=== PATIENT | female | born 1945 | race Caucasian/White ===

== ENCOUNTER → 2019-05-27 16:26 | Outpatient (CLI) | payer MEDICARE, SELFPAY ==
--- NOTE | 2019-05-27 16:29 | MM_ITS ---
PROCEDURE: MM DIG SCREENING MAMM BI W/CAD Patient Age:74Y CLINICAL INDICATION: SCREENING. No hormones but no new complaints. Noncontributory family history COMPARISON: Prior Reports from 07/19/2008 Prior Reports from 09/01/2009 [facility] DIGITAL MAMM-SCREEN BILATERAL from 11/28/2010 [facility] DIGITAL MAMM-SCREEN BILATERAL from 02/05/2012 [facility] DIG MAMM-SCREEN OLIMPIA from 04/10/2013 [facility] DIG MAMM-SCREEN OLIMPIA from 07/07/2014 [facility] DIG MAMM-DX OLIMPIA W ADD VIEWS from 07/27/2014 [facility] DIG MAMM-SCREEN OLIMPIA from 12/08/2015 [facility] DIG MAMM-SCREEN OLIMPIA W/CAD from 04/02/2017 TECHNIQUE: Standard CC and MLO images were obtained. R2 CAD reviewed. Additional MLO nipple profile right and left breast MLO. FINDINGS: Right breast: No new areas of significant concern.. Three dense benign appearing calcifications. Follow up right mammogram 1 year Left breast: Approximate 8 mm focal density medial left breast appears more pronounced today. It has been seen on multiple prior studies but is more denser and slightly more pronounced today and denser than on studies from past 3 years. I favor this is merely reflection of summation shadow/followed by left breast ultrasound overlapping shadows but I would suggest the patient return for spot CC and MLO views along with a full 90 degree view left breast. IMPRESSION: Left breast: Focal density medial breast on CC view, is slightly more pronounced and denser than on recent comparison studies. I favor this most likely summation shadow, but would recommend additional views and ultrasound left breast to further evaluate Right breast but no new areas of concern follow-up right mammogram 1 year BI-RAD Category: 0 Need Additional Imaging Evaluation FOLLOW-UP: IMM Immediate Follow-up Recommended Spot views left breast along with left breast ultrasound (A letter has been sent to the patient regarding results of the study.) Dictated by: Romain Gomez MD 05/28/2019 10:51 Electronically signed by Romain Gomez MD in [place] 05/28/2019 10:51
== END ==
PROVIDERS: PCP Physician Assistant; Visit Provider Physician Assistant
DX: Z12.31 Encounter for screening mammogram for malignant neoplasm of breast (principal)
CPT/HCPCS: 77067

== ENCOUNTER → 2019-07-08 13:42 | Outpatient (CLI) | payer MEDICARE, SELFPAY ==
--- NOTE | 2019-07-08 13:44 | MM_ITS ---
PROCEDURE: MM DIG MAMM DX UNILAT LT CAD CLINICAL INDICATION: ABNORMAL MAMM COMPARISON: [facility] DIG MAMM-SCREEN OLIMPIA from 12/08/2015 [facility] DIG MAMM-SCREEN OLIMPIA W/CAD from 04/02/2017 MM DIG SCREENING MAMM BI W/CAD from 05/27/2019 TECHNIQUE: Standard CC and MLO images were obtained. R2 CAD reviewed. FINDINGS: The questionable asymmetric density described on the previous report appears to partially press out on the spot compression CC view. It is not definitely seen on the 90 degree lateral view. IMPRESSION: Essentially negative problem solving views and recommend the patient continue with yearly screening mammography BI-RAD Category: 1 Negative FOLLOW-UP: 1YR 1 Year Follow-up (A letter has been sent to the patient regarding results of the study.) Dictated by: Dr. Temo Macias MD 07/10/2019 10:[address] Temo Macias MD in [place] 07/10/2019 10:03
--- NOTE | 2019-07-08 13:44 | US_ITS ---
PROCEDURE: US BREAST LT COMPLETE CLINICAL INDICATION: ABNORMAL MAMM COMPARISON: No exams were available for comparison FINDINGS: There is a tiny hypoechoic and likely cystic lesion 1 o'clock position near the nipple measuring 0.3 by 0.5 x 0.2 cm. There is a similar hypoechoic cystic-appearing lesion at the 3 o'clock position mid breast measuring 0.5 by 0.4 x 0.2 cm. Otherwise the adjacent breast parenchyma shows normal appearing echogenicity. There is no suspicious cystic or solid mass and no findings to suggest architectural distortion. There are normal appearing nodes in the axilla. IMPRESSION: Tiny benign-appearing cystic lesions, no suspicious abnormality noted and recommended patient continue with yearly screening mammography Dictated by: Dr. Temo Macias MD 07/10/2019 10:[address] Temo Macias MD in [place] 07/10/2019 10:05
== END ==
PROVIDERS: PCP Physician Assistant; Visit Provider Physician Assistant
DX: R92.8 Other abnormal and inconclusive findings on diagnostic imaging of breast (principal)
CPT/HCPCS: 76641; 77065

== ENCOUNTER → 2020-07-14 12:53 | Outpatient (CLI) | payer MEDICARE, SELFPAY ==
--- NOTE | 2020-07-14 13:20 | MM_ITS ---
PROCEDURE: MM DIG SCREENING MAMM BI W/CAD Referring Doctor: Livier Azevedo Patient Age:75Y CLINICAL INDICATION: SCREENING seventy 75-year-old . No new complaints. Noncontributory family history. COMPARISON: MG [facility] DIGITAL MAMM-SCREEN BILATERAL from 02/05/2012 MG [facility] DIG MAMM-SCREEN OLIMPIA from 04/10/2013 MG [facility] DIG MAMM-SCREEN OLIMPIA from 07/07/2014 MG [facility] DIG MAMM-DX OLIMPIA W ADD VIEWS from 07/27/2014 MG [facility] DIG MAMM-SCREEN LOIMPIA from 12/08/2015 MG [facility] DIG MAMM-SCREEN OLIMPIA W/CAD from 04/02/2017 MG MM DIG SCREENING MAMM BI W/CAD from 05/27/2019 MG MM DIG MAMM DX UNILAT LT CAD from 07/08/2019 TECHNIQUE: Standard CC and MLO images were obtained. R2 CAD reviewed. Bilateral digital breast tomosynthesis included. FINDINGS: Mild/moderate residual fibroglandular elements. Stable mild areas of asymmetric fibroglandular tissue but no new dominant nor new suspicious mass but no suspicious calcifications but. Benign vascular calcifications bilateral. Right breast no new areas concern The dense tissue retroareolar region right is stable Left breast: No new areas of concern Stable areas of asymmetry of the lateral left breast IMPRESSION: Stable bilateral mammogram with no new areas of significant concern Bilateral follow-up 1 year BI-RAD Category: 2 Benign Finding(s) FOLLOW-UP: 1YR 1 Year Follow-up the (A letter has been sent to the patient regarding results of the study.) Dictated by: Romain Gomez MD 07/14/2020 18:15 Romain Gomez MD in [place] 07/14/2020 18:15
== END ==
PROVIDERS: PCP Physician Assistant; Visit Provider Physician Assistant
DX: Z12.31 Encounter for screening mammogram for malignant neoplasm of breast (principal)
CPT/HCPCS: 77063; 77067

== ENCOUNTER → 2021-07-18 15:44 | Outpatient (CLI) | payer MEDICARE, SELFPAY ==
--- NOTE | 2021-07-18 15:47 | MM_ITS ---
PROCEDURE INFORMATION: Exam: MG Bilateral Screening 3D Mammography Exam date and time: 07/18/2021 3:47 PM Age: 76 years old Clinical indication: Encounter for screening mammogram for malignant neoplasm of breast TECHNIQUE: Imaging protocol: Bilateral screening tomosynthesis and 2D mammography including computer-aided detection (CAD) when performed. COMPARISON: 1. MG MM DIG SCREENING MAMM BI W/CAD 07/14/2020 1:19 PM 2. MG MM DIG MAMM DX UNILAT LT CAD 07/08/2019 2:25 PM 3. MG MM DIG SCREENING MAMM BI W/CAD 05/27/2019 4:38 PM FINDINGS: MAMMOGRAPHY: Breast composition: There are scattered areas of fibroglandular density. Mass: No suspicious masses. Architectural distortion: No suspicious distortion. Calcifications: No suspicious calcifications. Asymmetric density: None. Skin thickening: None. Axillary adenopathy: None. IMPRESSION: No mammographic evidence of malignancy. Annual screening is recommended unless otherwise clinically indicated. ASSESSMENT: BI-RADS Category 1: Negative
== END ==
PROVIDERS: PCP Physician Assistant; Visit Provider Emergency Medicine
DX: Z12.31 Encounter for screening mammogram for malignant neoplasm of breast (principal)
CPT/HCPCS: 77063; 77067

== ENCOUNTER → 2022-08-21 15:25 | Outpatient (CLI) | payer MEDICARE, SELFPAY ==
--- NOTE | 2022-08-21 15:56 | MM_ITS ---
PROCEDURE INFORMATION: Exam: MG Bilateral Screening 3D Mammography Exam date and time: 08/21/2022 3:52 PM Age: 77 years old Clinical indication: Screening examination TECHNIQUE: Imaging protocol: Bilateral Screening tomosynthesis and 2D mammography including computer-aided detection (CAD) when performed. COMPARISON: 1. MG MM DIG SCREENING MAMM BI W/CAD 07/18/2021 3:50 PM 2. MG MM DIG SCREENING MAMM BI W/CAD 07/14/2020 1:19 PM FINDINGS: MAMMOGRAPHY: Breast composition: There are scattered areas of fibroglandular density. Mass: Questionable 1.0 cm mass in the anterior third of the left medial breast only well seen in the craniocaudal projection Architectural distortion: None. Calcifications: No suspicious calcifications. Asymmetric density: None. Skin thickening: None. Axillary adenopathy: None. IMPRESSION: Patient to be recalled for a spot compression view of the left breast in the craniocaudal projection, a full 90 degree lateral view of the left breast, and left breast ultrasound for further evaluation of a questionable left breast mass. ASSESSMENT: BI-RADS Category 0: Incomplete- Need Additional Imaging Evaluation and/or Prior Mammograms for Comparison
== END ==
PROVIDERS: PCP Physician Assistant; Visit Provider Emergency Medicine
DX: Z12.31 Encounter for screening mammogram for malignant neoplasm of breast (principal)
CPT/HCPCS: 77063; 77067

== ENCOUNTER → 2022-09-10 13:30 | Outpatient (CLI) | payer MEDICARE, SELFPAY ==
--- NOTE | 2022-09-10 13:33 | MM_ITS ---
PROCEDURE INFORMATION: Exam: US Left Breast, Complete MG Left Diagnostic Breast Tomosynthesis Exam date and time: 09/10/2022 1:32 PM Age: 77 years old Clinical indication: Patient recalled on the basis of a screening mammogram for further evaluation; Left breast; mass TECHNIQUE: Imaging protocol: Complete ultrasound of all four quadrants of the Left breast and the retroareolar regions, including ultrasound of the axilla when performed. Left Diagnostic tomosynthesis and 2D mammography including computer-aided detection (CAD) when performed. Unilateral or bilateral exam. COMPARISON: 1. MG MM DIG SCREENING MAMM BI W/CAD 08/21/2022 3:52 PM 2. MG MM DIG SCREENING MAMM BI W/CAD 07/18/2021 3:50 PM FINDINGS: MAMMOGRAPHY: Digital diagnostic spot compression views of the left breast and 90 degree lateral view of the left breast demonstrate normal overlapping fibroglandular structures without persistent mass or asymmetry identified. ULTRASOUND: Sonographic images of the left breast including the retroareolar region, all 4 quadrants and the axilla do not demonstrate any solid masses. Few subcentimeter cysts are scattered in the left breast. No architectural distortion or acoustical shadowing. No skin thickening or axillary adenopathy. IMPRESSION: No mammographic or sonographic evidence of malignancy. Annual bilateral mammographic screening is recommended unless otherwise clinically indicated. ASSESSMENT: BI-RADS Category 2: Benign
== END ==
PROVIDERS: PCP Emergency Medicine; Visit Provider Emergency Medicine
DX: R92.8 Other abnormal and inconclusive findings on diagnostic imaging of breast (principal)
CPT/HCPCS: 76641; 77061; 77065; G0279

== ENCOUNTER 2023-10-30 14:02 | Outpatient (CLI) | payer MEDICARE, SELFPAY ==
--- NOTE | 2023-10-30 14:09 | MM_ITS ---
PROCEDURE INFORMATION: Exam: MG Bilateral Screening 3D Mammography Exam date and time: 10/30/2023 2:10 PM Age: 78 years old Clinical indication: Screening mammogram TECHNIQUE: Imaging protocol: Bilateral Screening tomosynthesis and 2D mammography including computer-aided detection (CAD) when performed. COMPARISON: 1. MG MM DIG MAMM DX UNILAT LT CAD 09/10/2022 1:32 PM 2. MG MM DIG SCREENING MAMM BI W/CAD 08/21/2022 3:52 PM 3. MG MM DIG SCREENING MAMM BI W/CAD 07/18/2021 3:50 PM FINDINGS: MAMMOGRAPHY: Breast composition: There are scattered areas of fibroglandular density. Mass: None. Architectural distortion: No new or suspicious architectural distortion. Calcifications: No new or suspicious calcifications are present Asymmetric density: No new or suspicious asymmetric density is present Skin thickening: None. Axillary adenopathy: None. IMPRESSION: No mammographic evidence of malignancy. Recommend annual screening mammography unless otherwise clinically indicated. ASSESSMENT: BI-RADS category 1: Negative.
== END 2023-10-30 23:59 ==
LOC: RAD 14:04
PROVIDERS: PCP Emergency Medicine; Visit Provider Emergency Medicine
DX: Z12.31 Encounter for screening mammogram for malignant neoplasm of breast (principal)
CPT/HCPCS: 77063; 77067

== ENCOUNTER 2024-09-11 17:03 | Observation (INO) | payer MEDICARE, SELFPAY ==
[2024-09-11] VITALS (15 sets, daily range): BP systolic 133–181; BP diastolic 62–116; PULSE 79–89; RESP 14–21; TEMP 36.6–36.8; O2SAT 93–100; BMI 42.9; BMI 30.9
--- NOTE | 2024-09-11 17:11 | ECG_ITS ---
APPROVED REPORT Exam: Resting ECG HR:83 bpm ECG Measurements Heart Rate 83 AXES MI 193 P 85 QRSd 148 QRS -50 QT 380 T 5 QTc 420 Conclusion SINUS RHYTHM RIGHT BUNDLE BRANCH BLOCK [120+ ms QRS DURATION, UPRIGHT V1, 40+ ms S IN I/aVL/V4/V5/V6] LEFT ANTERIOR FASCICULAR BLOCK [QRS AXIS <= -45, QR IN I, RS IN II] Electronically signed by : ROSITA SHEA, 09/12/2024 00:17:27
--- NOTE | 2024-09-11 17:24 | CT_ITS ---
No free air PROCEDURE INFORMATION: Exam: CT Abdomen And Pelvis With Contrast Exam date and time: 09/11/2024 7:05 PM Age: 79 years old Clinical indication: Abdominal pain; Generalized; Additional info: Abd pain, recent uroscopy with instrumentation. TECHNIQUE: Imaging protocol: Computed tomography of the abdomen and pelvis with contrast. Radiation optimization: All CT scans at this facility use at least one of these dose optimization techniques: automated exposure control; mA and/or kV adjustment per patient size (includes targeted exams where dose is matched to clinical indication); or iterative reconstruction. Contrast material: ISOVUE; Contrast volume: 75 ml; Contrast route: IV; COMPARISON: CR XR CHEST PORTABLE 09/11/2024 5:34 PM FINDINGS: Lungs: There is minor subpleural atelectasis of the dependent portions of the lungs. Pleural spaces: Minor bilateral pleural effusions are present. Heart: There is no evidence of pericardial fluid collections. Diaphragm: A small hiatal hernia is present. There is mild elevation of the right hemidiaphragm. There is mild elevation of the right hemidiaphragm. Liver: There is minor intrahepatic central biliary ductal dilatation, likely on a post cholecystectomy basis. The liver is otherwise within range of normal. Gallbladder and biliary ducts: There has been a cholecystectomy. There is a mild, expected degree of common bile duct dilation. Pancreas: There is diffuse atrophy of the pancreatic parenchyma. Spleen: The spleen is normal. Adrenal glands: The adrenal glands are normal. Kidneys and ureters: There is a right ureterostomy stent in appropriate position. There is mild right hydronephrosis with abrupt transition from renal pelvis to proximal right ureter raising the question of UPJ obstruction. Similar but less prominent findings seen on the left. There are 2 right renal cysts. There are few additional small renal hypodensities which are too small to adequately characterize. Statistically, these are likely cysts. There are a few small nonobstructing right renal collecting system calcifications. There are few areas of renal cortical scarring bilaterally. Stomach and bowel: Aside from the hiatal hernia, the stomach is within range of normal. Lack of gastrointestinal contrast limits evaluation of bowel. Unopacified loops of small bowel within range of normal. There is mildly excessive fecal material within the colon. The colon is otherwise within range of normal. The duodenum appears normal. There are few colonic diverticula. No evidence of diverticulitis. Appendix: No evidence of appendicitis. Intraperitoneal space: There is no evidence of free intraperitoneal or pelvic fluid. No free air. Vasculature: The aorta and iliac arteries demonstrate mild atherosclerotic calcification. Lymph nodes: There are few small shotty periportal and peripancreatic lymph nodes. One of the periportal lymph node measures 10 mm in short axis. No enlarged lymph nodes. Urinary bladder: There is a small linear focus of increased density measuring 8.7 mm within the left inferior urinary bladder which may reflect small stone but cannot exclude small catheter remnant in the appropriate clinical setting. Correlate clinically. Reproductive: The uterus is either atrophic or absent. No adnexal masses. Bones/joints: There are mild degenerative changes of the symphyseal pubic joint. There are mild degenerative changes of the sacroiliac joints. The thoracolumbar spine demonstrates mild degenerative changes at multiple levels. Soft tissues: There is a small fat containing left inguinal hernia. Injection granulomas are present in the right gluteal soft tissues. IMPRESSION: 1. Right ureterostomy stent in appropriate positioning. 2. Right nephrolithiasis. 3. Bilateral [id number] proximal hydronephrosis/pelviectasis with abrupt transition at the UPJ raising the question of UPJ obstruction. 4. Small linear focus of increased density measuring 8.7 mm within the left inferior urinary bladder May reflect small stone but can not exclude small catheter remnant in the appropriate clinical setting. 5. Small hiatal hernia. 6. Mild constipation. COMMENTS: Consistent with the [employer]'s Incidental Findings Committee white paper (J Am Kristy Radiol 2018): Any incidental renal lesion less than 1 cm or classified as too small to characterize, or any incidental cystic renal lesion characterized as simple-appearing, is likely benign. No follow-up imaging is recommended for these lesions per consensus recommendations based on imaging criteria.
--- NOTE | 2024-09-11 17:25 | XR_ITS ---
PROCEDURE INFORMATION: Exam: XR Chest Exam date and time: 09/11/2024 5:34 PM Age: 79 years old Clinical indication: Shortness of breath; Additional info: Shortness of air TECHNIQUE: Imaging protocol: Radiologic exam of the chest. Views: 1 view. COMPARISON: No relevant prior studies available. FINDINGS: Lungs: There is mild elevation of the right hemidiaphragm.Lung volumes are mildly diminished. The lungs appear clear. No focal areas of consolidation. Pleural spaces: No pleural effusions. Negative for pneumothorax. Heart/Mediastinum: Cardiac silhouette and pulmonary vasculature are within range of normal. The descending thoracic aorta is mildly unfolded. Bones/joints: There is no evidence of acute fracture. IMPRESSION: Negative for an acute cardiopulmonary abnormality.
--- NOTE | 2024-09-11 17:28 | ED_ITS ---
<Statement entered by Johana Melgar DO - 09/11/24 23:27> I was consulted by the ANGELLA, and we discussed the complexity of the problems being addressed. I approved the treatment and management plan for this patient's care in the emergency department, thus performing a substantive portion of the medical decision making. I also assumed total care of the patient at 2100 at time of departure of previous physician. She has left leg pain and altered mental status, unclear why exactly she is altered at this time given that lab evaluation is not significantly remarkable. I performed bedside ultrasound of the left lower extremity and noted minor cobblestoning in the left lower extremity consistent with edema, but I do not note any blood clot. I also do not note any abscess or gas. X-rays of the left lower extremity do not demonstrate any acute bony abnormality. Records reviewed from recent admission and [facility], and I also called and had an indirect discussion with Dr. Chapman with urology at [facility] who reviewed the patient's records. 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 Given no significant EDDIE and urine that is clean, he does not feel this requires urgent urologic evaluation as her urologic condition is likely stable. CT head of course was obscured by the fact that she had had a CT of her belly with contrast prior to obtaining this, but no obvious large space-occupying lesion or large hemorrhage. On multiple subsequent reassessments, the patient continues to complain of leg pain and continues to have altered mental status. Her extremity is warm and well-perfused, does not have any redness, warmth, skin changes or other concerns that would preclude me to believe that she has an infection, and overall workup is very reassuring. It is unclear what is causing her pain or altered mental status at this time, so I feel she would benefit from admission for continued evaluation and management. I had an indirect discussion with the hospitalist who admitted the patient in stable condition. Johana Melgar DO Discharge Plan Disposition Chief Complaint: PAIN Prescriptions Prescriptions: No Action tizanidine 4 mg Tablet 4 mg PO HS methenamine hippurate 1 gram Tablet 1 g PO BID magnesium oxide 400 mg (241.3 mg magnesium) tablet 400 mg PO DAILY Patient Comments: TAKE 1 TABLET BY MOUTH DAILY amoxicillin-pot clavulanate 500-125 mg tablet 1 tab PO DAILY levocetirizine 5 mg Tablet 5 mg PO HS fesoterodine 8 mg tablet extended release 24 hr 8 mg PO DAILY Linzess 145 mcg Capsule 145 mcg PO DAILY Referrals Follow up/Referrals: George Garcia MD [Primary Care Provider] - See instructions Print Language Print Language: Romanian Discharge ED Provider: Johana Melgar General Adult HPI <INOCENCIO Damon - Last Filed: 09/11/24 21:03> General Chief complaint: PAIN Stated complaint: post sepsis Time Seen by Provider: 09/11/24 17:11 Mode of Arrival: EMS Limitations: No Limitations Description of Symptoms (Recalled from ER Triage Doc. by RN): Patient reports left leg pain. Rates it at a ten and was recently discharged from [place] related to sepsis. History of Present Illness HPI narrative: This is a 79-year-old female who presents to the emergency department via EMS for some left leg pain that started yesterday worse with ambulation no trauma per history, history is obtained from and son at the bedside, patient has data deficient history of what sounds like cystoscopic with ureteral stent and placed on the right however this is data deficient on 09/01/2024 by urology. Patient did well with the procedure, however on 09/03/2024 she was admitted to outside facility for sepsis , discharged home on 09/07/2024, did well and was seen by home health today worried about blood clot in the left leg . Thus presented to the emerged part for further evaluation. Patient denies any fever chills chest pain shortness of breath, GCS of 14 some confusion about date and time however this is somewhat normal for the patient according to patient's family at the bedside. However, her confusion/fatigue has somewhat increased throughout the day which is concerning for her. She denies abdominal pain nausea vomiting constipation diarrhea no hematuria melena hematochezia or hematemesis, denies urinary type symptomatology, patient is on Augmentin p.o. antibiotic for what sounds like UTI from outside facility, other past medical history consistent with/depression, OAB, hypertension, GERD, IBS, history of vitals grossly unremarkable, unknown history of substance use. Onset (ago): day(s) Related Data Home Medications ?Medication ?Instructions ?Recorded ?Confirmed amoxicillin 500 mg-potassium 1 tab PO DAILY 09/11/24 09/11/24 clavulanate 125 mg tablet fesoterodine 8 mg tablet,extended 8 mg PO DAILY 09/11/24 09/11/24 release 24 hr levocetirizine 5 mg tablet 5 mg PO HS 09/11/24 09/11/24 linaclotide 145 mcg capsule 145 mcg PO DAILY 09/11/24 09/11/24 (Linzess) magnesium oxide 400 mg (241.3 mg 400 mg PO DAILY 09/11/24 09/11/24 magnesium) tablet methenamine hippurate 1 gram tablet 1 g PO BID 09/11/24 09/11/24 tizanidine 4 mg tablet 4 mg PO HS 09/11/24 09/11/24 Allergies Allergy/AdvReac Type Severity Reaction Status Date / Time From FLOXIN Allergy Unknown I-HIVES Uncoded 07/30/17 14:40 From STADOL Allergy Unknown ITCHING Uncoded 07/30/17 14:40 PREDNISONE Allergy Unknown NA-NAUSEA Uncoded 07/30/17 14:40 SULFA (SULFONAMIDE) Allergy Unknown I-ITCHING Uncoded 07/30/17 14:40 PFSH <INOCENCIO Damon - Last Filed: 09/11/24 21:03> [facility] Disclaimer: The information contained in this section may have been updated after the patient was seen, as this information can be updated by other users. Social History Smoking Status: Never smoker alcohol intake: never current occupational status: other Travel in the last 8 weeks: None <INOCENCIO Damon - Last Filed: 09/11/24 21:03> ROS Obtained: Yes All systems reviewed & no additional complaints except as documented Physical Exam <INOCENCIO Damon - Last Filed: 09/11/24 21:03> General General appearance: alert and in no apparent distress Head Head exam: atraumatic and normocephalic Eye Eye exam: Present PERRL and EOMI ENT ENT exam: Present mucous membranes moist Neck Neck exam: Present normal inspection Chest Chest inspection: Present normal inspection and symmetric chest wall rise Respiratory Respiratory exam: Present normal lung sounds bilaterally; Absent respiratory distress Cardiovascular Cardiovascular exam: Present regular rate and normal rhythm Abdominal Exam Abdominal exam: Present soft; Absent tenderness, guarding, rebound or rigidity Extremities Exam Extremities exam: Present normal inspection, tenderness, calf tenderness and other (Positive Homans' sign on the left, no obvious erythema, no real hot to touch sensation, some minimal lower extremity swelling nonpitting) Neurological Exam Neurological exam: Present alert and other (GCS of 14 some confusion about date and time unsure of chronicity, moves extremities to command) Psychiatric Psychiatric exam: Present normal affect Skin Skin exam: Present warm and dry Medical Decision Making <INOCENCIO Damon - Last Filed: 09/11/24 21:03> Medical Records Medical records reviewed: Yes I reviewed the patient's medical records. Screening: Per USPSTF and CDC recommendations, given the prevalence of disease in our region, it is our hospital?s policy to screen for HIV and viral Hepatitis for all patients aged 18 and over and those with ongoing risk factors. Isaiah Inquiry Pt receiving controlled substance: No Isaiah was queried for this patient: No Vital Signs: 09/11/24 17:04 09/11/24 17:06 09/11/24 18:01 Temperature 97.9 F Temperature Source Oral Pulse Rate 86 83 Pulse Rate [Radial] 83 Respiratory Rate 16 19 Blood Pressure 133/64 149/89 H Blood Pressure [Right Arm] 133/64 Blood Pressure Mean Blood Pressure Mean [Right Arm] 87 Blood Pressure Source [Right Arm] Automatic Cuff Blood Pressure Position [Right Arm] Sitting 02 Sat by Pulse Oximetry 96 93 L 96 Oxygen Delivery Method Room Air Room Air Room Air 09/11/24 19:10 09/11/24 19:15 09/11/24 19:24 Temperature Temperature Source Pulse Rate 89 86 Pulse Rate [Radial] Respiratory Rate 17 21 17 Blood Pressure 167/73 H Blood Pressure [Right Arm] Blood Pressure Mean Blood Pressure Mean [Right Arm] Blood Pressure Source [Right Arm] Blood Pressure Position [Right Arm] 02 Sat by Pulse Oximetry 95 99 Oxygen Delivery Method 09/11/24 19:30 09/11/24 20:00 Temperature Temperature Source Pulse Rate 86 82 Pulse Rate [Radial] Respiratory Rate 14 20 Blood Pressure 175/90 H 176/116 H Blood Pressure [Right Arm] Blood Pressure Mean 118 126 Blood Pressure Mean [Right Arm] Blood Pressure Source [Right Arm] Blood Pressure Position [Right Arm] 02 Sat by Pulse Oximetry 99 99 Oxygen Delivery Method Lab Data Lab Results 09/11/24 17:22: WBC 10.3, RBC 4.30, Hgb 11.9 L, Hct 36.3 L, MCV 84.4, MCH 27.7, MCHC 32.8, RDW 15.0, Plt Count 213, MPV 10.1, Neut % (Auto) 73.6, Lymph % (Auto) 10.9, [place] % (Auto) 11.0 H, Eos % (Auto) 3.3, Baso % (Auto) 0.4, Neut # (Auto) 7.6, Lymph # (Auto) 1.1, [place] # (Auto) 1.1 H, Eos # (Auto) 0.3, Baso # (Auto) 0.0, Sodium 137, Potassium 4.0, Chloride 107, Carbon Dioxide 23, Anion Gap 11.0, BUN 19 H, Creatinine 1.00, Estimated Creat Clear 39, Estimated GFR 53 L, Est GFR ( Amer) 65, Glucose 184 H, Calcium 10.5 H, Magnesium 2.0, Total Bilirubin 0.4, AST 44 H, ALT 28, Alkaline Phosphatase 246 H, Troponin I < 0.01, NT-Pro-B Natriuret Pep 1760 H, Total Protein 6.6, Albumin 3.6, Globulin 3.0, Albumin/Globulin Ratio 1.2, Lipase 90, Procalcitonin 0.084, TSH 1.06, HCV Ab SABINO w/Rflx PCR Qn Negative, HIV Ag/Ab Combo Qual Negative 09/11/24 19:23: Lactate 1.5 09/11/24 20:28: Urine Color Yellow, Urine Appearance Clear, Urine pH 6.0, Ur Specific [place] 1.015, Urine Protein Negative, Urine Glucose (UA) Negative, Urine Ketones Negative, Urine Blood 1+ A, Urine Nitrate Negative, Urine Bilirubin Negative, Urine Urobilinogen 0.2, Ur Leukocyte Esterase 1+ A, Urine RBC 3-5, Urine WBC Occasional, Ur Squamous Epith Cells None, Urine Bacteria Trace 09/11/24 17:22 09/11/24 17:22 Orders (Tests/Meds): ED MEDICATIONS Discontinued Medications Generic Name Dose Route Start Last Admin Trade Name Freq PRN Reason Stop Dose Admin Iopamidol 75 ml 09/11/24 19:17 09/11/24 19:18 Iopamidol-370 (76%);100ml Bottle IV 09/11/24 19:18 75 ml ONCE ONE Administration Sodium Chloride 10 ml 09/11/24 19:17 09/11/24 19:18 Sodium Chloride 0.9% 10ml Syr (Rad Only) IV 09/11/24 19:18 10 ml ONCE ONE Administration ORDERS Category Date Time Status CT abdomen pelvis w con Stat Cat Scan 09/11/24 17:[address] head/brain wo con Stat Cat Scan 09/11/24 20:28 Taken Femur XR left 2 views [XR femur LT 2V] Stat Exams 09/11/24 20:52 Ordered Hip XR left minimum 2 views [XR hip LT 2-3V w/pelvis] Exams 09/11/24 20:52 Ordered Stat Knee XR left 3 views [XR knee LT 3V] Stat Exams 09/11/24 20:52 Ordered POCUS Point of Care (ER Only) Stat Exams 09/11/24 17:26 Completed Tibia/fibula XR left 2 views [XR tibia fibula LT 2V] Exams 09/11/24 20:52 Ordered Stat XR chest portable Stat Exams 09/11/24 17:25 Completed Complete Blood Count Auto Diff Stat Lab 09/11/24 17:22 Completed Comprehensive Metabolic Panel Stat Lab 09/11/24 17:22 Completed HIV Combo Stat Lab 09/11/24 17:22 Completed Hepatitis C Ab Qual. W/ RFX Stat Lab 09/11/24 17:22 Completed Lactic Acid Stat Lab 09/11/24 19:23 Completed Lipase Stat Lab 09/11/24 17:22 Completed MAG [Magnesium] Stat Lab 09/11/24 17:22 Completed NT Pro Brain Natriuretic Pep. Stat Lab 09/11/24 17:22 Completed Procalcitonin Stat Lab 09/11/24 17:22 Completed TSH [Thyroid Stimulating Hormone] Stat Lab 09/11/24 17:22 Completed Troponin I Q3H Lab 09/11/24 20:28 Received Troponin I Q3H Lab 09/11/24 23:30 Ordered Troponin I Stat Lab 09/11/24 17:22 Completed Urinalysis and Microscopic Stat Lab 09/11/24 20:28 Completed Urine Culture Stat Micro 09/11/24 20:28 Received Medical Decision Narrative: 79-year-old female presents to the emergency department via EMS for left leg pain, see HPI for other detail past medical history, differential diagnosis to include but not limited to DVT, cardiac arrhythmia, electrolyte disturbance, acute UTI, acute pyelonephritis, nephrolithiasis, ureterolithiasis, pneumonia. Will obtain basic laboratory studies lactate lipase, troponin, proBNP, Pro-Jhony, urinalysis, will obtain chest x-ray, [id number] ultrasound of the left lower extremity, CT abdomen pelvis with contrast, magnesium level, EKG. CBC unremarkable CMP is notable for BUN elevation at 19, hypercalcemia 10.5, AST has been low at 44, lipase within normal limits. proBNP is minimally elevated at 1760, troponin within normal limits procalcitonin within normal limits, lipase normalized. I reviewed the patient's chest x-ray along the corresponding radiologic report negative for any acute cardiopulmonary abnormality. Pro-Jhony is negative. I reviewed the patient's CT abdomen pelvis with contrast along the corresponding radiologic report right urostomy stent in appropriate positioning, right nephrolithiasis, bilateral mild to moderate proximal hydronephrosis/pelvic ectasia with abrupt transition at the UPJ raising the question of UPJ obstruction, small linear focus of increased density measuring 8.7 mm within the left, inferior urinary bladder, may reflect small stone but cannot exclude small catheter remnant in the appropriate clinical setting small hiatal hernia mild constipation. Will add on TSH, and CT head without contrast for further evaluation as characterization of the patient's waxing waning altered mental status. Bedside POCUS ultrasound performed by myself and the attending physician, shows technically negative for DVT in the left lower extremity. See ultrasound report/interpretation for full details. Will also reach out to [facility] due to findings on patient's CT abdomen pelvis with contrast, with recent instrumentation/procedure. I reviewed the patient's urinalysis, 1+ hematuria, negative nitrites, 1+ leukocyte esterase. TSH within normal limits. I discussed patient case with the impression she saw examined the patient as well, she will be assuming admitted to the patient's care/workup, disposition is pending consultation with urology head CT. <Johana Melgar, DO - Last Filed: 09/11/24 17:41> Vital Signs: 09/11/24 17:04 09/11/24 17:06 09/11/24 18:01 Temperature 97.9 F Temperature Source Oral Pulse Rate 86 83 Pulse Rate [Radial] 83 Respiratory Rate 16 19 Blood Pressure 133/64 149/89 H Blood Pressure [Right Arm] 133/64 Blood Pressure Mean Blood Pressure Mean [Right Arm] 87 Blood Pressure Source [Right Arm] Automatic Cuff Blood Pressure Position [Right Arm] Sitting 02 Sat by Pulse Oximetry 96 93 L 96 Oxygen Delivery Method Room Air Room Air Room Air 09/11/24 19:10 09/11/24 19:15 09/11/24 19:24 Temperature Temperature Source Pulse Rate 89 86 Pulse Rate [Radial] Respiratory Rate 17 21 17 Blood Pressure 167/73 H Blood Pressure [Right Arm] Blood Pressure Mean Blood Pressure Mean [Right Arm] Blood Pressure Source [Right Arm] Blood Pressure Position [Right Arm] 02 Sat by Pulse Oximetry 95 99 Oxygen Delivery Method 09/11/24 19:30 09/11/24 20:00 Temperature Temperature Source Pulse Rate 86 82 Pulse Rate [Radial] Respiratory Rate 14 20 Blood Pressure 175/90 H 176/116 H Blood Pressure [Right Arm] Blood Pressure Mean 118 126 Blood Pressure Mean [Right Arm] Blood Pressure Source [Right Arm] Blood Pressure Position [Right Arm] 02 Sat by Pulse Oximetry 99 99 Oxygen Delivery Method Lab Data Lab Results 09/11/24 17:22: WBC 10.3, RBC 4.30, Hgb 11.9 L, Hct 36.3 L, MCV 84.4, MCH 27.7, MCHC 32.8, RDW 15.0, Plt Count 213, MPV 10.1, Neut % (Auto) 73.6, Lymph % (Auto) 10.9, [place] % (Auto) 11.0 H, Eos % (Auto) 3.3, Baso % (Auto) 0.4, Neut # (Auto) 7.6, Lymph # (Auto) 1.1, [place] # (Auto) 1.1 H, Eos # (Auto) 0.3, Baso # (Auto) 0.0, Sodium 137, Potassium 4.0, Chloride 107, Carbon Dioxide 23, Anion Gap 11.0, BUN 19 H, Creatinine 1.00, Estimated Creat Clear 39, Estimated GFR 53 L, Est GFR ( Amer) 65, Glucose 184 H, Calcium 10.5 H, Magnesium 2.0, Total Bilirubin 0.4, AST 44 H, ALT 28, Alkaline Phosphatase 246 H, Troponin I < 0.01, NT-Pro-B Natriuret Pep 1760 H, Total Protein 6.6, Albumin 3.6, Globulin 3.0, Albumin/Globulin Ratio 1.2, Lipase 90, Procalcitonin 0.084, TSH 1.06, HCV Ab SABINO w/Rflx PCR Qn Negative, HIV Ag/Ab Combo Qual Negative 09/11/24 19:23: Lactate 1.5 09/11/24 20:28: Urine Color Yellow, Urine Appearance Clear, Urine pH 6.0, Ur Specific [place] 1.015, Urine Protein Negative, Urine Glucose (UA) Negative, Urine Ketones Negative, Urine Blood 1+ A, Urine Nitrate Negative, Urine Bilirubin Negative, Urine Urobilinogen 0.2, Ur Leukocyte Esterase 1+ A, Urine RBC 3-5, Urine WBC Occasional, Ur Squamous Epith Cells None, Urine Bacteria Trace Orders (Tests/Meds): ED MEDICATIONS Discontinued Medications Generic Name Dose Route Start Last Admin Trade Name Freq PRN Reason Stop Dose Admin Iopamidol 75 ml 09/11/24 19:17 09/11/24 19:18 Iopamidol-370 (76%);100ml Bottle IV 09/11/24 19:18 75 ml ONCE ONE Administration Sodium Chloride 10 ml 09/11/24 19:17 09/11/24 19:18 Sodium Chloride 0.9% 10ml Syr (Rad Only) IV 09/11/24 19:18 10 ml ONCE ONE Administration ORDERS Category Date Time Status CT abdomen pelvis w con Stat Cat Scan 09/11/24 17:[address] head/brain wo con Stat Cat Scan 09/11/24 20:28 Taken Femur XR left 2 views [XR femur LT 2V] Stat Exams 09/11/24 20:52 Ordered Hip XR left minimum 2 views [XR hip LT 2-3V w/pelvis] Exams 09/11/24 20:52 Ordered Stat Knee XR left 3 views [XR knee LT 3V] Stat Exams 09/11/24 20:52 Ordered POCUS Point of Care (ER Only) Stat Exams 09/11/24 17:26 Completed Tibia/fibula XR left 2 views [XR tibia fibula LT 2V] Exams 09/11/24 20:52 Ordered Stat XR chest portable Stat Exams 09/11/24 17:25 Completed Complete Blood Count Auto Diff Stat Lab 09/11/24 17:22 Completed Comprehensive Metabolic Panel Stat Lab 09/11/24 17:22 Completed HIV Combo Stat Lab 09/11/24 17:22 Completed Hepatitis C Ab Qual. W/ RFX Stat Lab 09/11/24 17:22 Completed Lactic Acid Stat Lab 09/11/24 19:23 Completed Lipase Stat Lab 09/11/24 17:22 Completed MAG [Magnesium] Stat Lab 09/11/24 17:22 Completed NT Pro Brain Natriuretic Pep. Stat Lab 09/11/24 17:22 Completed Procalcitonin Stat Lab 09/11/24 17:22 Completed TSH [Thyroid Stimulating Hormone] Stat Lab 09/11/24 17:22 Completed Troponin I Q3H Lab 09/11/24 20:28 Received Troponin I Q3H Lab 09/11/24 23:30 Ordered Troponin I Stat Lab 09/11/24 17:22 Completed Urinalysis and Microscopic Stat Lab 09/11/24 20:28 Completed Urine Culture Stat Micro 09/11/24 20:28 Received ECG Data Tracing #1: I reviewed this ECG and interpreted as documented below: Normal sinus rhythm. Right bundle branch block. Left anterior fascicular block. No acute STEMI. QTc 420 ms. ECG initial impression date: 09/11/24 ECG initial impression time: 17:26 Critical Care <INOCENCIO Damon - Last Filed: 09/11/24 21:03> Critical Care Time Critical Care Time: No
[2024-09-11 17:30] LABS: Basophils % 0.4 % (0.1-2.0); Eosinophils # 0.3 K/mm3 (0.0-0.4); Eosinophils % 3.3 % (0.1-12.0); Hematocrit 36.3 % (37.0-47.0); Hemoglobin 11.9 g/dL (12.2-16.2); Lymphocytes # 1.1 K/mm3 (0.7-4.5); Lymphocytes % 10.9 % (10-50); Mean Corpuscular HGB Conc 32.8 g/dL (31.8-35.4); Mean Corpuscular Hemoglobin 27.7 pg (27.0-31.2); Mean Corpuscular Volume 84.4 fl (81-99); Mean Platelet Volume 10.1 fl (7.4-10.4); Monocytes # 1.1 K/mm3 (0.1-1.0); Neutrophils # 7.6 K/mm3 (1.8-7.8); Neutrophils % 73.6 % (37.0-80.0); Platelet Count 213 K/mm3 (142-424); White Blood Count 10.3 K/mm3 (4.8-10.8)
--- NOTE | 2024-09-11 17:31 | PC.NURSE ---
CALLED [facility] SPOKE TO CYLINDER DYER ELICEO AND SHE STATES SHE WILL FAX ANY RECENT RECORDS THEY HAVE TO [phone]
--- NOTE | 2024-09-11 17:35 | PC.NURSE ---
XR AT BEDSIDE
[2024-09-11 17:52] LABS: Alanine Aminotransferase 28 U/L (12-78); Albumin Level 3.6 g/dl (3.5-5.0); Albumin/Globulin Ratio 1.2 (1.1-1.8); Alkaline Phosphatase 246 U/L (38-126); Aspartate Amino Transferase 44 U/L (14-36); Bilirubin,Total 0.4 mg/dl (0.2-1.3); Blood Urea Nitrogen 19 mg/dl (7-17); Calcium 10.5 mg/dl (8.4-10.2); Carbon Dioxide 23 mmol/L (22.0-30.0); Chloride 107 mmol/L (98-107); Creatinine Clearance Estimated 39 mL/min (50-200); Estimated Glomerular Filt Rate 53 ml/min (>60); GFR (African American) 65 ML/MIN (>60); Glucose 184 mg/dl (74-100); Lipase 90 U/L (23-300); Sodium 137 mmol/L (136-145); Total Protein,Serum 6.6 g/dl (6.3-8.2)
[2024-09-11 18:04] LABS: NT Pro Brain Natriuretic Pep. 1760 pg/mL (0-450)
[2024-09-11 18:09] LABS: Procalcitonin 0.084 ng/mL (0.0-2.0)
[2024-09-11 18:13] LABS: Troponin I < 0.01 ng/ml (0.00-0.034)
--- NOTE | 2024-09-11 18:16 | PC.NURSE ---
PT IS AT SCANS
[2024-09-11 18:33] LABS: HIV Combo NEGATIVE (Negative)
[2024-09-11 18:42] LABS: Hepatitis C Ab Qual. W/ RFX NEGATIVE (Negative)
[2024-09-11] MEDS: IOPAMIDOL-370 (76%);100ML BOTTLE 75 ML IV (19:18)
[2024-09-11] MEDS: SODIUM CHLORIDE 0.9% 10ML SYR (RAD ONLY) 10 ML IV (19:18)
[2024-09-11 19:39] LABS: Lactic Acid 1.5 mmol/L (0.7-2.1)
[2024-09-11 20:06] LABS: Microscopic, Urine URINE MICROSCOPIC (MICROSCOPIC)
--- NOTE | 2024-09-11 20:28 | CT_ITS ---
PROCEDURE INFORMATION: Exam: CT Head Without Contrast Exam date and time: 09/11/2024 8:39 PM Age: 79 years old Clinical indication: Altered mental status/memory loss; Additional info: Altered mental status/confusion TECHNIQUE: Imaging protocol: Computed tomography of the head without contrast. Total images: 538 Radiation optimization: All CT scans at this facility use at least one of these dose optimization techniques: automated exposure control; mA and/or kV adjustment per patient size (includes targeted exams where dose is matched to clinical indication); or iterative reconstruction. COMPARISON: No relevant prior studies available. FINDINGS: Brain: Evaluation is limited secondary to intravenous contrast enhancement which could obscure subarachnoid or subdural hemorrhages. No gross evidence for acute intracranial hemorrhage. Mild age-related cortical atrophy. Mild periventricular white matter hypodensity compatible with remote small vessel ischemic change. Remote lacunar infarct left basal ganglia. No territorial infarct. Basilar cisterns are preserved. Cerebral ventricles: No ventriculomegaly. Paranasal sinuses: Visualized sinuses are unremarkable. No fluid levels. Mastoid air cells: Small left mastoid effusion. Orbital cavities: Bilateral orbital lens replacement. Bones: Osteopenia. No skull fracture. Soft tissues: Unremarkable. Vasculature: Left vertebrobasilar dolichoectasia. Moderate calcifications bilateral intracranial internal carotid arteries. IMPRESSION: 1. Limited by postcontrast technique, which could potentially obscure trace subarachnoid or subdural hemorrhage. 2. No acute intracranial process. 3. Mild chronic findings. 4. Left mastoid effusion.
[2024-09-11 20:34] LABS: Appearance,Urine CLEAR (Clear); Bilirubin,Urine Negative (Negative); Blood, Urine 1+ (Negative); Color,Urine YELLOW (Yellow); Glucose,Urine (UA) Negative (Negative); Ketones,Urine Negative (Negative); Leukocyte Esterase,Urine 1+ (Negative); Nitrate,Urine Negative (Negative); Protein,Urine Negative (Negative); Specific Gravity, Urine 1.015 (1.005-1.030); Urobilinogen,Urine 0.2 EU/dl (0.2)
[2024-09-11 20:47] LABS: Bacteria,Urine Trace /lpf; WBC,Urine Occasional #/hpf (0-3)
[2024-09-11 20:51] LABS: Thyroid Stimulating Hormone 1.06 uIU/mL (0.465-4.68)
--- NOTE | 2024-09-11 20:52 | XR_ITS ---
PROCEDURE INFORMATION: Exam: XR Left Knee Exam date and time: 09/11/2024 9:04 PM Age: 79 years old Clinical indication: Pain; Knee; Left TECHNIQUE: Imaging protocol: Radiologic exam of the left knee. Views: 3 views. Total images: 3 COMPARISON: CR XR FEMUR LT 2V 09/11/2024 9:04 PM FINDINGS: Bones/joints: Osteopenia. No acute fracture or joint dislocation. Small joint effusion. Mild tricompartment degenerative arthritis including prominent chondrocalcinosis. Benign area of sclerosis in the proximal tibia. Soft tissues: Unremarkable soft tissues. IMPRESSION: 1. No acute osseous abnormality. 2. Small joint effusion 3. Mild tricompartment degenerative arthritis with prominent chondrocalcinosis.
--- NOTE | 2024-09-11 20:52 | XR_ITS ---
PROCEDURE INFORMATION: Exam: XR Left Femur Exam date and time: 09/11/2024 9:04 PM Age: 79 years old Clinical indication: Pain; Thigh; Left TECHNIQUE: Imaging protocol: Radiologic exam of the left femur. Views: 2 views. Total images: 4 COMPARISON: CR XR FEMUR LT 2V 09/11/2024 9:04 PM FINDINGS: Bones/joints: Osteopenia. Left knee findings described separately. No acute fracture or joint dislocation. No concerning bone lesions. Age-appropriate left hip. Enthesophytes greater trochanter. Small suprapatellar joint effusion. Soft tissues: Unremarkable soft tissues. IMPRESSION: Negative left femur.
--- NOTE | 2024-09-11 20:52 | XR_ITS ---
PROCEDURE INFORMATION: Exam: XR Left Tibia and Fibula Exam date and time: 09/11/2024 9:04 PM Age: 79 years old Clinical indication: Pain; Lower leg; Left TECHNIQUE: Imaging protocol: Radiologic exam of the left tibia and fibula. Views: 2 views. Total images: 2 COMPARISON: CR XR TIBIA FIBULA LT 2V 09/11/2024 9:04 PM FINDINGS: Bones/joints: Osteopenia. Left knee findings described separately. No acute fracture or joint dislocation. Ankle mortise is preserved. Benign area of sclerosis proximal tibia. Plantar calcaneal enthesophyte. Soft tissues: Unremarkable soft tissues. IMPRESSION: Negative left tibia and fibula.
--- NOTE | 2024-09-11 20:52 | XR_ITS ---
PROCEDURE INFORMATION: Exam: XR Left Hip Exam date and time: 09/11/2024 9:04 PM Age: 79 years old Clinical indication: Hip pain; Left hip TECHNIQUE: Imaging protocol: Radiologic exam of the left hip. Views: 2 or 3 views hip with pelvis when performed. Total images: 3 COMPARISON: CT ABDOMEN PELVIS W CON 09/11/2024 7:05 PM FINDINGS: Tubes, catheters and devices: Status post right ureteral stent. Bones/joints: Osteopenia. No acute fracture or joint dislocation. Symmetric mild age-related degenerative changes bilateral hips. Enthesophytes bilateral greater trochanters. No concerning bone lesions. Pelvic ring is maintained. No widening of the pubic symphysis. Moderate degenerative changes lower lumbar spine. Mild degenerative changes bilateral SI joints. Soft tissues: Unremarkable soft tissues. Organs: Excreted contrast in the bladder. IMPRESSION: Negative left hip and pelvis.
[2024-09-11 21:02] LABS: Troponin I < 0.01 ng/ml (0.00-0.034)
--- NOTE | 2024-09-11 21:03 | PC.NURSE ---
[facility]ed [facility], awaiting a call back at this time.
--- NOTE | 2024-09-11 22:01 | PC.NURSE ---
Waiting for bed assignment from housekeeping supervisor hotel
--- NOTE | 2024-09-11 22:36 | P.HP_ITS ---
<Statement entered by Dk Avila MD - 09/12/24 14:14> Personally interviewed, examined patient and agree with plan of care as outlined by the DRUG ROOM OPERATOR. History of Present Illness *Admission Date: 09/11/24 *Reason for visit:: Confusion *History of present illness: This is a 79-year-old female who has a past medical history significant for hypertension and hypothyroidism presents with a chief complaint of left leg pain, weakness, and confusion. Due to patient's symptoms, patient presented to the emergency room for evaluation. While in the emergency room, patient CT scan of the head was negative for any acute intracranial process. Patient's workup in the emergency room was pretty much benign. Due to persistent confusion and weakness, patient has been admitted for further management. During my evaluation of the patient, patient was alert and oriented x 3. Family member at the bedside states that patient recently underwent cystoscopy with stent placement. She was discharged home. Unfortunately, patient became ill and septic postoperatively. She was readmitted to an outside hospital. She had to be placed into the intensive care unit due to low blood pressure. Patient recovered and was discharged home. She did have some weakness while at the facility and work with physical therapy but improved. Unfortunately, family members report that patient had progressive weakness today and increased confusion. They state that she was asking for a that had sometime ago. They also mentioned that she did not share with them that she was undergoing cystoscopy she just informed them that she was having some test dr lewis. Patient is conversational and is able to tell me where she is, who the current president, her first and last name, and the year. She does voice having some pain behind her left knee. She is currently denying any chest pain, lightheadedness, dizziness, blurred vision, double vision, focal weakness in upper or lower extremity, lateral gaze deficit, nausea, vomiting, or diarrhea. Additional pertinent vitals obtained include a hemoglobin 9.9, hematocrit 36.3, BUN at 19, GFR 53, blood glucose 184, calcium 10.5, AST of 44, AST of 246, and BNP of 1760. [facility] Disclaimer: The information contained in this section may have been updated after the patient was seen, as this information can be updated by other users. Social History (Updated 09/11/24 @ 21:03 by INOCENCIO Damon) Smoking Status: Never smoker alcohol intake: never current occupational status: other Travel in the last 8 weeks: None Have you lived/traveled outside [place] in past 30 days?: No Contact w/someone who lives/traveled outside US past 30 days?: No Exposure to someone with infectious disease in past 14 days?: No Do you have a fever (greater than 100.4 F or 38 C)?: No Have you tested positive for COVID-19: No Exposed to someone with COVID-19 in past 14 days?: No Do you have a sore throat?: No Do you have a cough?: No Do you have any weakness?: No Do you have any diarrhea?: No Are you experiencing any unusual bleeding?: No Do you have any muscle aches/pain?: No Do you have any abdominal pain?: No Are you experiencing loss of taste or smell?: No Review of Systems Review of Systems Review of systems:: pertinent systems reviewed and negative unless documented below Constitutional Constitutional: Reports fatigue and Reports lethargy Eyes Eyes: Reports system reviewed and no additional complaints, except as documented ENT Ears, Nose, Mouth, and Throat: Reports system reviewed and no additional complaints, except as documented *Cardiovascular Cardiovascular: Reports system reviewed and no additional complaints, except as documented *Respiratory Respiratory: Reports system reviewed and no additional complaints, except as documented *Gastrointestinal Gastrointestinal: Reports system reviewed and no additional complaints, except as documented *Genitourinary Genitourinary: Reports system reviewed and no additional complaints, except as documented *Musculoskeletal Musculoskeletal: Reports limited range of motion and Reports muscle weakness Integumentary/Breasts Skin/Breast: Reports system reviewed and no additional complaints, except as documented *Neurologic Neurologic: Reports confusion Psychiatric Psychiatric: Reports system reviewed and no additional complaints, except as documented and Reports confusion Endocrine Endocrine: Reports system reviewed and no additional complaints, except as documented and Reports fatigue Hematologic/Lymphatic Hematologic/Lymphatic: Reports system reviewed and no additional complaints, except as documented Allergic/Immunologic Allergic/Immunologic: Reports system reviewed and no additional complaints, except as documented Meds Home Medications and Allergies Home Medications ?Medication ?Instructions ?Recorded ?Confirmed ?Type amoxicillin 500 mg-potassium 1 tab PO DAILY 09/11/24 09/11/24 History clavulanate 125 mg tablet fesoterodine 8 mg tablet,extended 8 mg PO DAILY 09/11/24 09/11/24 History release 24 hr levocetirizine 5 mg tablet 5 mg PO HS 09/11/24 09/11/24 History linaclotide 145 mcg capsule 145 mcg PO DAILY 09/11/24 09/11/24 History (Linzess) magnesium oxide 400 mg (241.3 mg 400 mg PO DAILY 09/11/24 09/11/24 History magnesium) tablet methenamine hippurate 1 gram tablet 1 g PO BID 09/11/24 09/11/24 History tizanidine 4 mg tablet 4 mg PO HS 09/11/24 09/11/24 History New Prescriptions to Start Prescriptions: Allergies Allergy/AdvReac Type Severity Reaction Status Date / Time From FLOXIN Allergy Unknown I-HIVES Uncoded 07/30/17 14:40 From STADOL Allergy Unknown ITCHING Uncoded 07/30/17 14:40 PREDNISONE Allergy Unknown NA-NAUSEA Uncoded 07/30/17 14:40 SULFA (SULFONAMIDE) Allergy Unknown I-ITCHING Uncoded 07/30/17 14:40 Exam Data for Last 24 hours Vital signs and Labs for Last 24 Hours: Temp Pulse Resp BP Pulse Ox O2 Del Method O2 Flow Rate 98.3 F 79 21 181/84 H 99 Room Air, Nasal Cannula 2 09/11/24 22:26 09/11/24 22:26 09/11/24 22:26 09/11/24 22:26 09/11/24 20:00 09/11/24 22:26 09/11/24 22:26 Laboratory Results - last 24 hr 09/11/24 17:22: WBC 10.3, RBC 4.30, Hgb 11.9 L, Hct 36.3 L, MCV 84.4, MCH 27.7, MCHC 32.8, RDW 15.0, Plt Count 213, MPV 10.1, Neut % (Auto) 73.6, Lymph % (Auto) 10.9, [place] % (Auto) 11.0 H, Eos % (Auto) 3.3, Baso % (Auto) 0.4, Neut # (Auto) 7.6, Lymph # (Auto) 1.1, [place] # (Auto) 1.1 H, Eos # (Auto) 0.3, Baso # (Auto) 0.0, Sodium 137, Potassium 4.0, Chloride 107, Carbon Dioxide 23, Anion Gap 11.0, BUN 19 H, Creatinine 1.00, Estimated Creat Clear 39, Estimated GFR 53 L, Est GFR ( Amer) 65, Glucose 184 H, Calcium 10.5 H, Magnesium 2.0, Total Bilirubin 0.4, AST 44 H, ALT 28, Alkaline Phosphatase 246 H, Troponin I < 0.01, NT-Pro-B Natriuret Pep 1760 H, Total Protein 6.6, Albumin 3.6, Globulin 3.0, Albumin/Globulin Ratio 1.2, Lipase 90, Procalcitonin 0.084, TSH 1.06, HCV Ab SABINO w/Rflx PCR Qn Negative, HIV Ag/Ab Combo Qual Negative 09/11/24 19:23: Lactate 1.5 09/11/24 20:28: Troponin I < 0.01, Urine Color Yellow, Urine Appearance Clear, Urine pH 6.0, Ur Specific [place] 1.015, Urine Protein Negative, Urine Glucose (UA) Negative, Urine Ketones Negative, Urine Blood 1+ A, Urine Nitrate Negative, Urine Bilirubin Negative, Urine Urobilinogen 0.2, Ur Leukocyte Esterase 1+ A, Urine RBC 3-5, Urine WBC Occasional, Ur Squamous Epith Cells None, Urine Bacteria Trace I & O for Last 24 hours: Intake & Output 09/08/24 09/09/24 09/10/24 09/11/24 23:59 23:59 23:59 23:59 Weight 113.398 kg Constitutional Constitutional: no acute distress, obese and cooperative *Routine HEENT Exam Head: Present normocephalic Eye: Present EOMI ENT: Present mucous membranes moist *Routine Neck Exam Neck: Present supple and full ROM *Routine Respiratory Exam Respiratory: Present normal respiratory effort, able to speak in complete sentences and symmetric chest movement *Routine Cardiovascular Exam Cardiovascular: Present RRR, Normal S1 and Normal S2 *Routine Abdominal Exam Abdominal: Present soft and normoactive bowel sounds *Routine Rectal Exam Rectal:: deferred *Routine Genitalia Exam Genitalia:: deferred *Routine Extremities Exam Extremities: Present normal capillary refill Comments: Patient was able to lift right lower extremity off the bed Patient was able to also lift left lower extremity off the bed but with pain Routine Back/Spine/Pelvis Exam Back/Spine: Present full ROM *Routine Skin Exam Skin: Present intact and normal turgor *Routine Neurological Exam Neurological: Present alert, CN II-XII intact and altered mental status Routine Psychiatric Exam Psychiatric: Present normal affect, normal thought process and cooperative H&P: Result Impressions This is a 79-year-old female who presents with an acute onset of weakness, leg pain, and confusion without any known etiology. Patient had extensive workup in the emergency room that was not fruitful. She is recently status post cystoscopy and spent some time in the ICU. Assessment and Plan *Assessment and plan (1) Altered mental status: Status: Acute Qualifiers: Altered mental status type: disorientation Qualified Code(s): R41.0 - Disorientation, unspecified Category: Medical Code(s): R41.82 - Altered mental status, unspecified (2) Left leg pain: Status: Acute Category: Medical Code(s): M79.605 - Pain in left leg (3) Elevated liver enzymes: Status: Acute Category: Medical Code(s): R74.8 - Abnormal levels of other serum enzymes (4) Hypertensive urgency: Status: Acute Category: Medical Code(s): I16.0 - Hypertensive urgency (5) Weakness: Status: Acute Category: Medical Code(s): R53.1 - Weakness Plan Assessment: Altered mental status: No clear etiology -Symptoms may be due to to ICU psychosis-if this is the case this may take patient 6 months to a year to recover from (this is a diagnosis of exclusion) -Will consider MRI of the brain with and without contrast -Will rule out any ongoing infection -Will consider LP -Family did mention that patient is getting forgetful and may have Alzheimer's/dementia-May be due to worsening dementia -But as previously mentioned would like to rule out any infection or other cause Elevated liver enzymes -Will monitor for now -Will obtain ammonia level -Hypertensive urgency: Patient's systolic blood pressure was greater than 180 while in the emergency room -25 mg of hydralazine p.o. every 8 hours as needed systolic blood pressure greater than 180 or diastolic blood pressure greater than 110 -Will restart patient's antihypertensive medications Weakness -Physical therapy -Occupational Therapy -Will consider rehab placement Plan: Admit patient to the Medr unit Will obtain MRI of the brain with and without contrast once available Will obtain left lower extremity Doppler due to leg pain Neurochecks every shift SCDs to bilateral lower extreme Occupational Therapy Physical therapy Vital signs every shift Cardiac diet Obtain vitamin B1 Obtain TSH CBC/BMP daily 4 mg Zofran IV push to 8 hours. Nausea from Blood cultures x 2 Full code I will discuss this case with attending physician Dr. Avila and I look forward to more input
--- NOTE | 2024-09-11 22:40 | PC.NURSE ---
Report called to Timmy
--- NOTE | 2024-09-11 22:55 | PC.NURSE ---
Pt arrived to floor via stretcher @22:54
[2024-09-11 23:51] LABS: Troponin I < 0.01 ng/ml (0.00-0.034)
[2024-09-12] MEDS: 0.9 % SODIUM CHLORIDE 1000ML 1,000 ML 75 ML IV (00:09)
[2024-09-12] MEDS: ACETAMINOPHEN 325MG TAB 650 MG PO ×2 (00:17→14:46)
--- NOTE | 2024-09-12 02:03 | PC.NURSE ---
Since ariving to the floor pt A&Ox4. She answered all questions correctly. Olegario also verified orientation to get DNR signed.
[2024-09-12 03:07] LABS: Basophils % 0.3 % (0.1-2.0); Eosinophils # 0.3 K/mm3 (0.0-0.4); Eosinophils % 2.9 % (0.1-12.0); Hematocrit 32.8 % (37.0-47.0); Hemoglobin 10.9 g/dL (12.2-16.2); Lymphocytes # 1.9 K/mm3 (0.7-4.5); Lymphocytes % 18.3 % (10-50); Mean Corpuscular HGB Conc 33.2 g/dL (31.8-35.4); Mean Corpuscular Hemoglobin 27.7 pg (27.0-31.2); Mean Corpuscular Volume 83.2 fl (81-99); Mean Platelet Volume 9.8 fl (7.4-10.4); Monocytes # 1.6 K/mm3 (0.1-1.0); Monocytes % 16.2 % (1.7-9.3); Neutrophils # 6.2 K/mm3 (1.8-7.8); Neutrophils % 61.7 % (37.0-80.0); Platelet Count 199 K/mm3 (142-424); Red Blood Count 3.94 M/mm3 (4.20-5.40); Red Cell Distribution Width 14.6 % (11.5-17.5); White Blood Count 10.1 K/mm3 (4.8-10.8)
[2024-09-12 03:21] LABS: Anion Gap 9.4 mEq/L (5-15); Blood Urea Nitrogen 16 mg/dl (7-17); Calcium 9.9 mg/dl (8.4-10.2); Carbon Dioxide 21 mmol/L (22.0-30.0); Chloride 109 mmol/L (98-107); Creatinine Clearance Estimated 59 mL/min (50-200); Estimated Glomerular Filt Rate 69 ml/min (>60); GFR (African American) 84 ML/MIN (>60); Glucose 171 mg/dl (74-100); Potassium 3.4 mmoL/L (3.5-5.1); Sodium 136 mmol/L (136-145)
[2024-09-12 03:52] LABS: Thyroid Stimulating Hormone 0.71 uIU/mL (0.465-4.68)
[2024-09-12 04:00] VITALS: BP 115/51; PULSE 70; RESP 16; TEMP 36.8; O2SAT 95; BMI 30.9
--- NOTE | 2024-09-12 04:40 | PC.NURSE ---
Pt has remained A&OX4 and has tolerated room air. Lung sounds clear and bowel sounds active. Pt has been fatigued and has slept most of shift since arriving to the floor. Purewick has remained in place draining well. She did complain of pain in the left leg and was medicated per MAR. No complaints at this time, call light within reach.
[2024-09-12 07:49] LABS: Ammonia < 9 umol/L (9-30)
[2024-09-12 07:53] VITALS: BP 134/76; PULSE 65; RESP 20; TEMP 36.9; O2SAT 95
[2024-09-12 08:57] LABS: Iron 39 ug/dL (37-170)
[2024-09-12] MEDS: ASPIRIN 81MG CHEWABLE TABLET 81 MG PO (09:30)
[2024-09-12] MEDS: CEFTRIAXONE 1 GM 1 GM in 0.9 % SODIUM CHLORIDE 50 ML IV (09:30)
[2024-09-12 09:34] LABS: Ferritin 49.2 ng/ml (11.1-264)
--- NOTE | 2024-09-12 09:36 | PC.NURSE ---
called rosi with pt, spoke with him about consult.
[2024-09-12 09:47] LABS: Vitamin B12 678 pg/mL (239-931)
--- NOTE | 2024-09-12 09:53 | HMH.PHAINT1 ---
Pharmacy Intervention Comments: MEDICATION RECONCILIATION COMPLETE USING EXTERNAL PHARMACY FILL HISTORY.
[2024-09-12 10:16] LABS: Hemoglobin A1C 6.9 % (4.0-6.0)
[2024-09-12 10:17] LABS: Adenovirus,PCR Not Detected (NotDetected); Bordetella Pertussis Not Detected (NotDetected); Chlamydophila Pneumoniae, PCR Not Detected (NotDetected); Coronavirus 19, PCR Not Detected (NotDetected); Coronavirus 229E Not Detected (NotDetected); Coronavirus NL63 Not Detected (NotDetected); Coronavirus OC43 Not Detected (NotDetected); Coronovirus HKU1,PCR Not Detected (NotDetected); Human Metapneumovirus Not Detected (NotDetected); Influenza A, PCR Not Detected (NotDetected); Influenza AH1, 2009 Not Detected (NotDetected); Influenza AH1, PCR Not Detected (NotDetected); Influenza AH3,PCR Not Detected (NotDetected); Influenza B, PCR Not Detected (NotDetected); Mycoplasma Pneumoniae, PCR Not Detected (NotDetected); Parainfluenza 1, PCR Not Detected (NotDetected); Parainfluenza 2, PCR Not Detected (NotDetected); Parainfluenza 3, PCR Not Detected (NotDetected); Parainfluenza 4, PCR Not Detected (NotDetected); Respiratory Syncytial Virus Not Detected (NotDetected); Rhinovirus/Enterovirus Not Detected (NotDetected)
[2024-09-12 10:52] LABS: Total Iron Binding Capacity 248 ug/dL (265-497)
[2024-09-12 11:34] LABS: Folate 7.46 ng/mL
[2024-09-12 12:05] VITALS: BP 139/70; PULSE 71; RESP 17; TEMP 36.6; O2SAT 98
--- NOTE | 2024-09-12 12:27 | HMH.PTEV ---
Physical Therapy Evaluation Rehab PT IP Evaluation Start: 09/11/24 22:36 Freq: ONCE Status: Active Protocol: Document 09/12/24 12:13 DANISH (Rec: 09/12/24 12:26 ETHELYENNY [id number]) Subjective/History History History Per H&P, This is a 79-year- old female who has a past medical history significant for hypertension and hypothyroidism presents with a chief complaint of left leg pain, weakness, and confusion. Due to patient's symptoms, patient presented to the emergency room for evaluation. While in the emergency room, patient CT scan of the head was negative for any acute intracranial process. Patient's workup in the emergency room was pretty much benign. Due to persistent confusion and weakness, patient has been admitted for further management. During my evaluation of the patient, patient was alert and oriented x 3. Family member at the bedside states that patient recently underwent cystoscopy with stent placement. She was discharged home. Unfortunately, patient became ill and septic postoperatively. She was readmitted to an outside hospital. She had to be placed into the intensive care unit due to low blood pressure. Patient recovered and was discharged home. She did have some weakness while at the facility and work with physical therapy but improved. Unfortunately, family members report that patient had progressive weakness today and increased confusion. They state that she was asking for a that had sometime ago. They also mentioned that she did not share with them that she was undergoing cystoscopy she just informed them that she was having some test drawn. Patient is conversational and is able to tell me where she is, who the current president, her first and last name, and the year. She does voice having some pain behind her left knee. She is currently denying any chest pain, lightheadedness, dizziness, blurred vision, double vision, focal weakness in upper or lower extremity, lateral gaze deficit, nausea, vomiting, or diarrhea. Additional pertinent vitals obtained include a hemoglobin 9.9, hematocrit 36.3, BUN at 19, GFR 53, blood glucose 184, calcium 10.5, AST of 44, AST of 246, and BNP of 1760. Subjective Subjective Pt is oriented x3. She reports that she lives at home with her . Reports that she began feeling confused before she came to the hospital, but she was not having any issues with her balance or walking prior to admission. She reports that she was fully independent with ambulation, did not utilize an AD and was fully independent with all ADLs. She reports that since she has been in the hospital, she has had significant pain in her left leg, which has made bed mobility and walking significantly. New diagnosis of cancer in past 12 No months? Rehab PT IP Eval Objective Appearance Patient Behavior Appropriate,Patient Baseline Patient Orientation Person,Place,Time,Birthday Difficulty following instructions none Speech Pattern Clear,Patient Baseline Ambulation Patient Able to Ambulate Yes Ambulation Observation IP General Gait Pattern Observation Shuffling Step Ambulation Distance (feet) 5 Ambulation Assistive Device None Ambulation Ability Moderate x 1 (50% assist) Balance Ability to Arise Able, uses arms to help Sitting Balance Steady, safe Standing Balance Steady, wide stance Dynamic Sitting Balance Ability Fair Dynamic Standing Balance Ability Poor Transfers Bed Transfer Ability Minimal x 1 (25% assist) Chair Transfer Ability Minimal x 1 (25% assist) Sit to Stand Bed Transfer Ability Minimal x 1 (25% assist) Sit to Stand Chair Transfer Ability Minimal x 1 (25% assist) Rehab PT IP prob,goals,plan Problems Date of Evaluation: 09/12/24 PT IP Problems Bed Mobility,Transfers,Gait, Balance,Safety Rehab Potential Rehab Potential Fair Equipment Needs Assistive Devices Rolling / Wheeled Walker Plan PT Intervention Plan Bed Mobility,Transfers,Gait, Balance,Self care,Therapeutic Exercise PT Plan Frequency BID Duration LOS Discharge Goals Bed Transfer Ability Supervision/Stand by Sit to Stand Chair Transfer Ability Supervision/Stand by Ambulation Assistive Device Rolling Walker Ambulation Distance (feet) 50 Discharge Plan PT Discharge Plan PT is recommending placement for further therapy upon discharge. The pt is unfit for discharge to home at this time, due to requiring assist with all transfers, difficulty with ambulation and requiring assist. The pt is a high fall risk at this time. The pt would benefit from skilled PT while in the hospital to address the above impairments and to prevent further injury. Eval Complexity Eval Charge Codes 00776 - Moderate Complexity PHYSICIAN CERTIFICATION: I certify the specified therapy services for Dian Gamboa are required, authorized, and reviewed every 30 days.
--- NOTE | 2024-09-12 17:16 | EXP.PN ---
Subjective *Date: 09/18/24 *Time: 18:22 Interval history: Patient feeling much better today, encephalopathy likely from polypharmacy including tizanidine, tramadol. PT/OT evaluating patient. Likely will need placement. Exam Data for Last 24 hours Vital signs and Labs for Last 24 Hours: Temp Pulse Resp BP Pulse Ox O2 Del Method O2 Flow Rate 97.9 F 71 17 139/70 98 Room Air 2 09/12/24 12:09/12/24 12:09/12/24 12:09/12/24 12:09/12/24 12:09/12/24 15:00 09/11/24 22:26 Laboratory Results - last 24 hr 09/11/24 17:22: WBC 10.3, RBC 4.30, Hgb 11.9 L, Hct 36.3 L, MCV 84.4, MCH 27.7, MCHC 32.8, RDW 15.0, Plt Count 213, MPV 10.1, Neut % (Auto) 73.6, Lymph % (Auto) 10.9, [place] % (Auto) 11.0 H, Eos % (Auto) 3.3, Baso % (Auto) 0.4, Neut # (Auto) 7.6, Lymph # (Auto) 1.1, [place] # (Auto) 1.1 H, Eos # (Auto) 0.3, Baso # (Auto) 0.0, Sodium 137, Potassium 4.0, Chloride 107, Carbon Dioxide 23, Anion Gap 11.0, BUN 19 H, Creatinine 1.00, Estimated Creat Clear 39, Estimated GFR 53 L, Est GFR ( Amer) 65, Glucose 184 H, Calcium 10.5 H, Magnesium 2.0, Total Bilirubin 0.4, AST 44 H, ALT 28, Alkaline Phosphatase 246 H, Troponin I < 0.01, NT-Pro-B Natriuret Pep 1760 H, Total Protein 6.6, Albumin 3.6, Globulin 3.0, Albumin/Globulin Ratio 1.2, Lipase 90, Procalcitonin 0.084, TSH 1.06, HCV Ab SABINO w/Rflx PCR Qn Negative, HIV Ag/Ab Combo Qual Negative 09/11/24 19:23: Lactate 1.5 09/11/24 20:28: Troponin I < 0.01, Urine Color Yellow, Urine Appearance Clear, Urine pH 6.0, Ur Specific [place] 1.015, Urine Protein Negative, Urine Glucose (UA) Negative, Urine Ketones Negative, Urine Blood 1+ A, Urine Nitrate Negative, Urine Bilirubin Negative, Urine Urobilinogen 0.2, Ur Leukocyte Esterase 1+ A, Urine RBC 3-5, Urine WBC Occasional, Ur Squamous Epith Cells None, Urine Bacteria Trace 09/11/24 23:20: Troponin I < 0.01 09/12/24 02:53: WBC 10.1, RBC 3.94 L, Hgb 10.9 L, Hct 32.8 L, MCV 83.2, MCH 27.7, MCHC 33.2, RDW 14.6, Plt Count 199, MPV 9.8, Neut % (Auto) 61.7, Lymph % (Auto) 18.3, [place] % (Auto) 16.2 H, Eos % (Auto) 2.9, Baso % (Auto) 0.3, Neut # (Auto) 6.2, Lymph # (Auto) 1.9, [place] # (Auto) 1.6 H, Eos # (Auto) 0.3, Baso # (Auto) 0.0, Sodium 136, Potassium 3.4 L, Chloride 109 H, Carbon Dioxide 21 L, Anion Gap 9.4, BUN 16, Creatinine 0.80, Estimated Creat Clear 59, Estimated GFR 69, Est GFR ( Amer) 84 D, Glucose 171 H, Calcium 9.9, TSH 0.71 D 09/12/24 06:58: Iron 39, TIBC 248 L, Iron Saturation 15.42827, Ferritin 49.2, Ammonia < 9 L, Vitamin B12 678 09/12/24 09:10: Hemoglobin A1c 6.9 H, Folate 7.46 09/12/24 10:08: Chlamy pneumoniae PCR Not detected, Adenovirus (PCR) Not detected, B. pertussis DNA (PCR) Not detected, Coronavirus OC43 (PCR) Not detected, Coronavirus HKU1 (PCR) Not detected, Coronavirus 229E (PCR) Not detected, SARS-CoV-2 (PCR) Not detected, Coronavirus NL63 (PCR) Not detected, Human Metapneumovir PCR Not detected, Influenza A (H1) PCR Not detected, Influ A (H1N1/09) PCR Not detected, Influenza A (H3) PCR Not detected, Influenza Type A (PCR) Not detected, Influenza Type B (PCR) Not detected, M. pneumoniae (PCR) Not detected, Parainfluenza 1 (PCR) Not detected, Parainfluenza 2 (PCR) Not detected, Parainfluenza 3 (PCR) Not detected, Parainfluenza 4 (PCR) Not detected, RSV (PCR) Not detected, Entero/Rhino (PCR) Not detected I & O for Last 24 hours: Intake & Output 09/09/24 09/10/24 09/11/24 09/12/24 23:59 23:59 23:59 23:59 Intake Total 1070 / 1070 Output Total 1350 / 1350 Balance -280 / -280 Weight 82.327 kg 82.327 kg Constitutional Constitutional: no acute distress, average body habitus, chronically ill appearing and cooperative *Routine HEENT Exam Head: Present normocephalic Eye: Present EOMI and PERRL ENT: Present mucous membranes moist *Routine Neck Exam Neck: Present supple; Absent lymphadenopathy *Routine Respiratory Exam Respiratory: Present CTA bilaterally; Absent respiratory distress, rhonchi, stridor, wheezes or crackles *Routine Cardiovascular Exam Cardiovascular: Present RRR *Routine Abdominal Exam Abdominal: Present soft and normoactive bowel sounds; Absent tenderness *Routine Rectal Exam Patient deferred: visual exam *Routine Exam Patient deferred: external exam *Routine Extremities Exam Extremities: Absent cyanosis, clubbing or edema Comments: Tenderness to palpation in the left popliteal fossa without overlying erythema, swelling. *Routine Skin Exam Skin: Present intact and warm; Absent rash *Routine Neurological Exam Neurological: Present alert, oriented X3 and moving all extremities; Absent altered mental status Assessment and Plan *Assessment and plan (1) Acute metabolic encephalopathy: Status: Acute Category: Medical Code(s): G93.41 - Metabolic encephalopathy Plan Dian Gamboa is a 79-year-old female who was admitted for acute metabolic encephalopathy. #Acute metabolic encephalopathy, resolved #UTI #Chronic right hydronephrosis, nephrolithiasis with UPJ obstruction. ? Reportedly had a stent placed within the last [address] abdomen/pelvis continues to show obstruction. Performed at [facility], however unable to obtain records as clinic is closed today. ? Acute metabolic encephalopathy resolved today. At this time, unclear of the etiology. Pending cultures. CT head unremarkable for acute findings. ? UA mildly suggestive of UTI, pending urine cultures. ? IV ceftriaxone day 08/16. ? Follow-up urine cultures. Anticipate discharge thereafter with close follow-up with urology. ? Currently making urine without signs of sepsis. #Physical deconditioning ? PT/OT consulted, recommended SNF. Case management assisting with placement. #Left knee pain ? Patient reports pain in the left popliteal fossa, no evidence of erythema, swelling but does have some tenderness to palpation in the fossa and left calf. ? Bedside ultrasound in the ED did not show evidence of DVT. Pending venous Doppler at this time. ? Therapeutic Lovenox until venous Doppler results. Highly suspicious for DVT at this time. DNR/DNI Therapeutic Lovenox as above
--- NOTE | 2024-09-12 17:47 | PC.NURSE ---
Pt alert and oriented x4. Pt c/o leg pain and was medicated per Marisabel, aware. Pt ambulates with assist x1 and walker. Pt woked with PT/OT today. Pt has had no complaints, will continue to monitor.
[2024-09-12 19:35] VITALS: BP 132/59; PULSE 70; RESP 17; TEMP 36.9; O2SAT 98
[2024-09-12 19:50] VITALS: BP 132/59; PULSE 70; RESP 17; TEMP 36.9; O2SAT 98
[2024-09-13] MEDS: ENOXAPARIN 80MG/0.8ML SYRINGE 80 MG SUBCUT ×3 (00:11→23:30)
[2024-09-13 04:00] VITALS: BP 130/60; PULSE 78; RESP 18; TEMP 37.1; O2SAT 93; BMI 30.7
--- NOTE | 2024-09-13 05:41 | PC.NURSE ---
Pt A&OX4 and has tolerated room air. Lung sounds clear and bowel sounds active. She has remained fatigued this shift. Purewick has remained in place and is drained well. She has not had any complaints, call light within reach.
[2024-09-13 08:00] VITALS: BP 125/54; PULSE 79; RESP 18; TEMP 36.6; O2SAT 97
[2024-09-13] MEDS: CEFTRIAXONE 1 GM 1 GM in 0.9 % SODIUM CHLORIDE 50 ML IV (08:19)
[2024-09-13] MEDS: ASPIRIN 81MG CHEWABLE TABLET 81 MG PO (08:19)
[2024-09-13] MEDS: ACETAMINOPHEN 325MG TAB 650 MG PO (08:20)
[2024-09-13 08:51] LABS: Basophils % 0.5 % (0.1-2.0); Eosinophils # 0.4 K/mm3 (0.0-0.4); Eosinophils % 4.8 % (0.1-12.0); Hematocrit 30.7 % (37.0-47.0); Hemoglobin 10.1 g/dL (12.2-16.2); Lymphocytes # 1.5 K/mm3 (0.7-4.5); Lymphocytes % 18.9 % (10-50); Mean Corpuscular HGB Conc 32.9 g/dL (31.8-35.4); Mean Corpuscular Hemoglobin 27.7 pg (27.0-31.2); Mean Corpuscular Volume 84.3 fl (81-99); Mean Platelet Volume 9.7 fl (7.4-10.4); Monocytes # 1.2 K/mm3 (0.1-1.0); Monocytes % 14.4 % (1.7-9.3); Neutrophils # 4.9 K/mm3 (1.8-7.8); Neutrophils % 60.8 % (37.0-80.0); Platelet Count 186 K/mm3 (142-424); Red Blood Count 3.64 M/mm3 (4.20-5.40); Red Cell Distribution Width 14.6 % (11.5-17.5); White Blood Count 8.1 K/mm3 (4.8-10.8)
[2024-09-13 09:01] LABS: Alanine Aminotransferase 26 U/L (12-78); Albumin Level 2.9 g/dl (3.5-5.0); Alkaline Phosphatase 196 U/L (38-126); Anion Gap 9.8 mEq/L (5-15); Aspartate Amino Transferase 42 U/L (14-36); Bilirubin,Total 0.3 mg/dl (0.2-1.3); Blood Urea Nitrogen 15 mg/dl (7-17); Calcium 9.6 mg/dl (8.4-10.2); Carbon Dioxide 21 mmol/L (22.0-30.0); Chloride 110 mmol/L (98-107); Creatinine Clearance Estimated 59 mL/min (50-200); Estimated Glomerular Filt Rate 69 ml/min (>60); GFR (African American) 84 ML/MIN (>60); Globulin 2.8 g/dL (1.3-3.2); Glucose 169 mg/dl (74-100); Magnesium 1.9 mg/dl (1.6-2.3); Potassium 3.8 mmoL/L (3.5-5.1); Sodium 137 mmol/L (136-145); Total Protein,Serum 5.7 g/dl (6.3-8.2)
[2024-09-13 09:06] LABS: D-Dimer 0.84 ug/mL (0.0-0.5)
[2024-09-13 16:00] VITALS: BP 132/63; PULSE 70; RESP 16; TEMP 36.5; O2SAT 96
--- NOTE | 2024-09-13 18:11 | PC.NURSE ---
Pt resting in bed most of day. she c/o left leg pain once today and was medicated with tylenol. Pt stated that this was effective. She has been turned and repositioned q2 hours. Family assists her with meals and has been at bedside most of shift. Md consulted case management for placement for pts weakness. She has no complaints at this time, call light in reach. Bed alarm on.
[2024-09-13 20:00] VITALS: BP 143/64; PULSE 71; RESP 18; TEMP 36.4; O2SAT 95
--- NOTE | 2024-09-13 20:41 | EXP.PN ---
Subjective *Date: 09/13/24 *Time: 20:41 Interval history: Patient continues to feel well today, alert and oriented. Open to rehab placement. Will continue to hold home tramadol, tizanidine. Exam Data for Last 24 hours Vital signs and Labs for Last 24 Hours: Temp Pulse Resp BP Pulse Ox O2 Del Method O2 Flow Rate 97.5 F L 71 18 143/64 H 95 Room Air 2 09/13/24 20:00 09/13/24 20:00 09/13/24 20:09/13/24 20:09/13/24 20:09/13/24 20:00 09/11/24 22:26 Laboratory Results - last 24 hr 09/13/24 08:40: WBC 8.1, RBC 3.64 L, Hgb 10.1 L, Hct 30.7 L, MCV 84.3, MCH 27.7, MCHC 32.9, RDW 14.6, Plt Count 186, MPV 9.7, Neut % (Auto) 60.8, Lymph % (Auto) 18.9, [place] % (Auto) 14.4 H, Eos % (Auto) 4.8, Baso % (Auto) 0.5, Neut # (Auto) 4.9, Lymph # (Auto) 1.5, [place] # (Auto) 1.2 H, Eos # (Auto) 0.4, Baso # (Auto) 0.0, D-Dimer 0.84 H, Sodium 137, Potassium 3.8, Chloride 110 H, Carbon Dioxide 21 L, Anion Gap 9.8, BUN 15, Creatinine 0.80, Estimated Creat Clear 59, Estimated GFR 69, Est GFR ( Amer) 84, Glucose 169 H, Calcium 9.6, Magnesium 1.9, Total Bilirubin 0.3, AST 42 H, ALT 26, Alkaline Phosphatase 196 H, Total Protein 5.7 L, Albumin 2.9 L, Globulin 2.8, Albumin/Globulin Ratio 1.0 L I & O for Last 24 hours: Intake & Output 09/10/24 09/11/24 09/12/24 09/13/24 23:59 23:59 23:59 23:59 Intake Total 1340 / 1540 920 / 920 Output Total 1850 / 1850 1150 / 1150 Balance -510 / -310 -230 / -230 Weight 82.327 kg 82.327 kg 81.783 kg Microbiology Reports for the Last 24 Hours: Microbiology 09/11/24 20:28 Urine,Clean Catch Urine Culture - Final 09/12/24 02:53 Blood Blood Culture - Preliminary NO GROWTH AFTER 24 HOURS 09/12/24 02:53 Blood Blood Culture - Preliminary NO GROWTH AFTER 24 HOURS Constitutional Constitutional: no acute distress *Routine HEENT Exam Head: Present normocephalic Eye: Present EOMI and PERRL ENT: Present mucous membranes moist *Routine Neck Exam Neck: Present supple; Absent lymphadenopathy *Routine Respiratory Exam Respiratory: Present CTA bilaterally *Routine Cardiovascular Exam Cardiovascular: Present RRR *Routine Abdominal Exam Abdominal: Present soft and normoactive bowel sounds; Absent tenderness *Routine Extremities Exam Extremities: Absent cyanosis, clubbing or edema Comments: Tenderness to palpation in the left popliteal fossa without overlying erythema, swelling. *Routine Skin Exam Skin: Present warm; Absent rash *Routine Neurological Exam Neurological: Present alert and oriented X3 Assessment and Plan *Assessment and plan (1) Weakness: Status: Acute Category: Medical Code(s): R53.1 - Weakness (2) Acute metabolic encephalopathy: Status: Acute Category: Medical Code(s): G93.41 - Metabolic encephalopathy (3) Physical deconditioning: Status: Acute Category: Medical Code(s): R53.81 - Other malaise Plan Dian Gamboa is a 79-year-old female who was admitted for acute metabolic encephalopathy. #Acute metabolic encephalopathy, resolved #Chronic right hydronephrosis, nephrolithiasis with UPJ obstruction. ? Reportedly had a stent placed within the last [address] weeks, [address] abdomen/pelvis continues to show obstruction. Performed at [facility], however unable to obtain records as clinic closed over the weekend. ? ED provider did reach out to [place] urologist advised hydronephrosis, nephrolithiasis, UPJ obstruction are all chronic and stable at this time. ? Acute metabolic encephalopathy resolved today. At this time, unclear of the etiology. CT head unremarkable for acute findings. Urine and blood culture negative. ? Polypharmacy might of contributed to encephalopathy, as patient was recently started on tramadol and tizanidine. Both held and patient feeling much better. ? Currently making urine without signs of sepsis. ? Will need outpatient follow-up with urology. #Physical deconditioning ? PT/OT consulted, recommended SNF. Case management assisting with placement. #Left knee pain #Suspected DVT ? Patient reports pain in the left popliteal fossa, no evidence of erythema, swelling but does have some tenderness to palpation in the fossa and left calf. ? Bedside ultrasound in the ED did not show evidence of DVT. Pending venous Doppler at this time. ? Therapeutic Lovenox until venous Doppler results. Highly suspicious for DVT at this time. ? Will consider CT of the knee if Doppler negative for DVT. DNR/DNI Therapeutic Lovenox as above
[2024-09-14 04:00] VITALS: BMI 31.8
--- NOTE | 2024-09-14 04:55 | PC.NURSE ---
Pt A&OX4 and has tolerated room air. Lung sounds clear and bowel sounds active. Purewick has remained in place and is draining well. She has been assisted in repositioning q2 hr. Family has remained at bedside throughout the night. No complaints at this time, call light within reach.
[2024-09-14 08:00] VITALS: BP 124/56; PULSE 65; RESP 16; TEMP 37; O2SAT 95
[2024-09-14 08:37] LABS: Basophils # 0.1 K/mm3 (0-0.2); Basophils % 0.7 % (0.1-2.0); Eosinophils # 0.4 K/mm3 (0.0-0.4); Hematocrit 32.6 % (37.0-47.0); Hemoglobin 10.7 g/dL (12.2-16.2); Lymphocytes # 1.4 K/mm3 (0.7-4.5); Lymphocytes % 15.6 % (10-50); Mean Corpuscular HGB Conc 32.8 g/dL (31.8-35.4); Mean Corpuscular Hemoglobin 27.7 pg (27.0-31.2); Mean Corpuscular Volume 84.5 fl (81-99); Mean Platelet Volume 9.8 fl (7.4-10.4); Monocytes # 1.2 K/mm3 (0.1-1.0); Neutrophils % 66.3 % (37.0-80.0); Platelet Count 192 K/mm3 (142-424); Red Blood Count 3.86 M/mm3 (4.20-5.40); Red Cell Distribution Width 14.6 % (11.5-17.5); White Blood Count 9.1 K/mm3 (4.8-10.8)
--- NOTE | 2024-09-14 08:41 | SW/DCPLANNER ---
Addendum entered by Maria Esther Bird 09/14/24 10:29: Laly w/ [facility] stated that she will start precert today. Addendum entered by Maria Esther Bird 09/14/24 09:36: [facility] is not currently in network w/ patient's insurance. I did update patient/family that [facility] and [facility] are in network w/ patient's insurance. Patient is agreeable to [facility] at this time. Patient information will be faxed this AM. Original Note: I spoke w/ this patient and her regarding plans once medically stable for discharge. PT/OT evaluated patient and recommended SNF level of care. Patient is agreeable to placement and prefers [facility]. I will follow up w/ Soo at [facility] regarding insurance/bed availability. I will continue to follow up w/ this patient and her family. Discharge date is unknown at this time.
[2024-09-14 08:50] LABS: Alanine Aminotransferase 29 U/L (12-78); Albumin Level 3.2 g/dl (3.5-5.0); Albumin/Globulin Ratio 1.1 (1.1-1.8); Alkaline Phosphatase 266 U/L (38-126); Aspartate Amino Transferase 51 U/L (14-36); Bilirubin,Total 0.5 mg/dl (0.2-1.3); Blood Urea Nitrogen 13 mg/dl (7-17); Carbon Dioxide 19 mmol/L (22.0-30.0); Chloride 111 mmol/L (98-107); Creatinine Clearance Estimated 61 mL/min (50-200); Estimated Glomerular Filt Rate 69 ml/min (>60); GFR (African American) 84 ML/MIN (>60); Globulin 2.8 g/dL (1.3-3.2); Glucose 144 mg/dl (74-100); Sodium 136 mmol/L (136-145)
[2024-09-14] MEDS: ASPIRIN 81MG CHEWABLE TABLET 81 MG PO (09:02)
[2024-09-14] MEDS: ENOXAPARIN 80MG/0.8ML SYRINGE 80 MG SUBCUT (09:46)
--- NOTE | 2024-09-14 10:36 | HMH.OTEV ---
OT Inpatient Evaluation Rehab OT IP Evaluation Start: 09/11/24 22:36 Freq: ONCE Status: Active Protocol: Document 09/14/24 10:31 RMARSHALL (Rec: 09/14/24 10:36 [facility] [id number]) Rehab OT IP Assessment Subjective History Per H&P, This is a 79-year- old female who has a past medical history significant for hypertension and hypothyroidism presents with a chief complaint of left leg pain, weakness, and confusion. Due to patient's symptoms, patient presented to the emergency room for evaluation. While in the emergency room, patient CT scan of the head was negative for any acute intracranial process. Patient's workup in the emergency room was pretty much benign. Due to persistent confusion and weakness, patient has been admitted for further management. History and physical: During my evaluation of the patient, patient was alert and oriented x 3. Family member at the bedside states that patient recently underwent cystoscopy with stent placement. She was discharged home. Unfortunately, patient became ill and septic postoperatively. She was readmitted to an outside hospital. She had to be placed into the intensive care unit due to low blood pressure. Patient recovered and was discharged home. She did have some weakness while at the facility and work with physical therapy but improved. Unfortunately, family members report that patient had progressive weakness today and increased confusion. They state that she was asking for a that had sometime ago. They also mentioned that she did not share with them that she was undergoing cystoscopy she just informed them that she was having some test drawn. Patient is conversational and is able to tell me where she is, who the current president, her first and last name, and the year. She does voice having some pain behind her left knee. She is currently denying any chest pain, lightheadedness, dizziness, blurred vision, double vision, focal weakness in upper or lower extremity, lateral gaze deficit, nausea, vomiting, or diarrhea. Additional pertinent vitals obtained include a hemoglobin 9.9, hematocrit 36.3, BUN at 19, GFR 53, blood glucose 184, calcium 10.5, AST of 44, AST of 246, and BNP of 1760. Subjective My ankle is hurting so bad. Pt is oriented x3. She reports that she lives at home with her . Reports that she began feeling confused before she came to the hospital, but she was not having any issues with her balance or walking prior to admission. She reports that she was fully independent with ambulation, did not utilize an AD and was fully independent with all ADLs. She reports that since she has been in the hospital, she has had significant pain in her left leg, which has made bed mobility and walking significantly. Objective Patient Orientation Person,Place,Birthday Right Upper Extremity Gross ROM WFL Left Upper Extremity Gross ROM WFL Bed Mobility bed mobility-scooting,bed mobility - supine/sit Assist Level Maximum x 2 (75% assist) Transfer Training Sit/Stand Transfer Assist Level Moderate x 2 (50% assist) Rehab OT IP prob,goals,plan Problems Date of Evaluation: 09/14/24 OT IP Problems Bed Mobility,Transfers,Balance ,Self care,Safety Rehab Potential Rehab Potential Good Equipment Needs Assistive Devices Rolling / Wheeled Walker Plan OT intervention Plan Bed Mobility,Transfers,Balance ,Self care,Safety,Therapeutic Exercise OT Plan Frequency Daily Duration LOS Discharge Goals Bed Mobility Ability Assistance x1 Sit to Stand Chair Transfer Ability Moderate x 1 (50% assist) Chair Transfer Ability Moderate x 1 (50% assist) Chair Transfer Technique Stand Step Pivot Chair Transfer Assistive Devices Rolling Walker Lower Body Dressing Ability Moderate Assistance Upper Body Dressing Ability Minimal Assistance Bathing Ability Moderate Assistance Performing Toilet Hygiene Ability Moderate Assistance Overall Commode/Toilet Transfer Ability Moderate Assistance Commode/Toilet Transfer Technique Sit to/from Ambulatory Discharge Plan OT Discharge Plan Pt will continue to be seen for OT services while at [facility]. Pt would benefit most from short term rehab at SNF following hospital stay. Pt presents below baseline with functional transfers and ADL independence. Continued skilled therapy is important in order for patient to improve strength, safety, endurance, ADL independence, and functional transfers to reach OF. Eval Complexity Eval Charge Codes 27078 - Moderate Complexity PHYSICIAN CERTIFICATION: I certify the specified therapy services for Dian Gamboa are required, authorized, and reviewed every 30 days.
[2024-09-14 11:21] VITALS: BMI 31.8
--- NOTE | 2024-09-14 11:32 | EXP.DC.SUM ---
General Admission date:: 09/11/24 HPI HPI HPI: This is a 79-year-old female who has a past medical history significant for hypertension and hypothyroidism presents with a chief complaint of left leg pain, weakness, and confusion. Due to patient's symptoms, patient presented to the emergency room for evaluation. While in the emergency room, patient CT scan of the head was negative for any acute intracranial process. Patient's workup in the emergency room was pretty much benign. Due to persistent confusion and weakness, patient has been admitted for further management. During my evaluation of the patient, patient was alert and oriented x 3. Family member at the bedside states that patient recently underwent cystoscopy with stent placement. She was discharged home. Unfortunately, patient became ill and septic postoperatively. She was readmitted to an outside hospital. She had to be placed into the intensive care unit due to low blood pressure. Patient recovered and was discharged home. She did have some weakness while at the facility and work with physical therapy but improved. Unfortunately, family members report that patient had progressive weakness today and increased confusion. They state that she was asking for a that had sometime ago. They also mentioned that she did not share with them that she was undergoing cystoscopy she just informed them that she was having some test drawn. Patient is conversational and is able to tell me where she is, who the current president, her first and last name, and the year. She does voice having some pain behind her left knee. She is currently denying any chest pain, lightheadedness, dizziness, blurred vision, double vision, focal weakness in upper or lower extremity, lateral gaze deficit, nausea, vomiting, or diarrhea. Additional pertinent vitals obtained include a hemoglobin 9.9, hematocrit 36.3, BUN at 19, GFR 53, blood glucose 184, calcium 10.5, AST of 44, AST of 246, and BNP of 1760. Hospital Course Hospital Course Hospital Course: Total time spent on discharge: 32 minutes on chart review, counseling, documentation, and direct care with patient. Exam Data for Last 24 hours Vital signs and Labs for Last 24 Hours: Temp Pulse Resp BP Pulse Ox O2 Del Method O2 Flow Rate 98.6 F 65 16 124/56 L 95 Room Air 2 09/14/24 08:00 09/14/24 08:00 09/14/24 08:00 09/14/24 08:00 09/14/24 08:00 09/14/24 09:00 09/11/24 22:26 Laboratory Results - last 24 hr 09/14/24 08:30: WBC 9.1, RBC 3.86 L, Hgb 10.7 L, Hct 32.6 L, MCV 84.5, MCH 27.7, MCHC 32.8, RDW 14.6, Plt Count 192, MPV 9.8, Neut % (Auto) 66.3, Lymph % (Auto) 15.6, [place] % (Auto) 13.0 H, Eos % (Auto) 4.0, Baso % (Auto) 0.7, Neut # (Auto) 6.0, Lymph # (Auto) 1.4, [place] # (Auto) 1.2 H, Eos # (Auto) 0.4, Baso # (Auto) 0.1, Sodium 136, Potassium 4.0, Chloride 111 H, Carbon Dioxide 19 L, Anion Gap 10.0, BUN 13, Creatinine 0.80, Estimated Creat Clear 61, Estimated GFR 69, Est GFR ( Amer) 84, Glucose 144 H, Calcium 10.0, Magnesium 2.0, Total Bilirubin 0.5, AST 51 H, ALT 29, Alkaline Phosphatase 266 H, Total Protein 6.0 L, Albumin 3.2 L D, Globulin 2.8, Albumin/Globulin Ratio 1.1 I & O for Last 24 hours: Intake & Output 09/11/24 09/12/24 09/13/24 09/14/24 23:59 23:59 23:59 23:59 Intake Total 1340 / 1540 920 / 1120 200 / 200 Output Total 1850 / 1850 1150 / 1150 Balance -510 / -310 -230 / -30 200 / 200 Weight 82.327 kg 82.327 kg 81.783 kg 84.5 kg Microbiology Reports for the Last 24 Hours: Microbiology 09/12/24 02:53 Blood Blood Culture - Preliminary NO GROWTH AFTER 48 HOURS 09/12/24 02:53 Blood Blood Culture - Preliminary NO GROWTH AFTER 48 HOURS 09/11/24 20:28 Urine,Clean Catch Urine Culture - Final Results Data Completed and Pending Labs on day of discharge: Labs from last 24 hours 09/14/24 08:30 WBC 9.1 RBC 3.86 L Hgb 10.7 L Hct 32.6 L MCV 84.5 MCH 27.7 MCHC 32.8 RDW 14.6 Plt Count 192 MPV 9.8 Neut % (Auto) 66.3 Lymph % (Auto) 15.6 [place] % (Auto) 13.0 H Eos % (Auto) 4.0 Baso % (Auto) 0.7 Neut # (Auto) 6.0 Lymph # (Auto) 1.4 [place] # (Auto) 1.2 H Eos # (Auto) 0.4 Baso # (Auto) 0.1 Sodium 136 Potassium 4.0 Chloride 111 H Carbon Dioxide 19 L Anion Gap 10.0 BUN 13 Creatinine 0.80 Estimated Creat Clear 61 Estimated GFR 69 Est GFR ( Amer) 84 Glucose 144 H Calcium 10.0 Magnesium 2.0 Total Bilirubin 0.5 AST 51 H ALT 29 Alkaline Phosphatase 266 H Total Protein 6.0 L Albumin 3.2 L D Globulin 2.8 Albumin/Globulin Ratio 1.1 Preliminary micro results at discharge 09/12/24 02:53 Blood Culture - Preliminary Blood NO GROWTH AFTER 48 HOURS 09/12/24 02:53 Blood Culture - Preliminary Blood NO GROWTH AFTER 48 HOURS DS: Diagnosis Discharge Diagnosis (1) Weakness: Status: Acute Code(s): R53.1 - Weakness (2) Acute metabolic encephalopathy: Status: Acute Code(s): G93.41 - Metabolic encephalopathy (3) Physical deconditioning: Status: Acute Code(s): R53.81 - Other malaise Meds Home Medications and Allergies Home Medications ?Medication ?Instructions ?Recorded ?Confirmed ?Type fesoterodine 8 mg tablet,extended 8 mg PO DAILY 09/11/24 09/11/24 History release 24 hr levocetirizine 5 mg tablet 5 mg PO HS 09/11/24 09/11/24 History magnesium oxide 400 mg (241.3 mg 400 mg PO DAILY 09/11/24 09/11/24 History magnesium) tablet methenamine hippurate 1 gram tablet 1 g PO BID 09/11/24 09/11/24 History famotidine 20 mg tablet 20 mg PO BID 09/12/24 09/12/24 History aspirin 81 mg chewable tablet 81 mg PO DAILY 30 days #30 tabs 09/14/24 Rx New Prescriptions to Start Prescriptions: Dk Paredes Allergies Allergy/AdvReac Type Severity Reaction Status Date / Time From FLOXIN Allergy Unknown I-HIVES Uncoded 07/30/17 14:40 From STADOL Allergy Unknown ITCHING Uncoded 07/30/17 14:40 PREDNISONE Allergy Unknown NA-NAUSEA Uncoded 07/30/17 14:40 SULFA (SULFONAMIDE) Allergy Unknown I-ITCHING Uncoded 07/30/17 14:40 Discharge Plan Disposition Patient Disposition: Hospice - Home Condition: Fair Discharge Order Discharge Orders: Discharge Order (Routine); Ordered 09/14/24 Ordered By: Dk Avila Follow up Plan Prescriptions/Medication Reconciliation: New aspirin 81 mg Tablet,Chewable 81 mg PO DAILY 30 Days Qty: 30 0RF Continued methenamine hippurate 1 gram Tablet 1 g PO BID magnesium oxide 400 mg (241.3 mg magnesium) tablet 400 mg PO DAILY levocetirizine 5 mg Tablet 5 mg PO HS fesoterodine 8 mg tablet extended release 24 hr 8 mg PO DAILY famotidine 20 mg tablet 20 mg PO BID Discontinued tizanidine 4 mg Tablet 4 mg PO HS amoxicillin-pot clavulanate 500-125 mg tablet 1 tab PO DAILY Rx Instructions: FILLED 09/08/24, FOR 5 DAYS. amlodipine-valsartan 5-160 mg tablet 1 tab PO DAILY Problem Reconciliation Problems Reviewed?: Yes Patient Discharge Instructions Patient Instructions: Delirium, DI for Encephalopathy Print Language: Togolese Providers Primary Care Provider: Goerge Garcia Admit Provider: Dk Avila Attending Provider: Dk Avila
[2024-09-14 12:51] VITALS: PULSE 92
[2024-09-14] MEDS: IPRATROPIUM/ALBUTEROL 3 ML NEB IH ×3 (12:51→23:45)
--- NOTE | 2024-09-14 15:37 | EXP.PN ---
Subjective *Date: 09/14/24 *Time: 15:37 Interval history: Patient is feeling well, continues to be somewhat weak. Working with physical therapy. Accepted to [facility], pending prior authorization from insurance. Exam Data for Last 24 hours Vital signs and Labs for Last 24 Hours: Temp Pulse Resp BP Pulse Ox O2 Del Method O2 Flow Rate 98.6 F 92 H 16 124/56 L 95 Room Air 2 09/14/24 08:00 09/14/24 12:51 09/14/24 08:00 09/14/24 08:00 09/14/24 08:00 09/14/24 12:34 09/11/24 22:26 Laboratory Results - last 24 hr 09/14/24 08:30: WBC 9.1, RBC 3.86 L, Hgb 10.7 L, Hct 32.6 L, MCV 84.5, MCH 27.7, MCHC 32.8, RDW 14.6, Plt Count 192, MPV 9.8, Neut % (Auto) 66.3, Lymph % (Auto) 15.6, [place] % (Auto) 13.0 H, Eos % (Auto) 4.0, Baso % (Auto) 0.7, Neut # (Auto) 6.0, Lymph # (Auto) 1.4, [place] # (Auto) 1.2 H, Eos # (Auto) 0.4, Baso # (Auto) 0.1, Sodium 136, Potassium 4.0, Chloride 111 H, Carbon Dioxide 19 L, Anion Gap 10.0, BUN 13, Creatinine 0.80, Estimated Creat Clear 61, Estimated GFR 69, Est GFR ( Amer) 84, Glucose 144 H, Calcium 10.0, Magnesium 2.0, Total Bilirubin 0.5, AST 51 H, ALT 29, Alkaline Phosphatase 266 H, Total Protein 6.0 L, Albumin 3.2 L D, Globulin 2.8, Albumin/Globulin Ratio 1.1 I & O for Last 24 hours: Intake & Output 09/11/24 09/12/24 09/13/24 09/14/24 23:59 23:59 23:59 23:59 Intake Total 1340 / 1540 920 / 1120 920 / 920 Output Total 1850 / 1850 1150 / 1150 Balance -510 / -310 -230 / -30 920 / 920 Weight 82.327 kg 82.327 kg 81.783 kg 84.5 kg Microbiology Reports for the Last 24 Hours: Microbiology 09/12/24 02:53 Blood Blood Culture - Preliminary NO GROWTH AFTER 48 HOURS 09/12/24 02:53 Blood Blood Culture - Preliminary NO GROWTH AFTER 48 HOURS Constitutional Constitutional: no acute distress *Routine HEENT Exam Head: Present normocephalic Eye: Present EOMI and PERRL ENT: Present mucous membranes moist *Routine Neck Exam Neck: Present supple; Absent lymphadenopathy *Routine Respiratory Exam Respiratory: Present CTA bilaterally *Routine Cardiovascular Exam Cardiovascular: Present RRR *Routine Abdominal Exam Abdominal: Present soft and normoactive bowel sounds; Absent tenderness *Routine Extremities Exam Extremities: Absent cyanosis, clubbing or edema Comments: Tenderness to palpation in the left popliteal fossa without overlying erythema, swelling. *Routine Skin Exam Skin: Present warm; Absent rash *Routine Neurological Exam Neurological: Present alert and oriented X3 Assessment and Plan *Assessment and plan (1) Weakness: Status: Acute Category: Medical Code(s): R53.1 - Weakness (2) Acute metabolic encephalopathy: Status: Acute Category: Medical Code(s): G93.41 - Metabolic encephalopathy (3) Physical deconditioning: Status: Acute Category: Medical Code(s): R53.81 - Other malaise Plan Dian Gamboa is a 79-year-old female who was admitted for acute metabolic encephalopathy. #Acute metabolic encephalopathy, resolved #Chronic right hydronephrosis, nephrolithiasis with UPJ obstruction. ? Reportedly had a stent placed within the last [address] abdomen/pelvis continues to show obstruction. Performed at [facility], however unable to obtain records as clinic closed over the weekend. Requested them on Saturday. ? ED provider did reach out to [place] urologist advised hydronephrosis, nephrolithiasis, UPJ obstruction are all chronic and stable at this time. ? Acute metabolic encephalopathy resolved. CT head unremarkable for acute findings. Urine and blood culture negative. ? Polypharmacy likely contributed to encephalopathy, as patient was recently started on tramadol and tizanidine. Both held and patient feeling much better. ? Currently making urine without signs of sepsis. ? Will need outpatient follow-up with urology. #Physical deconditioning ? PT/OT consulted, recommended SNF. Case management assisting with placement. Has been accepted to [facility], pending prior authorization from insurance. #Left knee pain #Popliteal cyst, arthritis ? Patient reports pain in the left popliteal fossa, no evidence of erythema, swelling but does have some tenderness to palpation in the fossa and left calf. ? Venous Doppler negative for DVT, but did show popliteal cyst. 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 ? Continue Tylenol as needed. DNR/DNI Lovenox 40 mg
[2024-09-14 18:16] VITALS: PULSE 83; PULSE 84
[2024-09-14 20:00] VITALS: BP 148/96; PULSE 101; RESP 16; TEMP 38.1; O2SAT 95
[2024-09-14] MEDS: ACETAMINOPHEN 325MG TAB 650 MG PO (21:01)
--- NOTE | 2024-09-14 22:38 | CA_ITS ---
FINAL REPORT TECHNIQUE: Ultrasound images of the deep venous system were obtained from the left groin to the calf veins. CLINICAL HISTORY: LLE pain. Pop fossa pain COMPARISON: None FINDINGS: The deep venous system of the left lower extremity is normally compressible. Normal flow is identified. There is a hypoechoic focus in the popliteal fossa measuring at least 7 cm in the craniocaudal dimension, most likely a popliteal cyst. IMPRESSION: No evidence of left lower extremity DVT A popliteal cyst is present in the popliteal fossa. Reviewed, Interpreted and Dictated by Ochoa Rdz MD Transcribed by Ramona Tolliver Authenticated and . [facility]
[2024-09-14 23:45] VITALS: PULSE 72; PULSE 74
[2024-09-15 04:00] VITALS: BP 155/78; PULSE 75; RESP 16; TEMP 36.7; O2SAT 98; BMI 29.9
--- NOTE | 2024-09-15 05:11 | PC.NURSE ---
Pt. is alert and orientated x 4. Pt. on room air and tolerating well. c/o left leg discomfort. Pt. had fever overnight. Medicated with Tylenol for fever. Fever came down. Pt. able to assist with rolling and repositioning. Pt. voiding per purewick, draining well. Pt. slept well overnight. Pt. waiting on arrangements for her to go to [facility]. VSS. Pt. personal items and call frias in reach.
[2024-09-15 05:52] VITALS: PULSE 71; PULSE 73
[2024-09-15] MEDS: IPRATROPIUM/ALBUTEROL 3 ML NEB IH (05:52)
[2024-09-15 06:46] LABS: Basophils % 0.6 % (0.1-2.0); Eosinophils # 0.2 K/mm3 (0.0-0.4); Eosinophils % 3.3 % (0.1-12.0); Hemoglobin 11.2 g/dL (12.2-16.2); Lymphocytes # 1.5 K/mm3 (0.7-4.5); Lymphocytes % 20.2 % (10-50); Mean Corpuscular Hemoglobin 27.6 pg (27.0-31.2); Mean Corpuscular Volume 86.2 fl (81-99); Mean Platelet Volume 10.2 fl (7.4-10.4); Monocytes # 1.1 K/mm3 (0.1-1.0); Monocytes % 15.1 % (1.7-9.3); Neutrophils # 4.4 K/mm3 (1.8-7.8); Neutrophils % 60.4 % (37.0-80.0); Platelet Count 219 K/mm3 (142-424); Red Blood Count 4.06 M/mm3 (4.20-5.40); Red Cell Distribution Width 14.5 % (11.5-17.5); White Blood Count 7.2 K/mm3 (4.8-10.8)
[2024-09-15 07:25] LABS: Albumin Level 3.3 g/dl (3.5-5.0); Chloride 108 mmol/L (98-107); Potassium 3.7 mmoL/L (3.5-5.1); Sodium 139 mmol/L (136-145)
[2024-09-15 07:27] LABS: Blood Urea Nitrogen 14 mg/dl (7-17); Creatinine Clearance Estimated 57 mL/min (50-200); Estimated Glomerular Filt Rate 69 ml/min (>60); GFR (African American) 84 ML/MIN (>60)
[2024-09-15 07:28] LABS: Alanine Aminotransferase 30 U/L (12-78); Alkaline Phosphatase 268 U/L (38-126); Anion Gap 12.7 mEq/L (5-15); Aspartate Amino Transferase 48 U/L (14-36); Bilirubin,Total 0.6 mg/dl (0.2-1.3); Calcium 10.3 mg/dl (8.4-10.2); Carbon Dioxide 22 mmol/L (22.0-30.0); Globulin 3.2 g/dL (1.3-3.2); Glucose 133 mg/dl (74-100); Magnesium 2.1 mg/dl (1.6-2.3); Total Protein,Serum 6.5 g/dl (6.3-8.2)
[2024-09-15 08:00] VITALS: BP 128/77; PULSE 90; RESP 16; TEMP 36.7; O2SAT 100
[2024-09-15 08:26] LABS: Basophils # 0.1 K/mm3 (0-0.2); Basophils % 0.6 % (0.1-2.0); Eosinophils # 0.2 K/mm3 (0.0-0.4); Eosinophils % 2.1 % (0.1-12.0); Hematocrit 33.4 % (37.0-47.0); Hemoglobin 11.1 g/dL (12.2-16.2); Lymphocytes % 11.5 % (10-50); Mean Corpuscular HGB Conc 33.2 g/dL (31.8-35.4); Mean Corpuscular Volume 84.1 fl (81-99); Mean Platelet Volume 9.6 fl (7.4-10.4); Monocytes % 11.5 % (1.7-9.3); Neutrophils # 6.4 K/mm3 (1.8-7.8); Platelet Count 205 K/mm3 (142-424); Red Blood Count 3.97 M/mm3 (4.20-5.40); Red Cell Distribution Width 14.5 % (11.5-17.5); White Blood Count 8.6 K/mm3 (4.8-10.8)
--- NOTE | 2024-09-15 08:28 | EXP.DC.SUM ---
General Admission date:: 09/11/24 Discharge date: 09/15/24 HPI HPI HPI: This is a 79-year-old female who has a past medical history significant for hypertension and hypothyroidism presents with a chief complaint of left leg pain, weakness, and confusion. Due to patient's symptoms, patient presented to the emergency room for evaluation. While in the emergency room, patient CT scan of the head was negative for any acute intracranial process. Patient's workup in the emergency room was pretty much benign. Due to persistent confusion and weakness, patient has been admitted for further management. During my evaluation of the patient, patient was alert and oriented x 3. Family member at the bedside states that patient recently underwent cystoscopy with stent placement. She was discharged home. Unfortunately, patient became ill and septic postoperatively. She was readmitted to an outside hospital. She had to be placed into the intensive care unit due to low blood pressure. Patient recovered and was discharged home. She did have some weakness while at the facility and work with physical therapy but improved. Unfortunately, family members report that patient had progressive weakness today and increased confusion. They state that she was asking for a that had sometime ago. They also mentioned that she did not share with them that she was undergoing cystoscopy she just informed them that she was having some test drawn. Patient is conversational and is able to tell me where she is, who the current president, her first and last name, and the year. She does voice having some pain behind her left knee. She is currently denying any chest pain, lightheadedness, dizziness, blurred vision, double vision, focal weakness in upper or lower extremity, lateral gaze deficit, nausea, vomiting, or diarrhea. Additional pertinent vitals obtained include a hemoglobin 9.9, hematocrit 36.3, BUN at 19, GFR 53, blood glucose 184, calcium 10.5, AST of 44, AST of 246, and BNP of 1760. Hospital Course Hospital Course Hospital Course: Dian Gamboa is a 79-year-old female who was admitted for acute metabolic encephalopathy. Mentation is returned to baseline. Patient found to be weak necessitating placement for rehab. Overall doing well. Stable to discharge to [facility] for further management. Problems addressed as follows: #Acute metabolic encephalopathy, resolved #Chronic right hydronephrosis, nephrolithiasis with UPJ obstruction. #Physical deconditioning ? Reportedly had a stent placed within the last 2 weeks, however CT abdomen/pelvis continues to show hydronephrosis. Making good urine and has normal kidney function however. Procedure performed at [facility]. Case discussed with urologist, advised hydronephrosis and nephrolithiasis with UPJ obstruction are chronic and stable. CT head was unremarkable with no acute findings. Urine and blood cultures negative. Polypharmacy concerning for contribution to her encephalopathy as she was recently started on tramadol and tizanidine. These medications have been discontinued. Labs on day of discharge showed normal white count at 8.6. Kidney function normal with BUN 14, creatinine 0.8. Blood pressure better controlled. Stable on room air. Will discharge to rehab. -Needs follow-up with urology at [facility] in the next 2 to 3 weeks. -Continuing methenamine hippurate twice daily for UTI prophylaxis #Left knee pain #Popliteal cyst, arthritis ? Patient reports pain in the left popliteal fossa, no evidence of erythema, swelling but does have some tenderness to palpation in the fossa and left calf. Venous Doppler negative for DVT, but did show popliteal cyst. 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 Recommend continuing Tylenol as needed for pain control. Patient was DNR/DNI during her admission at the hospital. Encourage goals of care discussion with patient/surrogate at nursing facility Total time spent on discharge 32 minutes in counseling, documentation, chart review, and direct care with patient. Exam Data for Last 24 hours Vital signs and Labs for Last 24 Hours: Temp Pulse Resp BP Pulse Ox O2 Del Method O2 Flow Rate 98.0 F 71 16 155/78 H 98 Room Air 2 09/15/24 04:00 09/15/24 05:52 09/15/24 04:00 09/15/24 04:00 09/15/24 04:00 09/15/24 07:00 09/11/24 22:26 Laboratory Results - last 24 hr 09/14/24 08:30: WBC 9.1, RBC 3.86 L, Hgb 10.7 L, Hct 32.6 L, MCV 84.5, MCH 27.7, MCHC 32.8, RDW 14.6, Plt Count 192, MPV 9.8, Neut % (Auto) 66.3, Lymph % (Auto) 15.6, [place] % (Auto) 13.0 H, Eos % (Auto) 4.0, Baso % (Auto) 0.7, Neut # (Auto) 6.0, Lymph # (Auto) 1.4, [place] # (Auto) 1.2 H, Eos # (Auto) 0.4, Baso # (Auto) 0.1, Sodium 136, Potassium 4.0, Chloride 111 H, Carbon Dioxide 19 L, Anion Gap 10.0, BUN 13, Creatinine 0.80, Estimated Creat Clear 61, Estimated GFR 69, Est GFR ( Amer) 84, Glucose 144 H, Calcium 10.0, Magnesium 2.0, Total Bilirubin 0.5, AST 51 H, ALT 29, Alkaline Phosphatase 266 H, Total Protein 6.0 L, Albumin 3.2 L D, Globulin 2.8, Albumin/Globulin Ratio 1.1 09/15/24 05:48: WBC 7.2, RBC 4.06 L, Hgb 11.2 L, Hct 35.0 L, MCV 86.2, MCH 27.6, MCHC 32.0, RDW 14.5, Plt Count 219, MPV 10.2, Neut % (Auto) 60.4, Lymph % (Auto) 20.2, [place] % (Auto) 15.1 H, Eos % (Auto) 3.3, Baso % (Auto) 0.6, Neut # (Auto) 4.4, Lymph # (Auto) 1.5, [place] # (Auto) 1.1 H, Eos # (Auto) 0.2, Baso # (Auto) 0.0, Sodium 139, Potassium 3.7, Chloride 108 H, Carbon Dioxide 22, Anion Gap 12.7, BUN 14, Creatinine 0.80, Estimated Creat Clear 57, Estimated GFR 69, Est GFR ( Amer) 84, Glucose 133 H, Calcium 10.3 H, Magnesium 2.1, Total Bilirubin 0.6, AST 48 H, ALT 30, Alkaline Phosphatase 268 H, Total Protein 6.5, Albumin 3.3 L, Globulin 3.2, Albumin/Globulin Ratio 1.0 L 09/15/24 08:19: WBC 8.6, RBC 3.97 L, Hgb 11.1 L, Hct 33.4 L, MCV 84.1, MCH 28.0, MCHC 33.2, RDW 14.5, Plt Count 205, MPV 9.6, Neut % (Auto) 74.0, Lymph % (Auto) 11.5, [place] % (Auto) 11.5 H, Eos % (Auto) 2.1, Baso % (Auto) 0.6, Neut # (Auto) 6.4, Lymph # (Auto) 1.0, [place] # (Auto) 1.0, Eos # (Auto) 0.2, Baso # (Auto) 0.1 I & O for Last 24 hours: Intake & Output 09/12/24 09/13/24 09/14/24 09/15/24 23:59 23:59 23:59 23:59 Intake Total 1340 / 1540 920 / 1120 1280 / 1680 400 / 400 Output Total 1850 / 1850 1150 / 1150 750 / 750 700 / 700 Balance -510 / -310 -230 / -30 530 / 930 -300 / -300 Weight 82.327 kg 81.783 kg 84.5 kg 79.424 kg Constitutional Constitutional: no acute distress, average body habitus, chronically ill appearing and cooperative *Routine HEENT Exam Head: Present normocephalic Eye: Present EOMI and PERRL ENT: Present mucous membranes moist *Routine Neck Exam Neck: Present supple; Absent lymphadenopathy *Routine Respiratory Exam Respiratory: Present CTA bilaterally; Absent respiratory distress, rhonchi, stridor, wheezes or crackles *Routine Cardiovascular Exam Cardiovascular: Present RRR *Routine Abdominal Exam Abdominal: Present soft and normoactive bowel sounds; Absent tenderness *Routine Rectal Exam Patient deferred: visual exam *Routine Exam Patient deferred: external exam *Routine Extremities Exam Extremities: Absent cyanosis, clubbing or edema Comments: Tenderness to palpation in the left popliteal fossa without overlying erythema, swelling. *Routine Skin Exam Skin: Present intact and warm; Absent rash *Routine Neurological Exam Neurological: Present alert, oriented X3 and moving all extremities; Absent altered mental status Results Data Completed and Pending Labs on day of discharge: Labs from last 24 hours 09/15/24 09/15/24 09/14/24 08:19 05:48 08:30 WBC 8.6 7.2 9.1 RBC 3.97 L 4.06 L 3.86 L Hgb 11.1 L 11.2 L 10.7 L Hct 33.4 L 35.0 L 32.6 L MCV 84.1 86.2 84.5 MCH 28.0 27.6 27.7 MCHC 33.2 32.0 32.8 RDW 14.5 14.5 14.6 Plt Count 205 219 192 MPV 9.6 10.2 9.8 Neut % (Auto) 74.0 60.4 66.3 Lymph % (Auto) 11.5 20.2 15.6 [place] % (Auto) 11.5 H 15.1 H 13.0 H Eos % (Auto) 2.1 3.3 4.0 Baso % (Auto) 0.6 0.6 0.7 Neut # (Auto) 6.4 4.4 6.0 Lymph # (Auto) 1.0 1.5 1.4 [place] # (Auto) 1.0 1.1 H 1.2 H Eos # (Auto) 0.2 0.2 0.4 Baso # (Auto) 0.1 0.0 0.1 Sodium 139 136 Potassium 3.7 4.0 Chloride 108 H 111 H Carbon Dioxide 22 19 L Anion Gap 12.7 10.0 BUN 14 13 Creatinine 0.80 0.80 Estimated Creat Clear 57 61 Estimated GFR 69 69 Est GFR ( Amer) 84 84 Glucose 133 H 144 H Calcium 10.3 H 10.0 Magnesium 2.1 2.0 Total Bilirubin 0.6 0.5 AST 48 H 51 H ALT 30 29 Alkaline Phosphatase 268 H 266 H Total Protein 6.5 6.0 L Albumin 3.3 L 3.2 L D Globulin 3.2 2.8 Albumin/Globulin Ratio 1.0 L 1.1 Preliminary micro results at discharge 09/12/24 02:53 Blood Culture - Preliminary Blood NO GROWTH AFTER 48 HOURS 09/12/24 02:53 Blood Culture - Preliminary Blood NO GROWTH AFTER 48 HOURS DS: Diagnosis Discharge Diagnosis (1) Weakness: Status: Acute Code(s): R53.1 - Weakness (2) Acute metabolic encephalopathy: Status: Acute Code(s): G93.41 - Metabolic encephalopathy (3) Physical deconditioning: Status: Acute Code(s): R53.81 - Other malaise Meds Home Medications and Allergies Home Medications ?Medication ?Instructions ?Recorded ?Confirmed ?Type aspirin 81 mg chewable tablet 81 mg PO DAILY 30 days #30 tabs 02/03/25 Rx amlodipine 5 mg tablet 5 mg PO DAILY #30 tabs 09/15/24 Rx famotidine 20 mg tablet 20 mg PO BID 30 days #60 tabs 09/15/24 Rx fesoterodine 8 mg tablet,extended 8 mg PO DAILY 30 days #30 tabs 09/15/24 Rx release 24 hr levocetirizine 5 mg tablet 5 mg PO HS 30 days #30 tabs 09/15/24 Rx magnesium oxide 400 mg (241.3 mg 400 mg PO DAILY 30 days #30 tabs 09/15/24 Rx magnesium) tablet methenamine hippurate 1 gram tablet 1 g PO BID 30 days #60 tabs 09/15/24 Rx New Prescriptions to Start Prescriptions: amlodipine Gilda,Saud aspirin [place],Dk famotidine Gilda,Saud fesoterodine Gilda,Saud levocetirizine Gilda,Saud magnesium oxide Gilda,Saud methenamine hippurate Gilda,Saud Allergies Allergy/AdvReac Type Severity Reaction Status Date / Time From FLOXIN Allergy Unknown I-HIVES Uncoded 07/30/17 14:40 From STADOL Allergy Unknown ITCHING Uncoded 07/30/17 14:40 PREDNISONE Allergy Unknown NA-NAUSEA Uncoded 07/30/17 14:40 SULFA (SULFONAMIDE) Allergy Unknown I-ITCHING Uncoded 07/30/17 14:40 Discharge Plan Disposition Patient Disposition: Xfer SNF Condition: Fair Discharge Order Discharge Orders: Discharge Order (Routine); Ordered 09/15/24 Ordered By: Saud Vo Follow up Plan Follow up with: David Chapman [Referring] - 10/08/24 1:30 pm Prescriptions/Medication Reconciliation: New aspirin 81 mg Tablet,Chewable 81 mg PO DAILY 30 Days Qty: 30 0RF amlodipine 5 mg tablet 5 mg PO DAILY Qty: 30 0RF Continued methenamine hippurate 1 gram Tablet 1 g PO BID 30 Days Qty: 60 0RF famotidine 20 mg tablet 20 mg PO BID 30 Days Qty: 60 0RF magnesium oxide 400 mg (241.3 mg magnesium) tablet 400 mg PO DAILY 30 Days Qty: 30 0RF levocetirizine 5 mg Tablet 5 mg PO HS 30 Days Qty: 30 0RF fesoterodine 8 mg tablet extended release 24 hr 8 mg PO DAILY 30 Days Qty: 30 0RF Discontinued tizanidine 4 mg Tablet 4 mg PO HS amoxicillin-pot clavulanate 500-125 mg tablet 1 tab PO DAILY Rx Instructions: FILLED 09/08/24, FOR 5 DAYS. amlodipine-valsartan 5-160 mg tablet 1 tab PO DAILY Problem Reconciliation Problems Reviewed?: Yes Patient Discharge Instructions ACTIVITY: Continue current activity DIET: continue same diet Patient Instructions: Delirium, DI for Encephalopathy Print Language: Amharic Providers Primary Care Provider: George Garcia Admit Provider: Dk Avila Attending Provider: Dk Avila
[2024-09-15] MEDS: ENOXAPARIN 40MG/0.4ML SYRINGE 40 MG SUBCUT (09:01)
[2024-09-15] MEDS: ASPIRIN 81MG CHEWABLE TABLET 81 MG PO (09:01)
[2024-09-15 09:18] LABS: Chloride 110 mmol/L (98-107)
[2024-09-15 09:19] LABS: Potassium 3.9 mmoL/L (3.5-5.1); Sodium 138 mmol/L (136-145)
[2024-09-15 09:21] LABS: Alanine Aminotransferase 27 U/L (12-78); Albumin/Globulin Ratio 1.1 (1.1-1.8); Anion Gap 13.9 mEq/L (5-15); Aspartate Amino Transferase 42 U/L (14-36); Blood Urea Nitrogen 14 mg/dl (7-17); Carbon Dioxide 18 mmol/L (22.0-30.0); Creatinine Clearance Estimated 57 mL/min (50-200); Estimated Glomerular Filt Rate 81 ml/min (>60); GFR (African American) 98 ML/MIN (>60); Globulin 2.8 g/dL (1.3-3.2); Total Protein,Serum 5.8 g/dl (6.3-8.2)
[2024-09-15 09:22] LABS: Alkaline Phosphatase 294 U/L (38-126); Bilirubin,Total 0.6 mg/dl (0.2-1.3); Calcium 10.3 mg/dl (8.4-10.2); Glucose 168 mg/dl (74-100)
--- NOTE | 2024-09-15 10:26 | PC.NURSE ---
[facility] called and they stated they would call us back when they know who is getting the patient.
--- NOTE | 2024-09-15 10:35 | PC.NURSE ---
Report given to nurse at [facility].
[2024-09-16 03:39] LABS: Vitamin B1 106.1 nmol/L (66.5-200.0)
== END 2024-09-15 11:35 ==
LOC: ER 21:43 → 2ND 09-12 00:33
PROVIDERS: Nurse Practitioner Family; Physician Assistant; Admitting Provider Student in an Organized Health Care Education/Training Program; Emergency Provider Emergency Medicine; PCP Family Medicine; Visit Provider Student in an Organized Health Care Education/Training Program
DX: G93.41 Metabolic encephalopathy (principal); I16.0 Hypertensive urgency; M71.22 Synovial cyst of popliteal space [Baker], left knee; E03.9 Hypothyroidism, unspecified; E66.9 Obesity, unspecified; F32.A Depression, unspecified; K58.9 Irritable bowel syndrome, unspecified; K21.9 Gastro-esophageal reflux disease without esophagitis; M11.262 Other chondrocalcinosis, left knee; K44.9 Diaphragmatic hernia without obstruction or gangrene; N39.0 Urinary tract infection, site not specified; N13.0 Hydronephrosis with ureteropelvic junction obstruction; N13.2 Hydronephrosis with renal and ureteral calculous obstruction; M17.12 Unilateral primary osteoarthritis, left knee; I45.2 Bifascicular block; R53.81 Other malaise; R74.01 Elevation of levels of liver transaminase levels; Z68.29 Body mass index [BMI] 29.0-29.9, adult; Z79.899 Other long term (current) drug therapy; Z98.890 Other specified postprocedural states; Z88.2 Allergy status to sulfonamides; Z88.1 Allergy status to other antibiotic agents; Z88.5 Allergy status to narcotic agent; Z90.49 Acquired absence of other specified parts of digestive tract; Z88.8 Allergy status to other drugs, medicaments and biological substances; Z66 Do not resuscitate; Z96.0 Presence of urogenital implants
CPT/HCPCS: 36415; 70450; 71045; 73502; 73552; 73562; 73590; 74177; 80048; 80053; 81001; 82140; 82607; 82728; 82746; 83036; 83540; 83550; 83605; 83690; 83735; 83880; 84145; 84425; 84443; 84484; 85025; 85378; 86803; 87040; 87086; 87389; 87633; 93005; 93971; 94640; 97110; 97162; 97166; 99285; G0378; J0696; J1650; J7030; J7620; Q9967

== ENCOUNTER 2024-10-08 04:44 | Observation (INO) | payer MEDICARE, SELFPAY ==
[2024-10-08] VITALS (17 sets, daily range): BP systolic 113–161; BP diastolic 59–98; PULSE 67–102; RESP 16–22; TEMP 36.5–36.8; O2SAT 92–99; BMI 29.8; BMI 29.6
--- NOTE | 2024-10-08 05:02 | ECG_ITS ---
APPROVED REPORT Exam: Resting ECG HR:98 bpm ECG Measurements Heart Rate 98 AXES UT 209 P 40 QRSd 153 QRS -52 QT 374 T 8 QTc 429 Conclusion SINUS RHYTHM WITH SINUS ARRHYTHMIA RIGHT BUNDLE BRANCH BLOCK [120+ ms QRS DURATION, UPRIGHT V1, 40+ ms S IN I/aVL/V4/V5/V6] LEFT ANTERIOR FASCICULAR BLOCK [QRS AXIS <= -45, QR IN I, RS IN II] LATERAL MYOCARDIAL INFARCTION , OF INDETERMINATE AGE [40+ ms Q WAVE AND/OR ST/T ABNORMALITY IN I/aVL/V5/V6] No STEMI Electronically signed by : SANTIAGO JONES, 10/09/2024 07:03:19
--- NOTE | 2024-10-08 05:03 | CT_ITS ---
PROCEDURE INFORMATION: Exam: CT Abdomen And Pelvis With Contrast Exam date and time: 10/08/2024 6:17 AM Age: 79 years old Clinical indication: Nausea and vomiting; Additional info: N/v, recent urosepsis TECHNIQUE: Imaging protocol: Computed tomography of the abdomen and pelvis with contrast. Radiation optimization: All CT scans at this facility use at least one of these dose optimization techniques: automated exposure control; mA and/or kV adjustment per patient size (includes targeted exams where dose is matched to clinical indication); or iterative reconstruction. Contrast material: ISOVUE; Contrast volume: 75 ml; Contrast route: IV; COMPARISON: CT ABDOMEN PELVIS W CON 09/11/2024 7:05 PM FINDINGS: Lungs: Imaging through the lower thorax demonstrates minimal bibasilar atelectasis. The heart is enlarged and demonstrates coronary artery calcification. The thorax is incompletely imaged. Diaphragm: Qrjnf-bh-wacijsij hiatal hernia. Liver: Diffuse fatty infiltration of the liver. Gallbladder and biliary ducts: Cholecystectomy clips noted. There is interval increased dilatation of the common bile duct. Increased oykv-lp-uygdsuem intrahepatic biliary dilatation. Pancreas: Normal. No ductal dilation. Spleen: Normal. No splenomegaly. Adrenal glands: Normal. No mass. Kidneys and ureters: There is unchanged moderate dilatation of the right renal pelvis. There is a right ureterostomy stent in satisfactory position there is there is interval shift of the nonobstructive 5 mm calculus in the right renal pelvis. There is unchanged jkog-kw-ncvlxacy dilatation of the left renal pelvis with abrupt transition to a normal left ureter suggestive for left UPJ obstruction. Unchanged 2.3 cm simple exophytic cyst along the lateral aspect of the right kidney. Additional smaller bilateral renal cysts are too small to characterize. Stomach and bowel: No evidence of small bowel obstruction. There is inflammatory change of the distal left colon and proximal sigmoid colon region demonstrating diverticula consistent with acute diverticulitis. There is a small amount of adjacent fluid stranding. No evidence of abscess or free air. There is additional wall thickening of the proximal to mid sigmoid colon which may represent a continuation of the inflammatory process or a separate component of colitis. Increased stool content within the rectal segment. Appendix: Nonvisualized. Intraperitoneal space: See Stomach and bowel finding. Vasculature: The abdominal aorta is normal in caliber and demonstrates atherosclerotic calcification. Lymph nodes: Interval increased enlargement of the 1.4 x 0.9 cm anterior pericardiac lymph node. Interval increased size of a 1.7 x 0.9 cm gastrohepatic ligament lymph node. There is an unchanged 1.3 x 1.1 cm enlarged lymph node situated near the inferior vena cava and portal vein. Additional smaller enlarged lymph nodes are present in this region. Urinary bladder: Subtle thickening of the superior wall of the urinary bladder likely related to secondary inflammatory change from the diverticulitis. Reproductive: Hysterectomy change. Bones/joints: Degenerative change and mild levocurvature of the lumbar spine. Soft tissues: Unremarkable. IMPRESSION: 1. CT findings consistent with acute diverticulitis of the distal left colon and proximal sigmoid colon segments. No evidence of free air or abscess. Follow-up colonoscopy recommended to exclude lesion. There is additional wall thickening of the proximal to mid sigmoid colon which may represent a continuation of the inflammatory process or a separate component of colitis. 2. Interval increased dilatation of the common bile duct as well as increased avav-vx-cvkvlbfa intrahepatic biliary dilatation. Cholecystectomy change noted. MRCP imaging may be helpful for further evaluation. 3. Unchanged dilatation of the renal pelvises, qboeb-ikgahhp-lzlw-left which could be related to UPJ obstruction. A right ureterostomy stent is satisfactory in position. Interval shift of a 5 mm nonobstructive calculus into the dependent aspect of the right renal pelvis. There is a persistent thin linear hyperdensity within the urinary bladder which may represent a small catheter remnant. 4. Interval increased upper abdominal lymph node enlargement. Interval increased enlargement of the pericardiac lymph node. 5. Diffuse fatty infiltration of the liver. 6. Small to moderate hiatal hernia. COMMENTS: Consistent with the [employer]'s Incidental Findings Committee white paper (J Am Kristy Radiol 2018): Any incidental renal lesion less than 1 cm or classified as too small to characterize, or any incidental cystic renal lesion characterized as simple-appearing, is likely benign. No follow-up imaging is recommended for these lesions per consensus recommendations based on imaging criteria.
--- NOTE | 2024-10-08 05:03 | XR_ITS ---
PROCEDURE INFORMATION: Exam: XR Chest Exam date and time: 10/08/2024 5:58 AM Age: 79 years old Clinical indication: Other: Weakness, recent sepsis; Additional info: General weakness recent sepsis TECHNIQUE: Imaging protocol: Radiologic exam of the chest. Views: 2 views. COMPARISON: CR XR CHEST PORTABLE 09/11/2024 5:34 PM FINDINGS: Lungs: No consolidation. Pleural spaces: No pleural effusion. No pneumothorax. Heart/Mediastinum: No cardiomegaly. Mild unfolding of the descending thoracic aorta. Bones/joints: Degenerative change of the thoracic spine. Intraperitoneal space: Right upper quadrant surgical clips, likely cholecystectomy clips. Partially visualized right ureteral stent. IMPRESSION: No radiographic evidence of an acute thoracic abnormality.
[2024-10-08 05:17] LABS: Basophils # 0.1 K/mm3 (0-0.2); Basophils % 0.4 % (0.1-2.0); Eosinophils % 0.3 % (0.1-12.0); Hematocrit 43.7 % (37.0-47.0); Hemoglobin 14.1 g/dL (12.2-16.2); Lymphocytes # 1.2 K/mm3 (0.7-4.5); Lymphocytes % 9.9 % (10-50); Mean Corpuscular HGB Conc 32.3 g/dL (31.8-35.4); Mean Corpuscular Hemoglobin 27.6 pg (27.0-31.2); Mean Corpuscular Volume 85.7 fl (81-99); Mean Platelet Volume 10.4 fl (7.4-10.4); Monocytes # 0.6 K/mm3 (0.1-1.0); Neutrophils # 10.1 K/mm3 (1.8-7.8); Platelet Count 202 K/mm3 (142-424); Red Cell Distribution Width 15.2 % (11.5-17.5); White Blood Count 12.1 K/mm3 (4.8-10.8)
[2024-10-08 05:23] LABS: Lipase 58 U/L (23-300)
[2024-10-08 05:24] LABS: INR 0.91 (0.9-1.1); Prothrombin Time 10.3 seconds (10.1-12.5)
[2024-10-08 05:33] LABS: Lactic Acid 2.1 mmol/L (0.7-2.1)
[2024-10-08 05:41] LABS: Alanine Aminotransferase 64 U/L (12-78); Albumin Level 4.2 g/dl (3.5-5.0); Albumin/Globulin Ratio 1.3 (1.1-1.8); Alkaline Phosphatase 1071 U/L (38-126); Anion Gap 11.7 mEq/L (5-15); Aspartate Amino Transferase 88 U/L (14-36); Bilirubin,Total 1.2 mg/dl (0.2-1.3); Blood Urea Nitrogen 26 mg/dl (7-17); Calcium 10.5 mg/dl (8.4-10.2); Carbon Dioxide 24 mmol/L (22.0-30.0); Chloride 104 mmol/L (98-107); Creatinine Clearance Estimated 57 mL/min (50-200); Estimated Glomerular Filt Rate 69 ml/min (>60); GFR (African American) 84 ML/MIN (>60); Globulin 3.3 g/dL (1.3-3.2); Glucose 221 mg/dl (74-100); Potassium 4.7 mmoL/L (3.5-5.1); Sodium 135 mmol/L (136-145); Total Protein,Serum 7.5 g/dl (6.3-8.2)
[2024-10-08 05:49] LABS: Troponin I < 0.01 ng/ml (0.00-0.034)
[2024-10-08 05:55] LABS: Thyroid Stimulating Hormone 1.41 uIU/mL (0.465-4.68)
[2024-10-08 05:58] LABS: Free T4 (Free Thyroxine) 1.24 ng/dl (0.78-2.19)
[2024-10-08 06:02] LABS: Adenovirus,PCR Not Detected (NotDetected); Coronavirus 229E Not Detected (NotDetected); Coronavirus NL63 Not Detected (NotDetected); Coronavirus OC43 Not Detected (NotDetected); Coronovirus HKU1,PCR Not Detected (NotDetected); Human Metapneumovirus Not Detected (NotDetected); Influenza A, PCR Not Detected (NotDetected); Influenza AH1, 2009 Not Detected (NotDetected); Influenza AH1, PCR Not Detected (NotDetected); Influenza AH3,PCR Not Detected (NotDetected); Influenza B, PCR Not Detected (NotDetected); Parainfluenza 1, PCR Not Detected (NotDetected); Parainfluenza 2, PCR Not Detected (NotDetected); Parainfluenza 3, PCR Not Detected (NotDetected); Parainfluenza 4, PCR Not Detected (NotDetected); Respiratory Syncytial Virus Not Detected (NotDetected); Rhinovirus/Enterovirus Not Detected (NotDetected)
[2024-10-08 06:03] LABS: Bordetella Pertussis Not Detected (NotDetected); Chlamydophila Pneumoniae, PCR Not Detected (NotDetected); Coronavirus 19, PCR Not Detected (NotDetected); Mycoplasma Pneumoniae, PCR Not Detected (NotDetected)
[2024-10-08] MEDS: IOPAMIDOL-370 (76%);100ML BOTTLE 75 ML IV (06:25)
[2024-10-08] MEDS: SODIUM CHLORIDE 0.9% 10ML SYR (RAD ONLY) 10 ML IV (06:25)
--- NOTE | 2024-10-08 06:30 | [facility].EDGENADL ---
Discharge Plan Disposition Patient Disposition: Admitted Clinical Impressions Clinical Impression: Generalized weakness, Hydronephrosis, Nausea, vomiting, and diarrhea, Alkaline phosphatase elevation, Diverticulitis, Dilated bile duct Discharge ED Provider: Johana Melgar General Adult HPI <Bren Oliveira MD - Last Filed: 10/08/24 06:46> General Chief complaint: Weakness Stated complaint: vomiting, diarrhea, not eating, weakness Time Seen by Provider: 10/08/24 05:02 Mode of Arrival: Wheelchair Source of Information: Patient Limitations: No Limitations Description of Symptoms (Recalled from ER Triage Doc. by RN): Pt states she has only been discharged for a few days after being hospitalized for urosepsis. Pt states she has been vomiting and weak History of Present Illness HPI narrative: 79-year-old female presents to the ER with vomiting, diarrhea, mid abdominal pain, generalized weakness. Patient and family at bedside provide history. Reportedly at the end of August patient had urosepsis and a stent placed. She ended up being discharged from [place] and came to [place] where she was again admitted, review of records demonstrates she had a diagnosis of metabolic encephalopathy while inpatient. They knew at that time that she had persistent hydronephrosis despite having stents in the right kidney/ureter. Hospitalist was concerned for polypharmacy contributing to encephalopathy. They continued methenamine hippurate for UTI prophylaxis. Family reports after discharge patient had been doing well, especially for the last week but in the last 2 days she started getting sick again. They are concerned that she has UTI and they had taken her to her primary care doctor a few days ago where she reportedly tested positive for UTI but they were unable to do a culture. They placed her on nitrofurantoin. Family is not sure that this medication is working well for her. Patient reports multiple episodes of emesis in the last 24 hours that has been nonbloody, nonbilious. She has a history of cholecystectomy and appendectomy. She also reports multiple episodes of diarrhea, states this happened in the last 4 to 5 hours, nonbloody, nonmelanotic. She is not having dysuria or hematuria, no fevers, chills, chest pain, difficulty breathing. Related Data Home Medications ?Medication ?Instructions ?Recorded ?Confirmed acetaminophen 500 mg tablet 1,000 mg PO BID 10/08/24 10/08/24 nitrofurantoin 100 mg PO BID 10/08/24 10/08/24 monohydrate/macrocrystals 100 mg capsule oxybutynin chloride 10 mg 10 mg PO DAILY 10/08/24 10/08/24 tablet,extended release 24 hr Previous Rx's ?Medication ?Instructions ?Recorded aspirin 81 mg chewable tablet 81 mg PO DAILY 30 days #30 tabs 09/14/24 amlodipine 5 mg tablet 5 mg PO DAILY #30 tabs 09/15/24 famotidine 20 mg tablet 20 mg PO BID 30 days #60 tabs 09/15/24 fesoterodine 8 mg tablet,extended 8 mg PO DAILY 30 days #30 tabs 09/15/24 release 24 hr levocetirizine 5 mg tablet 5 mg PO HS 30 days #30 tabs 09/15/24 magnesium oxide 400 mg (241.3 mg 400 mg PO DAILY 30 days #30 tabs 09/15/24 magnesium) tablet methenamine hippurate 1 gram tablet 1 g PO BID 30 days #60 tabs 09/15/24 Allergies Allergy/AdvReac Type Severity Reaction Status Date / Time butorphanol (From Stadol) Allergy Unknown Verified 10/08/24 14:42 allergy reaction ofloxacin (From Floxin) Allergy Hives Verified 10/08/24 14:42 prednisone Allergy Nausea Verified 10/08/24 14:42 Sulfa (Sulfonamide Allergy Unknown Verified 10/08/24 14:42 Antibiotics) allergy reaction PFSH <Bren Oliveira MD - Last Filed: 10/08/24 06:46> [facility] Disclaimer: The information contained in this section may have been updated after the patient was seen, as this information can be updated by other users. Medical History (Updated 10/08/24 @ 15:47 by Vu Bhatt II, MD) Alkaline phosphatase elevation Hypothyroidism HTN (hypertension) Surgical History Previous back surgery Social History (Updated 10/08/24 @ 14:48 by Yolis Glass RN) Smoking Status: Never smoker alcohol intake: never current occupational status: other Travel in the last 8 weeks: None Have you lived/traveled outside [place] in past 30 days?: No Contact w/someone who lives/traveled outside US past 30 days?: No Exposure to someone with infectious disease in past 14 days?: No Do you have a fever (greater than 100.4 F or 38 C)?: No Have you tested positive for COVID-19: No Exposed to someone with COVID-19 in past 14 days?: No Do you have a sore throat?: No Do you have a cough?: No Do you have any weakness?: Yes Are you experiencing any nausea/vomitting?: No Do you have any diarrhea?: Yes Are you experiencing any unusual bleeding?: No Do you have any muscle aches/pain?: No Do you have any abdominal pain?: No Are you experiencing loss of taste or smell?: No Other Medical History Have you received the Flu Vaccine for this season: No Have you received the Pneumonia Vaccine: No <Bren Oliveira MD - Last Filed: 10/08/24 06:46> ROS Obtained: Yes Systems reviewed as appropriate & no additional complaints except as documented Per HPI Physical Exam <Bren Oliveira MD - Last Filed: 10/08/24 06:46> General General appearance: alert and in no apparent distress Comment: Ill-appearing but not in extremis, nontoxic Head Head exam: atraumatic and normocephalic Eye Eye exam: Present PERRL and EOMI ENT ENT exam: Present mucous membranes moist Neck Neck exam: Present normal inspection and full ROM Chest Chest inspection: Present symmetric chest wall rise Respiratory Respiratory exam: Present normal lung sounds bilaterally; Absent respiratory distress, wheezes or stridor Cardiovascular Cardiovascular exam: Present regular rate and normal rhythm Abdominal Exam Abdominal exam: Present soft, tenderness (Mid abdomen) and guarding (Voluntary); Absent distention or rebound Extremities Exam Extremities exam: Present full ROM; Absent edema or joint swelling Neurological Exam Neurological exam: Present alert and oriented X3; Absent motor sensory deficit Psychiatric Psychiatric exam: Present normal affect and normal mood Skin Skin exam: Present warm and dry Medical Decision Making <Bren Oliveira MD - Last Filed: 10/08/24 06:46> Medical Records Medical records reviewed: Yes I reviewed the patient's medical records. Screening: Per USPSTF and CDC recommendations, given the prevalence of disease in our region, it is our hospital?s policy to screen for HIV and viral Hepatitis for all patients aged 18 and over and those with ongoing risk factors. MR Comment: See HPI. Isaiah Inquiry Pt receiving controlled substance: No Vital Signs: 10/08/24 04:52 10/08/24 05:03 10/08/24 05:15 Temperature 97.9 F Temperature Source Oral Pulse Rate 90 95 H Pulse Rate [Right Brachial] 95 H Respiratory Rate 20 17 Blood Pressure 161/96 H Blood Pressure [Right Arm] 151/95 H Blood Pressure Mean Blood Pressure Mean [Right Arm] 113 Blood Pressure Source [Right Arm] Automatic Cuff Blood Pressure Position [Right Arm] Sitting 02 Sat by Pulse Oximetry 97 92 L 93 L Oxygen Delivery Method Room Air Room Air 10/08/24 05:37 10/08/24 05:45 10/08/24 06:00 Temperature Temperature Source Pulse Rate 95 H Pulse Rate [Right Brachial] Respiratory Rate 22 21 22 Blood Pressure 138/86 Blood Pressure [Right Arm] Blood Pressure Mean Blood Pressure Mean [Right Arm] Blood Pressure Source [Right Arm] Blood Pressure Position [Right Arm] 02 Sat by Pulse Oximetry 92 L Oxygen Delivery Method 10/08/24 06:46 10/08/24 07:00 10/08/24 07:30 Temperature Temperature Source Pulse Rate 95 H 99 H 102 H Pulse Rate [Right Brachial] Respiratory Rate 21 18 19 Blood Pressure 149/98 H 144/93 H 142/87 H Blood Pressure [Right Arm] Blood Pressure Mean Blood Pressure Mean [Right Arm] Blood Pressure Source [Right Arm] Blood Pressure Position [Right Arm] 02 Sat by Pulse Oximetry 93 L 94 L 94 L Oxygen Delivery Method 10/08/24 08:00 10/08/24 08:30 10/08/24 09:00 Temperature Temperature Source Pulse Rate 96 H 95 H 87 Pulse Rate [Right Brachial] Respiratory Rate 17 16 16 Blood Pressure 136/87 131/89 142/86 H Blood Pressure [Right Arm] Blood Pressure Mean Blood Pressure Mean [Right Arm] Blood Pressure Source [Right Arm] Blood Pressure Position [Right Arm] 02 Sat by Pulse Oximetry 95 97 93 L Oxygen Delivery Method 10/08/24 09:30 10/08/24 10:00 10/08/24 10:00 Temperature 98 F Temperature Source Oral Pulse Rate Pulse Rate [Right Brachial] 67 Respiratory Rate 16 Blood Pressure 151/92 H Blood Pressure [Right Arm] 147/86 H Blood Pressure Mean 100 Blood Pressure Mean [Right Arm] 106 Blood Pressure Source [Right Arm] Automatic Cuff Blood Pressure Position [Right Arm] Supine 02 Sat by Pulse Oximetry 98 Oxygen Delivery Method Room Air Room Air 10/08/24 10:05 Temperature 98.2 F Temperature Source Pulse Rate 95 H Pulse Rate [Right Brachial] Respiratory Rate 20 Blood Pressure 146/85 H Blood Pressure [Right Arm] Blood Pressure Mean Blood Pressure Mean [Right Arm] Blood Pressure Source [Right Arm] Blood Pressure Position [Right Arm] 02 Sat by Pulse Oximetry Oxygen Delivery Method Room Air Lab Data Lab Results 10/08/24 05:04: WBC 12.1 H, RBC 5.10, Hgb 14.1, Hct 43.7, MCV 85.7, MCH 27.6, MCHC 32.3, RDW 15.2, Plt Count 202, MPV 10.4, Neut % (Auto) 84.0 H, Lymph % (Auto) 9.9 L, [place] % (Auto) 5.0, Eos % (Auto) 0.3, Baso % (Auto) 0.4, Neut # (Auto) 10.1 H, Lymph # (Auto) 1.2, [place] # (Auto) 0.6, Eos # (Auto) 0.0, Baso # (Auto) 0.1, PT 10.3, INR 0.91, Sodium 135 L, Potassium 4.7, Chloride 104, Carbon Dioxide 24, Anion Gap 11.7, BUN 26 H, Creatinine 0.80, Estimated Creat Clear 57, Estimated GFR 69, Est GFR ( Amer) 84, Glucose 221 H, Lactate 2.1, Calcium 10.5 H, Total Bilirubin 1.2, AST 88 H, ALT 64, Alkaline Phosphatase 1071 H, Total Creatine Kinase 30, Troponin I < 0.01, Total Protein 7.5 D, Albumin 4.2, Globulin 3.3 H, Albumin/Globulin Ratio 1.3, Lipase 58, TSH 1.41, Free T4 1.24 10/08/24 05:43: Chlamy pneumoniae PCR Not detected, Adenovirus (PCR) Not detected, B. pertussis DNA (PCR) Not detected, Coronavirus OC43 (PCR) Not detected, Coronavirus HKU1 (PCR) Not detected, Coronavirus 229E (PCR) Not detected, SARS-CoV-2 (PCR) Not detected, Coronavirus NL63 (PCR) Not detected, Human Metapneumovir PCR Not detected, Influenza A (H1) PCR Not detected, Influ A (H1N1/09) PCR Not detected, Influenza A (H3) PCR Not detected, Influenza Type A (PCR) Not detected, Influenza Type B (PCR) Not detected, M. pneumoniae (PCR) Not detected, Parainfluenza 1 (PCR) Not detected, Parainfluenza 2 (PCR) Not detected, Parainfluenza 3 (PCR) Not detected, Parainfluenza 4 (PCR) Not detected, RSV (PCR) Not detected, Entero/Rhino (PCR) Not detected 10/08/24 07:45: Urine Color Yellow, Urine Appearance Cloudy, Urine pH 6.0, Ur Specific [place] 1.025, Urine Protein 1+ A, Urine Glucose (UA) Trace, Urine Ketones Negative, Urine Blood 3+ A, Urine Nitrate Positive A, Urine Bilirubin Negative, Urine Urobilinogen 0.2, Ur Leukocyte Esterase 2+ A, Urine WBC Tntc, Urine Bacteria Trace 10/08/24 08:15: Troponin I < 0.01 10/08/24 05:04 10/08/24 05:04 Orders (Tests/Meds): ED MEDICATIONS Generic Name Dose Route Start Last Admin Trade Name Freq PRN Reason Stop Dose Admin Ursodiol 600 mg 10/08/24 21:00 Ursodiol 300 Mg Capsule PO 11/07/24 20:59 BID CHANELLE Discontinued Medications Generic Name Dose Route Start Last Admin Trade Name Freq PRN Reason Stop Dose Admin Lactated Ringer's 1,000 mls @ 999 mls/hr 10/08/24 06:25 10/08/24 06:43 Lactated Ringer's 1000 Ml Bag IV 10/08/24 07:25 999 mls/hr .Q1H1M ONE Administration Piperacillin Sod/Tazobactam 50 mls @ 100 mls/hr 10/08/24 08:28 10/08/24 08:44 Sod 3.375 gm/ Sodium Chloride IV 10/08/24 08:57 100 mls/hr ONCE ONE Administration Iopamidol 75 ml 10/08/24 06:24 10/08/24 06:25 Iopamidol-370 (76%);100ml Bottle IV 10/08/24 06:25 75 ml ONCE ONE Administration Sodium Chloride 10 ml 10/08/24 06:24 10/08/24 06:25 Sodium Chloride 0.9% 10ml Syr (Rad Only) IV 11/07/24 06:23 10 ml NEEDED PRN Administration Maintain IV Site ORDERS Category Date Time Status CT abdomen pelvis w con Stat Cat Scan 10/08/24 05:03 Completed Gastroenterology Consult [Consult to Gastroenterology] Cons 10/08/24 09:27 Active [CONS] Routine CXR 2 view (NOT portable) [XR chest 2V] Stat Exams 10/08/24 05:03 Completed CK [Creatine Kinase] Stat Lab 10/08/24 05:04 Completed Complete Blood Count Auto Diff Stat Lab 10/08/24 05:04 Completed Comprehensive Metabolic Panel Stat Lab 10/08/24 05:04 Completed Diarrhea 6-11 Panel, Cdiff PCR Stat Lab 10/08/24 05:32 Ordered Free T4 (Free Thyroxine) Stat Lab 10/08/24 05:04 Completed Full Resp Panel w/COVID ([facility]) Routine Lab 10/08/24 05:43 Completed Hepatitis Panel Routine Lab 10/08/24 05:04 Received Lactic Acid Follow Up (RFLX 1) Stat Lab 10/08/24 12:58 Completed Lactic Acid Stat Lab 10/08/24 05:04 Completed Lipase Stat Lab 10/08/24 05:04 Completed Prothrombin Time INR Stat Lab 10/08/24 05:04 Completed TSH [Thyroid Stimulating Hormone] Stat Lab 10/08/24 05:04 Completed Troponin I Q3H Lab 10/08/24 08:15 Completed Troponin I Q3H Lab 10/08/24 12:58 Completed Troponin I Stat Lab 10/08/24 05:04 Completed Urinalysis and Microscopic Stat Lab 10/08/24 07:45 Completed Blood Culture Stat Micro 10/08/24 05:43 Received Urine Culture Stat Micro 10/08/24 07:45 Received Medical Decision Narrative: In summary, this 79-year-old female with comorbidities described in the HPI medical therapy presents to the emergency department today with generalized weakness. On initial evaluation patient is hemodynamically stable, afebrile, lungs clear bilaterally, patient has mid abdominal tenderness with voluntary guarding but no rebound, no peripheral edema, no significant clinical findings of dehydration. Differential diagnosis includes but is not limited to ACS, pneumonia, viral syndrome, electrolyte abnormality, dehydration, I considered infectious diarrhea since patient has had hospitalization and antibiotics in the last month increasing concern for possible C. difficile, also considered UTI, pyelonephritis, stent migration the patient does not have CVA tenderness. Based on these concerns, I ordered serum labs, viral swab, CT imaging, cardiac workup, and with recent urosepsis I also ordered blood cultures to rule out bacteremia. ECG personally interpreted demonstrates sinus rhythm, rate 98, left axis deviation, normal [place] and QTc, patient has lateral ST changes which appear old, stable from prior based on my review of previous ECGs, no STEMI. Patient received IV fluids for treatment. Labs personally reviewed demonstrate leukocytosis with WBC 12.1, no anemia, normal platelets, PT/INR normal, CMP notable for prerenal azotemia, patient also has elevation in AST and alkaline phosphatase above what they have been previously which increases my concern for possible pancreatitis, choledocholithiasis though patient has had previous cholecystectomy, initial troponin undetectably low less than 0.01 reassuring against cardiac pathology, patient has a history of thyroid problems but TSH and T4 are normal. UA and diarrhea panel pending. Chest x-ray personally interpreted does not demonstrate lobar infiltrate or pneumothorax, see radiology read for final interpretation. CT abdomen pelvis personally interpreted demonstrates significant right hydronephrosis with right ureteral stent appearing to be outside the kidney but in similar position to previous studies. Radiology read pending. Patient handed off to Dr. Melgar at physician shift [facility] for further management and disposition pending urine studies, diarrhea panel, viral swab, radiology reads. <Johana Melgar, DO - Last Filed: 10/08/24 15:49> Vital Signs: 10/08/24 04:52 10/08/24 05:03 10/08/24 05:15 Temperature 97.9 F Temperature Source Oral Pulse Rate 90 95 H Pulse Rate [Right Brachial] 95 H Respiratory Rate 20 17 Blood Pressure 161/96 H Blood Pressure [Right Arm] 151/95 H Blood Pressure Mean Blood Pressure Mean [Right Arm] 113 Blood Pressure Source [Right Arm] Automatic Cuff Blood Pressure Position [Right Arm] Sitting 02 Sat by Pulse Oximetry 97 92 L 93 L Oxygen Delivery Method Room Air Room Air 10/08/24 05:37 10/08/24 05:45 10/08/24 06:00 Temperature Temperature Source Pulse Rate 95 H Pulse Rate [Right Brachial] Respiratory Rate 22 21 22 Blood Pressure 138/86 Blood Pressure [Right Arm] Blood Pressure Mean Blood Pressure Mean [Right Arm] Blood Pressure Source [Right Arm] Blood Pressure Position [Right Arm] 02 Sat by Pulse Oximetry 92 L Oxygen Delivery Method 10/08/24 06:46 10/08/24 07:00 10/08/24 07:30 Temperature Temperature Source Pulse Rate 95 H 99 H 102 H Pulse Rate [Right Brachial] Respiratory Rate 21 18 19 Blood Pressure 149/98 H 144/93 H 142/87 H Blood Pressure [Right Arm] Blood Pressure Mean Blood Pressure Mean [Right Arm] Blood Pressure Source [Right Arm] Blood Pressure Position [Right Arm] 02 Sat by Pulse Oximetry 93 L 94 L 94 L Oxygen Delivery Method 10/08/24 08:00 10/08/24 08:30 10/08/24 09:00 Temperature Temperature Source Pulse Rate 96 H 95 H 87 Pulse Rate [Right Brachial] Respiratory Rate 17 16 16 Blood Pressure 136/87 131/89 142/86 H Blood Pressure [Right Arm] Blood Pressure Mean Blood Pressure Mean [Right Arm] Blood Pressure Source [Right Arm] Blood Pressure Position [Right Arm] 02 Sat by Pulse Oximetry 95 97 93 L Oxygen Delivery Method 10/08/24 09:30 10/08/24 10:00 10/08/24 10:00 Temperature 98 F Temperature Source Oral Pulse Rate Pulse Rate [Right Brachial] 67 Respiratory Rate 16 Blood Pressure 151/92 H Blood Pressure [Right Arm] 147/86 H Blood Pressure Mean 100 Blood Pressure Mean [Right Arm] 106 Blood Pressure Source [Right Arm] Automatic Cuff Blood Pressure Position [Right Arm] Supine 02 Sat by Pulse Oximetry 98 Oxygen Delivery Method Room Air Room Air 10/08/24 10:05 Temperature 98.2 F Temperature Source Pulse Rate 95 H Pulse Rate [Right Brachial] Respiratory Rate 20 Blood Pressure 146/85 H Blood Pressure [Right Arm] Blood Pressure Mean Blood Pressure Mean [Right Arm] Blood Pressure Source [Right Arm] Blood Pressure Position [Right Arm] 02 Sat by Pulse Oximetry Oxygen Delivery Method Room Air Lab Data Lab Results 10/08/24 05:04: WBC 12.1 H, RBC 5.10, Hgb 14.1, Hct 43.7, MCV 85.7, MCH 27.6, MCHC 32.3, RDW 15.2, Plt Count 202, MPV 10.4, Neut % (Auto) 84.0 H, Lymph % (Auto) 9.9 L, [place] % (Auto) 5.0, Eos % (Auto) 0.3, Baso % (Auto) 0.4, Neut # (Auto) 10.1 H, Lymph # (Auto) 1.2, [place] # (Auto) 0.6, Eos # (Auto) 0.0, Baso # (Auto) 0.1, PT 10.3, INR 0.91, Sodium 135 L, Potassium 4.7, Chloride 104, Carbon Dioxide 24, Anion Gap 11.7, BUN 26 H, Creatinine 0.80, Estimated Creat Clear 57, Estimated GFR 69, Est GFR ( Amer) 84, Glucose 221 H, Lactate 2.1, Calcium 10.5 H, Total Bilirubin 1.2, AST 88 H, ALT 64, Alkaline Phosphatase 1071 H, Total Creatine Kinase 30, Troponin I < 0.01, Total Protein 7.5 D, Albumin 4.2, Globulin 3.3 H, Albumin/Globulin Ratio 1.3, Lipase 58, TSH 1.41, Free T4 1.24 10/08/24 05:43: Chlamy pneumoniae PCR Not detected, Adenovirus (PCR) Not detected, B. pertussis DNA (PCR) Not detected, Coronavirus OC43 (PCR) Not detected, Coronavirus HKU1 (PCR) Not detected, Coronavirus 229E (PCR) Not detected, SARS-CoV-2 (PCR) Not detected, Coronavirus NL63 (PCR) Not detected, Human Metapneumovir PCR Not detected, Influenza A (H1) PCR Not detected, Influ A (H1N1/09) PCR Not detected, Influenza A (H3) PCR Not detected, Influenza Type A (PCR) Not detected, Influenza Type B (PCR) Not detected, M. pneumoniae (PCR) Not detected, Parainfluenza 1 (PCR) Not detected, Parainfluenza 2 (PCR) Not detected, Parainfluenza 3 (PCR) Not detected, Parainfluenza 4 (PCR) Not detected, RSV (PCR) Not detected, Entero/Rhino (PCR) Not detected 10/08/24 07:45: Urine Color Yellow, Urine Appearance Cloudy, Urine pH 6.0, Ur Specific [place] 1.025, Urine Protein 1+ A, Urine Glucose (UA) Trace, Urine Ketones Negative, Urine Blood 3+ A, Urine Nitrate Positive A, Urine Bilirubin Negative, Urine Urobilinogen 0.2, Ur Leukocyte Esterase 2+ A, Urine WBC Tntc, Urine Bacteria Trace 10/08/24 08:15: Troponin I < 0.01 Orders (Tests/Meds): ED MEDICATIONS Generic Name Dose Route Start Last Admin Trade Name Freq PRN Reason Stop Dose Admin Ursodiol 600 mg 10/08/24 21:00 Ursodiol 300 Mg Capsule PO 11/07/24 20:59 BID CHANELLE Discontinued Medications Generic Name Dose Route Start Last Admin Trade Name Freq PRN Reason Stop Dose Admin Lactated Ringer's 1,000 mls @ 999 mls/hr 10/08/24 06:25 10/08/24 06:43 Lactated Ringer's 1000 Ml Bag IV 10/08/24 07:25 999 mls/hr .Q1H1M ONE Administration Piperacillin Sod/Tazobactam 50 mls @ 100 mls/hr 10/08/24 08:28 10/08/24 08:44 Sod 3.375 gm/ Sodium Chloride IV 10/08/24 08:57 100 mls/hr ONCE ONE Administration Iopamidol 75 ml 10/08/24 06:24 10/08/24 06:25 Iopamidol-370 (76%);100ml Bottle IV 10/08/24 06:25 75 ml ONCE ONE Administration Sodium Chloride 10 ml 10/08/24 06:24 10/08/24 06:25 Sodium Chloride 0.9% 10ml Syr (Rad Only) IV 11/07/24 06:23 10 ml NEEDED PRN Administration Maintain IV Site ORDERS Category Date Time Status CT abdomen pelvis w con Stat Cat Scan 10/08/24 05:03 Completed Gastroenterology Consult [Consult to Gastroenterology] Cons 10/08/24 09:27 Active [CONS] Routine CXR 2 view (NOT portable) [XR chest 2V] Stat Exams 10/08/24 05:03 Completed CK [Creatine Kinase] Stat Lab 10/08/24 05:04 Completed Complete Blood Count Auto Diff Stat Lab 10/08/24 05:04 Completed Comprehensive Metabolic Panel Stat Lab 10/08/24 05:04 Completed Diarrhea 6-11 Panel, Cdiff PCR Stat Lab 10/08/24 05:32 Ordered Free T4 (Free Thyroxine) Stat Lab 10/08/24 05:04 Completed Full Resp Panel w/COVID ([facility]) Routine Lab 10/08/24 05:43 Completed Hepatitis Panel Routine Lab 10/08/24 05:04 Received Lactic Acid Follow Up (RFLX 1) Stat Lab 10/08/24 12:58 Completed Lactic Acid Stat Lab 10/08/24 05:04 Completed Lipase Stat Lab 10/08/24 05:04 Completed Prothrombin Time INR Stat Lab 10/08/24 05:04 Completed TSH [Thyroid Stimulating Hormone] Stat Lab 10/08/24 05:04 Completed Troponin I Q3H Lab 10/08/24 08:15 Completed Troponin I Q3H Lab 10/08/24 12:58 Completed Troponin I Stat Lab 10/08/24 05:04 Completed Urinalysis and Microscopic Stat Lab 10/08/24 07:45 Completed Blood Culture Stat Micro 10/08/24 05:43 Received Urine Culture Stat Micro 10/08/24 07:45 Received Medical Decision Narrative: In summary, this 79-year-old female with comorbidities described in the HPI medical therapy presents to the emergency department today with generalized weakness. On initial evaluation patient is hemodynamically stable, afebrile, lungs clear bilaterally, patient has mid abdominal tenderness with voluntary guarding but no rebound, no peripheral edema, no significant clinical findings of dehydration. Differential diagnosis includes but is not limited to ACS, pneumonia, viral syndrome, electrolyte abnormality, dehydration, I considered infectious diarrhea since patient has had hospitalization and antibiotics in the last month increasing concern for possible C. difficile, also considered UTI, pyelonephritis, stent migration the patient does not have CVA tenderness. Based on these concerns, I ordered serum labs, viral swab, CT imaging, cardiac workup, and with recent urosepsis I also ordered blood cultures to rule out bacteremia. ECG personally interpreted demonstrates sinus rhythm, rate 98, left axis deviation, normal [place] and QTc, patient has lateral ST changes which appear old, stable from prior based on my review of previous ECGs, no STEMI. Patient received IV fluids for treatment. Labs personally reviewed demonstrate leukocytosis with WBC 12.1, no anemia, normal platelets, PT/INR normal, CMP notable for prerenal azotemia, patient also has elevation in AST and alkaline phosphatase above what they have been previously which increases my concern for possible pancreatitis, choledocholithiasis though patient has had previous cholecystectomy, initial troponin undetectably low less than 0.01 reassuring against cardiac pathology, patient has a history of thyroid problems but TSH and T4 are normal. UA and diarrhea panel pending. Chest x-ray personally interpreted does not demonstrate lobar infiltrate or pneumothorax, see radiology read for final interpretation. CT abdomen pelvis personally interpreted demonstrates significant right hydronephrosis with right ureteral stent appearing to be outside the kidney but in similar position to previous studies. Radiology read pending. Patient handed off to Dr. Melgar at physician shift change for further management and disposition pending urine studies, diarrhea panel, viral swab, radiology reads. Ramón, DO: I assumed care of the patient at [address] imaging concerning on my depend interpretation for diverticulitis and stable ureteral stent. Please to radiology read for final interpretation. They also note biliary dilatation. Labs demonstrate leukocytosis, significantly elevated alkaline phosphatase, urinary tract infection. Given diverticulitis and UTI, I ordered IV Zosyn. Ultimately given her multiple comorbidities and multiple things going on, I feel that she would benefit from admission for further evaluation and management. I had an interactive discussion with the hospitalist who admitted the patient in stable condition. Critical Care <Bren Oliveira MD - Last Filed: 10/08/24 06:46> Critical Care Time Critical Care Time: No
--- NOTE | 2024-10-08 06:40 | PC.NURSE ---
Patient was assisted to the restroom. Her brief was also changed and she was provided a bedside commode to collect a stool sample.
[2024-10-08] MEDS: LACTATED RINGERS 1000ML 1,000 ML 999 ML IV (06:43)
--- NOTE | 2024-10-08 07:00 | PC.NURSE ---
Patient contaminated urine sample x2; has fluids going now to hopefully fill bladder back up
--- NOTE | 2024-10-08 07:17 | PC.NURSE ---
ROUNDED ON THE PT. THE PT VOICES THAT SHE DOES NOT NEED ANYTHING AT THIS TIME. CALL LIGHT IS WITHIN REACH OF THE PT.
[2024-10-08 07:51] LABS: Microscopic, Urine URINE MICROSCOPIC (MICROSCOPIC)
--- NOTE | 2024-10-08 07:53 | PC.NURSE ---
cath UA sent. Pt tolerated procedure well. Given another warm blanket for comfort
[2024-10-08 08:19] LABS: Appearance,Urine CLOUDY (Clear); Bilirubin,Urine Negative (Negative); Blood, Urine 3+ (Negative); Color,Urine YELLOW (Yellow); Glucose,Urine (UA) TRACE (Negative); Ketones,Urine Negative (Negative); Leukocyte Esterase,Urine 2+ (Negative); Nitrate,Urine POSITIVE (Negative); Protein,Urine 1+ (Negative); Specific Gravity, Urine 1.025 (1.005-1.030); Urobilinogen,Urine 0.2 EU/dl (0.2)
--- NOTE | 2024-10-08 08:35 | PC.NURSE ---
ROUNDED ON THE PT. THE PT VOICES THAT SHE DOES NOT NEED ANYTHING AT THIS TIME. CALL LIGHT IS WITHIN REACH OF THE PT. FAMILY MEMBERS ARE PRESENT AT THE BEDSIDE.
[2024-10-08 08:43] LABS: Troponin I < 0.01 ng/ml (0.00-0.034)
[2024-10-08] MEDS: PIPERACILLIN/TAZO 3.375 GM in 0.9 % SODIUM CHLORIDE 50 ML IV (08:44)
[2024-10-08 08:52] LABS: Bacteria,Urine Trace /lpf; WBC,Urine TNTC #/hpf (0-3)
[2024-10-08 09:11] LABS: Reflex Lactic Add Lactic Reflex
--- NOTE | 2024-10-08 09:27 | MR_ITS ---
FINAL REPORT CLINICAL HISTORY: dilated CBD, elevated ALP COMPARISON: 10/08/2024 FINDINGS: Multiplanar MR imaging of the abdomen was obtained without contrast. There is mild intrahepatic biliary ductal dilatation. There is advanced extrahepatic biliary ductal dilatation measuring up to 14 mm extending to the ampulla. No mass or stone disease is identified. 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 No pancreatic ductal dilatation is identified. There is moderate to severe right hydronephrosis with moderate left hydronephrosis. Pattern is suggestive of bilateral UPJ obstructions. Right internal ureteral stent is identified. There is some decreased signal in the right renal pelvis which could represent hemorrhage or stone disease. There are bilateral renal cysts. The remaining solid organs are unremarkable. There is mild adenopathy of the celiac axis, largest node along the left celiac artery measures 20 x 8 mm. 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 Upper urinary tract obstruction. Pattern suggestive of UPJ stenosis, greater on the right. Mild nonspecific upper abdominal adenopathy. Reviewed, Interpreted and Dictated by Kane Samuel MD Transcribed by Constance Wagner Authenticated and [facility]
--- NOTE | 2024-10-08 09:37 | PC.NURSE ---
DAY HABILITATION SUPERVISOR NOTIFIED OF ADMISSION
--- NOTE | 2024-10-08 09:38 | PC.NURSE ---
FAMILY UPDATED AT THIS TIME
[2024-10-08 09:45] LABS: Creatine Kinase 30 U/L (30-135)
--- NOTE | 2024-10-08 10:05 | PC.NURSE ---
called report to rene ashley on 2nd floor rn
--- NOTE | 2024-10-08 10:19 | HMH.PHAINT1 ---
Pharmacy Intervention Comments: MEDICATION RECONCILIATION COMPLETED ON PATIENT USING EXTERNAL FILL HISTORY FROM PHARMACY AND DISCHARGE SUMMARY FROM PREVIOUS ADMISSION. -NITIN SOLIMAN, ALEXD
--- NOTE | 2024-10-08 11:30 | PC.NURSE ---
Pt left floor via wheelchair for MRCP
--- NOTE | 2024-10-08 12:21 | PC.NURSE ---
Pt back from [facility].
[2024-10-08 13:29] LABS: Troponin I < 0.01 ng/ml (0.00-0.034)
--- NOTE | 2024-10-08 15:37 | EXP.GE.CONS ---
History of Present Illness *Admission Date: 10/08/24 *Reason for visit:: Abnormal MRCP *History of present illness: Mrs. Gamboa is a 79-year-old female who is admitted with vomiting, diarrhea and mid abdominal pain with generalized weakness. At the end of August she had urosepsis. This reportedly happened after her ureteral stent was placed in [place] at [facility]. She does not know urologist name. At that time she had persistent hydronephrosis despite having stents placed. She has had some encephalopathy which was felt to be metabolic. The patient also reports to a history of PBC (primary biliary cholangitis) and had been on ursodiol by the GI provider in [facility]. The patient does see the GI nurse practitioner there. The ursodiol was not sent to the pharmacy and she has been out of this for more than a month. She does state that her alkaline phosphatase runs in the 200s but at time of hospital admission labs today showed alkaline phosphatase 1071. The remainder of her lab work showed total bilirubin 1.2, ALT 64 and AST 88. 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 There is biliary ductal dilation measuring up to 14 mm extending to the ampulla with no stones or mass. 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 There was no pancreatic ductal dilation or masses. The patient's prior CAT scan today showed diffuse fatty infiltration of the liver with evidence of prior cholecystectomy and some increased common bile duct dilation mild to moderate without stones. The pancreas was normal in appearance. [facility] Disclaimer: The information contained in this section may have been updated after the patient was seen, as this information can be updated by other users. Medical History (Updated 10/08/24 @ 15:47 by Vu Bhatt II, MD) Alkaline phosphatase elevation Hypothyroidism HTN (hypertension) Surgical History Previous back surgery Social History (Updated 10/08/24 @ 14:48 by Yolis Glass RN) Smoking Status: Never smoker alcohol intake: never current occupational status: other Travel in the last 8 weeks: None Have you lived/traveled outside US in past 30 days?: No Contact w/someone who lives/traveled outside US past 30 days?: No Exposure to someone with infectious disease in past 14 days?: No Do you have a fever (greater than 100.4 F or 38 C)?: No Have you tested positive for COVID-19: No Exposed to someone with COVID-19 in past 14 days?: No Do you have a sore throat?: No Do you have a cough?: No Do you have any weakness?: Yes Are you experiencing any nausea/vomitting?: No Do you have any diarrhea?: Yes Are you experiencing any unusual bleeding?: No Do you have any muscle aches/pain?: No Do you have any abdominal pain?: No Are you experiencing loss of taste or smell?: No Meds Home Medications and Allergies Home Medications ?Medication ?Instructions ?Recorded ?Confirmed ?Type aspirin 81 mg chewable tablet 81 mg PO DAILY 30 days #30 tabs 09/14/24 10/08/24 Rx amlodipine 5 mg tablet 5 mg PO DAILY #30 tabs 09/15/24 10/08/24 Rx famotidine 20 mg tablet 20 mg PO BID 30 days #60 tabs 09/15/24 10/08/24 Rx fesoterodine 8 mg tablet,extended 8 mg PO DAILY 30 days #30 tabs 09/15/24 10/08/24 Rx release 24 hr levocetirizine 5 mg tablet 5 mg PO HS 30 days #30 tabs 09/15/24 10/08/24 Rx magnesium oxide 400 mg (241.3 mg 400 mg PO DAILY 30 days #30 tabs 09/15/24 10/08/24 Rx magnesium) tablet methenamine hippurate 1 gram tablet 1 g PO BID 30 days #60 tabs 09/15/24 10/08/24 Rx acetaminophen 500 mg tablet 1,000 mg PO BID 10/08/24 10/08/24 History nitrofurantoin 100 mg PO BID 10/08/24 10/08/24 History monohydrate/macrocrystals 100 mg capsule oxybutynin chloride 10 mg 10 mg PO DAILY 10/08/24 10/08/24 History tablet,extended release 24 hr New Prescriptions to Start Prescriptions: Allergies Allergy/AdvReac Type Severity Reaction Status Date / Time butorphanol (From Stadol) Allergy Unknown Verified 10/08/24 14:42 allergy reaction ofloxacin (From Floxin) Allergy Hives Verified 10/08/24 14:42 prednisone Allergy Nausea Verified 10/08/24 14:42 Sulfa (Sulfonamide Allergy Unknown Verified 10/08/24 14:42 Antibiotics) allergy reaction Exam (Inpt) Vital signs and Labs for Last 24 Hours: Temp Pulse Resp BP Pulse Ox O2 Del Method 98.2 F 95 H 20 146/85 H 98 Room Air 10/08/24 10:05 10/08/24 10:05 10/08/24 10:05 10/08/24 10:05 10/08/24 10:00 10/08/24 15:00 Laboratory Results - last 24 hr 10/08/24 05:04: WBC 12.1 H, RBC 5.10, Hgb 14.1, Hct 43.7, MCV 85.7, MCH 27.6, MCHC 32.3, RDW 15.2, Plt Count 202, MPV 10.4, Neut % (Auto) 84.0 H, Lymph % (Auto) 9.9 L, Morrill % (Auto) 5.0, Eos % (Auto) 0.3, Baso % (Auto) 0.4, Neut # (Auto) 10.1 H, Lymph # (Auto) 1.2, Morrill # (Auto) 0.6, Eos # (Auto) 0.0, Baso # (Auto) 0.1, PT 10.3, INR 0.91, Sodium 135 L, Potassium 4.7, Chloride 104, Carbon Dioxide 24, Anion Gap 11.7, BUN 26 H, Creatinine 0.80, Estimated Creat Clear 57, Estimated GFR 69, Est GFR ( Amer) 84, Glucose 221 H, Lactate 2.1, Calcium 10.5 H, Total Bilirubin 1.2, AST 88 H, ALT 64, Alkaline Phosphatase 1071 H, Total Creatine Kinase 30, Troponin I < 0.01, Total Protein 7.5 D, Albumin 4.2, Globulin 3.3 H, Albumin/Globulin Ratio 1.3, Lipase 58, TSH 1.41, Free T4 1.24 10/08/24 05:43: Chlamy pneumoniae PCR Not detected, Adenovirus (PCR) Not detected, B. pertussis DNA (PCR) Not detected, Coronavirus OC43 (PCR) Not detected, Coronavirus HKU1 (PCR) Not detected, Coronavirus 229E (PCR) Not detected, SARS-CoV-2 (PCR) Not detected, Coronavirus NL63 (PCR) Not detected, Human Metapneumovir PCR Not detected, Influenza A (H1) PCR Not detected, Influ A (H1N1/09) PCR Not detected, Influenza A (H3) PCR Not detected, Influenza Type A (PCR) Not detected, Influenza Type B (PCR) Not detected, M. pneumoniae (PCR) Not detected, Parainfluenza 1 (PCR) Not detected, Parainfluenza 2 (PCR) Not detected, Parainfluenza 3 (PCR) Not detected, Parainfluenza 4 (PCR) Not detected, RSV (PCR) Not detected, Entero/Rhino (PCR) Not detected 10/08/24 07:45: Urine Color Yellow, Urine Appearance Cloudy, Urine pH 6.0, Ur Specific [place] 1.025, Urine Protein 1+ A, Urine Glucose (UA) Trace, Urine Ketones Negative, Urine Blood 3+ A, Urine Nitrate Positive A, Urine Bilirubin Negative, Urine Urobilinogen 0.2, Ur Leukocyte Esterase 2+ A, Urine WBC Tntc, Urine Bacteria Trace 10/08/24 08:15: Troponin I < 0.01 10/08/24 12:58: Lactate 1.0, Troponin I < 0.01 I & O for Labs for Last 24 Hours: Intake & Output 10/05/24 10/06/24 10/07/24 10/08/24 23:59 23:59 23:59 23:59 Intake Total 240 / 240 Balance 240 / 240 Weight 173 lb 8 oz GI: Present soft Comments:: Normoactive bowel sounds, soft, mild tenderness in the right side but benign, no rebound or guarding, no masses, no hepatomegaly Results Labs 10/08/24 05:04 10/08/24 05:04 Labs: Laboratory Results - last 24 hr 10/08/24 05:04: WBC 12.1 H, RBC 5.10, Hgb 14.1, Hct 43.7, MCV 85.7, MCH 27.6, MCHC 32.3, RDW 15.2, Plt Count 202, MPV 10.4, Neut % (Auto) 84.0 H, Lymph % (Auto) 9.9 L, Morrill % (Auto) 5.0, Eos % (Auto) 0.3, Baso % (Auto) 0.4, Neut # (Auto) 10.1 H, Lymph # (Auto) 1.2, Morrill # (Auto) 0.6, Eos # (Auto) 0.0, Baso # (Auto) 0.1, PT 10.3, INR 0.91, Sodium 135 L, Potassium 4.7, Chloride 104, Carbon Dioxide 24, Anion Gap 11.7, BUN 26 H, Creatinine 0.80, Estimated Creat Clear 57, Estimated GFR 69, Est GFR ( Amer) 84, Glucose 221 H, Lactate 2.1, Calcium 10.5 H, Total Bilirubin 1.2, AST 88 H, ALT 64, Alkaline Phosphatase 1071 H, Total Creatine Kinase 30, Troponin I < 0.01, Total Protein 7.5 D, Albumin 4.2, Globulin 3.3 H, Albumin/Globulin Ratio 1.3, Lipase 58, TSH 1.41, Free T4 1.24 10/08/24 05:43: Chlamy pneumoniae PCR Not detected, Adenovirus (PCR) Not detected, B. pertussis DNA (PCR) Not detected, Coronavirus OC43 (PCR) Not detected, Coronavirus HKU1 (PCR) Not detected, Coronavirus 229E (PCR) Not detected, SARS-CoV-2 (PCR) Not detected, Coronavirus NL63 (PCR) Not detected, Human Metapneumovir PCR Not detected, Influenza A (H1) PCR Not detected, Influ A (H1N1/09) PCR Not detected, Influenza A (H3) PCR Not detected, Influenza Type A (PCR) Not detected, Influenza Type B (PCR) Not detected, M. pneumoniae (PCR) Not detected, Parainfluenza 1 (PCR) Not detected, Parainfluenza 2 (PCR) Not detected, Parainfluenza 3 (PCR) Not detected, Parainfluenza 4 (PCR) Not detected, RSV (PCR) Not detected, Entero/Rhino (PCR) Not detected 10/08/24 07:45: Urine Color Yellow, Urine Appearance Cloudy, Urine pH 6.0, Ur Specific [place] 1.025, Urine Protein 1+ A, Urine Glucose (UA) Trace, Urine Ketones Negative, Urine Blood 3+ A, Urine Nitrate Positive A, Urine Bilirubin Negative, Urine Urobilinogen 0.2, Ur Leukocyte Esterase 2+ A, Urine WBC Tntc, Urine Bacteria Trace 10/08/24 08:15: Troponin I < 0.01 10/08/24 12:58: Lactate 1.0, Troponin I < 0.01 Assessment and Plan *Assessment and plan (1) Common bile duct dilation: Status: Acute Category: Medical Code(s): K83.8 - Other specified diseases of biliary tract (2) Primary biliary cholangitis: Status: Acute Category: Medical Code(s): K74.3 - Primary biliary cirrhosis (3) Elevated alkaline phosphatase level: Status: Acute Category: Medical Code(s): R74.8 - Abnormal levels of other serum enzymes (4) Ampullary stenosis: Status: Acute Category: Medical Code(s): K83.1 - Obstruction of bile duct Plan 1. Elevated alkaline phosphatase. This did change from her baseline levels of alkaline phosphatase in the 200s to more than the thousand. Her MRCP did show CBD dilation to 14 mm. This can be secondary to postcholecystectomy and there is no ampullary mass but quite possibly she could have some ampullary stenosis. I would consider outpatient ERCP after she has addressed urologic issues with her hydronephrosis and recurrent urosepsis. She will need to see urology. I do feel that this alkaline phosphatase may be primarily from her primary biliary cholangitis and she did stop ursodiol more than a month ago. Primary biliary cholangitis (PBC) is characterized by an ongoing autoimmune reaction in the body which manifests as an immunologic attack on the tiniest bile ducts present within the liver that can eventually lead to cirrhosis or even liver failure. The natural history of PBC has improved greatly during the past two decades because of its diagnosis at earlier stages and the widespread use of ursodiol (ursodeoxycholic acid) as treatment. As a result, far fewer patients require liver transplantation, and patients with early stage (stages F1 and F2) PBC appear to have a normal life expectancy. There are a number of potential complications that occur in PBC that require therapy. These include metabolic bone disease, itching, increased cholesterol, hypothyroidism, anemia and sometimes vitamin deficiencies. Ursodiol (ursodeoxycholic acid) (dosing of 13 to 15 mg/kg per day) delays the progression to end-stage liver disease, enhances survival, and is generally very well-tolerated. OCALIVA is now indicated for the treatment of primary biliary cholangitis (PBC) in combination with ursodeoxycholic acid (UDCA) in adults with an incomplete or inadequate response to ursodiol, or as monotherapy in adults unable to tolerate ursodiol. This indication is approved under accelerated approval based on a reduction in alkaline phosphatase (ALP). I would certainly consider Ocaliva as an outpatient to help manage this and get her alkaline phosphatase closer to the normal range. I am going to obtain hepatic fibrotic markers and at this point we will repeat mitochondrial antibody but also check IgG 4 subclasses (to rule out autoimmune cholangitis). Because of the stenosis, I will obtain CEA and CA 19-9 level as well. I certainly feel that she should follow-up with her primary GI MEDICAL SERVICES MANAGER for further management. If she does decide she would prefer to have care at [facility], we will be happy to see her as well. ERCP can be arranged through my office in next 2 to 3 weeks and my office will arrange with her.
[2024-10-08 17:27] LABS: POC Glucose,Bedside 147 (70-110)
--- NOTE | 2024-10-08 18:55 | EXP.HP ---
History of Present Illness *Admission Date: 10/08/24 *History of present illness: Mrs. Gamboa is a 79-year-old female who is admitted with vomiting, diarrhea and mid abdominal pain with generalized weakness. At the end of August she had urosepsis at OSH. This reportedly happened after her ureteral stent was placed in [place] at [facility]. She does not know urologist name. At that time she had persistent hydronephrosis despite having stents placed. She has had some encephalopathy which was felt to be metabolic. The patient also reports to a history of PBC (primary biliary cholangitis) and had been on ursodiol by the GI provider in [facility]. The patient does see the GI nurse practitioner there. The ursodiol was not sent to the pharmacy and she has been out of this for more than a month. She does state that her alkaline phosphatase runs in the 200s but at time of hospital admission labs today showed alkaline phosphatase 1071. The remainder of her lab work showed total bilirubin 1.2, ALT 64 and AST 88. 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 There is biliary ductal dilation measuring up to 14 mm extending to the ampulla with no stones or mass. 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 There was no pancreatic ductal dilation or masses. The patient's prior CAT scan today showed diffuse fatty infiltration of the liver with evidence of prior cholecystectomy and some increased common bile duct dilation mild to moderate without stones. The pancreas was normal in appearance. [facility] Disclaimer: The information contained in this section may have been updated after the patient was seen, as this information can be updated by other users. Medical History (Updated 10/08/24 @ 15:47 by Vu Bhatt II, MD) Alkaline phosphatase elevation Hypothyroidism HTN (hypertension) Surgical History Previous back surgery Social History (Updated 10/08/24 @ 14:48 by Yolis Glass RN) Smoking Status: Never smoker alcohol intake: never current occupational status: other Travel in the last 8 weeks: None Have you lived/traveled outside [place] in past 30 days?: No Contact w/someone who lives/traveled outside US past 30 days?: No Exposure to someone with infectious disease in past 14 days?: No Do you have a fever (greater than 100.4 F or 38 C)?: No Have you tested positive for COVID-19: No Exposed to someone with COVID-19 in past 14 days?: No Do you have a sore throat?: No Do you have a cough?: No Do you have any weakness?: Yes Are you experiencing any nausea/vomitting?: No Do you have any diarrhea?: Yes Are you experiencing any unusual bleeding?: No Do you have any muscle aches/pain?: No Do you have any abdominal pain?: No Are you experiencing loss of taste or smell?: No Other Medical History Have you received the Flu Vaccine for this season: No Have you received the Pneumonia Vaccine: No Meds Home Medications and Allergies Home Medications ?Medication ?Instructions ?Recorded ?Confirmed ?Type aspirin 81 mg chewable tablet 81 mg PO DAILY 30 days #30 tabs 09/14/24 10/08/24 Rx amlodipine 5 mg tablet 5 mg PO DAILY #30 tabs 09/15/24 10/08/24 Rx famotidine 20 mg tablet 20 mg PO BID 30 days #60 tabs 09/15/24 10/08/24 Rx fesoterodine 8 mg tablet,extended 8 mg PO DAILY 30 days #30 tabs 09/15/24 10/08/24 Rx release 24 hr levocetirizine 5 mg tablet 5 mg PO HS 30 days #30 tabs 09/15/24 10/08/24 Rx magnesium oxide 400 mg (241.3 mg 400 mg PO DAILY 30 days #30 tabs 09/15/24 10/08/24 Rx magnesium) tablet methenamine hippurate 1 gram tablet 1 g PO BID 30 days #60 tabs 09/15/24 10/08/24 Rx acetaminophen 500 mg tablet 1,000 mg PO BID 10/08/24 10/08/24 History nitrofurantoin 100 mg PO BID 10/08/24 10/08/24 History monohydrate/macrocrystals 100 mg capsule oxybutynin chloride 10 mg 10 mg PO DAILY 10/08/24 10/08/24 History tablet,extended release 24 hr New Prescriptions to Start Prescriptions: Allergies Allergy/AdvReac Type Severity Reaction Status Date / Time butorphanol (From Stadol) Allergy Unknown Verified 10/08/24 14:42 allergy reaction ofloxacin (From Floxin) Allergy Hives Verified 10/08/24 14:42 prednisone Allergy Nausea Verified 10/08/24 14:42 Sulfa (Sulfonamide Allergy Unknown Verified 10/08/24 14:42 Antibiotics) allergy reaction Exam Data for Last 24 hours Vital signs and Labs for Last 24 Hours: Temp Pulse Resp BP Pulse Ox O2 Del Method 97.9 F 85 16 125/70 95 Room Air 10/08/24 16:00 10/08/24 16:00 10/08/24 16:00 10/08/24 16:00 10/08/24 16:00 10/08/24 18:45 Laboratory Results - last 24 hr 10/08/24 05:04: WBC 12.1 H, RBC 5.10, Hgb 14.1, Hct 43.7, MCV 85.7, MCH 27.6, MCHC 32.3, RDW 15.2, Plt Count 202, MPV 10.4, Neut % (Auto) 84.0 H, Lymph % (Auto) 9.9 L, [place] % (Auto) 5.0, Eos % (Auto) 0.3, Baso % (Auto) 0.4, Neut # (Auto) 10.1 H, Lymph # (Auto) 1.2, [place] # (Auto) 0.6, Eos # (Auto) 0.0, Baso # (Auto) 0.1, PT 10.3, INR 0.91, Sodium 135 L, Potassium 4.7, Chloride 104, Carbon Dioxide 24, Anion Gap 11.7, BUN 26 H, Creatinine 0.80, Estimated Creat Clear 57, Estimated GFR 69, Est GFR ( Amer) 84, Glucose 221 H, Lactate 2.1, Calcium 10.5 H, Total Bilirubin 1.2, AST 88 H, ALT 64, Alkaline Phosphatase 1071 H, Total Creatine Kinase 30, Troponin I < 0.01, Total Protein 7.5 D, Albumin 4.2, Globulin 3.3 H, Albumin/Globulin Ratio 1.3, Lipase 58, TSH 1.41, Free T4 1.24 10/08/24 05:43: Chlamy pneumoniae PCR Not detected, Adenovirus (PCR) Not detected, B. pertussis DNA (PCR) Not detected, Coronavirus OC43 (PCR) Not detected, Coronavirus HKU1 (PCR) Not detected, Coronavirus 229E (PCR) Not detected, SARS-CoV-2 (PCR) Not detected, Coronavirus NL63 (PCR) Not detected, Human Metapneumovir PCR Not detected, Influenza A (H1) PCR Not detected, Influ A (H1N1/09) PCR Not detected, Influenza A (H3) PCR Not detected, Influenza Type A (PCR) Not detected, Influenza Type B (PCR) Not detected, M. pneumoniae (PCR) Not detected, Parainfluenza 1 (PCR) Not detected, Parainfluenza 2 (PCR) Not detected, Parainfluenza 3 (PCR) Not detected, Parainfluenza 4 (PCR) Not detected, RSV (PCR) Not detected, Entero/Rhino (PCR) Not detected 10/08/24 07:45: Urine Color Yellow, Urine Appearance Cloudy, Urine pH 6.0, Ur Specific [place] 1.025, Urine Protein 1+ A, Urine Glucose (UA) Trace, Urine Ketones Negative, Urine Blood 3+ A, Urine Nitrate Positive A, Urine Bilirubin Negative, Urine Urobilinogen 0.2, Ur Leukocyte Esterase 2+ A, Urine WBC Tntc, Urine Bacteria Trace 10/08/24 08:15: Troponin I < 0.01 10/08/24 12:58: Lactate 1.0, Troponin I < 0.01 10/08/24 17:19: POC Glucose 147 H I & O for Last 24 hours: Intake & Output 10/05/24 10/06/24 10/07/24 10/08/24 23:59 23:59 23:59 23:59 Intake Total 240 / 240 Balance 240 / 240 Weight 78.698 kg Constitutional Constitutional: no acute distress *Routine HEENT Exam Head: Present normocephalic Eye: Present EOMI and PERRL ENT: Present mucous membranes moist *Routine Neck Exam Neck: Present supple; Absent lymphadenopathy *Routine Respiratory Exam Respiratory: Present CTA bilaterally *Routine Cardiovascular Exam Cardiovascular: Present RRR *Routine Abdominal Exam Abdominal: Present soft and normoactive bowel sounds; Absent tenderness *Routine Rectal Exam Rectal:: deferred *Routine Genitalia Exam Genitalia:: deferred *Routine Extremities Exam Extremities: Absent cyanosis, clubbing or edema *Routine Skin Exam Skin: Present warm; Absent rash *Routine Neurological Exam Neurological: Present alert and oriented X3 Assessment and Plan *Assessment and plan (1) Elevated alkaline phosphatase level: Status: Acute Category: Medical Code(s): R74.8 - Abnormal levels of other serum enzymes (2) Primary biliary cholangitis: Status: Acute Category: Medical Code(s): K74.3 - Primary biliary cirrhosis Plan Dian Gamboa is a 79-year-old female who was admitted for acute metabolic encephalopathy. #UTI #Generalized weakness ? UA grossly abnormal, urine culture pending. ? Ceftriaxone day 08/16. ? Patient did have a similar presentation about a month ago with normal urine ana rosa. ? Discharged from [facility] about a week ago. Has been living with her at home and mostly independent. #Primary biliary cholangitis #Elevated ALP ? Initial ALP 1071. 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 ? GI consulted, do believe findings are related to primary biliary cholangitis. Patient has reportedly been not taking her ursodiol for about a month. ? Restarted ursodiol 600 mg twice daily per GI recommendations. ? GI planning for outpatient ERCP unless patient wants to follow-up with her own GI specialist for PBC. #Chronic right hydronephrosis, nephrolithiasis with UPJ obstruction. ? Reportedly had a stent placed in August, however CT abdomen/pelvis continues to show obstruction. Performed at [facility], will follow-up on records tomorrow. ? CT shows stable hydronephrosis, nephrolithiasis. ? Patient was supposed to follow-up with urologist today, but unfortunately was hospitalized. ? Currently making urine without signs of sepsis. ? Will need outpatient follow-up with urology. #Left knee pain #Popliteal cyst, arthritis ? Patient reports pain in the left popliteal fossa, no evidence of erythema, swelling but does have some tenderness to palpation in the fossa and left calf. ? Venous Doppler negative for DVT, but did show popliteal cyst on last admission. 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 ? Continue Tylenol as needed. DNI Lovenox 40 mg
[2024-10-08] MEDS: OXYBUTYNIN 5MG TAB 5 MG PO (21:23)
[2024-10-08] MEDS: humaLOG 100 UNITS/ML 10ML VIAL (SSI) SUBCUT (21:23)
[2024-10-08] MEDS: ursodioL 300 MG CAPSULE 600 MG PO (21:23)
[2024-10-08 21:50] LABS: POC Glucose,Bedside 171 (70-110)
[2024-10-09 04:00] VITALS: BP 143/63; PULSE 85; RESP 14; TEMP 36.4; O2SAT 94; BMI 29.2
--- NOTE | 2024-10-09 04:14 | PC.NURSE ---
Pt has rested well this shift. Pt denies pain but admits to feeling rough, and week . Pt glucose level was 171 at HS and got 2 units of insulin. Pt has had no acute changes to note this shift. Call light is within reach.
[2024-10-09 05:29] LABS: POC Glucose,Bedside 129 (70-110)
[2024-10-09 07:02] LABS: Basophils # 0.1 K/mm3 (0-0.2); Basophils % 0.9 % (0.1-2.0); Eosinophils # 0.5 K/mm3 (0.0-0.4); Eosinophils % 6.8 % (0.1-12.0); Hematocrit 33.7 % (37.0-47.0); Hemoglobin 10.8 g/dL (12.2-16.2); Lymphocytes # 2.1 K/mm3 (0.7-4.5); Mean Corpuscular Hemoglobin 27.6 pg (27.0-31.2); Mean Platelet Volume 10.5 fl (7.4-10.4); Monocytes # 0.9 K/mm3 (0.1-1.0); Monocytes % 13.5 % (1.7-9.3); Neutrophils # 3.3 K/mm3 (1.8-7.8); Neutrophils % 47.7 % (37.0-80.0); Platelet Count 181 K/mm3 (142-424); Red Blood Count 3.92 M/mm3 (4.20-5.40); Red Cell Distribution Width 15.6 % (11.5-17.5); White Blood Count 6.9 K/mm3 (4.8-10.8)
[2024-10-09 07:15] LABS: Alanine Aminotransferase 38 U/L (12-78); Albumin Level 3.1 g/dl (3.5-5.0); Albumin/Globulin Ratio 1.1 (1.1-1.8); Alkaline Phosphatase 623 U/L (38-126); Anion Gap 4.7 mEq/L (5-15); Aspartate Amino Transferase 49 U/L (14-36); Bilirubin,Total 0.7 mg/dl (0.2-1.3); Blood Urea Nitrogen 21 mg/dl (7-17); Calcium 9.7 mg/dl (8.4-10.2); Carbon Dioxide 25 mmol/L (22.0-30.0); Chloride 108 mmol/L (98-107); Creatinine Clearance Estimated 56 mL/min (50-200); Estimated Glomerular Filt Rate 69 ml/min (>60); GFR (African American) 84 ML/MIN (>60); Globulin 2.9 g/dL (1.3-3.2); Glucose 127 mg/dl (74-100); Magnesium 2.1 mg/dl (1.6-2.3); Potassium 3.7 mmoL/L (3.5-5.1); Sodium 134 mmol/L (136-145)
[2024-10-09 08:00] VITALS: BP 91/62; PULSE 72; RESP 18; TEMP 36.4; O2SAT 95
[2024-10-09 08:18] LABS: HBsAg Screen Negative (Negative); HCV Ab Non Reactive (Non Reactive); Hep A Ab, IGM Negative (Negative); Hep B Core Ab, IgM Negative (Negative)
[2024-10-09] MEDS: ENOXAPARIN 40MG/0.4ML SYRINGE 40 MG SUBCUT (10:02)
[2024-10-09] MEDS: FESOTERODINE 8 MG 8 EACH PO (10:02)
[2024-10-09] MEDS: ursodioL 300 MG CAPSULE 600 MG PO (10:02)
[2024-10-09] MEDS: OXYBUTYNIN 5MG TAB 5 MG PO (10:03)
[2024-10-09] MEDS: ASPIRIN 81MG CHEWABLE TABLET 81 MG PO (10:03)
[2024-10-09] MEDS: CEFTRIAXONE 1 GM 1 GM in 0.9 % SODIUM CHLORIDE 50 ML IV (10:03)
[2024-10-09 12:18] LABS: POC Glucose,Bedside 145 (70-110)
--- NOTE | 2024-10-09 12:41 | P.DS_ITS ---
General Admission date:: 10/08/24 HPI HPI HPI: Mrs. Gamboa is a 79-year-old female who is admitted with vomiting, diarrhea and mid abdominal pain with generalized weakness. At the end of August she had urosepsis at OSH. This reportedly happened after her ureteral stent was placed in [place] at [facility]. She does not know urologist name. At that time she had persistent hydronephrosis despite having stents placed. She has had some encephalopathy which was felt to be metabolic. The patient also reports to a history of PBC (primary biliary cholangitis) and had been on ursodiol by the GI provider in [facility]. The patient does see the GI nurse practitioner there. The ursodiol was not sent to the pharmacy and she has been out of this for more than a month. She does state that her alkaline phosphatase runs in the 200s but at time of hospital admission labs today showed alkaline phosphatase 1071. The remainder of her lab work showed total bilirubin 1.2, ALT 64 and AST 88. 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 There is biliary ductal dilation measuring up to 14 mm extending to the ampulla with no stones or mass. 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 There was no pancreatic ductal dilation or masses. The patient's prior CAT scan today showed diffuse fatty infiltration of the liver with evidence of prior cholecystectomy and some increased common bile duct dilation mild to moderate without stones. The pancreas was normal in appearance. Hospital Course Hospital Course Hospital Course: Dian Gamboa is a 79-year-old female who was admitted for symptomatic UTI and elevated ALP. #UTI #Generalized weakness ? UA grossly abnormal, urine culture pending. ? Discharged with cefdinir for 13 more days given chronic hydronephrosis, UPJ obstruction as below. ? Discharged from [facility] about a week ago. Has been living with h er at home and mostly independent. #Primary biliary cholangitis #Elevated ALP ? Initial ALP 1071, improved to 623 after starting treatment below. 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 ? GI consulted, do believe findings are related to primary biliary cholangitis. Patient has reportedly been not taking her ursodiol for about a month. ? Restarted ursodiol 600 mg twice daily per GI recommendations. ? GI planning for outpatient ERCP unless patient wants to follow-up with her own GI specialist for PBC. #Chronic right hydronephrosis, nephrolithiasis with UPJ obstruction. ? Reportedly had a stent placed in August, however CT abdomen/pelvis continues to show obstruction. Performed at [facility], will follow-up on records tomorrow. ? CT shows stable hydronephrosis, nephrolithiasis. ? Patient was supposed to follow-up with urologist today, but unfortunately was hospitalized. ? Currently making urine without signs of sepsis. ? Will need outpatient follow-up with urology as soon as possible. #Left knee pain #Popliteal cyst, arthritis ? Patient reports pain in the left popliteal fossa, no evidence of erythema, swelling but does have some tenderness to palpation in the fossa and left calf. ? Venous Doppler negative for DVT, but did show popliteal cyst on last admission. 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 ? Continue Tylenol as needed. Exam Data for Last 24 hours Vital signs and Labs for Last 24 Hours: Temp Pulse Resp BP Pulse Ox O2 Del Method 97.5 F L 72 18 91/62 L 95 Room Air 10/09/24 08:00 10/09/24 08:00 10/09/24 08:00 10/09/24 08:00 10/09/24 08:00 10/09/24 08:00 Laboratory Results - last 24 hr 10/08/24 05:04: Hepatitis A IgM Ab Negative, Hep Bs Antigen Negative, Hep B Core IgM Ab Negative, Hepatitis C Antibody Non reactive, HCV RNA PCR Test Info Comment 10/08/24 12:58: Lactate 1.0, Troponin I < 0.01 10/08/24 17:19: POC Glucose 147 H 10/08/24 21:21: POC Glucose 171 H 10/09/24 05:16: POC Glucose 129 H 10/09/24 06:02: WBC 6.9 D, RBC 3.92 L, Hgb 10.8 L, Hct 33.7 L, MCV 86.0, MCH 27.6, MCHC 32.0, RDW 15.6, Plt Count 181, MPV 10.5 H, Neut % (Auto) 47.7, Lymph % (Auto) 31.0, [place] % (Auto) 13.5 H, Eos % (Auto) 6.8, Baso % (Auto) 0.9, Neut # (Auto) 3.3, Lymph # (Auto) 2.1, [place] # (Auto) 0.9, Eos # (Auto) 0.5 H, Baso # (Auto) 0.1, Sodium 134 L, Potassium 3.7 D, Chloride 108 H, Carbon Dioxide 25, Anion Gap 4.7 L, BUN 21 H, Creatinine 0.80, Estimated Creat Clear 56, Estimated GFR 69, Est GFR ( Amer) 84, Glucose 127 H, Calcium 9.7, Magnesium 2.1, Total Bilirubin 0.7, AST 49 H D, ALT 38 D, Alkaline Phosphatase 623 H, Total Protein 6.0 L, Albumin 3.1 L D, Globulin 2.9, Albumin/Globulin Ratio 1.1 10/09/24 12:10: POC Glucose 145 H I & O for Last 24 hours: Intake & Output 10/06/24 10/07/24 10/08/24 10/09/24 23:59 23:59 23:59 23:59 Intake Total 600 / 960 820 / 820 Output Total 0 / 0 0 / 0 Balance 600 / 960 820 / 820 Weight 78.698 kg 77.526 kg Microbiology Reports for the Last 24 Hours: Microbiology 10/08/24 05:43 Blood Blood Culture - Preliminary NO GROWTH AFTER 24 HOURS 10/08/24 05:04 Blood Blood Culture - Preliminary NO GROWTH AFTER 24 HOURS Constitutional Constitutional: no acute distress *Routine HEENT Exam Head: Present normocephalic Eye: Present EOMI and PERRL ENT: Present mucous membranes moist *Routine Neck Exam Neck: Present supple; Absent lymphadenopathy *Routine Respiratory Exam Respiratory: Present CTA bilaterally *Routine Cardiovascular Exam Cardiovascular: Present RRR *Routine Abdominal Exam Abdominal: Present soft and normoactive bowel sounds; Absent tenderness *Routine Extremities Exam Extremities: Absent cyanosis, clubbing or edema *Routine Skin Exam Skin: Present warm; Absent rash *Routine Neurological Exam Neurological: Present alert and oriented X3 Results Data Completed and Pending Labs on day of discharge: Labs from last 24 hours 10/09/24 10/09/24 10/09/24 12:10 06:02 05:16 WBC 6.9 D RBC 3.92 L Hgb 10.8 L Hct 33.7 L MCV 86.0 MCH 27.6 MCHC 32.0 RDW 15.6 Plt Count 181 MPV 10.5 H Neut % (Auto) 47.7 Lymph % (Auto) 31.0 [place] % (Auto) 13.5 H Eos % (Auto) 6.8 Baso % (Auto) 0.9 Neut # (Auto) 3.3 Lymph # (Auto) 2.1 [place] # (Auto) 0.9 Eos # (Auto) 0.5 H Baso # (Auto) 0.1 Sodium 134 L Potassium 3.7 D Chloride 108 H Carbon Dioxide 25 Anion Gap 4.7 L BUN 21 H Creatinine 0.80 Estimated Creat Clear 56 Estimated GFR 69 Est GFR ( Amer) 84 Glucose 127 H POC Glucose 145 H 129 H Lactate Calcium 9.7 Magnesium 2.1 Total Bilirubin 0.7 AST 49 H D ALT 38 D Alkaline Phosphatase 623 H Troponin I Total Protein 6.0 L Albumin 3.1 L D Globulin 2.9 Albumin/Globulin Ratio 1.1 Hepatitis A IgM Ab Hep Bs Antigen Hep B Core IgM Ab Hepatitis C Antibody HCV RNA PCR Test Info 10/08/24 10/08/24 10/08/24 21:21 17:19 12:58 WBC RBC Hgb Hct MCV MCH MCHC RDW Plt Count MPV Neut % (Auto) Lymph % (Auto) [place] % (Auto) Eos % (Auto) Baso % (Auto) Neut # (Auto) Lymph # (Auto) [place] # (Auto) Eos # (Auto) Baso # (Auto) Sodium Potassium Chloride Carbon Dioxide Anion Gap BUN Creatinine Estimated Creat Clear Estimated GFR Est GFR ( Amer) Glucose POC Glucose 171 H 147 H Lactate 1.0 Calcium Magnesium Total Bilirubin AST ALT Alkaline Phosphatase Troponin I < 0.01 Total Protein Albumin Globulin Albumin/Globulin Ratio Hepatitis A IgM Ab Hep Bs Antigen Hep B Core IgM Ab Hepatitis C Antibody HCV RNA PCR Test Info 10/08/24 05:04 WBC RBC Hgb Hct MCV MCH MCHC RDW Plt Count MPV Neut % (Auto) Lymph % (Auto) [place] % (Auto) Eos % (Auto) Baso % (Auto) Neut # (Auto) Lymph # (Auto) [place] # (Auto) Eos # (Auto) Baso # (Auto) Sodium Potassium Chloride Carbon Dioxide Anion Gap BUN Creatinine Estimated Creat Clear Estimated GFR Est GFR ( Amer) Glucose POC Glucose Lactate Calcium Magnesium Total Bilirubin AST ALT Alkaline Phosphatase Troponin I Total Protein Albumin Globulin Albumin/Globulin Ratio Hepatitis A IgM Ab Negative Hep Bs Antigen Negative Hep B Core IgM Ab Negative Hepatitis C Antibody Non reactive HCV RNA PCR Test Info Comment Preliminary micro results at discharge 10/08/24 05:43 Blood Culture - Preliminary Blood NO GROWTH AFTER 24 HOURS 10/08/24 05:04 Blood Culture - Preliminary Blood NO GROWTH AFTER 24 HOURS DS: Diagnosis Discharge Diagnosis (1) Elevated alkaline phosphatase level: Status: Acute Code(s): R74.8 - Abnormal levels of other serum enzymes (2) Primary biliary cholangitis: Status: Acute Code(s): K74.3 - Primary biliary cirrhosis Meds Home Medications and Allergies Home Medications ?Medication ?Instructions ?Recorded ?Confirmed ?Type aspirin 81 mg chewable tablet 81 mg PO DAILY 30 days #30 tabs 09/14/24 10/08/24 Rx amlodipine 5 mg tablet 5 mg PO DAILY #30 tabs 09/15/24 10/08/24 Rx famotidine 20 mg tablet 20 mg PO BID 30 days #60 tabs 09/15/24 10/08/24 Rx fesoterodine 8 mg tablet,extended 8 mg PO DAILY 30 days #30 tabs 09/15/24 10/08/24 Rx release 24 hr levocetirizine 5 mg tablet 5 mg PO HS 30 days #30 tabs 09/15/24 10/08/24 Rx magnesium oxide 400 mg (241.3 mg 400 mg PO DAILY 30 days #30 tabs 09/15/24 10/08/24 Rx magnesium) tablet methenamine hippurate 1 gram tablet 1 g PO BID 30 days #60 tabs 09/15/24 10/08/24 Rx acetaminophen 500 mg tablet 1,000 mg PO BID 10/08/24 10/08/24 History oxybutynin chloride 10 mg 10 mg PO DAILY 10/08/24 10/08/24 History tablet,extended release 24 hr cefdinir 300 mg capsule 300 mg PO BID 13 days #26 caps 10/09/24 Rx levofloxacin 750 mg tablet 750 mg PO DAILY #10 tabs 10/09/24 Rx ursodiol 300 mg capsule 600 mg (2 x 300 mg) PO BID 30 days 10/09/24 Rx #120 caps New Prescriptions to Start Prescriptions: cefdinir Dk Avila levofloxacin Dk Avila ursodiol Dk Avila Allergies Allergy/AdvReac Type Severity Reaction Status Date / Time butorphanol (From Stadol) Allergy Unknown Verified 10/08/24 14:42 allergy reaction ofloxacin (From Floxin) Allergy Hives Verified 10/08/24 14:42 prednisone Allergy Nausea Verified 10/08/24 14:42 Sulfa (Sulfonamide Allergy Unknown Verified 10/08/24 14:42 Antibiotics) allergy reaction Discharge Plan Disposition Patient Disposition: Home, Self-Care Condition: Fair Follow up Plan Follow up with: David Chapman [Referring] - 10/14/24 9:15 am (appointment is at [facility] ) George Garcia MD [Primary Care Provider] - 10/16/24 9:30 am Prescriptions/Medication Reconciliation: New ursodiol 300 mg Capsule 600 mg PO BID 30 Days Qty: 120 0RF levofloxacin 750 mg tablet 750 mg PO DAILY Qty: 10 0RF cefdinir 300 mg capsule 300 mg PO BID 13 Days Qty: 26 0RF Continued aspirin 81 mg Tablet,Chewable 81 mg PO DAILY 30 Days Qty: 30 0RF amlodipine 5 mg tablet 5 mg PO DAILY Qty: 30 0RF methenamine hippurate 1 gram Tablet 1 g PO BID 30 Days Qty: 60 0RF famotidine 20 mg tablet 20 mg PO BID 30 Days Qty: 60 0RF magnesium oxide 400 mg (241.3 mg magnesium) tablet 400 mg PO DAILY 30 Days Qty: 30 0RF levocetirizine 5 mg Tablet 5 mg PO HS 30 Days Qty: 30 0RF fesoterodine 8 mg tablet extended release 24 hr 8 mg PO DAILY 30 Days Qty: 30 0RF oxybutynin chloride 10 mg tablet extended release 24hr 10 mg PO DAILY Patient Comments: TAKE 1 TABLET BY MOUTH EVERY DAY acetaminophen 500 mg tablet 1,000 mg PO BID Patient Comments: TAKE 2 TABLETS BY MOUTH TWICE DAILY SCHEDULED. MAY TAKE AN ADDITIONAL 2 TABLETS NEEDED. DOSES MUST BE SPACED 4 HOURS APART Discontinued nitrofurantoin monohyd/m-cryst 100 mg capsule 100 mg PO BID Patient Comments: TAKE 1 CAPSULE BY MOUTH EVERY 12 HOURS FOR 7 DAYS DIRECTED FOR UTI Problem Reconciliation Problems Reviewed?: Yes Patient Discharge Instructions Print Language: Swiss Providers Primary Care Provider: George Garcia Admit Provider: Dk Avila Attending Provider: Dk Avila
[2024-10-10 10:11] LABS: CA 19-9 28 U/mL (0-35); CEA 4.1 ng/mL (0.0-4.7)
[2024-10-10 13:26] LABS: Mitochondrial (M2) Antibody 199.8 Units (0.0-20.0)
--- NOTE | 2024-10-12 12:28 | SW/DCPLANNER ---
Spoke with patient on the phone. Patient stated that she is very weak. Patient stated that she is aware of her upcoming appointments. Patient stated that she did get her medicine picked up from clinic pharmacy. Patient stated that she has no concerns or questions at this time. Maximo Andino
[2024-10-12 16:11] LABS: IgG, Subclass 4 76 mg/dL (2-96)
[2024-10-13 07:12] LABS: ALT (SGPT) P5P 31 IU/L (0-40); AST (SGOT) P5P 45 IU/L (0-40); Alpha 2-Macroglobulins, Qn 220 mg/dL (110-276); Apolipoprotein A-1 140 mg/dL (116-209); Bilirubin, Total 0.2 mg/dL (0.0-1.2); Cholesterol, Total 165 mg/dL (100-199); Fibrosis Score 0.41 (0.00-0.21); Fibrosis Stage F1-F2 (.); GGT 496 IU/L (0-60); Glucose 170 mg/dL (70-99); Haptoglobin 268 mg/dL (42-346); NASH Score 0.81 (0.00-0.25); Steatosis Score 0.95 (0.00-0.40); Triglycerides 169 mg/dL (0-149)
== END 2024-10-09 13:48 | disposition home or self-care (01) ==
LOC: ER 09:30 → 2ND 09:55
PROVIDERS: Emergency Medicine; Internal Medicine Gastroenterology; Admitting Provider Student in an Organized Health Care Education/Training Program; Emergency Provider Emergency Medicine; PCP Family Medicine; Visit Provider Student in an Organized Health Care Education/Training Program
DX: K74.3 Primary biliary cirrhosis (principal); R74.8 Abnormal levels of other serum enzymes; G93.41 Metabolic encephalopathy; K83.1 Obstruction of bile duct; I10 Essential (primary) hypertension; E03.9 Hypothyroidism, unspecified; N39.0 Urinary tract infection, site not specified; Z79.899 Other long term (current) drug therapy; N13.30 Unspecified hydronephrosis; R10.84 Generalized abdominal pain; R79.89 Other specified abnormal findings of blood chemistry
CPT/HCPCS: 36415; 71046; 74177; 74181; 76376; 80053; 80074; 81001; 82378; 82550; 82787; 82962; 83605; 83690; 83735; 84439; 84443; 84484; 85025; 85610; 86256; 86301; 86803; 87040; 87086; 87633; 93005; 99285; G0378; J0696; J1650; J2543; J7120; Q9967

== ENCOUNTER 2024-11-04 12:52 | Day surgery (SDC) | payer MEDICARE, SELFPAY ==
[2024-11-02 15:18] VITALS: BMI 29.8
[2024-11-04] VITALS (7 sets, daily range): BP systolic 112–127; BP diastolic 65–75; PULSE 68–77; RESP 14–17; TEMP 36.3–36.4; O2SAT 94–99
[2024-11-04] MEDS: LACTATED RINGERS 1000ML 1,000 ML 50 ML IV (13:52)
--- NOTE | 2024-11-04 14:11 | EXP.HP ---
History of Present Illness *Admission Date: 11/04/24 *Reason for visit:: Bile duct dilation *History of present illness: Mrs. Gamboa is a 79-year-old female who is here for diagnostic ERCP. She was recently admitted with vomiting, diarrhea and mid abdominal pain with generalized weakness. At the end of August she had urosepsis. This reportedly happened after her ureteral stent was placed in [place] at [facility]. She does not know urologist name. At that time she had persistent hydronephrosis despite having stents placed. She has had some encephalopathy which was felt to be metabolic. The patient also reports to a history of PBC (primary biliary cholangitis) and had been on ursodiol by the GI provider in [facility]. The patient does see the GI nurse practitioner there. The ursodiol was not sent to the pharmacy and she has been out of this for more than a month. She does state that her alkaline phosphatase runs in the 200s but at time of hospital admission labs today showed alkaline phosphatase 1071. The remainder of her lab work showed total bilirubin 1.2, ALT 64 and AST 88. 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 There is biliary ductal dilation measuring up to 14 mm extending to the ampulla with no stones or mass. 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 There was no pancreatic ductal dilation or masses. The patient's prior CAT scan today showed diffuse fatty infiltration of the liver with evidence of prior cholecystectomy and some increased common bile duct dilation mild to moderate without stones. The pancreas was normal in appearance. [facility] Disclaimer: The information contained in this section may have been updated after the patient was seen, as this information can be updated by other users. Medical History Cholecystectomy planned Dilated bile duct Diverticulitis Nausea, vomiting, and diarrhea Generalized weakness Physical deconditioning Weakness Hypertensive urgency Elevated liver enzymes Left leg pain Alkaline phosphatase elevation Hypothyroidism HTN (hypertension) Surgical History History of arthroplasty of right shoulder Previous back surgery Family History (Updated 11/02/24 @ 15:14 by Shirley Yousif RN) Other No significant family history Social History (Updated 11/04/24 @ 13:46 by Macey Live RN) Smoking Status: Never smoker alcohol intake: never current occupational status: retired and other Travel in the last 8 weeks: None Have you lived/traveled outside US in past 30 days?: No Contact w/someone who lives/traveled outside US past 30 days?: No Exposure to someone with infectious disease in past 14 days?: No Do you have a fever (greater than 100.4 F or 38 C)?: No Have you tested positive for COVID-19: No Exposed to someone with COVID-19 in past 14 days?: No Do you have a sore throat?: No Do you have a cough?: No Do you have any weakness?: No Are you experiencing any nausea/vomitting?: No Do you have any diarrhea?: No Are you experiencing any unusual bleeding?: No Do you have any muscle aches/pain?: No Do you have any abdominal pain?: No Are you experiencing loss of taste or smell?: No Other Medical History Have you received the Flu Vaccine for this season: No Have you received the Pneumonia Vaccine: No Meds Home Medications and Allergies Home Medications ?Medication ?Instructions ?Recorded ?Confirmed ?Type aspirin 81 mg chewable tablet 81 mg PO DAILY 30 days #30 tabs 09/14/24 11/04/24 Rx amlodipine 5 mg tablet 5 mg PO DAILY #30 tabs 09/15/24 11/04/24 Rx famotidine 20 mg tablet 20 mg PO BID 30 days #60 tabs 09/15/24 11/04/24 Rx fesoterodine 8 mg tablet,extended 8 mg PO DAILY 30 days #30 tabs 09/15/24 11/04/24 Rx release 24 hr magnesium oxide 400 mg (241.3 mg 400 mg PO DAILY 30 days #30 tabs 09/15/24 11/04/24 Rx magnesium) tablet methenamine hippurate 1 gram tablet 1 g PO BID 30 days #60 tabs 09/15/24 11/04/24 Rx acetaminophen 500 mg tablet 1,000 mg PO BID 10/08/24 11/04/24 History oxybutynin chloride 10 mg 10 mg PO DAILY 10/08/24 11/04/24 History tablet,extended release 24 hr ursodiol 300 mg capsule 600 mg (2 x 300 mg) PO BID 30 days 10/09/24 11/04/24 Rx #120 caps New Prescriptions to Start Prescriptions: Allergies Allergy/AdvReac Type Severity Reaction Status Date / Time butorphanol (From Stadol) Allergy Unknown Verified 11/04/24 13:31 allergy reaction ofloxacin (From Floxin) Allergy Hives Verified 11/04/24 13:31 prednisone Allergy Nausea Verified 11/04/24 13:31 Sulfa (Sulfonamide Allergy Unknown Verified 11/04/24 13:31 Antibiotics) allergy reaction Exam Data for Last 24 hours Vital signs and Labs for Last 24 Hours: Temp Pulse Resp BP Pulse Ox O2 Del Method 97.4 F L 77 16 127/75 96 Room Air 11/04/24 13:36 11/04/24 13:36 11/04/24 13:36 11/04/24 13:36 11/04/24 13:36 11/04/24 13:36 I & O for Last 24 hours: Intake & Output 11/01/24 11/02/24 11/03/24 11/04/24 23:59 23:59 23:59 23:59 Weight 174 lb *Routine HEENT Exam Head: Present normocephalic Eye: Present EOMI and PERRL ENT: Present mucous membranes moist *Routine Neck Exam Neck: Present supple *Routine Respiratory Exam Respiratory: Present CTA bilaterally *Routine Cardiovascular Exam Cardiovascular: Present RRR *Routine Abdominal Exam Abdominal: Present soft and normoactive bowel sounds; Absent tenderness *Routine Rectal Exam Rectal:: deferred *Routine Genitalia Exam Genitalia:: deferred *Routine Extremities Exam Extremities: Absent cyanosis, clubbing or edema *Routine Skin Exam Skin: Present warm; Absent rash *Routine Neurological Exam Neurological: Present alert and oriented X3 Assessment and Plan *Assessment and plan (1) Common bile duct dilation: Status: Acute Category: Medical Code(s): K83.8 - Other specified diseases of biliary tract (2) Elevated alkaline phosphatase level: Status: Acute Category: Medical Code(s): R74.8 - Abnormal levels of other serum enzymes (3) Ampullary stenosis: Status: Acute Category: Medical Code(s): K83.1 - Obstruction of bile duct (4) Primary biliary cholangitis: Status: Acute Category: Medical Code(s): K74.3 - Primary biliary cirrhosis Plan A/P: 1. Bile duct dilation with elevated alkaline phosphatase and history of underlying PBC is the preprocedural diagnosis. The CAT scan could not rule out ampullary stenosis. The patient will be anesthetized/sedated using MAC sedation. The patient has been seen and examined. Cardiac and lung assessment prior to the examination is stable. Proceed with planned ERCP
--- NOTE | 2024-11-04 14:14 | P.PCN_ITS ---
[facility] Procedure Note Date: 11/04/24 Time: 14:50 Procedure Note:: ERCP procedure Report: Endoscopic retrograde cholangiopancreatography with biliary sphincterotomy Endoscopist: Vu Bhatt II, MD Referring Physician: George Garcia MD, [address] [place] [address] [address] [place] [address] Date of Procedure: November 04, 2024 Equipment: Olympus 180 side viewing endoscope duodenoscope Sedation: MAC sedation Indication: Mrs. Gamboa is a 79-year-old female who is here for diagnostic ERCP. She was recently admitted last month with vomiting, diarrhea and mid abdominal pain with generalized weakness. At the end of August she had urosepsis. This reportedly happened after her ureteral stent was placed in [place] at [facility]. She does not know urologist name. At that time she had persistent hydronephrosis despite having stents placed. She has had some encephalopathy which was felt to be metabolic. The patient also reports to a history of PBC (primary biliary cholangitis) and had been on ursodiol by the GI provider in [facility]. The patient does see the GI nurse practitioner there. The ursodiol was not sent to the pharmacy and she has been out of this for more than a month. She does state that her alkaline phosphatase runs in the 200s but at time of hospital admission labs today showed alkaline phosphatase 1071. The remainder of her lab work showed total bilirubin 1.2, ALT 64 and AST 88. 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 There is biliary ductal dilation measuring up to 14 mm extending to the ampulla with no stones or mass. 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 There was no pancreatic ductal dilation or masses. The patient's prior CAT scan today showed diffuse fatty infiltration of the liver with evidence of prior cholecystectomy and some increased common bile duct dilation mild to moderate without stones. The pancreas was normal in appearance. The patient's last alkaline phosphatase prior to discharge was 623. 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 Her antimitochondrial M2 antibody was 199.8 consistent with primary biliary cholangitis. Procedure: Prior to the procedure, a history and physical exam was performed, and patient's medications and allergies were reviewed. The risks (including pancreatitis), benefits and alternatives of the sedation and procedure were discussed with the patient. All questions were answered and informed consent was obtained. The patient was brought to the fluoroscopic radiology room. Patient identification and proposed procedure were verified by the physician and the nurse. The patient was placed in a swimmer's position between left lateral decubitus and prone position and the scope was passed under direct vision. Throughout the procedure, the patient's blood pressure, pulse, and oxygen saturations were monitored continuously. The ERCP was accomplished without difficulty. The patient tolerated the procedure well. Findings: The duodenoscope was passed directly into the upper esophagus and advanced to the second portion of the duodenum. There was no evidence of gastric or esophageal varices and no portal gastropathy. The fluoroscopic C arm was then placed into position prior to cannulation with the duodenoscope was centered in a L-shaped position fluoroscopically in the second portion of duodenum. The entire endoscopic exam was done in conjunction with fluoroscopy. The cannula was then inserted through the duodenoscope channel and preloaded with low osmolar contrast. The ampulla was normal in appearance. There was some minor bile extravasation. The common bile duct was selectively cannulated with the guidewire. Next, the cannula was placed into the common bile duct and contrast was injected. The common bile duct was dilated at 15 to 16 mm with mostly CBD dilation but some mild intrahepatic biliary ductal dilation. There were no strictures or filling defects noted throughout the CBD or intrahepatic biliary system. There was smooth tapering of the CBD down to the ampulla. The findings would be consistent with some sphincter of Oddi tightness/spasm with upstream biliary ductal dilation. Because of the patient's initial pain and spike in liver chemistries and alkaline phosphatase, a generous biliary sphincterotomy was performed. Subsequently, there was excellent extravasation of bile and contrast with excellent biliary flow and decompression of the biliary system. The pancreatic duct was not cannulated intentionally. Impression: 1. 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 I would like for her to follow-up to discuss treatment options for her PBC especially if her alkaline phosphatase does not normalize. In March 2024, the [place] FDA accelerated approval for Livdelzi (seladelpar) for the treatment of primary biliary cholangitis (PBC) in combination with ursodiol and patient's who had an inadequate response to ursodiol as a monotherapy. This approval is based on a reduction in alkaline phosphatase. Livdelzi is a first and only PBC treatment that achieved significant reductions in both keep biomarkers and 62% achieved a biochemical response at 12 months and 25% achieved alkaline phosphatase normalization at 12 months. Livdelzi works by blocking the formation of bile and preventing the backup of bile which can lead to liver damage which is the basis of hepatic injury with primary biliary cholangitis.
--- NOTE | 2024-11-04 15:03 | EXP.ANES.CKL ---
[facility] Disclaimer: The information contained in this section may have been updated after the patient was seen, as this information can be updated by other users. Medical History Cholecystectomy planned Dilated bile duct Diverticulitis Nausea, vomiting, and diarrhea Generalized weakness Physical deconditioning Weakness Hypertensive urgency Elevated liver enzymes Left leg pain Alkaline phosphatase elevation Hypothyroidism HTN (hypertension) Surgical History History of arthroplasty of right shoulder Previous back surgery Family History (Updated 11/02/24 @ 15:14 by Shirley Yousif RN) Other No significant family history Social History (Updated 11/04/24 @ 13:46 by Macey Live RN) Smoking Status: Never smoker alcohol intake: never substance use type: denies use current occupational status: retired and other Travel in the last 8 weeks: None [facility] Anesthesia Checklist Patient Identification Patient Identification: Verbal (Name & ) Structural Data Admitted From: Home Planned Operative Procedure/s: ercp Consent for Planned Operative Procedure(s) Verified: Yes Additional verifications Anesthesia Reactions: No Hx Blood Transfusions: No Blood Transfusion Reaction: No Airway Assessment Mallampati Score:: Class II C-Spine Mobility Assessed: Yes TMJ Mobility Assessed: Yes Dentition: Dentures-good fit Neurological Assessment Level of Consciousness: Awake, Alert and Appropriate Anesthesia Plan Anesthesia Risk discussed: Yes Anesthesia Plan: Verified ASA Class: III Anesthesia Type: General
--- NOTE | 2024-11-04 15:05 | P.PNANES_ITS ---
[facility] Anesthesia Record Part I Anesthesia Record I Intake, IV Amount: 500 Hydration: Adequate Estimated blood loss (mL): 0 Urine output (mL): 0 Blood Pressure: 117/71 SaO2: 96 Pulse Rate: 75 Airway Patency: Patent Respiratory Rate: 14 Temperature: 97.5 F Patient is:: Awake and Stable Stable to PACU at:: 15:00
--- NOTE | 2024-11-04 15:10 | FL_ITS ---
FINAL REPORT CLINICAL HISTORY: ERCP in OR 43.5 sec 16.19 mGy FINDINGS: FLUOROSCOPY LESS THAN 1 HOUR HISTORY: Fluoroscopy guidance. Fluoroscopic guidance was provided for ERCP in the OR. 2 spot films were obtained. A total of 43.5 seconds of fluoroscopy time were used. Total DAP: 16.19 mGy IMPRESSION: As above. Reviewed, Interpreted and Dictated by Sushila Rudd MD Transcribed by Dari Garcia Authenticated and [facility]
[2024-11-04] MEDS: INDOMETHACIN 50MG SUPPOSITORY 50 MG RC (15:16)
[2024-11-04 16:18] LABS: Chloride 109 mmol/L (98-107); Potassium 4.3 mmoL/L (3.5-5.1); Sodium 142 mmol/L (136-145)
[2024-11-04 16:21] LABS: Alanine Aminotransferase 16 U/L (12-78); Albumin/Globulin Ratio 1.2 (1.1-1.8); Alkaline Phosphatase 280 U/L (38-126); Anion Gap 10.3 mEq/L (5-15); Aspartate Amino Transferase 40 U/L (14-36); Bilirubin,Total 0.8 mg/dl (0.2-1.3); Blood Urea Nitrogen 21 mg/dl (7-17); Calcium 10.1 mg/dl (8.4-10.2); Carbon Dioxide 27 mmol/L (22.0-30.0); Creatinine Clearance Estimated 57 mL/min (50-200); Estimated Glomerular Filt Rate 53 ml/min (>60); GFR (African American) 65 ML/MIN (>60); Globulin 3.3 g/dL (1.3-3.2); Glucose 125 mg/dl (74-100); Total Protein,Serum 7.3 g/dl (6.3-8.2)
--- NOTE | 2024-11-05 15:38 | EXP.ANES.II ---
[facility] Anesthesia Record Part II Anesthesia Record Part II Discharge Time: 15:30 Destination: Surgical Day Care (OP Surgery) PACU nurse assessment reviewed?: Yes Patient Condition:: Good Anesthesia Complications:: None Swallowing reflex intact?: Yes Airway Patency: Patent Cyanosis?: No Blood Pressure: 115/72 SaO2: 94 Respiratory Rate: 17 Pulse Rate: 68 Temperature: 97.6 F Mental Status: Alert & Oriented Pain level:: 0 Nausea and/or vomitting:: None Intake, IV Amount: 0 Hydration: Adequate
[2024-11-05 15:39] VITALS: BP 115/72; PULSE 68; RESP 17; TEMP 36.4; O2SAT 94
== END 2024-11-04 16:00 | disposition home or self-care (01) ==
PROVIDERS: PCP Family Medicine; Visit Provider Internal Medicine Gastroenterology
PROC: (CPT 43260; principal; 2024-11-04 14:30)
DX: Q44.5 Other congenital malformations of bile ducts (principal); K83.1 Obstruction of bile duct; K83.8 Other specified diseases of biliary tract; R74.8 Abnormal levels of other serum enzymes; K74.3 Primary biliary cirrhosis
CPT/HCPCS: 43262; 43273; 74330; 80053; J3490; C1769; J1100; J1596; J2250; J2405; J2710; J3010; J7120

== ENCOUNTER 2025-02-13 14:17 | Emergency (ER) | payer MEDICARE, SELFPAY ==
[2025-02-13] VITALS (9 sets, daily range): BP systolic 117–143; BP diastolic 68–83; PULSE 67–94; RESP 16–18; TEMP 36.6–36.9; O2SAT 88–99; BMI 27.4
--- OUTSIDE RECORDS SUMMARY | 2025-02-13 14:26 | XMS_ITS | Clinical Summary ---
Author Organization [facility] Address [address] [place] [address] Phone Care Team Providers Care Medical Advisor Name Role Phone Dk Wilde MD [ ] Conditions or Problems Problem Name Problem Code Onset Date Status Entry Date Provider Comment Standard Description Annotate Other obesity due to excess calories 949686879 (SNOMED CT) 09/16 Active 09/16 Alejandra Ybarra Simple obesity Seizures with provoking factor [id number] 00 (SNOMED CT) 09/05 Active 09/05 Dk Wilde MD Acute repetitive seizure Heart murmur, systolic 66967517 (SNOMED CT) 09/05 Active 09/05 Dk Wilde MD Systolic murmur Thrush, oral 04581760 (SNOMED CT) 09/05 Active 09/05 Dk Wilde MD Candidiasis of mouth Primary biliary cirrhosis 88945049 (SNOMED CT) 09/05 Active 09/05 Dk Wilde MD Primary biliary cholangitis Benign Essential Hypertension 41226373 (SNOMED CT) 09/03 Active 09/03 Ayana Romulo Benign hypertension Urinary tract infection (UTI) 21420271 (SNOMED CT) 09/03 Active 09/03 Ayana Romulo Urinary tract infectious disease Pseudomonas infection 05622863 (SNOMED CT) 09/03 Active 09/03 Ayana Romulo Bacterial infection caused by Pseudomonas Medications Medication Instructions Start Date Stop Date Generic Name NDC Provider METHENAMINE HIPPURATE 1 GM TABS Take 1 tablet by mouth once a day methenamine hippurate 82374614562 Dk Wilde MD DIFLUCAN 200 MG TABS Take 1 tablet by mouth once a day fluconazole 88590650842 Dk Wilde MD SOLIFENACIN SUCCINATE 10 MG TABS by mouth once daily solifenacin 62100817049 Sharmaine Chatman DIFLUCAN 200 MG TABS Take 1 tablet by mouth once a day fluconazole 78621787468 Dk Wilde MD MEROPENEM 1 GM SOLR Merrem 2gm IV Q24hrs INPAT meropenem 71387441895 Sarah Josefa METHENAMINE HIPPURATE 1 GM TABS 1 tab po bid methenamine hippurate 44551491557 Alejandra Ybarra MEROPENEM 1 GM SOLR Merrem 2gm IV Q24hrs INPAT meropenem 35047013129 Sarahcrow LimJosefa MEROPENEM 1 GM SOLR Merrem 2gm IV Q24hrs meropenem 69302079006 Sarah Rivero NYSTATIN [id number] UNIT/GM CREA nystatin 69649075025 Dk Wilde MD NYSTATIN 552013 UNIT/ML SUSP Take 5 ml to inside of mouth (buccal) four times a day swish and swallow until oral thrush is gone nystatin 79197776685 Dk Wilde MD NYSTATIN 649051 UNIT/GM CREA nystatin 17577974423 Sarah Hooper TOPIRAMATE 200 MG TABS topiramate 89249599403 Hope Minor URSODIOL 500 MG TABS ursodiol 64112135763 Hope Minor PANTOPRAZOLE SODIUM 40 MG TBEC pantoprazole 50430528534 Hope Minor CITALOPRAM HYDROBROMIDE 40 MG TABS citalopram 11940136596 Hope Minor ESTRADIOL 0.1 MG/GM CREA estradiol 04579141263 Hope Minor METHENAMINE HIPPURATE 1 GM TABS methenamine hippurate 03467295029 Hope Minor TOPIRAMATE 200 MG TABS topiramate 68806906325 Hope Minor ASPIRIN EC 81 MG TBEC 1 tab po daily aspirin 55908433362 Hope alfaro CITALOPRAM HYDROBROMIDE 40 MG TABS 1 tab po daily citalopram 93338367097 Hope alfaro ESTRADIOL 0.1 MG/GM CREA Apply a fingertip amount to urethral meatus every other night estradiol 95385551924 Hope Minor METHENAMINE HIPPURATE 1 GM TABS 1 tab po bid methenamine hippurate 69070756819 Hope Minor PANTOPRAZOLE SODIUM 40 MG TBEC 1 tab po daily pantoprazole 30798681602 Hope michel URSODIOL 500 MG TABS 1 tab po daily ursodiol 21840795342 Hope alfaro TURMERIC 500 MG CAPS turmeric-turmeri c root extract 47079603954 Hope Minor VITAMIN D (ERGOCALCIFEROL ) 1.25 MG (09545 UT) CAPS ergocalciferol (vitamin d2) 44853412369 Hope Minor VITAMIN C 100 MG TABS ascorbic acid (vitamin c) 52911329762 Hope Minor zinc acetate unspecified unspecified zinc acetate Hope Minor Medications Administered No information available. Allergies, Adverse Reactions, Alerts Allergy Name Reaction Description Start Date Severity Status Provider SULFAMETHOXAZOLE-TR IMETHOPRIM Itching Mild Active Dk Wilde MD STADOL Puritis, itching Mild Active Scarlet Wilde MD PREDNISONE Nausea Mild Active Dk connors MD FLOXINS Hives Moderate Active Dk vallecillo MD TETRACYCLINE HCL Mild Active Missael Minor SULFUR Mild Active Hope alfaro SULFAMETHOXAZOLE-TR IMETHOPRIM Mild No Longer Active Hope Minor STADOL puritis Mild No Longer Active Hope Minor SAVELLA Mild Active Hope Aleksandar alfaro QUINOLONES Mild Active Hope Felix ng PROCARDIA XL Mild Active Hope Minor PREDNISONE Mild No Longer Active Hope Minor METHOTREXATE Mild Active Hope Minor LEXAPRO Mild Active Hope alfaro HYDROCODONE BITARTRATE ER Mild Active Hope Minor FLUOXETINE HCL (PMDD) Mild Active Hope Minor FLOXIN Mild No Longer Active Hope Minor CELLCEPT Mild Active Hope alfaro Results Date Name Value Unit Range Flag Description Lab Report: URINALYSIS, MICR OSCOPIC ONLY HYAL CAST UR 0-6 /[LPF] 0-6 Hyaline casts [#/area] in Urine sediment by Microscopy low power field Lab Report: URINALYSIS WITHO UT MICROSCOPIC (NO CULTURE) UROBILINOGEN 0.2 E.U./dL 0.2 - 1.0 Ur obilinogen [Presence] in Urine by Test strip NITRITE URN Negative Negative Nitrite [Presence] in Urine by Test strip WBC DIPSTK U Moderate (2+) Negative A Leukocyte estera se [Presence] in Urine by Test strip PROTEIN, URN Negative Negative protei n, urine, semiquantitative (dipstick) BILIRUBIN UR Negative Negative Biliru bin.total [Presence] in Urine by Test strip KETONES URN Negative Negative Ketones [Mass/volume] in Urine by Test strip GLUCOSE, URN Negative Negative Glucos e [Mass/volume] in Urine by Test strip SPEC GR URIN 1.017 1.001-1.03 Speci fic gravity of Urine by Test strip PH URINE 5.5 5.0-8.0 pH of Urine by Test strip APPEARANCE U Cloudy Clear A Appearan ce of Urine UA COLOR Yellow Yellow, St Color of Urine Lab Report: CBC WITH AUTO DI FFERENTIAL [id number]-GE-[id number] 0.0 /100 WBC 0.0-0.2 GE use only - for [employer] import when terms are not otherwise specified IMMATUREGRAN 0.01 10*3/MM3 0.00-0.05 Immature granulocytes [#/volume] in Blood BASO# 0.07 10*3/mm3 0.00-0.20 Basophils [#/volume] in Blood EOS ABSLT 0.20 10*3/uL 0.00-0.40 Eosinophi ls [#/volume] in Blood MONOSCT AUTO 0.80 10*3/uL 0.10-0.90 Monocy hope [#/volume] in Blood by Automated count LYMPHCT AUTO 1.74 10*3/mm3 0.70-3.10 Lymph ocytes [#/volume] in Blood by Automated count ABS NEUTROPH 3.41 10*3/uL 1.70-7.00 Neutro phils [#/volume] in Blood IMM GRANU % 0.2 % 0.0-0.5 Immature granulocytes/100 leukocytes in Blood % EOS AUTO 3.2 % 0.3-6.2 Eosinophil s/100 leukocytes in Blood by Automated count MONOCYTE % 12.8 % 5.0-12.0 H Monocytes /100 leukocytes in Blood by Automated count LYMPHOCY BF 27.9 % 19.6-45.3 lymphoc ytes as percent of body fluid leukocytes NEUTROP BF 54.8 % 42.7-76.0 Neutroph ils/100 leukocytes in Body fluid PLATELETS 155 10*3/mm3 140-450 Platelets [#/volume] in Blood by Automated count RDW_ 13.6 12.3-15.4 RDW, no uni ts MCHC 31.2 G/DL 31.5-35.7 L MCHC [Mass/ volume] by Automated count MCH 29.5 pg 26.6-33.0 MCH [Entiti c mass] by Automated count MCV 94.4 fL 79.0-97.0 MCV [Entiti c volume] by Automated count HCT 40.7 % 34.0-46.6 Hematocrit [Volume Fraction] of Blood by Automated count HGB 12.7 g/dL 12.0-15.9 Hemoglobin [Mass/volume] in Blood RBC 4.31 10*6/mm3 3.77-5.28 Erythrocyt es [#/volume] in Blood by Automated count WBC 6.23 10*3/mm3 3.40-10.80 Leukocyte s [#/volume] in Blood by Automated count Lab Report: SEDIMENTATION RA TE ESR 32 mm/h 0-30 H Erythrocyte sedimentation rate by Westergren method Lab Report: C-REACTIVE PROTE IN CRP <0.30 mg/dL 0.00-0.50 C reactive protein [Mass/volume] in Serum or Plasma Lab Report: COMPREHENSIVE ME TABOLIC PANEL ANIONGAP 6.0 mmol/L 5.0-15.0 anion gap, serum BUN/CREAT 23.6 7.0-25.0 Urea nitrogen/Creatinine [Mass Ratio] in Serum or Plasma BILI TOTAL 0.2 mg/dL 0.0-1.2 Bilirubin. total [Mass/volume] in Serum or Plasma ALK PHOS 192 U/L 39-117 H Alkaline phosphatase [Enzymatic activity/volume] in Blood SGOT (AST) 18 U/L 1-32 Aspartate aminotransferase [Enzymatic activity/volume] in Serum or Plasma SGPT (ALT) 12 U/L 1-33 Alanine aminotransferase [Enzymatic activity/volume] in Serum or Plasma ALBUMIN 3.70 g/dL 3.50-5.20 Albumin [Mass/volume] in Serum or Plasma PROTEIN, TOT 7.0 g/dL 6.0-8.5 Protein [Mass/volume] in Serum or Plasma CALCIUM 10.2 mg/dL 8.6-10.5 Calcium [Moles/volume] in Serum or Plasma CO2 27.0 mmol/L 22.0-29.0 Carbon diox carri, total [Moles/volume] in Venous blood CHLORIDE 111 mmol/L 98-107 H Chloride [Moles/volume] in Serum or Plasma POTASSIUM 4.3 mmol/L 3.5-5.2 Potassium [Moles/volume] in Serum or Plasma SODIUM 144 mmol/L 136-145 Sodium [Moles/volume] in Serum or Plasma CREATININE 0.72 mg/dL 0.57-1.00 Creatini ne [Mass/volume] in Serum or Plasma BUN 17 mg/dL 8-23 Urea nitrogen [Mass/volume] in Serum or Plasma GLUCOSE SER 81 mg/dL 65-99 Glucose [Mass/volume] in Serum or Plasma Lab Report: CBC With Differe ntial/Platelet, Comp. Metabolic Panel (14), ... A/G RATIO 1.1 g/dL Albumin/Henna bulin [Mass Ratio] in Serum or Plasma GLOBULIN 3.3 Globulin [Mass/volume] in Serum BASOPHIL % 1.1 % 0.0-1.5 Basophils/ 100 leukocytes in Blood by Manual count LYMPHS % 27.9 % 19.6-45.3 Lymphocyte s/100 leukocytes in Blood by Automated count PMN % 54.8 % 42.7-76.0 Neutrophils /100 leukocytes in Blood by Automated count RDW 13.6 % 12.3-15.4 Erythrocyte distribution width [Ratio] by Automated count Office Visit: rm 4 ORALTOBACUSE Never Tobacco smoking status SMOK STATUS Former smoker Tobacco smoking status MEDS REVIEW Done Documenta tion of current medications (procedure) Plan of Care Type Date Detail Pending order New Oral Antibio tic Pending order Discontinue IV a ntibiotics Pending order PICC Removal Pending order Continue IV anti biotics Pending order Weekly PICC Line Care Pending order Weekly Labs (Con tinue) Pending order New IV antibioti c Pending order STAT Labs Pending order PICC Line Insert ion Pending order Weekly Labs (Con tinue) Pending order Weekly PICC Line Care Pending order New IV antibioti c Pending order Continue oral an tibiotics Pending order Urinalysis with microscopic exam Pending order Urine Culture & Sensitivity Procedures Code Procedure Name Date Entry Date CPT-emily New Oral Antibiotic CPT-DC Discontinue IV antibiotics 2 CPT-PICREM PICC Removal CPT-ca Continue IV antibiotics 2021 CPT-wpc Weekly PICC Line Care 09/18 CPT-cwl Weekly Labs (Continue) 07/18 CPT-porsha New IV antibiotic CPT-sl STAT Labs CPT-26632 PICC Line Insertion CPT-cwl Weekly Labs (Continue) 07/09 CPT-wpc Weekly PICC Line Care 09/08 CPT-porsha New IV antibiotic CPT-Cooral Continue oral antibiotics 03/07/25 CPT-00996 Urinalysis with microscopic exam CPT-25384 Urine Culture & Sensitivity Vital Signs Date Name Value Unit Description BMI (Body Mass Index) 30.63 kg/m2 Bod y Mass Index (Ratio) Body Temperature 97.3 [degF] temperat ure E&M BP Diastolic 80 mm[Hg] blood pressu re, diastolic BP Systolic 130 mm[Hg] blood pressur e, systolic Heart Rate 68 /min pulse rate Height 62 [in_us] height E&M Respiratory Rate 16 /min respirat ory rate E&M Weight Measured 167.5 [lb_av] weight E& M Weight Measured 167.5 [lb_av] weight E& M Immunizations No information available. 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
--- OUTSIDE RECORDS SUMMARY | 2025-02-13 14:27 | XMS_ITS | Continuity of Care Document ---
Author Organization Formerly [facility] [place] Address [address] [facility] [address] [place] [address] Care Team Providers Care [employer] Science Tutor Name Role Phone GEORGE GARCIA Primary Care Provider Assessment No assessment recorded. Plan of Treatment Reminders Order Date Submit Date Provider Last Modified By Organization Details Last Modified Time Details Appointments None recorded. Lab urinalysis , dipstick 2024 025 [email or web address] [facility], [address], [place], [address], 07:25:28 Referral None recorded. Procedures None recorded. Surgeries None recorded. Imaging None recorded. Medication Orders Macrobid 100 mg capsule 2024 025 [id number], [address] [place], [place], [id number], 5 07:25:41 Patient TargetsNo targets recorded. Patient InstructionsNo instructions recorded. Reason for Referral None Reported. Results Created Date Observation Date Name Description Value Unit Range Abnormal Flag Note LastModifiedBy Organization Detail LastModifiedTime 12/30/1912/29/2024 urina lysis , dipst ick Leukocytes (reference range) large Not Available [facility] [address], [place], [address], 12/29/2024 15:00:07 12/30/19 25 12/29/2024 urina lysis , dipst ick Nitrite (reference range:) negati ve Not Available [facility] - [address] [facility] [address], [place], [address], 12/29/2024 15:00:07 12/30/19 25 12/29/2024 urina lysis , dipst ick Urobilinogen (reference range) 0.2 Not Available [facility] - [address] [facility] [address], [place], [address], 12/29/2024 15:00:07 12/30/19 25 12/29/2024 urina lysis , dipst ick Protein (reference range) trace Not Available [facility] - [address] [facility] [address], [place], [address], 12/29/2024 15:00:07 12/30/19 25 12/29/2024 urina lysis , dipst ick pH (reference range 5-8.5) 6.0 Not Available [facility] [address] [facility] [address], [place], [address], 12/29/2024 15:00:07 12/30/19 25 12/29/2024 urina lysis , dipst ick Blood (reference range:) hemoly zed: Trace Not Available [facility] [address] [facility] [address], [place], [address], 12/29/2024 15:00:07 12/30/19 25 12/29/2024 urina lysis , dipst ick Specific [place] (reference range) 1.025 Not Available [facility] [address] [facility] [address], [place], [address], 12/29/2024 15:00:07 12/30/19 25 12/29/2024 urina lysis , dipst ick Ketone (reference range) negati ve Not Available [facility] [address], [place], [address], 12/29/2024 15:00:07 12/30/19 25 12/29/2024 urina lysis , dipst ick Bilirubin (reference range) negati ve Not Available [facility] [address] [facility] [address], [place], [address], 12/29/2024 15:00:07 12/30/19 25 12/29/2024 urina lysis , dipst ick Glucose (reference range) negati ve Not Available [facility] [address] [facility] [address], [place], [address], 12/29/2024 15:00:07 12/30/19 25 12/29/2024 urina lysis , dipst ick Color (reference range: yellow-brown ) Dark Yellow Not Available [facility] [address] [facility] [address], [place], [address], 12/29/2024 15:00:07 Result Notes None recorded. Problems Name Problem SNOMED Code Status Onset Date Resolution Date Notes Provider Name and Address Organization Details Recorded Time Essential hypertension 62771403 Active 2021 Samantha Vladislavdini null, [place] - [facility] - [place] & [place] 2 10:26:33 Biliary cirrhosis 8398134 Active 2021 Samantha Pardini null[place] [facility] [place] 2 10:26:27 Peptic ulcer 32205459 Active 2021 Samantha Pardini null, [place] - [facility] & [place] 2 10:26:38 Syncope 395030459 Active 2021 Samantha Pardini null, [place] - [facility] - [place] & [place] 2 10:26:41 Epilepsy 13390068 Active 2021 Samantha lockett, [place] - [facility] - [place] & [place] 2 10:26:36 Chronic idiopathic constipation 13679792 Active 2022 Andreina Tariq NP [address], [address], [place], [address] , [place] - [facility] - [place] & [place] 3 11:14:51 Mixed anxiety and depressive disorder 914011907 Active 2022 Abdelrahman Gomez MD [address], [place], [address] , [place] - [facility] [place] & [place] 3 11:01:19 Irritable bowel syndrome characterized by constipation 403185487 Active 2023 Andreina Tariq NP [address], [address], [place], [address] , [place] [facility] & [place] 4 10:12:15 Problem Notes None recorded. Procedures Surgical History Date Name Laterality Status Provider Name and Address Organization Details Recorded Time 025 Cerumen Removal completed George Garcia MD [address] [facility], [place], [address], [place] [facility] [place] & [place] 12/10/2024 07:08:22 024 Most Recent Mammogram completed Mery Kebede [place] - [facility] & [place] 04/01/2024 19:24:42 024 Medicare Annual Wellness Visit Health Risk Assessment completed Samantha Godinez [place] [facility] [place] & [place] 10/04/2023 11:53:06 023 completed Colette Orlando [place] - [facility] & [place] 02/19/2023 11:06:53 018 excision of skin carcinoma completed Mery [place]ebede [place] [facility] [place] [facility] & [place] 09/10/2024 10:02:31 015 electroencephalogram completed Mitra Real [place] [facility] [place] [facility] & [place] 05/14/2022 09:14:28 013 Date of Last Colonoscopy completed Mery [place]amer [place] [facility] [place] & [place] 09/18/2024 16:49:06 013 Colonoscopy completed Mery Henriqueamer [place] [facility] [place] & [place] 09/10/2024 10:05:01 010 repair of musculotendinous cuff of shoulder completed Mery [place]amer [place] [facility] [place] & [place] 09/10/2024 10:01:58 986 Appendectomy completed Samantha Murillowestley SARAI - [facility] - [place] & [place] 05/22/2022 10:23:20 Tubal Ligation completed Mitra Addie [place] - [facility] - [place] & [place] 05/14/2022 09:10:52 Appendectomy completed Mitra Addie MOON - [facility] - [place] & [place] 05/14/2022 09:11:01 Dilation and curettage completed Luís MOON - [facility] - [place] & [place] 05/14/2022 09:11:08 hysterectomy completed Mitra Addie MOON - [facility] - [place] & [place] 05/14/2022 09:11:16 Cholecystectomy completed Mitra MOON - [facility] - [place] & [place] 05/14/2022 09:11:37 Back Surgery completed Mitra Addie MOON - [facility] - [place] & [place] 05/14/2022 09:11:49 removal of ovarian cyst completed Mitra MOON - [facility] - [place] & [place] 05/14/2022 09:12:25 repair of urinary bladder completed Mitra MOON - [facility] - [place] & [place] 05/14/2022 09:12:50 extraction of cataract completed Luís MOON - [facility] - [place] & [place] 05/14/2022 09:14:10 Imaging Results None recorded. Procedure Notes None recorded. Medical Equipment None Reported. Allergies Allergen ID Allergen Name Allergen Category Reaction Reaction Severity Criticality Documentation Date Start Date Code Code System Note Provider Name and Address Organization Details Recorded Time 848768 tetracycl ine medicatio n itching Not available low 04/01/2024 15849 RxNorm Mery Rothamer null, SARAI - [facility] & [place] 4 19:34:10 575546 prednison e medicatio n nausea Not available low 04/01/2024 8640 RxNorm Mery Rothamer null, SARAI - [facility] & [place] 4 19:34:56 143024 nifedipin e medicatio n Not available Not available low 04/01/2024 7417 RxNorm Proca rdia Mery Duenasamer null, [place] [facility] & [place] 4 19:37:41 160748 methotrex ate medicatio n rash Not available low 04/01/2024 6851 RxNorm Mery [place] [facility] & [place] 4 19:35:51 709489 floxacill in Not available itching Not available low 04/01/2024 4448 RxNorm Mery [place] [facility] & [place] 4 19:36:33 512358 sulfur dioxide medicatio n other Not available low 04/01/2024 40832 79 RxNorm Urina ry Reten tion Mery Rothamer null, [place] [facility] & [place] 4 19:37:02 99671 fluoxetin e medicatio n hives Not available low 05/14/2022 4493 RxNorm Mery Rothamer null, SARAI - [facility] & [place] 4 19:27:55 10683 Substance with sulfonami de structure and antibacte rial mechanism of action (substanc e) medicatio n hives Not available Not available 05/14/2022 18180 8003 SNOMED Mitra Real null, [place] [facility] & [place] 2 09:04:27 61892 levofloxa cm medicatio n rash Not available low 05/14/2022 41812 RxNorm Adria lones Mery [place] null, [place] [facility] & [place] 4 19:34:35 43765 ciproflox acin medicatio n Not available Not available Not available 05/14/2022 2551 RxNorm Mitra lockett, SARAI - [facility] & [place] 2 09:04:50 27955 hydrocodo ne Not available dyspnea Not available high 05/14/2022 5489 RxNorm Mery Kebede null, SARAI - [facility] & [place] 4 19:27:58 01005 Savella medicatio n headache Not available low 05/14/2022 85290 6 RxNorm Milna cipra n Mery Kebede null, SARAI - [facility] & [place] 4 19:35:32 39608 Stadol medicatio n itching Not available Not available 05/14/2022 56255 RxNorm Mitra lockett, SARAI - [facility] & [place] 2 09:05:40 Medications Name Sig Start Date Stop Date Status Note LastModified by Organization Details LastModified Time losartan 50 mg tablet TAKE 1 TABLET ONE TIME DAILY 10/05 completed Not Available Not Available Not Available nystatin 100,000 unit/mL oral suspension SWISH 5 MILLILITE RS INSIDE OF MOUTH 4 TIMES A DAY THEN SWALLOW UNTIL ORAL THRUSH IS GONE 07/23 completed Not Available Not Available Not Available doxycycline hyclate 100 mg capsule 05/22 completed Not Available Not Available Not Available citalopram 40 mg tablet 07/16 completed Not Available Not Available Not Available oxybutynin chloride ER 10 mg tablet,exte nded release 24 hr TAKE 1 TABLET BY MOUTH EVERY DAY active Not Available Not Available No t Available tramadol 37.5 mg-acetamin ophen 325 mg tablet 04/01 completed Not Available Not Available Not Available tizanidine 4 mg tablet TAKE 1 TABLET BY MOUTH EVERY DAY AT BEDTIME FOR NECK PAIN 10/05 completed Not Available Not Available Not Available fluconazole 150 mg tablet TAKE 1 TABLET BY MOUTH EVERY OTHER DAY active Not Available Not Available No t Available fluconazole 200 mg tablet TAKE 1 TABLET BY MOUTH EVERY 2 DAYS FOR 4 DAYS active Not Available Not Available No t Available meloxicam 15 mg tablet TAKE 1 TABLET BY MOUTH DAILY 10/05 completed Not Available Not Available Not Available phenazopyri dine 200 mg tablet TAKE 1 TABLET BY MOUTH THREE TIMES DAILY AFTER MEALS FOR 2 DAYS 05/22 completed Not Available Not Available Not Available prednisone 20 mg tablet TAKE 2 TABLETS BY MOUTH EVERY DAY FOR 3 DAYS 07/03 completed Not Available Not Available Not Available promethazin e 6.25 mg-codeine 10 mg/5 mL syrup 05/22 completed Not Available Not Available Not Available amlodipine 5 mg tablet TAKE 1 TABLET BY MOUTH EVERY DAY 2024 active Not Available Not Available Not Avai lable sulfamethox azole 800 mg-trimetho prim 160 mg tablet 05/22 completed Not Available Not Available Not Available aspirin 81 mg tablet,bertin yed release TAKE 1 TABLET BY MOUTH EVERY DAY 10/05 completed Not Available Not Available Not Available tramadol 50 mg tablet TAKE 1 TABLET BY MOUTH EVERY 6 HOURS NEEDED active Not Available Not Available No t Available acetaminoph en 500 mg tablet TAKE 2 TABLETS BY MOUTH TWICE DAILY SCHEDULED . MAY TAKE AN ADDITIONA L 2 TABLETS NEEDED. DOSES MUST BE SPACED 4 HOURS APART active Not Available Not Available No t Available Kenalog 40 mg/mL suspension for injection Take 40 mg by injection route. 05/28 completed Not Available Not Available Not Available Macrobid 100 mg capsule Take 1 capsule twice daily for 10 days then take 1 capsule daily thereafte r 2024 active Not Available Not Available Not Avai lable meloxicam 7.5 mg tablet TAKE 1 TABLET BY MOUTH EVERY DAY 02/22 completed Not Available Not Available Not Available ceftriaxone 1 gram solution for injection Take 1 g by injection route. 07/03 completed Not Available Not Available Not Available methenamine hippurate 1 gram tablet TAKE 1 TABLET BY MOUTH TWICE DAILY active Not Available Not Available No t Available famotidine 20 mg tablet TAKE 1 TABLET BY MOUTH TWICE DAILY DIRECTED FOR HEARTBURN 10/05 completed Not Available Not Available Not Available magnesium oxide 400 mg (241.3 mg magnesium) tablet TAKE 1 TABLET BY MOUTH DAILY 12/29 completed Not Available Not Available Not Available methocarbam ol 750 mg tablet 07/20 completed Not Available Not Available Not Available phenazopyri dine 100 mg tablet TAKE 1 TABLET BY MOUTH THREE TIMES DAILY FOR 3 DAYS 12/29 completed Not Available Not Available Not Available cephalexin 500 mg capsule 07/03 completed Not Available Not Available Not Available pantoprazol e 40 mg tablet,bertin yed release TAKE 1 TABLET EVERY DAY active Not Available Not Available No t Available erythromyci n 5 mg/gram (0.5 %) eye ointment APPLY 1/4 INCH BOTH EYES AT BEDTIME 03/16 completed Not Available Not Available Not Available oseltamivir 75 mg capsule TAKE 1 CAPSULE BY MOUTH TWICE DAILY FOR 5 DAYS 05/22 completed Not Available Not Available Not Available nitrofurant oin macrocrysta l 100 mg capsule Take 1 capsule twice a day by oral route for 7 days. 12/29 completed Not Available Not Available Not Available ursodiol 300 mg capsule TAKE 2 CAPSULES BY MOUTH TWICE DAILY active Not Available Not Available No t Available hydrocortis one 2.5 % topical cream APPLY TOPICALLY TO THE AFFECTED AREA TWICE DAILY FOR 1 WEEK. MIX WITH NYSTATIN 06/13 completed Not Available Not Available Not Available topiramate 200 mg tablet 06/30 completed Not Available Not Available Not Available dexamethaso ne sodium phosphate 4 mg/mL injection solution Inject 1 mL twice a day by intramusc ular route. 05/28 completed Not Available Not Available Not Available cefuroxime axetil 500 mg tablet TAKE 1 TABLET BY MOUTH EVERY 12 HOURS FOR 10 DAYS 02/14 completed Not Available Not Available Not Available levofloxaci n 500 mg tablet TAKE 1 TABLET BY MOUTH EVERY 24 HOURS FOR 10 DAYS 08/14 completed Not Available Not Available Not Available estradiol 0.01% (0.1 mg/gram) vaginal cream APPLY A FINGERTIP AMOUNT TO URETHRAL MEATUS EVERY NIGHT active Not Available Not Available No t Available levofloxaci n 750 mg tablet TAKE ONE TABLET BY MOUTH ONCE DAILY FOR 10 DAYS -- FINISH ALL MEDICINE -- 12/29 completed Not Available Not Available Not Available methylpredn isolone 4 mg tablets in a dose pack FOLLOW PACKAGE DIRECTION S 10/04 completed Not Available Not Available Not Available albuterol sulfate HFA 90 mcg/actuati on aerosol inhaler INHALE 2 PUFFS BY MOUTH EVERY 4 HOURS 06/30 completed Not Available Not Available Not Available cefdinir 300 mg capsule TAKE ONE CAPSULE BY MOUTH TWICE DAILY FOR 13 DAYS -- FINISH ALL MEDICINE -- 12/29 completed Not Available Not Available Not Available fluticasone propionate 50 mcg/actuati on nasal spray,suspe nsion SHAKE LIQUID AND USE 1 SPRAY IN EACH NOSTRIL TWICE DAILY active Not Available Not Available No t Available amoxicillin 875 mg-potassiu m clavulanate 125 mg tablet TAKE 1 TABLET BY MOUTH TWICE DAILY 07/03 completed Not Available Not Available Not Available amoxicillin 500 mg-potassiu m clavulanate 125 mg tablet 12/29 completed Not Available Not Available Not Available tobramycin 0.3 %-dexametha sone 0.1 % eye drops,suspe nsion INSTILL 1 DROP IN LEFT EYE THREE TIMES DAILY active Not Available Not Available No t Available ORTHOVISC 30 mg/2 mL intra-artic ular syringe 09/09 completed Not Available Not Available Not Available ursodiol 500 mg tablet 12/29 completed Not Available Not Available Not Available lactulose 10 gram/15 mL oral solution TAKE 15 ML BY MOUTH EVERY DAY 05/22 completed Not Available Not Available Not Available solifenacin 10 mg tablet TAKE 1 TABLET BY MOUTH EVERY DAY 08/13 completed Not Available Not Available Not Available lubiproston e 24 mcg capsule Take by oral route for 30 days. 02/22 completed Not Available Not Available Not Available amlodipine 5 mg-valsarta n 160 mg tablet TAKE 1 TABLET BY MOUTH EVERY DAY DIRECTED FOR BLOOD PRESSURE 10/05 completed Not Available Not Available Not Available levocetiriz ine 5 mg tablet TAKE 1 TABLET BY MOUTH EVERY NIGHT AT BEDTIME FOR NASAL DRAINAGE CAUSING COUGH active Not Available Not Available No t Available guaifenesin ER 1,200 mg tablet, extended release 12 hr TAKE 1 TABLET BY MOUTH TWICE DAILY DIRECTED FOR CONGESTIO N 10/05 completed Not Available Not Available Not Available fesoterodin e ER 8 mg tablet,exte nded release 24 hr TAKE 1 TABLET BY MOUTH EVERY DAY active Not Available Not Available No t Available Solu-Medrol (PF) 125 mg/2 mL solution for injection Take 125 mg by injection route. 07/03 completed Not Available Not Available Not Available lactulose 10 gram/15 mL (15 mL) oral solution 09/09 completed Not Available Not Available Not Available Linzess 145 mcg capsule TAKE 1 CAPSULE EVERY DAY active Not Available Not Available No t Available Linzess 290 mcg capsule Take 1 capsule every day by oral route for 90 days. 07/16 completed Not Available Not Available Not Available Coricidin HBP Cold-Multi Symptom 6.25 mg-15 mg-325 mg/15 mL oral liqd Take 20 mL every 8 hours by oral route as needed for 5 days. 07/03 completed Not Available Not Available Not Available Vraylar 1.5 mg capsule Take 1 capsule every day by oral route. 10/04 completed Not Available Not Available Not Available AZO Complete Feminine Balance 10/01 completed Not Available Not Available Not Available Eye Allergy Itch-Rednes s Relief 0.1 % drops INSTILL 1 DROP INTO AFFECTED EYE(S) BY OPHTHALMI C ROUTE 2 TIMES PER DAY AT AN INTERVAL OF 6 TO 8 HOURS 10/05 completed Not Available Not Available Not Available aspirin 81 mg capsule active Not Available Not Available N ot Available Vitals Date Recorded Body height Body mass index (BMI) Body weight Body temperature Oxygen saturation Oxygen saturation in Arterial blood by Pulse oximetry Heart rate Systolic And Diastolic Provider Name and Address Organization Details Last Updated DateTime 5 162.56 cm 29.5 kg/m2 72335.5 7 g 97.6 [degF] 92 % 92 % 80 /min 118/78 mm[Hg] Carmen CRAWLEY [facility] & [place] 5 14:57:49 Social History Question Answer Notes LastModified by Organizat ion Details LastModified Time Tobacco Smoking Status Never Smoker SARAI Mehta [facility] & [place] 06/14/2022 10:58:52 Do You Have An Advance Directive? Yes Information not available 05/22/2022 Do You Wear A Helmet When Biking? No Information not available 10/04/2023 Are You Blind Or Do You Have Difficulty Seeing? No Information not available 05/22/2022 What Is Your Level Of Caffeine Consumption? Occasional Information not available 09/25/2023 In The 14 Days Before Symptom Onset, Have You Had Close Contact With A Laboratory-confir med COVID-19 While That Case Was Ill? No Information not available 10/04/2023 In The 14 Days Before Symptom Onset, Have You Had Close Contact With A Person Who Is Under Investigation For COVID-19 While That Person Was Ill? No Information not available 10/04/2023 Have You Been To An Area Known To Be High Risk For COVID-19? No Information not available 10/04/2023 Are You Deaf Or Do You Have Serious Difficulty Hearing? No Information not available 10/04/2023 What Type Of Diet Are You Following? REGULAR Information not available 10/04/2023 Have You Processed Blood Or Body Fluids From An Ebola Virus Disease Patient Without Appropriate PPE? No Information not available 10/04/2023 Do You Reside In Or Have You Traveled To An Area Where Ebola Virus Transmission Is Active? No Information not available 10/04/2023 Have There Been Any Changes To Your Family Or Social Situation? No Information no t available 10/04/2023 What Is The Fluoride Status Of Your Home? Unknown Information not available 10/04/2023 When Did You Quit Smoking? 16+yearssincel astcigarette [email or web address] Information not available 09/25/2023 Are There Any Guns Present In Your Home? No Information not available 10/04/2023 Have You Recently Or Are You Planning To Travel To An Area With Zika Virus? No Information not available 10/04/2023 Do You Use Insect Repellent Routinely? No Information not available 10/04/2023 What Was The Date Of Your Most Recent Tobacco Screening? 03/17/2024 [email or web address] Information not available 04/01/2024 Do You Have Any Pets? Yes Information not available 10/04/2023 What Is Your Relationship Status? Information not available 10/04/2023 Do You Use Your Seat Belt Or Car Seat Routinely? Yes Information not available 10/04/2023 Are You Sexually Active? No Information not available 10/04/2023 Do You Have Smoke And Carbon Monoxide Detectors In Your Home? Yes Information not available 10/04/2023 Are You Passively Exposed To Smoke? No Information no t available 05/22/2022 How Much Tobacco Do You Smoke? No Information not available 06/14/2022 Do You Use Sunscreen Routinely? No Information not available 10/04/2023 How Many Years Have You Smoked Tobacco? 0 Information not available 06/14/2022 Do You Have Difficulty Walking Or Climbing Stairs? No Information not available 10/04/2023 Are You Currently In School? No Information not available 10/04/2023 Sex: Female Functional Status Question Answer Note LastModified by Organizat ion Details LastModified Time Do you use any illicit or recreational drugs? No Information not available 05/22/2022 Do you or have you ever used any other forms of tobacco or nicotine? No [email or web address] Information not available 09/25/2023 What is your level of alcohol consumption? None Information not available 05/22/2022 Do you or have you ever used smokeless tobacco? Never used smokeless tobacco Information not available 05/22/2022 Are you currently employed? No Information not available 10/04/2023 Do you have transportation difficulties? No Information not available 10/04/2023 Are you able to walk? YESWOREST Information not available 10/04/2023 Do you have difficulty doing errands alone? No Information not available 10/04/2023 Are you able to care for yourself? Yes Information n ot available 10/04/2023 Do you have difficulty dressing or bathing? No Information not available 10/04/2023 What is your exercise level? Occasional [email or web address] Information not available 09/25/2023 Mental Status Question Answer Note LastModified by Organizat ion Details LastModified Time Do you feel stressed (tense, restless, nervous, or anxious, or unable to sleep at night)? [id number] [email or web address] Information not available 04/02/2023 Do you have difficulty concentrating, remembering or making decisions? No Information no t available 10/04/2023 Family History Relationship Description Onset Age of this Age Resolved Age Notes LastModified by Organization Details LastModified Time Mother Essential hypertension [email or web address] Not available 14:14:04 Mother Coronary arterioscler osis deceas ed [email or web address] Not available 12/29/2024 14:14:04 Mother Autoimmune disease pt. added direct ly (06/12) [email or web address] Not available 06/12/2022 23:11:47 Mother Bilateral cataracts [email or web address] Not available 12/29 14:14:04 Mother Blood coagulation disorder [email or web address] Not available 2023 19:29:41 Mother Heart failure [email or web address] Not available 12/29 14:14:04 Mother Hypertensive disorder [email or web address] Not available 2023 19:30:02 Mother Family member [email or web address] Not available 12/29 14:14:04 Father Essential hypertension [email or web address] Not available 14:14:04 Father Autoimmune disease pt. added direct ly (06/12) API-13 Not available 06/12/2022 23:11:47 Father Harmful pattern of use of alcohol [email or web address] Not available 12/29 14:14:04 Father Disease of liver [email or web address] Not available 2023 19:29:11 Father Malignant neoplasm of lung [email or web address] Not available 12/29 14:14:04 Father Family member cancer [email or web address] Not available 12/29 14:14:04 Sister Biliary cirrhosis [email or web address] Not available 12/29 14:14:04 Sister Autoimmune disease pt. added direct ly (06/12) API-13 Not available 06/12/2022 23:11:47 Sister Disease of liver pt. added direct ly (06/12) API-13 Not available 06/12/2022 23:12:21 Sister Headache pt. added direct ly (06/12) API-13 Not available 06/12/2022 23:12:34 Sister Kidney disease pt. added direct ly (06/12) API-13 Not available 06/12/2022 23:12:57 Sister Heart disease pt. added direct ly (06/12) API-13 Not available 06/12/2022 23:13:09 Sister Cerebrovascu lar accident pt. added direct ly (06/12) API-13 Not available 06/12/2022 23:13:29 Medical History Condition Response Anxiety Disorder Y Autoimmune disease Y Vision or Eye Problems Y Arthritis Y Seizures/Epilepsy Y Ear or Hearing Problems Y Cancer Y Back Problems Y Diverticulitis Y Kidney or Bladder Problems Y GI Problems Y Depression Y Constipation Y Reflux/GERD Y High Cholesterol Y Cirrhosis Y Liver Disease Y Hypertension Y Gynecological History Statement/Question Response Abnormal Pap N Date of Last Colonoscopy 05/25/2013 09/10/2022 Sexually Active? Y Menses Monthly N Most Recent Mammogram 10/12/2023 Obstetrics History GPAL:G 0 P 0 0 0 0 Immunizations Vaccine Type Date Status Note Provider Nam e and Address Organization Details Recorded Time Pneumococcal conjugate PCV 13 5 completed Samantha Pardini null, [place] - [facility] - [place] & [place] 11/05/2022 12:51:49 pneumococcal polysaccharide PPV23 4 completed Samantha Pardini null, [place] - [facility] [place] & [place] 11/05/2022 12:51:49 COVID-19, mRNA, LNP-S, PF, 30 mcg/0.3 mL dose, sandee-sucrose 2 completed Saamntha Pardini null, [place] - [facility] & [place] 05/28/2022 12:32:44 Influenza, adjuvanted, quadrivalent, PF 0 completed Samantha Pardini null, [place] - [facility] [place] & [place] 05/28/2022 12:32:44 COVID-19, mRNA, LNP-S, PF, 30 mcg/0.3 mL dose 1 completed Samantha Pard[place] null, [place] - [facility] [place] & [place] 05/28/2022 12:32:44 COVID-19, mRNA, LNP-S, PF, 30 mcg/0.3 mL dose 1 completed Samantha Pardini null, [place] - [facility] [place] & [place] 05/28/2022 12:32:44 Influenza, high-dose, trivalent, PF 1 completed Samantha Loomisdini null, [place] - [facility] & [place] 05/28/2022 12:32:44 COVID-19, mRNA, LNP-S, PF, 30 mcg/0.3 mL dose 1 completed Samantha Vladislavdini null, [place] - [facility] & [place] 05/28/2022 12:32:44 Influenza, adjuvanted, quadrivalent, PF 2 completed Samantha [place]ard[place] null, [place] [facility] & [place] 11/05/2022 12:51:49 COVID-19, mRNA, LNP-S, bivalent, PF, 30 mcg/0.3 mL dose 2 completed Samantha Vladislavdini null, [place] - [facility] & [place] 11/05/2022 12:51:49 Influenza, high-dose, quadrivalent, PF 3 completed Abdelrahman Gomez MD [address] [place] [address], [id number] - [facility] & [place] 05/23/2023 14:46:17 RSV, recombinant, protein subunit RSVpreF, adjuvant reconstituted, 0.5 mL, PF 3 completed Ansley Dimas null, [place] - [facility] & [place] 12/17/2023 14:24:03 COVID-19, mRNA, LNP-S, PF, 50 mcg/0.5 mL 3 completed Ansley Diams null[place] - [facility] & [place] 12/17/2023 14:24:03 Influenza, high-dose, trivalent, PF 4 completed Ansley Dimas null[place] - [facility] & [place] 06/15/2024 09:56:29 COVID-19, mRNA, LNP-S, PF, sandee-sucrose, 30 mcg/0.3 mL 4 completed Aurea Martinez null, [place] - [facility] & [place] 06/16/2024 15:55:44 Past Encounters Encounter ID Performer Location Encounter Start Date Encounter Closed Date Diagnosis/Indication Diagnosis SNOMED-CT Code Diagnosis ICD10 Code Diagnosis Note [id number] George Garcia MD [facility] [address] [facility] SARAI MYERS [id number] 12/09/2024 13:44:29 12/09/2024 14:32:53 Dysfunction of right eustachian tube 8392949248 832712 H69.91 Will try combinatio n of flonase and xyzal Impacted c erumen in right ear 8069168382 197929 H61.21 lavage today with good results [id number] George Garcia MD [facility] [address] [facility] [place] [id number] 12/29/2024 14:12:19 12/29/2024 15:28:29 Urinary tract infectious disease [id number] N39.0 Urinalysis was positive for nitrites, leukocytes and blood. She had a recent UTI but I am unable to find any culture from that. We will go ahead and retreat with Macrobid 100 b.i.d. for 10 full days and then have her take 1 pill daily after that for prophylaxi s until she is seen by urologist next month. Health Concerns Section Related Observation LastModified by Organization Detai ls LastModified Time None Recorded Concern Status LastModified by Organization Details LastModified Time None Recorded Payers Encounter Date Sequence Insurance Name Policy Number Policy Webster Covered Member ID Webster Member ID Guarantor Name 12/29/2024 1 [employer] (MEDICARE REPLACEMENT/ ADVANTAGE - HMO) Dian Gamboa [id number] Dian Gamboa Notes Date Note Type Note Provider Name and Address Organization Details Recorded Time 12/29/2024 text/html Pt presents with urinary burning, stinging and frequency. George Garcia MD [address], [place], [address], [facility] - [place] & [place] 12/30/2024 07:28:13 OBGyn Episode No OBEpisode recorded.
--- OUTSIDE RECORDS SUMMARY | 2025-02-13 14:27 | XMS_ITS | Clinical Summary ---
Author Organization Healthcare Address [address] [place] [address] Care Team Providers Care Compress Trucker Name Role Phone Livier Azevedo Primary Care Provider [phone] Family History Medical History Relation Name Comments Alcohol abuse Father Conversions - Other Father Hepatic Disorder Lung cancer Father Cataracts Mother Clotting disorder Mother Heart failure Mother Hypertension Mother Depression Other 1 Diabetes Other 2 Conversions - Other Sister Primary Biliary Cirrhosis Relation Name Status Comments Father Mother Other 1 Other 2 Sister Social History Tobacco Use Types Packs/Day Years Used Date Smoking Tobacco: Former Alcohol Use Standard Drinks/Week Comments No 0 (1 standard drink = 0.6 oz pure alcohol) Alcoholic Drinks/day: Never Drank Alcohol Comments Unknown Sex and Gender Information Value Date Recorded Sex Assigned at Not on file Legal Sex Female 8:54 PM EDT Gender Identity Not on file Sexual Orientation Not on file Last Filed Vital Signs Vital Sign Reading Time Taken Comments Blood Pressure 128/84 06/18/2019 1:44 PM EST Pulse - - Temperature - - Respiratory Rate - - Oxygen Saturation - - Inhaled Oxygen Concentration - - Weight 81.7 kg (180 lb 1.9 oz) 06/18/2019 1:44 P M EST Height 162.6 cm (5' 4 ) 06/18/2019 1:44 PM EST Body Mass Index 30.92 06/18/2019 1:44 PM EST Plan of Treatment Health Maintenance Due Date Last Done Comments [facility]-Bone Density Scan 1945 [facility]-Depression Screening 1945 [facility]-Hepatitis C Screening 1945 [facility]-Medicare Annual Wellness (AWV) 1945 [facility]-/Child/Adol SDOH Screenings 1945 [facility]- SDOH Screenings 1963 [facility]-Adult SDOH Screenings 1963 [facility]-DTaP,Tdap,and Td Vaccines (1 - Tdap) 1964 [facility]-Pneumococcal Vaccine: 50+ Years (1 of 1 - PCV) 1995 [facility]-Zoster Vaccines (1 of 2) 1995 [facility]-RSV Vaccine: 60+ Years or (1 - 1-dose 75+ series) 2020 [id number] Vaccine (4 - season) 2024 04/06/2021, 10/14/2020, 09/20/2020 [facility]-Influenza Vaccine (#1) 04/12/202505/24, 05/12/2017 HPV Vaccines Aged Out No longer eligi ble based on patient's age to complete this topic [facility]-HIB Vaccines Aged Out No longer e ligible based on patient's age to complete this topic [facility]-Hepatitis A Vaccines Aged Out No longer eligible based on patient's age to complete this topic [facility]-IPV Vaccines Aged Out No longer e ligible based on patient's age to complete this topic [facility]-Rotavirus Vaccines Aged Out No lo nger eligible based on patient's age to complete this topic Insurance [employer] Care Teams Compress Trucker Relationship Specialty Start Date End Date Livier Azevedo PA [address] [place] [address] PCP - General 12/23/20
--- OUTSIDE RECORDS SUMMARY | 2025-02-13 14:27 | XMS_ITS | Data Portability ---
Author Organization [facility] & MISBAH Duong ADMIN Address [address] [place] [address] Care Team Providers Care Learning And Development Assistant Name Role Phone GEORGE GARCIA Primary Care Provider Assessment No assessment recorded. Plan of Treatment Reminders Order Date Submit Date Provider Last Modified By Organization Details Last Modified Time Details Appointments None recorded. Lab urinalysis, dipstick 2024 025 [email or web address] [facility], [address], [place], [address], 5 07:25:28 Referral None recorded. Procedures None recorded. Surgeries None recorded. Imaging None recorded. Medication Orders Macrobid 100 mg capsule 2024 025 [id number], [address] [place], [place], [id number], 5 07:25:41 Flonase Allergy Relief 50 mcg/actuati on nasal spray,suspe nsion 2024 025 [facility]887, [address] [place], [place], [id number], 5 14:28:32 nitrofurant oin monohydrate /macrocryst als 100 mg capsule 2024 025 [facility] #54865, [address] [place], [place], [id number], 5 15:00:15 levocetiriz ine 5 mg tablet 2024 025 [facility]76031, [address] [place] [place], [id number], 5 16:26:41 famotidine 20 mg tablet 2024 025 [facility] #90832, [address] [place] [place], [id number], 5 13:22:51 guaifenesin ER 1,200 mg tablet, extended release 12 hr 2023 025 [facility] #72538, [address] [place], [id number], 5 13:23:07 tizanidine 4 mg tablet [email or web address] [facility]41170, [address] [place] [place], [id number], 5 13:24:23 amlodipine 5 mg-valsarta n 160 mg tablet [email or web address] [facility]36717, [address] [place], [place], [id number], 5 13:19:00 Patient TargetsNo targets recorded. Patient InstructionsNo instructions recorded. Reason for Referral None Reported. Results Created Date Observation Date Name Description Value Unit Range Abnormal Flag Note LastModifiedBy Organization Detail LastModifiedTime 12/30/1901/01/2025 URINE CULTU RETORO urine culture, routine Final report abnormal Not Available [facility] ([facility]) [address] [facility], [place], [address], 01/01/2025 03:36:22 12/30/19 25 01/01/2025 URINE CULTU RETORO NE result 1 Entero coccus faecal is abnormal Enter ococc i susce ptibl e to penic illin are predi ctabl y susce ptibl e to ampic illin , amoxi cilli n, ampic illin -sulb actam , amoxi cilli n-cla vulan ate, and piper acill in-ta zobac arriola for non-b eta-l actam ase produ cing enter ococc i. (CLSI 2018) For Enter ococc us speci es, amino glyco sides (exce pt for high- level resis tance scredeborah gabrielg) , cepha lospo rins, clind amyci n, and trime thopr im-stallings lfame thoxa zole are not effec tive clini madi . (CLSI , M100- S26, 2016) 25,00 0-50, 000 colon y formi ng units per mL Note: this isola te is vanco mycin -susc eptib le. This infor matio n is provi ded for epide miolo gic purpo ses only: vanco mycin is not among the antib iotic s recom howie d for thera py of urina ry tract infec tions cause d by Enter ococc us. Not Available [facility] ([facility]) [address] [facility], [place], [address], 01/01/2025 03:36:22 12/30/1901/01/2025 URINE CULTU RE, ROUTI NE antimicrobia l susceptibili ty Commen t S = Susce ptibl e; I = Inter media te; R = Resis tant P = Posit katharine; N = Negat katharine MICS are expre ssed in micro grams per mL Antib iotic RSLT# 1 RSLT# 2 RSLT# 3 RSLT# 4 Cipro floxa cm S Levof loxac in S Nitro furan toin S Penic illin S Tetra cycli ne S Vanco mycin S Not Available [facility] ([facility]) [address] [facility], [place], [address], 01/01/2025 03:36:22 12/30/19 25 12/29/2024 urina lysis , dipst ick Leukocytes (reference range) large Not Available [facility] [place] [address], [place], [address], 12/29/2024 15:00:07 12/30/19 25 12/29/2024 urina lysis , dipst ick Nitrite (reference range:) negati ve Not Available [facility] [address] [facility] [address], [place], [address], 12/29/2024 15:00:07 12/30/19 25 12/29/2024 urina lysis , dipst ick Urobilinogen (reference range) 0.2 Not Available [facility] [place] [address] [facility] [address], [place], [address], 12/29/2024 15:00:07 12/30/19 25 12/29/2024 urina lysis , dipst ick Protein (reference range) trace Not Available [facility] [place] [address] [facility] [address], [place], [address], 12/29/2024 15:00:07 12/30/19 25 12/29/2024 urina lysis , dipst ick pH (reference range 5-8.5) 6.0 Not Available [facility] [place] [address] [facility] [address], [place], [address], 12/29/2024 15:00:07 12/30/19 25 12/29/2024 urina lysis , dipst ick Blood (reference range:) hemoly zed: Trace Not Available [facility] [address] [facility] [address], [place], [address], 12/29/2024 15:00:07 12/30/19 25 12/29/2024 urina lysis , dipst ick Specific Alpine (reference range) 1.025 Not Available [facility] [place] [address], [place], [address], 12/29/2024 15:00:07 12/30/19 25 12/29/2024 urina lysis , dipst ick Ketone (reference range) negati ve Not Available [facility] [address] [facility] [address], [place], [address], 12/29/2024 15:00:07 12/30/19 25 12/29/2024 urina lysis , dipst ick Bilirubin (reference range) negati ve Not Available [facility] [address] [facility] [address], [place], [address], 12/29/2024 15:00:07 12/30/19 25 12/29/2024 urina lysis , dipst ick Glucose (reference range) negati ve Not Available [facility] [address] [facility] [address], [place], [address], 12/29/2024 15:00:07 12/30/19 25 12/29/2024 urina lysis , dipst ick Color (reference range: yellow-brown ) Dark Yellow Not Available [facility] [address] [facility] [address], [place], [address], 12/29/2024 15:00:07 08/10/20 24 US, bladd er No observ ation record ed. [email or web address] Not Available 2024 22:09:20 09/11/19 25 09/11/2024 XR, chest No observ ation record ed. [email or web address] [facility] [address], [place], [address], 09/16/2024 10:16:26 09/11/19 25 09/11/2024 CT, abdom en + pelvi s, w/ contr ast No observ ation record ed. [address], [place], [place], [address], 09/16/2024 10:17:27 09/11/19 25 09/11/2024 CT, head + brain , w/ contr ast No observ ation record ed. [address], [place], [place], [address], 09/16/2024 10:19:50 09/11/19 25 09/11/2024 XR, knee No observ ation record ed. [address], [place], [place], [address], 09/16/2024 10:20:08 09/11/19 25 09/11/2024 XR, tibia + fibul a No observ ation record ed. [place] [address], [place], [place], [address], 09/16/2024 10:20:30 09/11/19 25 09/11/2024 XR, femur No observ ation record ed. [address], [place], [place], [address], 09/16/2024 10:20:42 09/11/19 25 09/11/2024 XR, hip + pelvi s, unila teral No observ ation record ed. [address], [place], [place], [address], 09/16/2024 10:21:16 09/12/19 25 09/11/2024 elect francoar diogr am No observ ation record ed. [place] [address], [place], [place], [address], 09/16/2024 10:23:02 09/14/19 25 09/14/2024 US, doppl er, venou s No observ ation record ed. [address], [place], [address], 11/20/2024 15:11:23 10/08/19 25 10/08/2024 CT, abdom en + pelvi s, w/ contr ast No observ ation record ed. [address], [place], [address], 11/26/2024 09:42:56 10/08/19 25 10/08/2024 XR, chest , 2 view No observ ation record ed. [address], [place], [address], 11/26/2024 09:42:46 10/08/19 25 10/08/2024 MRI, abdom en, w/o contr ast No observ ation record ed. [address], [place], [address], 11/26/2024 09:42:39 10/09/19 25 10/08/2024 elect nikole sher am No observ ation record ed. [address], [place], [address], 11/26/2024 09:41:29 11/06/19 25 11/04/2024 fluor oscop y (PROC ) No observ ation record ed. [address], [place], [address], 11/26/2024 09:40:50 Result Notes None recorded. Problems Name Problem SNOMED Code Status Onset Date Resolution Date Notes Provider Name and Address Organization Details Recorded Time Essential hypertension 25106857 Active 2021 [place] Junior - [facility] - [place] & [place] 10:26:33 Biliary cirrhosis 0900076 Active 2021 Samantha Pardini null, [place] - [facility] [place] & [place] 2 10:26:27 Peptic ulcer 75476836 Active 2021 Samantha Murilloi null, [place] - [facility] [place] & [place] 2 10:26:38 Syncope 131620002 Active 2021 Samantha Vladislavdini null, [place] - [facility] [place] & [place] 2 10:26:41 Epilepsy 54762041 Active 2021 Samantha Murilloi null, [place] [facility] [place] & [place] 2 10:26:36 Chronic idiopathic constipation 19063756 Active 2022 Andreina Tariq NP [address] [facility], [address], [place], [address] , [place] - [facility] [place] & [place] 3 11:14:51 Mixed anxiety and depressive disorder 373427554 Active 2022 Abdelrahman Gomez MD [address] [place], [address] , [place] [facility] [place] & [place] 3 11:01:19 Irritable bowel syndrome characterized by constipation 088794933 Active 2023 Andreina Tariq NP [address] [facility], [address], [place], [address] , [place] - [facility] [place] & [place] 4 10:12:15 Problem Notes None recorded. Procedures Surgical History Date Name Laterality Status Provider Name and Address Organization Details Recorded Time 025 Cerumen Removal completed George Garcia MD [address] [facility], [place], [address], [place] - [facility] [place] & [place] 12/10/2024 07:08:22 024 Most Recent Mammogram completed Mery Kebede [place] - [facility] [place] & [place] 04/01/2024 19:24:42 024 Medicare Annual Wellness Visit Health Risk Assessment completed Samantha Godinez [place] [facility] [place] 10/04/2023 11:53:06 023 completed Colette Darion [place] - [facility] [place] 02/19/2023 11:06:53 018 excision of skin carcinoma completed Mery [place]ebede [place] [facility] [place] 09/10/2024 10:02:31 015 electroencephalogram completed Mitra Real [place] - [facility] [place] & [place] 05/14/2022 09:14:28 013 Date of Last Colonoscopy completed Mery [place]ebede [place] [facility] [place] 09/18/2024 16:49:06 013 Colonoscopy completed Mery [place]ebede [place] [facility] [place] 09/10/2024 10:05:01 010 repair of musculotendinous cuff of shoulder completed Mery [place]ebede [place] [facility] [place] 09/10/2024 10:01:58 986 Appendectomy completed Samantha MOON - [facility] - [place] & [place] 05/22/2022 10:23:20 Tubal Ligation completed Mitra MOON - [facility] - [place] & [place] 05/14/2022 09:10:52 Appendectomy completed Mitra MOON - [facility] - [place] & [place] 05/14/2022 09:11:01 Dilation and curettage completed Luís MOON - [facility] - [place] & [place] 05/14/2022 09:11:08 hysterectomy completed Mitra MOON - [facility] - [place] & [place] 05/14/2022 09:11:16 Cholecystectomy completed Mitra MOON - [facility] - [place] & [place] 05/14/2022 09:11:37 Back Surgery completed Mitra MOON - [facility] - [place] & [place] 05/14/2022 09:11:49 removal of ovarian cyst completed Mitra MOON - [facility] - [place] & [place] 05/14/2022 09:12:25 repair of urinary bladder completed Mitra MOON - [facility] - [place] & [place] 05/14/2022 09:12:50 extraction of cataract completed Luís Real [place] - [facility] & [place] 05/14/2022 09:14:10 Imaging Results None recorded. Procedure Notes None recorded. Medical Equipment None Reported. Allergies Allergen ID Allergen Name Allergen Category Reaction Reaction Severity Criticality Documentation Date Start Date Code Code System Note Provider Name and Address Organization Details Recorded Time 142931 tetracycl ine medicatio n itching Not available low 04/01/2024 59662 RxNorm Mery Rothamer null, [place] - [facility] & [place] 4 19:34:10 538968 prednison e medicatio n nausea Not available low 04/01/2024 8640 RxNorm Mery Roth[place] null, [place] - [facility] & [place] 4 19:34:56 430554 nifedipin e medicatio n Not available Not available low 04/01/2024 7417 RxNorm Proca rdia Mery Rothamer null, [place] - [facility] & [place] 4 19:37:41 591020 methotrex ate medicatio n rash Not available low 04/01/2024 6851 RxNorm Mery [place] null, [place] - [facility] & [place] 4 19:35:51 713397 floxacill in Not available itching Not available low 04/01/2024 4448 RxNorm Mery [place] null[place] - [facility] & [place] 4 19:36:33 609507 sulfur dioxide medicatio n other Not available low 04/01/2024 92797 79 RxNorm Urina ry Reten tion Mery Rothamer null, [place] - [facility] & [place] 4 19:37:02 44840 fluoxetin e medicatio n hives Not available low 05/14/2022 4493 RxNorm Mery [place] null, [place] - [facility] & [place] 4 19:27:55 52676 Substance with sulfonami de structure and antibacte rial mechanism of action (substanc e) medicatio n hives Not available Not available 05/14/2022 79724 8003 SNOMED Mitra Real null, [place] - [facility] & [place] 2 09:04:27 14140 levofloxa cm medicatio n rash Not available low 05/14/2022 38523 RxNorm Adria lones Mery Duenasamer null, [place] - [facility] & [place] 4 19:34:35 17243 ciproflox acin medicatio n Not available Not available Not available 05/14/2022 2551 RxNorm Mitra Real null, [place] - [facility] & [place] 2 09:04:50 42459 hydrocodo ne Not available dyspnea Not available high 05/14/2022 5489 RxNorm Mery Kebede null, [place] - [facility] & [place] 4 19:27:58 85572 Savella medicatio n headache Not available low 05/14/2022 86237 6 RxNorm Milna cipra n Mery Duenasamer null, [place] - [facility] & [place] 4 19:35:32 92457 Stadol medicatio n itching Not available Not available 05/14/2022 21212 RxNorm Mitra Real null, [place] - [facility] & [place] 2 09:05:40 Medications Name Sig Start Date [...] Details Last Updated DateTime 5 162.56 cm 30.5 kg/m2 88039 g 97.3 [degF] 95 % 95 % 55 /min 130/92 mm[Hg] Liv MOON [facility] & [place] 5 16:05:10 Date Recorded Body weight Body temperature Oxygen saturation Oxygen saturation in Arterial blood by Pulse oximetry Heart rate Systolic And Diastolic Provider Name and Address Organization Details Last Updated DateTime 5 11397.8 7 g 98.2 [degF] 90 % 90 % 42 /min 128/78 mm[Hg] Carmen CRAWLEY [facility] & [place] 5 13:18:14 Date Recorded Body height Body mass index (BMI) Body weight Body temperature Heart rate Systolic And Diastolic Provider Name and Address Organization Details Last Updated DateTime 5 162.56 cm 29.5 kg/m2 40436.2 3 g 97.4 [degF] 62 /min 118/84 mm[Hg] Carmen Tello [facility] & [place] 5 14:01:33 Date Recorded Body height Body mass index (BMI) Body weight Body temperature Oxygen saturation Oxygen saturation in Arterial blood by Pulse oximetry Heart rate Systolic And Diastolic Provider Name and Address Organization Details Last Updated DateTime 5 162.56 cm 29.5 kg/m2 45472.5 7 g 97.6 [degF] 92 % 92 % 80 /min 118/78 mm[Hg] Carmen Tello LU[facility] & [place] 5 14:57:49 Date Recorded Body height Body mass index (BMI) Body weight Body temperature Heart rate Systolic And Diastolic Provider Name and Address Organization Details Last Updated DateTime 4 162.56 cm 30.6 kg/m2 58907.4 4 g 97.8 [degF] 86 /min 136/67 mm[Hg] Hermelinda Cruz [place] [facility] & [place] 4 13:52:23 Social History Question Answer Notes LastModified by Organizat ion Details LastModified Time Tobacco Smoking Status Never Smoker Mitra lockett [place] [facility] & [place] 06/14/2022 10:58:52 Do You Have An Advance Directive? Yes Information not available 05/22/2022 Do You Wear A Helmet When Biking? No Information not available 10/04/2023 Are You Blind Or Do You Have Difficulty Seeing? No Information not available 05/22/2022 What Is Your Level Of Caffeine Consumption? Occasional [email or web address] Information not available 09/25/2023 In The 14 [...] When Did You Quit Smoking? 16+yearssincel astcigarette [email or web address] Information not available 09/25/2023 Are There Any [...] other forms of tobacco or nicotine? No [email or web address] Information not available 09/25/2023 What is your [...] 10/04/2023 What is your exercise level? Occasional [email or web address] Information not available 09/25/2023 Mental Status Question Answer Note LastModified by Organizat ion Details LastModified Time Do you feel stressed (tense, restless, nervous, or anxious, or unable to sleep at night)? [id number] Information not available 04/02/2023 Do you have [...] completed Samantha Pardini null, [place] - [facility] & [place] 11/05/2022 12:51:49 pneumococcal polysaccharide PPV23 4 completed Samantha Pardini [place] [facility] [place] & [place] 11/05/2022 12:51:49 COVID-19, mRNA, LNP-S, PF, 30 mcg/0.3 mL dose, sandee-sucrose 2 completed Samantha Pard[place] [facility] & [place] 05/28/2022 12:32:44 Influenza, adjuvanted, quadrivalent, PF 0 completed Samantha Pard[place] [facility] [place] 05/28/2022 12:32:44 COVID-19, mRNA, LNP-S, PF, 30 mcg/0.3 mL dose 1 completed Samantha [place]ard[place] [facility] [place] 05/28/2022 12:32:44 COVID-19, mRNA, LNP-S, PF, 30 mcg/0.3 mL dose 1 completed Samantha [place]ard[place] [facility] [place] 05/28/2022 12:32:44 Influenza, high-dose, trivalent, PF 1 completed Samantha [place]ard[place] [facility] [place] 05/28/2022 12:32:44 COVID-19, mRNA, LNP-S, PF, 30 mcg/0.3 mL dose 1 completed Samantha Pard[place] [facility] [place] 05/28/2022 12:32:44 Influenza, adjuvanted, quadrivalent, PF 2 completed Samantha [place]ard[place] [facility] [place] 11/05/2022 12:51:49 COVID-19, mRNA, LNP-S, bivalent, PF, 30 mcg/0.3 mL dose 2 completed Samantha Pard[place] [facility] [place] 11/05/2022 12:51:49 Influenza, high-dose, quadrivalent, PF 3 completed Abdelrahman Gomez MD [address] [place] [address], [address] [place] [facility] - [place] & [place] 05/23/2023 14:46:17 RSV, recombinant, protein subunit RSVpreF, adjuvant reconstituted, 0.5 mL, PF 3 completed Ansley Dimas null, [place] - [facility] & [place] 12/17/2023 14:24:03 COVID-19, mRNA, LNP-S, PF, 50 mcg/0.5 mL 3 completed Ansley Dim[place] [facility] [place] 12/17/2023 14:24:03 Influenza, high-dose, trivalent, PF 4 completed Ansley [place] [facility] [place] 06/15/2024 09:56:29 COVID-19, mRNA, LNP-S, PF, sandee-sucrose, 30 mcg/0.3 mL 4 completed Aurea Martinez null[place] [facility] [place] 06/16/2024 15:55:44 Past Encounters Encounter ID Performer Location Encounter Start Date Encounter Closed Date Diagnosis/Indication Diagnosis SNOMED-CT Code Diagnosis ICD10 Code Diagnosis Note [id number] Vikkimeena Jeffery APRN [place] [address] 1 05/14/2022 15:22:08 05/14/2022 16:02:31 Influenza A virus present 7259464996 08 J09.X2 take tylenol PRNincreas e water intakemoni tor for worsening symptomsta miflu prescribed , educated may or may not help symptoms [id number] MD [place] [address] 05/22/2022 10:10:03 05/22/2022 11:05:46 Fatigue 30154024 R53.83 fatigue secondary to influenza infection. Will give patient a course of steroids as well as a shot of Decadron [id number] Abdelrahman Gomez MD [place] [address] 1 05/28/2022 12:23:14 05/28/2022 14:23:43 Influenza caused by Influenza A virus 400947507 J09.X2 patient continues to suffer from fatigue and symptoms significan t for influenza. Her cough is not productive of greenish sputum. Will send patient to the emergency department for further evaluation and management . I have called Reports to the nurse on duty. [id number] NATHAN ALVAREZ NP [place] [address] 1 06/14/2022 10:45:56 06/14/2022 11:21:13 Candidiasis of mouth 80585375 B37.0 change toothbrush stop flonase steriod medication Hyperglycemia 16797125 R 73.9 lab work obtained by Larry CARCAMO 11:07lab work for other possible causes [id number] Abdelrahman Gomez MD [place] [id number] 07/23/2022 08:43:57 07/23/2022 09:17:44 Epilepsy 29924650 G40.909 stable Essential hypertension 05245538 I10 patient requesting a referral to Dr. Rob Peptic ulcer 26864823 K2 7.9 Stable Acute urin bennie tract infection 157496565 N39.0 patient is currently being managed by infectious disease specialist in [place]. We will obtain records. Patient has been instructed to follow-up with us in a month. [id number] Andreina Tariq NP [facility] [address] [place] [id number] 09/05/2022 09:49:58 09/05/2022 11:23:27 Biliary cirrhosis 6324280 K74.5 No signs of decompensa tion. Liver ultrasound completed 03/16/2022 noted underlying mild parenchyma l liver disease. She continues Ursodiol for treatment. Plan for labs to formulate male. Recommend liver ultrasound as well as AFP to screen for HCC, continue every 6 months. Chronic id iopathic constipation 33945075 K59.04 [facility] ed at this time. Reports passing small hard stool every few days. Failed treatment with MiraLax, fiber, and lactulose. Samples of Linzess 72 mcg as well as 145 mcg 12 days each provided to patient clinic today. Will send prescripti on based on response to simple medication . [id number] Abdelrahman Gomez MD [facility] [address] [id number] 11/05/2022 11:57:14 11/05/2022 12:49:55 Syncope 182690609 R55 due to the acuteness of patient's symptoms we are sending her to see Cardiology . She has an appointmen t this afternoon. Will order lab work Chronic constipation 236 355077 K59.09 WILL TREAT PATIENT WITH LINZESS. WILL ALSO OBTAIN LAB WORK. [id number] Abdelrahman Gomez MD [facility] [address] [place] [id number] 02/14/2023 14:17:27 02/14/2023 15:25:09 Fatigue 36843059 R53.83 Patient complains of persistent tiredness and sleepiness . She is sleeping over 14 hours a day. Will order sleep medicine referral and obtain lab work. Essential hypertension 63534579 I10 Controlled . Patient saw Cardiology and had cardiac pathology ruled out. [id number] Abdelrahman Gomez MD [facility] [address] [place] [id number] 02/22/2023 10:50:00 02/22/2023 11:52:03 Essential hypertension 60023197 I10 Patient's blood pressure is elevated today. Patient states that she is not allowed to take blood pressure medicine because she has had history of hypotensio n and syncope. We have discussed the risks patient will continue to monitor blood pressure at home and will go to the emergency department if it remains elevated. Chronic constipation 236 294191 K59.09 we will refill her linzess Mixed anxi ety and depressive disorder 509218069 F41.8 Patient to continue with Vraylar she has been given samples to last her until her next visit in 3 weeks. [id number] Abdelrahman Gomez MD [address] [place] [id number] 03/15/2023 10:41:25 03/15/2023 10:58:38 Essential hypertension 79812727 I10 Patient to continue with her losartan 50 mg a day. Mixed anxi ety and depressive disorder 148841227 F41.8 patient reports good response. Will send in a prescripti on for her Vraylar to [facility] pharmacy. [id number] Abdelrahman Gomez MD [address] [place] [id number] 02/28/2023 09:21:02 02/28/2023 09:49:58 Essential hypertension 71886324 I10 will start patient on losartan. [id number] Andreina Tariq NP [facility] [address] [place] [address] [place] [id number] 03/06/2023 08:57:51 03/06/2023 12:24:01 Biliary cirrhosis 6006886 K74.5 No signs of decompensa tion. Continues Ursodiol for treatment. Plan for labs today to formulate MELD. Due for repeat liver US and AFP to screen for HCC, continue every 6 months. Chronic id iopathic constipation [id number] K59.04 Prescribed Linzess 145 mcg with continued constipati on however patient has not been taking this daily for treatment. I have recommende d daily use for treatment. Previously failed treatment with MiraLax, fiber, and lactulose. [id number] Abdelrahman Gomez MD [address] [place] [address] 04/09/2023 11:12:42 04/09/2023 12:18:23 Acute pharyngitis [id number] J02.9 gargle with salt water, change toothbrush , take Tylenol daily for pain. If worsening return to the clinic [id number] NATHAN ALVAREZ, JAYME [address] [place] [address] 04/05/2023 15:04:37 04/05/2023 15:42:21 Cough 10756418 R05.1 Influenza B virus present [id number] J10.1 Pt advised to rest, drink clear fluids, use a humidifier , gargle with warm salt water, use Acetominop hen for fever prophylaxi s. Pt will notify provider: if temp >101 or persists for >3weeks, if there is blood in the stool or vomit, if there are any signs of dehydratio n, or any problems breathing. Acute pharyngitis 264341 003 J02.9 warm salt water garglescha nge toothbrush hydrations ymptomatic management f/u if symptoms persist or worsen [id number] Abdelrahman Gomez MD [address] [place] [address] 05/23/2023 14:31:46 05/23/2023 14:41:01 Administration of influenza vaccine [id number] Z23 [id number] Abdelrahman Gomez MD [address] [place] [address] 07/03/2023 14:50:35 07/03/2023 15:14:51 Essential hypertension 84658906 I10 Blood pressure controlled with current regimen. Mixed anxi ety and depressive disorder 724878761 F41.8 we have given patient a sample of Vraylar to last 2 weeks. I will recall in a prescripti on.. [id number] Abdelrahman Gomez MD [address] [place] [address] 08/14/2023 10:42:58 08/14/2023 12:38:54 Achilles tendinitis 14894870 M76.61 will put patient on steroids and referred to physical therapy. [id number] Andreina Tariq NP [facility] [address] [facility] [address] [place] [address] 09/11/2023 08:54:57 09/11/2023 09:36:17 Biliary cirrhosis 3790255 K74.5 Underlying cirrhosis noted on ultrasound 03/2023. No signs of decompensa tion. Continues Ursodiol for treatment. Plan for labs to formulate MELD. Recommend liver US and AFP to screen for HCC, continue every 6 months. Chronic id iopathic constipation 43840451 K59.04 Continues Linzess 145 mcg daily with bowel movements every 2-3 days. Recommend trial of Linzess 290 mcg, samples 12 days provided to patient in clinic today. Will send Rx based on response to sample medication . Previously failed treatment with MiraLax, fiber, and lactulose. [id number] Abdelrahman Gomez MD [facility] [address] [place] [address] 10/04/2023 11:12:16 10/04/2023 12:18:43 Screening for osteoporosis 731286271 Z13.820 Essential hypertension 86789540 I10 Blood pressure controlled with current regimen. Adult [facility] th examination 921465483 Z00.00 will call patient with results of lab work. Gastroesop hageal reflux disease 361712532 K21.9 Stable Hyperlipid emia screening 098073097 Z13.220 will obtain lab work Diabetes m ellitus screening 142173968 Z13.1 will obtain A1c today Screening for malignant neoplasm of breast 162085043 Z12.39 [id number] George Garcia MD [facility] [address] [facility] [address] [place] [address] 10/16/2023 16:03:14 10/17/2023 12:04:00 Recurrent urinary tract infection 072651437 N39.0 Try macrobid BID. Send off urine for culture [id number] George Garcia MD [facility] [place] [address] 12/17/2023 14:12:56 12/17/2023 14:53:44 Fatigue 57079730 R53.83 Check labs. She scored 11 on the [place] sleep scale so I will plan to refer her for sleep study if labs are unremarkab le [id number] Erich Queen MD [facility] [address] [facility] [place] [address] 01/02/2024 14:40:14 01/02/2024 15:07:28 Hypersomnia 91249828 G47.10 [id number] George Garcia MD [address] [place] [address] 01/09/2024 11:02:29 01/09/2024 12:04:50 Fatigue 24965124 R53.83 though recent labs (10/04/23) indicates she has crossed over to diabetes, her sugar is not so high as to cause the kind of fatigue and somnolence she is having. I will check additional labs today to make sure she does not have some sort of chronic mono infection. We need to get her sleep study done before we can move on to further evaluation with either referral or some sort of stimulant medication Type 2 denice betes mellitus 24329582 E11.9 needs repeat A1c at next visit Essential hypertension 56494344 I10 on losartan 50. BP was slightly less than ideal today at 150/88. May need to adjust med at next visit [id number] Andreina Tariq NP [facility] [address] [place] [address] 03/04/2024 09:47:55 03/04/2024 15:33:51 Biliary cirrhosis 4164762 K74.5 continues ursodiol for treatment. No signs of decompensa tion. Liver ultrasound completed 09/2023 with normal appearance of liver. Plan for labs to formulate MELD. Recommend liver US and AFP to screen for HCC, continue every 6 months. Irritable bowel syndrome characterized by constipation 506191842 K58.1 Not currently on medication for treatment. Previously improved with use of Linzess. Recommend Linzess 290 mcg po daily. Will send Rx today. Previously failed treatment with MiraLax, fiber, and lactulose. [id number] George Garcia MD [facility] [address] [facility] [place] [address] 03/19/2024 15:40:41 03/19/2024 16:39:19 Fatigue 32967520 R53.83 currently awaiting results from cortisol test done body endocrinol ogy at [facility]. Patient does have follow-up there in April. Review of her meds indicates she is topiramate which she says she was placed on by a neurologis t after she fainted several months ago. She denies any seizure activity and is not quite sure why she was placed on this but apparently the neurologis t wanted to continue it. Both she and her feel that she can come off of the safely. I agree and so I have recommende d she taper off the topiramate over the course of the next 10 days and follow up with me in 1 month. Hopefully that time we will have the results of her cortisol level as well and we will see if she has had any improvemen t. [id number] George Garcia MD [address] [facility] [place] [address] 04/17/2024 09:42:17 04/17/2024 11:42:48 Fatigue 99572304 R53.83 currently awaiting results from cortisol test done body endocrinol ogy at [facility]. Patient does have follow-up there later this month. For now she is to remain off the Topamax and follow up here after her meeting with endocrinmaddi butterfield. We can consider trying her on something like modafinil or an amphetamin e stimulant such as Ritalin. Essential hypertension 78330345 I10 blood pressure is improved at 122/61. We will continue losartan 50 mg daily [id number] George Garcia MD [facility] [address] [place] [address] 06/15/2024 09:49:36 06/15/2024 10:42:11 Essential hypertension 29383867 I10 BP is elevated 150/65. We will continue losartan 50 mg daily . She has obtain a cuff from 1 of her children and start checking her blood pressure at different points throughout the day and bring a log with her in the next 3 weeks [id number] George Garcia MD [facility] [address] [facility] [place] [address] 06/18/2024 16:32:50 06/18/2024 17:15:16 Essential hypertension 38132556 I10 initial blood pressure in office today was 192/98. Repeat by me was 160/100 using her home cuff. obviously he is numbers are elevated following above what she normally is. Currently she is only on losartan 50 mg daily. We will increase that to 100 mg daily using her medicine at home which she will double up on and then return next week for re-evaluat ion. During this timeframe she is to check her blood pressure at home at least 2 or 3 times a day and specifical ly any time she is feeling weak or off . [id number] George Garcia MD [facility] [address] [facility] [place] [address] 06/25/2024 15:54:25 06/25/2024 17:06:49 Essential hypertension 97337532 I10 given the blood pressure is still not controlled we will go ahead and make a switch on her medication . Discontinu e losartan and starting combinatio n amlodipine valsartan 5-160. Review of her chart indicates she had some sort of low critical allergy to Procardia/ nifedipine but patient does not recall anything in particular so feel comfortabl e starting the amlodipine . We will see back in a few weeks and see how she does Allergic conjunctivitis 994195548 H10.13 apparently the med her eye doctor had her on was tobramycin /dexametha marvel. Going to place her on an ocular antihistam ine and see how she does. Try Pataday [id number] George Garcia MD [facility] [address] [facility] [place] [address] 07/16/2024 13:44:18 07/16/2024 14:31:56 Neck pain 88803045 M54.2 Try tizanidine 4 mg at bedtime. Nasal congestion 0423665 0 R09.81 Try guaifenesi n extended release 1200 mg b.i.d. Essential hypertension 05368481 I10 given the BP is 136/67 patient feels fine today we will go ahead and continue current dose and plan to follow up in a few months if no further hypotensiv e episodes at home [id number] George Garcia MD [address] [place] [address] 08/20/2024 15:54:18 08/20/2024 16:36:01 Gastroesophageal reflux disease without esophagitis 680023974 K21.9 Add famotidine 20 mg b.i.d. to her regimen of pantoprazo le 40 daily and see if she responds to this Cough 95675194 R05.9 Likely related to PND. Try Xyzal Essential hypertension 57221482 I10 continue to monitor on amlodipine -valsartan 5-345 [id number] George Garcia MD [facility] [address] [place] [address] 10/05/2024 12:51:03 10/05/2024 14:24:27 Acute urinary tract infection 667618741 N39.0 U/A showing large blood and large leukocytes . Not enough to culture. Treat with Macrobid and F/U with urology as scheduled Weakness present 0954548 07 M62.81 not sure how much of this has to do with recent sickness in hospitaliz ations and stamina versus a systemic issue. Certainly she needs to get in with physical therapy and if they are only coming to the house once a week I would question if she might not do better actually going to an actual P.T./OT facility once or twice a week. Medication monitoring 39 6311180 Z51.81 I went through all of her medication s with both her and her family today including the ones that the hospital recently discontinu ed so that we are all on the same page as to what she should be taking. The main question regarding her medication s at the moment surrounds her ursodiol which is prescribed by her GI provider for her history of idiopathic biliary cirrhosis. Apparently that medication is not with her and she has not quite sure where it is. She reportedly has follow up with GI in a month or so. If that medication is at home and they do discover it she is advised to restart it. [id number] George Garcia MD [facility] [address] [facility] [place] [address] 12/09/2024 13:44:29 12/09/2024 14:32:53 Dysfunction of right eustachian tube 3182600386 216143 H69.91 Will try combinatio n of flonase and xyzal Impacted c erumen in right ear 4402936122 630396 H61.21 lavage today with good results [id number] George Garcia MD [facility] [address] [place] [address] 12/29/2024 14:12:19 12/29/2024 15:28:29 Urinary tract infectious disease 82221720 N39.0 Urinalysis was positive for nitrites, leukocytes [...] by Organization Details LastModified Time None Recorded Advance Directives Directive Y: Payers Insurance Date Sequence Insurance Name Policy Number Policy Webster Covered Member ID Webster Member ID Guarantor Name 09/01/2024 1 [place] Dian Gamboa [id number] Dian Gamboa 09/01/2024 1 [employer] (MEDICARE REPLACEMENT/AD VANTAGE - PPO) Dian Gamboa [id number] Dian Gamboa 06/19/2024 1 [employer] (MEDICARE REPLACEMENT/AD VANTAGE - PPO) Dian Gamboa [id number] Dian Gamboa 08/20/2024 2 [employer] (MEDICARE REPLACEMENT/AD VANTAGE - PPO) Dian Gamboa [id number] Dian Gamboa 12/29/2024 1 [employer] (MEDICARE REPLACEMENT/AD VANTAGE - HMO) Dian Gamboa [id number] Dian Gamboa 06/19/2024 1 [place]MED[place]ACEMENT HMO[place] [id number] Dian Gamboa [id number] Dian Gamboa 09/10/2022 1 [employer] (PPO) Dian Gamboa [id number] Dian Gamboa 09/10/2022 [employer] (MEDICARE REPLACEMENT/AD VANTAGE - PPO) Dian Gamboa [id number] Dian Gamboa Notes Date Note Type Note Provider Name and Address Organization Details Recorded Time 07/16/2024 text/html Pt presents for F/U. Had low BP on 90/67? Other BP readings have all been elevated except today in office where reading is 136/67. Is currently on the amlodipine-valsart an and feeling OK today.Has been going to PT for neck which is helping some but still painful to turn head.Also has a lot of congestion, more so at night. George Garcia MD [address], [place], [address], [facility] & [place] 07/16/2024 22:16:30 08/20/2024 text/html Pt presents with cough x 3 days with prior h/o throat clearing. Is also c/o chest pain like heartburn. no other symptoms. No fever George Garcia MD [address], [place], [address], [facility] & [place] 08/22/2024 17:07:35 10/05/2024 text/html Pt presents for F/U after being hospitalized x 2, once at [facility] with UTI/Sepsis x 1 week, then, after short stay at home, back in hospital at [facility] with weakness and suspected DVT. No DVT found but had recurrent UTI. Subsequently she was sent to [facility] where she stayed for 2 + weeks. Has since come home where HH is suppose to be coming by but no PT yet. Today she he is accompanied by her and [id number]. Patient complains of weakness and frequent urgency but no burning. She apparently has follow up with urologist, Dr. Chapman, later this week. George Garcia MD [address], [place], [address], [facility] & [place] 10/06/2024 08:08:44 12/09/2024 text/html Patient presents with trouble hearing mostly out of right side. George Garcia MD [address], [place], [address], [facility] & [place] 12/10/2024 07:10:53 12/29/2024 text/html Pt presents with urinary burning, stinging and frequency. George Garcia MD [address], [place], [address], [facility] & [place] 12/30/2024 07:28:13 OBGyn Episode No OBEpisode recorded.
--- OUTSIDE RECORDS SUMMARY | 2025-02-13 14:27 | XMS_ITS | Continuity of Care Document ---
Author Organization [facility] Dariusz peck [facility] Address [address] [place] [address] Care Team Providers Care Journeyman Welder Name Role Phone ALYSSARHIANNON Infectious Disease DARCIE NORIEGA Primary Care Provider Assessment Encounter Date Assessment Date Assessment LastModified by Organization Details LastModified Time 12/17/2024 12/17/2024 - 79-year-old female with a history of recurrent UTIs and hydronephrosis presenting with concern of UTIs and stable hydronephrosis. - Mild right hydronephrosis stable, normal creatinine. - Absence of bacterial growth; possible non-bacterial etiology. - Persistent dysuria and fatigue noted. [email or web address] Not available 12/17/2024 16:24:06 Plan of Treatment Reminders Order Date Submit Date Provider Last Modified By Organization Details Last Modified Time Details Appointments RECHECK 2024 03:30P M UMM FORBES PA-C Not available Not available Not available Lab urinalysi s panel, auto 2024 025 [email or web address] 4 [facility] [place] Extended Services With [facility], [address] [place] [address] Dr Bellamy, [place], [address], 12/17/2024 16:23:39 culture, urine 2024 025 [email or web address] 4 [facility], [address] [place] [address], [address], 12/22/2024 19:18:11 Referral None recorded. Procedures None recorded. Surgeries None recorded. Imaging None recorded. Medication Orders None recorded. Patient TargetsNo targets recorded. Patient Instructions Encounter Date Encounter Id Patient Instructions Last Modified By Organization Details Last Modified Time 12/17/2024 [id number] - Follow up with urine culture to check for any infection. - Track your urinary symptoms, noting any changes in frequency or severity. - Continue to monitor your condition and seek care if new symptoms develop. - Stay aware of any increased pain or difficulty when urinating, and report these promptly. - Keep hydrated and maintain good urinary hygiene practices. [email or web address] Not available 12/17/2024 16:24:07 Reason for Referral None Reported. Results Created Date Observation Date Name Description Value Unit Range Abnormal Flag Note LastModifiedBy Organization Detail LastModifiedTime 12/18/1912/17/2024 urina lysis panel , auto Unknown Analyte Clean Catch Not Available [facility] Extended Services With [address]amy, [place], [address], 12/17/2024 16:21:54 12/18/19 25 12/17/2024 urina lysis panel , auto Unknown Analyte Yellow Not Available [facility] Extended Services With [address] [place], [address], 12/17/2024 16:21:54 12/18/19 25 12/17/2024 urina lysis panel , auto Unknown Analyte Clear Not Available [facility] Extended Services With [address] [place], [address], 12/17/2024 16:21:54 12/18/19 25 12/17/2024 urina lysis panel , auto Unknown Analyte 1.015 Not Available [facility] Extended Services With [address] [place], [address], 12/17/2024 16:21:54 12/18/19 25 12/17/2024 urina lysis panel , auto Unknown Analyte 1.003 - 1.030 Not Available [facility] Extended Services With [address] [place], [address], 12/17/2024 16:21:54 12/18/19 25 12/17/2024 urina lysis panel , auto Unknown Analyte 6.0 Not Available [facility] Extended Services With [address] [place], [place], [address], 12/17/2024 16:21:54 12/18/19 25 12/17/2024 urina lysis panel , auto Unknown Analyte 5.0 - 8.0 Not Available [facility] Extended Services With [address] [place], [address], 12/17/2024 16:21:54 12/18/19 25 12/17/2024 urina lysis panel , auto Unknown Analyte 500 Augusto/uL Not Available [facility] Extended Services With [address] [place], [address], 12/17/2024 16:21:54 12/18/19 25 12/17/2024 urina lysis panel , auto Unknown Analyte Negati ve Not Available [facility] Extended Services With [address] [place], [address], 12/17/2024 16:21:54 12/18/19 25 12/17/2024 urina lysis panel , auto Unknown Analyte Negati ve Not Available [facility] Extended Services With [address] [place], [address], 12/17/2024 16:21:54 12/18/19 25 12/17/2024 urina lysis panel , auto Unknown Analyte Negati ve Not Available [facility] Extended Services With [address] [place], [address], 12/17/2024 16:21:54 12/18/19 25 12/17/2024 urina lysis panel , auto Unknown Analyte Negati ve Not Available [facility] Extended Services With [address] [place], [address], 12/17/2024 16:21:54 12/18/19 25 12/17/2024 urina lysis panel , auto Unknown Analyte Negati ve Not Available [facility] Extended Services With [address] [place], [address], 12/17/2024 16:21:54 12/18/19 25 12/17/2024 urina lysis panel , auto Unknown Analyte Normal Not Available [facility] Extended Services With [address] [place], [address], 12/17/2024 16:21:54 12/18/19 25 12/17/2024 urina lysis panel , auto Unknown Analyte Normal Not Available [facility] Extended Services With [address] [place], [address], 12/17/2024 16:21:54 12/18/19 25 12/17/2024 urina lysis panel , auto Unknown Analyte Negati ve Not Available [facility] Extended Services With [address] [place], [address], 12/17/2024 16:21:54 12/18/19 25 12/17/2024 urina lysis panel , auto Unknown Analyte Negati ve Not Available [facility] Extended Services With [address] [place], [address], 12/17/2024 16:21:54 12/18/19 25 12/17/2024 urina lysis panel , auto Unknown Analyte Normal Not Available [facility] Extended Services With [address] [place], [address], 12/17/2024 16:21:54 12/18/19 25 12/17/2024 urina lysis panel , auto Unknown Analyte Normal Not Available [facility] Extended Services With [address]amy, [place], [address], 12/17/2024 16:21:54 12/18/19 25 12/17/2024 urina lysis panel , auto Unknown Analyte Negati ve Not Available [facility] Extended Services With [address] Bellamy, [place], [address], 12/17/2024 16:21:54 12/18/19 25 12/17/2024 urina lysis panel , auto Unknown Analyte Negati ve Not Available [facility] Extended Services With [address] Bellamy, [place], [address], 12/17/2024 16:21:54 12/18/19 25 12/17/2024 urina lysis panel , auto Unknown Analyte Negati ve Not Available [facility] Extended Services With [address] Bellamy, [place], [address], 12/17/2024 16:21:54 12/18/19 25 12/17/2024 urina lysis panel , auto Unknown Analyte Negati ve Not Available [facility] Extended Services With [address] Bellamy, [place], [address], 12/17/2024 16:21:54 12/01/19 25 11/30/2024 NM, kidne y scan [address] [id number] Patien t Name: VINH Angie Jeni CHRIS Patien t : [birth year] Patien t 2 Orderi ng Provid er: UMM Combs EXAM DATE: 2024 EXAM: NM RENAL SCAN WITH MAG3 HISTOR Y: 79-yea r-old female with histor y of UTIs. COMPAR CARTER: None. TECHNI QUE: Nuclea r medici ne renogr am was perfor med using Techne tium 99m MAG-3 ([facility] 0019-[id number] 096-B0 ) 3.3 mCi. FINDIN GS: There is normal perfus ion and concen tratio n in both kidney s. The time to peak activi ty is 22.4 minute s on the left and 29.4 minute s on the right. The one half excret ion time is now increa sed in either kidney . Differ ential activi ty is 54% on the left and 46% on the right at 2-3 minute s. IMPRES KURT: 1. There is prolon ged concen tratio n and essent ially no excret ion in either kidney which may repres ent obstru ctions . Interp reted By: Unruly little MD Electr onical ly Signed By: Unruly little MD on 025 3:30 PM [email or web address] [facility] Radiology Nuclear Medicine [address] [place] [address], [address], 12/04/2024 13:05:47 12/16/19 25 12/15/2024 US, retro perit oneum , compl ete No observ ation record ed. [address] Centralized Scheduling [address] [place], [address], 12/17/2024 16:33:40 12/16/19 25 12/15/2024 US, retro perit oneum , compl ete No observ ation record ed. [address] Centralized Scheduling [address] [place], [address], 12/17/2024 16:33:50 Result Notes None recorded. Problems Name Problem SNOMED Code Status Onset Date Resolution Date Notes Provider Name and Address Organization Details Recorded Time Syncope and collapse 027979711 Active 2016 RHIANNON VALLEJO MD [address] [place] [address], [address], [place] [address] 7 09:48:21 EKG: right bundle branch block 572358114 Active 2018 RHIANNON VALLEJO MD [address] [place], [address], [facility] 9 10:33:14 Recurrent infective cystitis 083264128 Active 2024 UMM FORBES PA-C [address] [place], [address], [facility] 5 10:25:04 Urge incontinence of urine 19867325 Active 2024 UMM FORBES PA-C [address] [place], [address], [facility] 5 10:25:06 Problem Notes None recorded. Procedures Surgical History Date Name Laterality Status Provider Name and Address Organization Details Recorded Time 11/18/19 25 Post Void Residual; Ultrasound completed Emily Aguilar [facility] 11/17/2024 11:56:14 07/31/20 21 EKG completed BENITA LONG APRN [address] [place], [address], [facility] 07/31/2021 10:45:45 02/09/20 10 Other completed [facility] 11/19/2016 11:17:45 Appendectomy completed [facility] 11/19/2016 11:16:17 Other completed [facility] 11/19/2016 11:17:31 Back Surgery completed [facility] 11/19/2016 11:17:12 Cholecystectomy completed [facility] 11/02/2016 11:27:41 Total Hysterectomy completed [facility] 11/19/2016 11:16:28 Colonoscopy completed [facility] 11/02/2016 11:28:26 Imaging Results None recorded. Procedure Notes None recorded. Medical Equipment None Reported. Allergies Allergen ID Allergen Name Allergen Category Reaction Reaction Severity Criticality Documentation Date Start Date Code Code System Note Provider Name and Address Organization Details Recorded Time 689854 prednison e medicatio n Not available Not available Not available 07/05/20162012 8640 RxNorm Comme nt: Creat ed By: Curtis glover; Creat ed Date: 013 2:58: 09 PM; Not Available [facility] 6 11:15:58 844854 Floxin medicatio n Not available Not available Not available 07/05/20162012 91007 8 RxNorm Comme nt: Creat ed By: Curtis glover; Creat ed Date: 2:52: 50 PM; Not Available [facility] 6 12:57:16 514101 Cellcept medicatio n Not available Not available Not available 07/05/20162012 87470 3 RxNorm Comme nt: Creat ed By: Curtis glover; Creat ed Date: 013 2:58: 36 PM; Not Available [facility] 6 12:57:16 314706 sulfur medicatio n Not available Not available Not available 07/06/20162012 21376 RxNorm Comme nt: Creat ed By: Curtis glover; Creat ed Date: 2:52: 34 PM; Not Available [facility] 6 05:16:56 516343 Stadol medicatio n Not available Not available Not available 07/06/20162013 17861 RxNorm Comme nt: Purit is;Cr eated By: Kat gaonaCre ated Date: 2013 11:24 :47 AM; Not Available [facility] 6 05:16:56 316510 Medicinal product containin g quinolone and acting as antibacte rial agent (product) medicatio n rash Not available Not available 11/19/2016 19765 008 SNOMED Bettylashanda Patel [facility] 7 11:19:03 484405 methotrex ate medicatio n rash Not available Not available 11/19/2016 6851 RxNorm Betty Jorge [facility] 7 11:19:43 177837 hydrocodo ne Not available Not available Not available Not available 11/19/2016 5489 RxNorm Betty Patel [facility] 7 11:19:57 746182 Procardia medicatio n Not available Not available Not available 11/19/2016 89078 3 RxNorm Betty Patel [facility] 7 11:20:07 730632 tetracycl ine medicatio n Not available Not available Not available 11/19/2016 77919 RxNorm Betty Patel [facility] 7 11:20:26 633276 Savella medicatio n Not available Not available Not available 11/19/2016 55340 6 RxNorm Betty Patel [facility] 7 11:20:38 813760 Lexapro medicatio n Not available Not available Not available 11/19/2016 29124 1 RxNorm Betty Patel [facility] 7 11:20:50 777531 fluoxetin e medicatio n Not available Not available Not available 11/19/2016 4493 RxNorm Betty Patel [facility] 7 11:21:21 383339 sulfameth oxazole medicatio n Not available Not available Not available 11/19/2016 51017 RxNorm Betty Patel [facility] 7 11:21:50 026368 levofloxa cm medicatio n Not available Not available Not available 07/26/2023 62680 RxNorm Murelene Eamon [facility] 3 17:01:30 345128 ciproflox acin medicatio n Not available Not available Not available 01/28/2024 2551 RxNorm Marge Gautam [facility] 4 11:49:03 Medications Name Sig Start Date Stop Date Status Note LastModified by Organization Details LastModified Time losartan 50 mg tablet Take 1 tablet every day by oral route. active Not Available Not Available No t Available Zestril 10 mg tablet Daily 11/19 completed Frequenc y: daily;Al t Frequenc y: hs;Medic ation Descript ion: lisinopr il; Dosage:1 /2; Route:or al; refills: 5; Quantity :15 tablet Not Available Not Available Not Available aspirin 81 mg capsule Take by oral route. 11/19 completed Not Available Not Available Not Available fluconazo le 100 mg tablet Take 1 tablet every day by oral route. 03/14 completed Not Available Not Available Not Available Lopressor 50 mg tablet Two times a day 11/19 completed Frequenc y: bid;Medi cation Descript ion: metoprol ol; Dosage:1 /2; Route:or al; refills: 5; Quantity :30 tablet Not Available Not Available Not Available Xanax 0.5 mg tablet Daily 11/19 completed Duration : 20 days;Raman quency: daily;Al t Frequenc y: prn;Medi cation Descript ion: alprazol am; Dosage:1 ; Route:or al; refills: 0; Quantity :20 tablet Not Available Not Available Not Available citalopra m 40 mg tablet Take 1 tablet every day by oral route. active Not Available Not Available No t Available oxybutyni n chloride ER 10 mg tablet,ex tended release 24 hr Take 1 tablet every day by oral route for 90 days. 07/31 completed Not Available Not Available Not Available fluconazo le 150 mg tablet Take 1 Tablet every other day 2024 active Not Available Not Available Not Avai lable fluconazo le 200 mg tablet Take 1 tablet every day by oral route for 14 days, for fungal UTI. 2024 active Not Available Not Available Not Avai lable Paxil 20 mg tablet Daily 11/19 completed Frequenc y: daily;Me dication Descript ion: paroxeti ne; Dosage:1 ; Route:or al; refills: 9; Quantity :30 tablet Not Available Not Available Not Available midodrine 5 mg tablet Three times a day 11/19 completed Instruct ions: TAKE 1 TABLET BY MOUTH THREE TIMES A DAY;Freq uency: tid;Medi cation Descript ion: midodrin e; Dosage:1 ; Route:or al; refills: 11; Quantity :90 tablet Not Available Not Available Not Available tramadol 50 mg tablet Take 1 tablet every 6 hours by oral route as needed. 2024 active Not Available Not Available Not Avai lable Macrobid 100 mg capsule Take 1 capsule every 12 hours by oral route. 11/22 completed Not Available Not Available Not Available Zofran 4 mg tablet As needed 11/19 completed Duration : 1 day;Freq uency: prn;Alt Frequenc y: prn nausea;M edicatio n Descript ion: ondanset modesto; Dosage:1 ; Route:or al; refills: 0; Quantity :1 tablet Not Available Not Available Not Available methenami ne hippurate 1 gram tablet Take 1 tablet twice a day by oral route for 90 days. 2023 active Not Available Not Available Not Avai lable pantopraz ole 40 mg tablet,de layed release Take 1 tablet every day by oral route. active Not Available Not Available No t Available Cipro 500 mg tablet Take 1 tablet every 12 hours by oral route for 10 days. 07/18 completed Not Available Not Available Not Available omeprazol e 20 mg capsule,d elayed release Daily 11/19 completed Frequenc y: daily;Me dication Descript ion: omeprazo le; Dosage:1 ; Route:or al; refills: 0 Not Available Not Available Not Available topiramat e 200 mg tablet Take 1 tablet twice a day by oral route. active Not Available Not Available No t Available midodrine 2.5 mg tablet Two times a day 11/19 completed Frequenc y: bid;Medi cation Descript ion: midodrin e; Dosage:1 ; Route:or al; refills: 0; Quantity :60 tablet Not Available Not Available Not Available cefuroxim e axetil 500 mg tablet Take 1 tablet every 12 hours by oral route for 10 days. 03/14 completed Not Available Not Available Not Available levofloxa cm 500 mg tablet Take 1 tablet every 24 hours by oral route for 10 days. 03/05 completed Not Available Not Available Not Available estradiol 0.01% (0.1 mg/gram) vaginal cream APPLY A FINGERTI P AMOUNT TO URETHRAL MEATUS EVERY OTHER NIGHT 2024 active Not Available Not Available Not Avai lable lisinopri l 40 mg tablet Take 1 tablet every day by oral route. 11/19 completed Not Available Not Available Not Available Adult Low Dose Aspirin 81 mg tablet,de layed release Take 1 tablet every day by oral route. 11/22 completed Not Available Not Available Not Available trospium 20 mg tablet Take 1 tablet twice a day by oral route for 30 days. 07/31 completed Not Available Not Available Not Available Cymbalta 30 mg capsule,d elayed release Two times a day 11/19 completed Duration : 30 days;Raman quency: bid;Alt Frequenc y: as direct.; Medicati on Descript ion: duloxeti ne; Dosage:1 ; Route:or al; refills: 0; Quantity :30 delayed release capsule Not Available Not Available Not Available ursodiol 500 mg tablet Take by oral route. active Not Available Not Available No t Available Vesicare 10 mg tablet Take 1 tablet every day by oral route for 90 days. 01/22 completed Not Available Not Available Not Available Vitamin C 11/22 completed Not Available Not Available Not Available meloxicam 11/22 completed Not Available Not Available Not Available zinc 11/22 completed Not Available Not Available Not Available Vitamin D 11/22 completed Not Available Not Available Not Available Protonix 06/14 completed Not Available Not Available Not Available multivita min 07/31 completed Not Available Not Available Not Available Azo active Not Available Not Availa ble Not Available Apriso 0.375 gram capsule,e xtended release Take 4 capsules every day by oral route. 08/18 completed Take 1500 mg by mouth once daily Not Available Not Available Not Available fesoterod ine ER 8 mg tablet,ex tended release 24 hr Take by oral route for 90 days. 2024 active Not Available Not Available Not Avai lable Probiotic 06/14 completed Not Available Not Available Not Available Myrbetriq 25 mg tablet,ex tended release Take 1 tablet every day by oral route for 30 days. 07/31 completed Not Available Not Available Not Available Linzess active Not Available Not Avail able Not Available nitrofura ntoin 100 mg tablet Take 1 tablet twice a day by oral route. 08/18 completed Not Available Not Available Not Available turmeric 11/22 completed Not Available Not Available Not Available solifenac in 1 mg/mL oral suspensio n Take 5 mL every day by oral route. 01/29 completed Not Available Not Available Not Available aspirin 81 mg capsule Take 1 capsule every day by oral route. active Not Available Not Available No t Available Vitals Date Recorded Body height Body mass index (BMI) Body weight Provider Name and Address Organization Details Last Updated DateTime 12/17/2024 162.56 cm 29.9 kg/m2 77762.07 g eLta Mcclure [facility] 12/17/2024 16:21:19 Social History Question Answer Notes LastModified by Organizat ion Details LastModified Time Tobacco Smoking Status Former Smoker Former smoker 3-4 cigs per day for 6 months, quit in 1966 Lizabeth lockett, [facility] 11/02/2016 11:25:30 When Did You Quit Smoking? 16+yearssinc elastcigaret te Information not available 04/20/2021 Live Alone Or With Others? With Others Friend gfishter Information not available 11/19/2016 Marital Status Information not available 11/02/2016 What Was The Date Of Your Most Recent Tobacco Screening? 01/21/2025 Information not available 01/21/2025 How Many Children Do You Have? 4 Information not available 11/02/2016 Sex: Female Functional Status Question Answer Note LastModified by Organizat ion Details LastModified Time What is your level of alcohol consumption? None Information not available 04/20/2021 Do you or have you ever used smokeless tobacco? Never used smokeless tobacco Information not available 04/20/2021 What is your occupation? retired Information not available 04/20/2021 Do you or have you ever used e-cigarettes or vape? Never used electronic cigarettes Information not available 04/20/2021 Mental Status None recorded. Family History Relationship Description Onset Age of this Age Resolved Age Notes LastModified by Organization Details LastModified Time Father Family history of malignant neoplasm 79 Liver cancer [email or web address] Not available 12/17/2024 16:11:11 Mother Congestive heart failure 83 [email or web address] Not available 03/2025 16:11:11 Mother Heart disease 65 83 Not available 2024 15:22:47 Mother Hypertensive disorder [email or web address] Not available 03/2025 16:11:11 Unspecified Relation Depressive disorder [email or web address] Not available 03/2025 16:11:11 Unspecified Relation Heart disease [email or web address] Not available 03/2025 16:11:11 Unspecified Relation Hypertensive disorder Not available 2024 15:22:47 Unspecified Relation Diabetes mellitus Not available 03/2025 16:11:11 Unspecified Relation Kidney disease [email or web address] Not available 03/2025 16:11:11 Notes:Spouse at age 65 Medical History Condition Response Coronary Artery Disease N Other N Gout N Kidney Stones N Kidney Cyst N Enlarged Prostate N Heart Arrhythmia N Head Trauma/Injury N Erectile Dysfunction N Emphysema N Sexually Transmitted Disease N Depression Y Pneumonia N Incontinence Y Prostate Problems N Cancer Prostate N Paralysis N Anxiety Disorder Y Hemorrhoids Y Obesity N Arthritis Y Infertility N Acid Reflux (GERD) Y Hematuria N Cancer N Stroke N Neck Injury N Previous Radiation Therapy? N Neurologic Disorder N Kidney Disease N Heart Conditions N Kidney or Bladder Problems Y If you get up at night to urinate, how m any times? Y Urinary Problems Y Constipation Y Brain Injury N Ulcers N Do you get up at night to urinate? Y Prostate Hypertrophy N Low Testosterone N Tuberculosis N Previous Chemotherapy? N AIDS/HIV N BPH N Urinary Tract Infection Y Asthma N Cardiac Disease N Thyroid Disorder N Hepatitis N PCOS N Colon Cancer N Hernia N Colon/Rectal Disorders N Ostomy N Glaucoma N Pacemaker N Anesthesia Complications N Genitourinary Disease N Radiation Therapy N Chronic Kidney Disease N Bladder or Kidney Problems Y Back Injury Y High Cholesterol N High PSA N Nervous System Disorder N Liver Disease Y Organ Transplant N Dialysis N Allergies/Hayfever Y False Teeth Y Chronic Obstructive Pulmonary Disease N Parkinson's Disease N Chemotherapy N Transplant N Anemia N Multiple Sclerosis N Chest Pain N Back Pain Y Proteinuria N Heart Attack (CO) N Mental Illness N Ovarian Cancer N Diabetes N Seizures/Epilepsy Y Genitourinary problem(s) N Congestive Heart Failure (CHF) N Kidney Failure N Sleep Apnea N Heart Disease N Bronchitis Y Hypertension Y Gynecological History Statement/Question Response Female Hormone Problem N # of Pregnancies 5 Abnormal Periods N # of Births 4 Could you be now? N Current Control Method n/a Uterus/Ovaries Problem N Obstetrics History GPAL:G 0 P 0 0 0 0 Immunizations Vaccine Type Date Status Note Provider Nam e and Address Organization Details Recorded Time Influenza, high-dose, quadrivalent, PF 3 completed Marge Lotus [facility] 01/28/2024 11:49:04 Influenza, adjuvanted, quadrivalent, PF 0 completed Murelene Eamon [facility] 01/21/2025 15:20:28 Influenza, adjuvanted, quadrivalent, PF 2 completed Kalae Eamon [facility] 01/21/2025 15:20:28 COVID-19, mRNA, LNP-S, PF, 30 mcg/0.3 mL dose, sandee-sucrose 2 completed Murelene Eamon [facility] 01/21/2025 15:20:28 COVID-19, mRNA, LNP-S, bivalent, PF, 30 mcg/0.3 mL dose 2 completed Murelene Eamon [facility] 01/21/2025 15:20:28 RSV, recombinant, protein subunit RSVpreF, adjuvant reconstituted, 0.5 mL, PF 3 completed Marge Gautam [facility] 01/28/2024 11:49:05 COVID-19, mRNA, LNP-S, PF, 50 mcg/0.5 mL 3 completed Marge Gautam [facility] 01/28/2024 11:49:05 pneumococcal polysaccharide PPV23 4 completed Marge Gautam [facility] 01/28/2024 11:49:05 Pneumococcal conjugate PCV 13 5 completed Marge Gautam [facility] 01/28/2024 11:49:05 Influenza, high-dose, trivalent, PF 1 [facility] 11:49:05 Influenza, split virus, quadrivalent, preservative 7 completed Wilda Short [facility] 07/08/2017 10:57:22 COVID-19, mRNA, LNP-S, PF, 30 mcg/0.3 mL dose 1 completed Murelene Eamon [facility] 01/21/2025 15:20:28 COVID-19, mRNA, LNP-S, PF, 30 mcg/0.3 mL dose 1 completed Murelene Eamon [facility] 01/21/2025 15:20:28 COVID-19, mRNA, LNP-S, PF, 30 mcg/0.3 mL dose 1 completed Murelene Eamon [facility] 01/21/2025 15:20:28 Past Encounters Encounter ID Performer Location Encounter Start Date Encounter Closed Date Diagnosis/Indication Diagnosis SNOMED-CT Code Diagnosis ICD10 Code Diagnosis Note [id number] [facility] FORBES PA-C [facility] [address] [place] [address] 11/17/2024 11:10:32 11/17/2024 12:06:55 Acute urinary tract infection 805019660 N39.0 Recurrent urinary tract infection 022010907 N39.0 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 Recurrent infective cystitis 140558060 N30.90 Bilateral hydronephrosis 60196809 N13.30 [id number] [facility] FORBES PA-C [facility] [address] [place] [address],[place] [address] 12/03/2024 15:22:41 12/04/2024 10:24:57 Acute urinary tract infection 243806450 N39.0 Recurrent urinary tract infection 342071618 N39.0 Urge incon tinence of urine 42959084 N39.41 Recurrent infective cystitis 212600524 N30.90 Bilateral hydronephrosis 86030794 N13.30 Atrophic vaginitis 83732 000 N95.2 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 - Consider non-bacter ial etiology due to past negative cultures. - Track urinary symptoms. Hydronephrosis 51714702 N13.30 - Monitor per stable renal ultrasound , kidneys functionin g normally. - Review results, advise monitoring for symptom changes. Health Concerns Section Related Observation LastModified by Organization Detai ls LastModified Time None Recorded Concern Status LastModified by Organization Details LastModified Time None Recorded Payers Encounter Date Sequence Insurance Name Policy Number Policy Webster Covered Member ID Webster Member ID Guarantor Name 12/17/2024 1 [facility] (MEDICARE REPLACEMENT/ ADVANTAGE - HMO) Dian Gamboa [id number] Dian Gamboa Notes Date Note Type Note Provider Name and Address Organization Details Recorded Time 12/17/2024 text/html - The patient is a 79-year-old female presenting with concern of hydronephrosis and recurrent urinary tract infections. - Past nuclear medicine renal scan showed prolonged concentration, limited bilateral excretion. - Renal ultrasound: stable mild right hydronephrosis, no left hydronephrosis. - History of retrograde pyelography, ureteral stent on the right. - Bladder ultrasound: normal emptying, residual volume 4.5 mL. - Reports pain during urination, recurrent UTIs for about a year. - Frequency of urination: every two hours; nocturia approximately three times. - Recent creatinine: 1.0, urine culture negative. - History of yeast in urine, previously treated. - Reports persistent fatigue. - Labs: Creatinine 1.0 (normal kidney function) - Tests and Diagnostics: - Nuclear medicine renal scan: prolonged concentration, limited excretion bilaterally - Renal ultrasound: mild right hydronephrosis, no left hydronephrosis - Bladder ultrasound: normal emptying, residual 4.5 mL - Urine cultures: negative for bacterial growth; yeast found previously RONIT PALACIOS MD [facility] [place], [address], [facility] - [facility] 12/27/2024 15:18:51 OBGyn Episode No OBEpisode recorded.
--- OUTSIDE RECORDS SUMMARY | 2025-02-13 14:27 | XMS_ITS | Data Portability ---
Author Organization [facility] NE[facility] [place] [facility] Address [address] [place] [address] Care Team Providers Care Dispatch Machine Runner Name Role Phone RHIANNON SHAH Infectious Disease [phone] DARCIE NORIEGA Primary Care Provider Assessment Encounter Date Assessment Date Assessment LastModified by Organization Details LastModified Time 10/20/2024 10/20/2024 DATE OF PROCEDURE: 10/20/2024 PROCEDURE PERFORMED: Cystourethroscopy , removal of right ureteral stent, right ureteral catheterization, right retrograde pyelography SURGEON: Ronit Chapman M.D. ANESTHESIA: General BLOOD LOSS: None PREOPERATIVE INDICATIONS: Right hydronephrosis POSTOPERATIVE INDICATIONS: Right hydronephrosis DESCRIPTION OF PROCEDURE: Patient was correctly identified in preoperative holding area. Informed consent was obtained. Risks and benefits were reviewed with patient. Patient was taken to procedure room and positioned supine position. Anesthesia induced. Repositioned to lithotomy position. All pressure points padded. Proper timeout procedure completed. Genitourinary area prepped and draped in the normal sterile fashion. Cystoscope advanced through the urethra. Bladder mucosa without evidence of erythema, papillary bladder mass, foreign body. Ureteral orifices in normal anatomic position. Right ureteral stent was identified and removed. Cystoscopy performed and right ureter cannulated with 5 Hungarian open-ended ureteral catheter. Retrograde pyelography performed showing significantly dilated renal pelvis with concern of potential UPJ obstruction. She has had frequent UTIs with indwelling stent and desired the stent to be removed. Stent left out at patient's request. Lidocaine gel was instilled for local analgesia. Patient tolerated procedure well. DISPOSITION: Patient was taken to the recovery in stable condition. Discharged home with instructions for outpatient follow-up. [email or web address] Not available 11/01/2024 13:10:24 11/17/2024 11/17/2024 Urine sent for PCR urine culture. Plan to treat as clinically indicated per culture and sensitivity results with a test of cure following treatment. Continue UTI prophylaxis measures. Will discuss OAB medications with Dr. Chapman (oxybutinin ER 10mg, fesoteridine 8mg). I have ordered a MAG3 nuclear medicine renal scan to further assess renal function. Plan to follow-up to discuss results after scan. [email or web address] Not available 11/28/2024 10:23:35 12/03/2024 12/03/2024 Will plan to continue UTI prophylaxis measures. Additionally, I recommend she start applying topical estrogen therapy around the urethral meatus regularly. Urine sent for culture, will treat as clinically appropriate per culture and sensitivity report. I have ordered a BMP and Cystatin C to measure the patient's renal function. I have also ordered a bilateral renal ultrasound with bladder given recent findings on nuclear medicine scan. Will have the patient plan to follow-up in [address] Chapman to discuss results after renal US and labs. Will also need to discuss OAB medications with Dr. Chapman (oxybutinin ER 10mg, fesoteridine 8mg). [email or web address] Not available 12/13/2024 09:23:36 12/17/2024 12/17/2024 - 79-year-old female with a [...] Lab urinalysi s panel, auto 2024 025 [email or web address] 4 [facility] [place] [facility] With [address], [place], [address], 12/17/2024 16:23:39 culture, urine 2024 025 [email or web address] 4 [facility], [address] [place], [address], 12/22/2024 19:18:11 urinalysi s panel, auto [address] [place] [address] [facility] [place] [facility], [address], [place], [address], 12/04/2024 10:44:05 culture, urine 2024 025 [facility], [address] [place], [address], 12/05/2024 11:11:54 CBC [address] Centralized Scheduling, [address], [place], [address], 12/24/2024 11:35:51 CMP, serum or plasma [address] Centralized Scheduling, [address], [place], [address], 12/24/2024 11:35:51 cystatin C, serum 2024 025 [facility] Centralized Scheduling, [address] [place], [address], 12/15/2024 12:32:46 urinalysi s panel, auto 2024 [email or web address] [place] [address] Urology [facility], [address], [place], [address], 11/18/2024 10:11:18 Referral None recorded. Procedures None recorded. Surgeries None recorded. Imaging US, retroperi toneum, complete 2024 025 [email or web address] [facility] Centralized Scheduling, [address] [place], [address], 12/14/2024 13:59:56 Medication Orders estradiol 0.01% (0.1 mg/gram) vaginal cream 2024 025 [id number], [address] [place], [id number], 12/03/2024 15:48:22 Patient TargetsNo targets recorded. Patient Instructions Encounter Date Encounter Id Patient Instructions Last Modified By Organization Details Last Modified Time 12/17/2024 [id number] - Follow up with urine culture to [...] Abnormal Flag Note LastModifiedBy Organization Detail LastModifiedTime 10/17/1910/19/2024 URINE CULTU RE urine culture ISOLAT E #1 COLONY COUNT: 10,000 - 100,00 0 CFU/ML Yeast specie s. Not Available [facility] [address], [place], [address], 10/19/2024 11:16:09 10/17/19 25 10/16/2024 urina lysis panel , auto Unknown Analyte Clean Catch Not Available [facility] [address], [place], [address], 10/16/2024 12:09:10 10/17/19 25 10/16/2024 urina lysis panel , auto Unknown Analyte Yellow Not Available [facility] [address], [place], [address], 10/16/2024 12:09:10 10/17/19 25 10/16/2024 urina lysis panel , auto Unknown Analyte Clear Not Available [facility] [address], [place], [address], 10/16/2024 12:09:10 10/17/19 25 10/16/2024 urina lysis panel , auto Unknown Analyte 1.020 Not Available [facility] [address] [place] [address] [address], [place], [address], 10/16/2024 12:09:10 10/17/1910/16/2024 urina lysis panel , auto Unknown Analyte 1.003 - 1.030 Not Available [facility] [address], [place], [address], 10/16/2024 12:09:10 10/17/19 25 10/16/2024 urina lysis panel , auto Unknown Analyte 5.0 Not Available [facility] With [address], [place], [address], 10/16/2024 12:09:10 10/17/19 25 10/16/2024 urina lysis panel , auto Unknown Analyte 5.0 - 8.0 Not Available [facility] [address], [place], [address], 10/16/2024 12:09:10 10/17/1910/16/2024 urina lysis panel , auto Unknown Analyte 500 Augusto/uL Not Available [facility] With [address], [place], [address], 10/16/2024 12:09:10 10/17/19 25 10/16/2024 urina lysis panel , auto Unknown Analyte Negati ve Not Available [facility] [address], [place], [address], 10/16/2024 12:09:10 10/17/19 25 10/16/2024 urina lysis panel , auto Unknown Analyte Negati ve Not Available [facility] [address], [place], [address], 10/16/2024 12:09:10 10/17/1910/16/2024 urina lysis panel , auto Unknown Analyte Negati ve Not Available [facility] [address], [place], [address], 10/16/2024 12:09:10 10/17/19 25 10/16/2024 urina lysis panel , auto Unknown Analyte 30 mg/dL Not Available [facility] [address], [place], [address], 10/16/2024 12:09:10 10/17/19 25 10/16/2024 urina lysis panel , auto Unknown Analyte Negati ve Not Available [facility] [address], [place], [address], 10/16/2024 12:09:10 10/17/1910/16/2024 urina lysis panel , auto Unknown Analyte Normal Not Available [facility] [address], [place], [address], 10/16/2024 12:09:10 10/17/19 25 10/16/2024 urina lysis panel , auto Unknown Analyte Normal Not Available [facility] [address], [place], [address], 10/16/2024 12:09:10 10/17/19 25 10/16/2024 urina lysis panel , auto Unknown Analyte Negati ve Not Available [facility] [address], [place], [address], 10/16/2024 12:09:10 10/17/1910/16/2024 urina lysis panel , auto Unknown Analyte Negati ve Not Available [facility] [address], [place], [address], 10/16/2024 12:09:10 10/17/19 25 10/16/2024 urina lysis panel , auto Unknown Analyte Normal Not Available [facility] [address], [place], [address], 10/16/2024 12:09:10 10/17/19 25 10/16/2024 urina lysis panel , auto Unknown Analyte Normal Not Available [facility] [address], [place], [address], 10/16/2024 12:09:10 10/17/19 25 10/16/2024 urina lysis panel , auto Unknown Analyte Negati ve Not Available [facility] [address], [place], [address], 10/16/2024 12:09:10 10/17/19 25 10/16/2024 urina lysis panel , auto Unknown Analyte Negati ve Not Available [facility] [address], [place], [address], 10/16/2024 12:09:10 10/17/19 25 10/16/2024 urina lysis panel , auto Unknown Analyte 250 Gautam/uL Not Available [facility] [address], [place], [address], 10/16/2024 12:09:10 10/17/19 25 10/16/2024 urina lysis panel , auto Unknown Analyte Negati ve Not Available [facility] [address], [place], [address], 10/16/2024 12:09:10 11/18/19 25 11/17/2024 urina lysis panel , auto Unknown Analyte Clean Catch Not Available [facility] [address], [place], [address], 11/17/2024 11:28:19 11/18/19 25 11/17/2024 urina lysis panel , auto Unknown Analyte Yellow Not Available [facility] [address], [place], [address], 11/17/2024 11:28:19 11/18/19 25 11/17/2024 urina lysis panel , auto Unknown Analyte Slight ly Cloudy Not Available [facility] [address], [place], [address], 11/17/2024 11:28:19 11/18/19 25 11/17/2024 urina lysis panel , auto Unknown Analyte 1.020 Not Available [facility] [address], [place], [address], 11/17/2024 11:28:19 11/18/19 25 11/17/2024 urina lysis panel , auto Unknown Analyte 1.003 - 1.030 Not Available [facility] [address], [place], [address], 11/17/2024 11:28:19 11/18/19 25 11/17/2024 urina lysis panel , auto Unknown Analyte 5.0 Not Available [facility] [address], [place], [address], 11/17/2024 11:28:19 11/18/19 25 11/17/2024 urina lysis panel , auto Unknown Analyte 5.0 - 8.0 Not Available [facility] [address], [place], [address], 11/17/2024 11:28:19 11/18/19 25 11/17/2024 urina lysis panel , auto Unknown Analyte 500 Augusto/uL Not Available [facility] [address], [place], [address], 11/17/2024 11:28:19 11/18/19 25 11/17/2024 urina lysis panel , auto Unknown Analyte Negati ve Not Available [facility] [address], [place], [address], 11/17/2024 11:28:19 11/18/19 25 11/17/2024 urina lysis panel , auto Unknown Analyte Negati ve Not Available [facility] [address], [place], [address], 11/17/2024 11:28:19 11/18/19 25 11/17/2024 urina lysis panel , auto Unknown Analyte Negati ve Not Available [facility] [address], [place], [address], 11/17/2024 11:28:19 11/18/19 25 11/17/2024 urina lysis panel , auto Unknown Analyte 500 mg/dL Not Available [facility] [address], [place], [address], 11/17/2024 11:28:19 11/18/19 25 11/17/2024 urina lysis panel , auto Unknown Analyte Negati ve Not Available [facility] [address], [place], [address], 11/17/2024 11:28:19 11/18/19 25 11/17/2024 urina lysis panel , auto Unknown Analyte Normal Not Available [facility] [address], [place], [address], 11/17/2024 11:28:19 11/18/19 25 11/17/2024 urina lysis panel , auto Unknown Analyte Normal Not Available [facility] [address], [place], [address], 11/17/2024 11:28:19 11/18/19 25 11/17/2024 urina lysis panel , auto Unknown Analyte Negati ve Not Available [facility] [address], [place], [address], 11/17/2024 11:28:19 11/18/19 25 11/17/2024 urina lysis panel , auto Unknown Analyte Negati ve Not Available [facility] [address], [place], [address], 11/17/2024 11:28:19 11/18/19 25 11/17/2024 urina lysis panel , auto Unknown Analyte Normal Not Available [facility] [address], [place], [address], 11/17/2024 11:28:19 11/18/19 25 11/17/2024 urina lysis panel , auto Unknown Analyte Normal Not Available [facility] [address], [place], [address], 11/17/2024 11:28:19 11/18/19 25 11/17/2024 urina lysis panel , auto Unknown Analyte Negati ve Not Available [facility] [address], [place], [address], 11/17/2024 11:28:19 11/18/19 25 11/17/2024 urina lysis panel , auto Unknown Analyte Negati ve Not Available [facility] [address], [place], [address], 11/17/2024 11:28:19 11/18/19 25 11/17/2024 urina lysis panel , auto Unknown Analyte 250 Gautam/uL Not Available [facility] [address], [place], [address], 11/17/2024 11:28:19 11/18/19 25 11/17/2024 urina lysis panel , auto Unknown Analyte Negati ve Not Available [facility] [address], [place], [address], 11/17/2024 11:28:19 12/04/19 25 12/07/2024 URINE CULTU RE urine culture COLON Y COUNT : 10,00 0 - 100,0 00 CFU/M L Three or more isola hope; mixed uroge nital ana rosa . Not Available [facility] [address], [place], [address], 12/07/2024 08:59:32 12/04/19 25 12/03/2024 urina lysis panel , auto Unknown Analyte Clean Catch Not Available [facility] [place] [facility] [address], [place], [address], 12/03/2024 16:41:35 12/04/19 25 12/03/2024 urina lysis panel , auto Unknown Analyte Yellow Not Available [facility] With [address], [place], [address], 12/03/2024 16:41:35 12/04/19 25 12/03/2024 urina lysis panel , auto Unknown Analyte Clear Not Available [facility] With [address], [place], [address], 12/03/2024 16:41:35 12/04/19 25 12/03/2024 urina lysis panel , auto Unknown Analyte 1.015 Not Available [facility] With [address], [place], [address], 12/03/2024 16:41:35 12/04/19 25 12/03/2024 urina lysis panel , auto Unknown Analyte 1.003 - 1.030 Not Available [facility] With [address], [place], [address], 12/03/2024 16:41:35 12/04/19 25 12/03/2024 urina lysis panel , auto Unknown Analyte 5.0 Not Available [facility] With [address], [place], [address], 12/03/2024 16:41:35 12/04/19 25 12/03/2024 urina lysis panel , auto Unknown Analyte 5.0 - 8.0 Not Available [facility] With [address], [place], [address], 12/03/2024 16:41:35 12/04/19 25 12/03/2024 urina lysis panel , auto Unknown Analyte 500 Augusto/uL Not Available [facility] With [address], [place], [address], 12/03/2024 16:41:35 12/04/19 25 12/03/2024 urina lysis panel , auto Unknown Analyte Negati ve Not Available [facility] With [address], [place], [address], 12/03/2024 16:41:35 12/04/19 25 12/03/2024 urina lysis panel , auto Unknown Analyte Negati ve Not Available [facility] With [address], [place], [address], 12/03/2024 16:41:35 12/04/19 25 12/03/2024 urina lysis panel , auto Unknown Analyte Negati ve Not Available [facility] With [address], [place], [address], 12/03/2024 16:41:35 12/04/19 25 12/03/2024 urina lysis panel , auto Unknown Analyte Negati ve Not Available [facility] With [address], [place], [address], 12/03/2024 16:41:35 12/04/19 25 12/03/2024 urina lysis panel , auto Unknown Analyte Negati ve Not Available [facility] With [address], [place], [address], 12/03/2024 16:41:35 12/04/19 25 12/03/2024 urina lysis panel , auto Unknown Analyte Normal Not Available [facility] With [address], [place], [address], 12/03/2024 16:41:35 12/04/19 25 12/03/2024 urina lysis panel , auto Unknown Analyte Normal Not Available [facility] With [address], [place], [address], 12/03/2024 16:41:35 12/04/19 25 12/03/2024 urina lysis panel , auto Unknown Analyte Negati ve Not Available [facility] With [address] [place], [address], 12/03/2024 16:41:35 12/04/19 25 12/03/2024 urina lysis panel , auto Unknown Analyte Negati ve Not Available [facility] With [address] [place], [address], 12/03/2024 16:41:35 12/04/19 25 12/03/2024 urina lysis panel , auto Unknown Analyte Normal Not Available [facility] With [address] [place], [address], 12/03/2024 16:41:35 12/04/19 25 12/03/2024 urina lysis panel , auto Unknown Analyte Normal Not Available [facility] With [address] [place], [address], 12/03/2024 16:41:35 12/04/19 25 12/03/2024 urina lysis panel , auto Unknown Analyte Negati ve Not Available [facility] With [address] [place], [address], 12/03/2024 16:41:35 12/04/19 25 12/03/2024 urina lysis panel , auto Unknown Analyte Negati ve Not Available [facility] With [address] [place], [address], 12/03/2024 16:41:35 12/04/19 25 12/03/2024 urina lysis panel , auto Unknown Analyte Negati ve Not Available [facility] With [address] [place], [address], 12/03/2024 16:41:35 12/04/19 25 12/03/2024 urina lysis panel , auto Unknown Analyte Negati ve Not Available [facility] With [address] [place], [address], 12/03/2024 16:41:35 12/18/19 25 12/19/2024 URINE CULTU RE urine culture COLON Y COUNT : > 100,0 00 CFU/M L Two or more isola hope; mixed uroge nital ana rosa . Not Available [facility] [address] [place], [place] [address], [address], 12/19/2024 15:06:28 12/18/19 25 12/17/2024 urina lysis panel , auto Unknown Analyte Clean Catch Not Available [facility] With [address], [place], [address], 12/17/2024 16:21:54 12/18/19 25 12/17/2024 urina lysis panel , auto Unknown Analyte Yellow Not Available [facility] With [address], [place], [address], 12/17/2024 16:21:54 12/18/19 25 12/17/2024 urina lysis panel , auto Unknown Analyte Clear Not Available [facility] With [address] [place], [address], 12/17/2024 16:21:54 12/18/19 25 12/17/2024 urina lysis panel , auto Unknown Analyte 1.015 Not Available [facility] With [address], [place], [address], 12/17/2024 16:21:54 12/18/19 25 12/17/2024 urina lysis panel , auto Unknown Analyte 1.003 - 1.030 Not Available [facility] With [address], [place], [address], 12/17/2024 16:21:54 12/18/19 25 12/17/2024 urina lysis panel , auto Unknown Analyte 6.0 Not Available [facility] With [address] [place], [address], 12/17/2024 16:21:54 12/18/19 25 12/17/2024 urina lysis panel , auto Unknown Analyte 5.0 - 8.0 Not Available [facility] [address] [place], [address], 12/17/2024 16:21:54 12/18/19 25 12/17/2024 urina lysis panel , auto Unknown Analyte 500 Augusto/uL Not Available [facility] [address] [place], [address], 12/17/2024 16:21:54 12/18/19 25 12/17/2024 urina lysis panel , auto Unknown Analyte Negati ve Not Available [facility] [address] [place], [address], 12/17/2024 16:21:54 12/18/19 25 12/17/2024 urina lysis panel , auto Unknown Analyte Negati ve Not Available [facility] [address] [place], [address], 12/17/2024 16:21:54 12/18/19 25 12/17/2024 urina lysis panel , auto Unknown Analyte Negati ve Not Available [facility] [address] [place], [address], 12/17/2024 16:21:54 12/18/19 25 12/17/2024 urina lysis panel , auto Unknown Analyte Negati ve Not Available [facility] [address] [place], [address], 12/17/2024 16:21:54 12/18/19 25 12/17/2024 urina lysis panel , auto Unknown Analyte Negati ve Not Available [facility] [address] [place], [address], 12/17/2024 16:21:54 12/18/19 25 12/17/2024 urina lysis panel , auto Unknown Analyte Normal Not Available [facility] With [address], [place], [address], 12/17/2024 16:21:54 12/18/19 25 12/17/2024 urina lysis panel , auto Unknown Analyte Normal Not Available [facility] With [address] [place], [place], [address], 12/17/2024 16:21:54 12/18/19 25 12/17/2024 urina lysis panel , auto Unknown Analyte Negati ve Not Available [facility] [address] [place], [place], [address], 12/17/2024 16:21:54 12/18/19 25 12/17/2024 urina lysis panel , auto Unknown Analyte Negati ve Not Available [facility] [address] [place], [place], [address], 12/17/2024 16:21:54 12/18/19 25 12/17/2024 urina lysis panel , auto Unknown Analyte Normal Not Available [facility] With [address] [place], [place], [address], 12/17/2024 16:21:54 12/18/19 25 12/17/2024 urina lysis panel , auto Unknown Analyte Normal Not Available [facility] With [address] [place], [address], 12/17/2024 16:21:54 12/18/19 25 12/17/2024 urina lysis panel , auto Unknown Analyte Negati ve Not Available [facility] [address] [place], [address], 12/17/2024 16:21:54 12/18/19 25 12/17/2024 urina lysis panel , auto Unknown Analyte Negati ve Not Available [facility] [address] [place], [address], 12/17/2024 16:21:54 12/18/19 25 12/17/2024 urina lysis panel , auto Unknown Analyte Negati ve Not Available [facility] [address] [place], [address], 12/17/2024 16:21:54 12/18/19 25 12/17/2024 urina lysis panel , auto Unknown Analyte Negati ve Not Available [facility] [address] [place], [address], 12/17/2024 16:21:54 01/22/20 25 01/21/2025 urina lysis panel , auto Unknown Analyte Clean Catch Not Available [facility] [address] [place], [address], 01/21/2025 15:24:04 01/22/20 25 01/21/2025 urina lysis panel , auto Unknown Analyte Yellow Not Available [facility] With [address] [place], [address], 01/21/2025 15:24:04 01/22/20 25 01/21/2025 urina lysis panel , auto Unknown Analyte Slight ly Cloudy Not Available [facility] [address] [place], [address], 01/21/2025 15:24:04 01/22/20 25 01/21/2025 urina lysis panel , auto Unknown Analyte 1.020 Not Available [facility] With [address], [place], [address], 01/21/2025 15:24:04 01/22/20 25 01/21/2025 urina lysis panel , auto Unknown Analyte 1.003 - 1.030 Not Available [facility] [address], [place], [address], 01/21/2025 15:24:04 01/22/20 25 01/21/2025 urina lysis panel , auto Unknown Analyte 6.0 Not Available [facility] With [address] [place], [address], 01/21/2025 15:24:04 01/22/20 25 01/21/2025 urina lysis panel , auto Unknown Analyte 5.0 - 8.0 Not Available [facility] [address] [place], [place], [address], 01/21/2025 15:24:04 01/22/20 25 01/21/2025 urina lysis panel , auto Unknown Analyte 500 Augusto/uL Not Available [facility] [address] [place], [address], 01/21/2025 15:24:04 01/22/20 25 01/21/2025 urina lysis panel , auto Unknown Analyte Negati ve Not Available [facility] [address], [place], [address], 01/21/2025 15:24:04 01/22/20 25 01/21/2025 urina lysis panel , auto Unknown Analyte Negati ve Not Available [facility] [address] [place], [place], [address], 01/21/2025 15:24:04 01/22/20 25 01/21/2025 urina lysis panel , auto Unknown Analyte Negati ve Not Available [facility] [address] [place], [address], 01/21/2025 15:24:04 01/22/20 25 01/21/2025 urina lysis panel , auto Unknown Analyte 100 mg/dL Not Available [facility] [address] [place], [address], 01/21/2025 15:24:04 01/22/20 25 01/21/2025 urina lysis panel , auto Unknown Analyte Negati ve Not Available [facility] [address] [place], [address], 01/21/2025 15:24:04 01/22/20 25 01/21/2025 urina lysis panel , auto Unknown Analyte Normal Not Available [facility] With [address] [place], [address], 01/21/2025 15:24:04 01/22/20 25 01/21/2025 urina lysis panel , auto Unknown Analyte Normal Not Available [facility] With [address] [place], [address], 01/21/2025 15:24:04 01/22/20 25 01/21/2025 urina lysis panel , auto Unknown Analyte Negati ve Not Available [facility] [address] [place], [address], 01/21/2025 15:24:04 01/22/20 25 01/21/2025 urina lysis panel , auto Unknown Analyte Negati ve Not Available [facility] [address] [place], [address], 01/21/2025 15:24:04 01/22/20 25 01/21/2025 urina lysis panel , auto Unknown Analyte Normal Not Available [facility] With [address] [place], [address], 01/21/2025 15:24:04 01/22/20 25 01/21/2025 urina lysis panel , auto Unknown Analyte Normal Not Available [facility] With [address] [place], [address], 01/21/2025 15:24:04 01/22/20 25 01/21/2025 urina lysis panel , auto Unknown Analyte Negati ve Not Available [facility] [address] [place], [address], 01/21/2025 15:24:04 01/22/20 25 01/21/2025 urina lysis panel , auto Unknown Analyte Negati ve Not Available [facility] [address] [place], [address], 01/21/2025 15:24:04 01/22/20 25 01/21/2025 urina lysis panel , auto Unknown Analyte 50 Gautam/uL Not Available [facility] [address] [place], [address], 01/21/2025 15:24:04 01/22/20 25 01/21/2025 urina lysis panel , auto Unknown Analyte Negati ve Not Available [facility] [address] [place], [address], 01/21/2025 15:24:04 10/17/19 25 10/08/2024 MRI, abdom en, w/o contr ast No observ ation record ed. [email or web address] Not Available 10/10 11:14:23 12/01/19 25 11/30/2024 NM, kidne y scan [address] [address] Patien t Name: VINH GAMBOA Patien t : [birth year] Patien t 2 Orderi ng Provid er: [facility] Combs EXAM DATE: 2024 EXAM: NM RENAL SCAN WITH MAG3 HISTOR Y: 79-yea r-old female with histor y of UTIs. COMPAR CARTER: None. TECHNI QUE: Nuclea r medici ne renogr am was perfor med using Techne tium 99m MAG-3 ([facility] [id number] ) 3.3 mCi. FINDIN GS: [...] Unruly little MD on 025 3:30 PM [email or web address] [facility] Radiology Nuclear Medicine [address] [place] [address], [place], [address], 12/04/2024 13:05:47 12/16/19 25 12/15/2024 US, retro perit oneum , compl ete No observ ation record ed. [email or web address] [facility] Centralized Scheduling [address] , [place], [address], 12/17/2024 16:33:40 12/16/1912/15/2024 US, retro perit oneum , compl ete No observ ation record ed. [address] Centralized Scheduling [address] , [place], [address], 12/17/2024 16:33:50 Result Notes Documentation Provider Name and Address Organization Details Recorded Time Nm, Kidney Scan : [address] [id number] Patient Name: DIAN GAMBOA Patient : 1945 Patient Ordering Provider: [facility]MM FORBES EXAM DATE: 11/30/2024 EXAM: NM RENAL SCAN WITH MAG3 HISTORY: 79-year-old female with history of UTIs. COMPARISON: None. TECHNIQUE: Nuclear medicine renogram was performed using Technetium 99m MAG-3 ([facility] [id number]) 3.3 mCi. FINDINGS: There is normal perfusion and concentration in both kidneys. The time to peak activity is 22.4 minutes on the left and 29.4 minutes on the right. The one half excretion time is now increased in either kidney. Differential activity is 54% on the left and 46% on the right at 2-3 minutes. IMPRESSION: 1. There is prolonged concentration and essentially no excretion in either kidney which may represent obstructions. Interpreted By: Mike Duron MD T CHAPMAN MD [address] [place] [address], [address], [place] [facility] 12/04/2024 13:05:47 Problems Name Problem SNOMED Code Status Onset Date Resolution Date Notes Provider Name and Address Organization Details Recorded Time Syncope and collapse 735395516 Active 2016 RHIANNON VALLEJO MD [address] [place] [address], [address], [facility] 09:48:21 EKG: right bundle branch block 967963968 Active 2018 RHIANNON VALLEJO MD [address] [place], [address], [facility] 9 10:33:14 Recurrent infective cystitis 593825464 Active 2024 UMM FORBES PA-C [address] [place], [address], [facility] 10:25:04 Urge incontinence of urine 12576959 Active 2024 [facility]MM FORBES PA-C [address] [place], [address], [facility] 10:25:06 Problem Notes None recorded. Procedures Surgical History Date Name Laterality Status Provider Name and Address Organization Details Recorded Time 11/18/19 25 Post Void Residual; [facility] 11/17/2024 11:56:14 07/31/20 21 EKG completed BENITA LONG APRN [address] [place], [address], [facility] 07/31/2021 10:45:45 02/09/20 10 Other completed [facility] 11/19/2016 11:17:45 Appendectomy completed [facility] 11/19/2016 11:16:17 Other completed [facility] 11/19/2016 11:17:31 Back Surgery completed [facility] 11/19/2016 11:17:12 Cholecystectomy completed [facility] 11/02/2016 11:27:41 Total Hysterectomy completed [facility] 11/19/2016 11:16:28 [facility] 11:28:26 Imaging Results None recorded. Procedure Notes None recorded. Medical Equipment None Reported. Allergies Allergen ID Allergen Name Allergen Category Reaction Reaction Severity Criticality Documentation Date Start Date Code Code System Note Provider Name and Address Organization Details Recorded Time 386609 prednison e medicatio n Not available Not available Not available 07/05/20162012 8640 RxNorm Comme nt: Creat ed By: Curtis glover; Creat ed Date: 013 2:58: 09 PM; Not Available [facility] 6 11:15:58 807512 Floxin medicatio n Not available Not available Not available 07/05/20162012 29605 8 RxNorm Comme nt: Creat ed By: Curtis glover; Creat ed Date: 013 2:52: 50 PM; Not Available [facility] 6 12:57:16 077950 Cellcept medicatio n Not available Not available Not available 07/05/20162012 30346 3 RxNorm Comme nt: Creat ed By: Curtis glover; Creat ed Date: 013 2:58: 36 PM; Not Available [facility] 6 12:57:16 062556 sulfur medicatio n Not available Not available Not available 07/06/20162012 20323 RxNorm Comme nt: Creat ed By: Curtis glover; Creat ed Date: 013 2:52: 34 PM; Not Available [facility] 6 05:16:56 514258 Stadol medicatio n Not available Not available Not available 07/06/20162013 21830 RxNorm Comme nt: Purit is;Cr eated By: Kat gaonaCre ated Date: 2013 11:24 :47 AM; Not Available [facility] 6 05:16:56 074297 Medicinal product containin g quinolone and acting as antibacte rial agent (product) medicatio n rash Not available Not available 11/19/2016 51456 008 SNOMED Betty Patel [facility] 7 11:19:03 858692 methotrex ate medicatio n rash Not available Not available 11/19/2016 6851 RxNorm Betty Patel [facility] 7 11:19:43 689285 hydrocodo ne Not available Not available Not available Not available 11/19/2016 5489 RxNorm Betty Patel [facility] 7 11:19:57 431471 Procardia medicatio n Not available Not available Not available 11/19/2016 29226 3 RxNorm Betty Patel [facility] 7 11:20:07 607621 tetracycl ine medicatio n Not available Not available Not available 11/19/2016 86463 [facility] 11:20:26 206270 Savella medicatio n Not available Not available Not available 11/19/2016 67414 6 RxNorm Betty Patel [facility] 7 11:20:38 214939 Lexapro medicatio n Not available Not available Not available 11/19/2016 47953 1 RxNorm Betty Patel [facility] 7 11:20:50 052195 fluoxetin e medicatio n Not available Not available Not available 11/19/2016 4493 RxNorm Betty Patel [facility] 7 11:21:21 833192 sulfameth oxazole medicatio n Not available Not available Not available 11/19/2016 48087 RxNorm Betty Patel [facility] 7 11:21:50 229125 levofloxa cm medicatio n Not available Not available Not available 07/26/2023 24154 RxNorm Murelene Eamon [facility] 3 17:01:30 689851 ciproflox acin medicatio n Not available Not available Not available 01/28/2024 2551 RxNorm Marge Gautam [facility] 4 11:49:03 Medications Name Sig Start Date [...] and Address Organization Details Last Updated DateTime 11/17/2024 162.56 cm 31.6 kg/m2 54237 g Emily Aguilar [facility] 11/17/2024 11:39:57 Date Recorded Body height Body mass index (BMI) Body weight Provider Name and Address Organization Details Last Updated DateTime 12/03/2024 162.56 cm 29.9 kg/m2 79079.07 g Carter Eamon [facility] 12/03/2024 16:40:03 Date Recorded Body height Body mass index (BMI) Body weight Provider Name and Address Organization Details Last Updated DateTime 12/17/2024 162.56 cm 29.9 kg/m2 44137.07 g Leta Gaticaers [facility] 12/17/2024 16:21:19 Date Recorded Body height Body mass index (BMI) Body weight Provider Name and Address Organization Details Last Updated DateTime 01/21/2025 162.56 cm 29.9 kg/m2 87884.07 g [facility] 01/21/2025 15:16:29 Social History Question Answer Notes LastModified by Organizat ion Details LastModified Time Tobacco Smoking Status Former Smoker Former smoker 3-4 cigs per day for 6 months, quit in 1966 [facility] 11/02/2016 11:25:30 When Did You Quit Smoking? [...] history of malignant neoplasm 79 Liver cancer [email or web address] Not available 12/17/2024 16:11:11 Mother Congestive heart failure 83 Not available 03/2025 16:11:11 Mother Heart disease 65 83 Not available 2024 15:22:47 Mother Hypertensive disorder [email or web address] Not available 03/2025 16:11:11 Unspecified Relation Depressive disorder [email or web address] Not available 03/2025 16:11:11 Unspecified Relation Heart disease [email or web address] Not available 03/2025 16:11:11 Unspecified Relation Hypertensive disorder Not available 2024 15:22:47 Unspecified Relation Diabetes mellitus [email or web address] Not available 03/2025 16:11:11 Unspecified Relation Kidney disease [email or web address] Not available 03/2025 16:11:11 Notes:Spouse at age 65 Medical History Condition Response Coronary Artery Disease N Gout N Other N Kidney Cyst N Kidney Stones N Enlarged Prostate N Heart Arrhythmia N [...] Back Pain Y Proteinuria N Heart Attack ([place]) N Mental Illness N Ovarian Cancer N [...] Influenza, high-dose, quadrivalent, PF 3 completed Marge Gautam [facility] 01/28/2024 11:49:04 Influenza, adjuvanted, quadrivalent, PF 0 completed Murelene Eamon [facility] 01/21/2025 15:20:28 Influenza, adjuvanted, quadrivalent, PF 2 completed Murelene Eamon [facility] 01/21/2025 15:20:28 COVID-19, mRNA, LNP-S, PF, 30 mcg/0.3 mL dose, sandee-sucrose 2 completed Murelene Eamon [facility] 01/21/2025 15:20:28 COVID-19, mRNA, LNP-S, bivalent, PF, 30 mcg/0.3 mL dose 2 completed Murelene Eamon [facility] 01/21/2025 15:20:28 RSV, recombinant, protein subunit RSVpreF, adjuvant reconstituted, 0.5 mL, PF 3 completed Marge Gautam [facility] 01/28/2024 11:49:05 COVID-19, mRNA, LNP-S, PF, 50 mcg/0.5 mL 3 completed Marge Carneyong [facility] 01/28/2024 11:49:05 pneumococcal polysaccharide PPV23 4 completed Margefrancois Carneyong [facility] 01/28/2024 11:49:05 Pneumococcal conjugate PCV 13 5 completed Margefrancois Gautam [facility] 01/28/2024 11:49:05 Influenza, high-dose, trivalent, PF 1 completed Marge Gautam [facility] 01/28/2024 11:49:05 Influenza, split virus, quadrivalent, preservative 7 completed Wilda Short [facility] 07/08/2017 10:57:22 COVID-19, mRNA, LNP-S, PF, 30 mcg/0.3 mL dose 1 completed Murelene Eamon [facility] 01/21/2025 15:20:28 COVID-19, mRNA, LNP-S, PF, 30 mcg/0.3 mL dose 1 completed Murelene Eamon [facility] 01/21/2025 15:20:28 COVID-19, mRNA, LNP-S, PF, 30 mcg/0.3 mL dose 1 completed Murelene Eamon [facility] 01/21/2025 15:20:28 Past Encounters Encounter ID Performer Location Encounter Start Date Encounter Closed Date Diagnosis/Indication Diagnosis SNOMED-CT Code Diagnosis ICD10 Code Diagnosis Note [id number] RHIANNON VALLEJO MD CARDIOLOG [address] ,[address] [place] [address] 11/19/2016 10:38:34 11/19/2016 12:17:13 Syncope and collapse 675442519 R55 This patient was previously diagnosed with neurocardi ogenic syncope and had responded well to medication at that time. She has not returned for follow-up in over 3 years but recently has begun to have recurrent episodes. Her symptoms sounded very much to be related to orthostati c hypotensio n. Her symptoms have only occurred in the standing and prolonged sitting positions and never in the supine position. I think this makes epilepsy and unlikely diagnosis. Her lisinopril was restarted apparently for hypertensi on but this drug may be problemati c for her. I asked her to hold off her lisinopril and to check her blood pressure morning the day and evening for several days and bring a diary upon return. [id number] RHIANNON VALLEJO MD CARDIOLOG Y [place] [address] [place] [address] 12/24/2016 08:55:17 12/24/2016 09:50:00 Syncope and collapse 863466415 R55 Her symptoms have resolved since stopping lisinopril . I reviewed her blood pressure diary and most of her blood pressure is acceptable range. Given her neurocardi ogenic syncope, I recommend no treatment for blood pressure is 160/90 or less. I indicated to her that if blood pressure medicine as necessary I would like to see her and help choose the best option to prevent symptoms. [id number] RHIANNON VALLEJO MD CARDIOLOG Y [place] [address] [place] [address] 07/08/2017 10:41:28 07/08/2017 11:29:02 Syncope and collapse 359618235 R55 Her symptoms have resolved since stopping lisinopril . I reviewed her blood pressure diary and most of her blood pressure is acceptable range. Given her neurocardi ogenic syncope, I recommend no treatment for blood pressure is 160/90 or less. I indicated to her that if blood pressure medicine as necessary I would like to see her and help choose the best option to prevent symptoms. [id number] RHIANNON VALLEJO MD CARDIOLOG Y [place] [address],[facility] [place] [address] 07/08/2018 13:18:14 07/08/2018 14:29:25 Syncope and collapse 276100368 R55 Stable blood pressure with no further episodes of syncope. Patient reminded to avoid low blood pressure and be very careful with antihypert ensives. [id number] RHINANON VALLEJO MD CARDIOLOG Y [address] [place] [address] 07/20/2019 10:00:45 07/20/2019 10:34:45 Syncope and collapse 848300075 R55 Stable blood pressure with no further episodes of syncope. Patient reminded to avoid low blood pressure and be very careful with antihypert ensives. EKG: right bundle branch block 090974891 I45.10 [id number] RHIANNON VALLEJO MD CARDIOLOG Y [address] [place] [address] 07/27/2020 11:44:22 07/27/2020 12:27:58 Syncope and collapse 801802766 R55 Stable blood pressure with no further episodes of syncope. Patient reminded to avoid low blood pressure and be very careful with antihypert ensives. EKG: right bundle branch block 431553396 I45.10 [id number] RONIT CHAPMAN MD [facility] EXTENDED [address] ,[place] [address] 8 08/18/2020 15:31:42 08/19/2020 11:32:40 Recurrent urinary tract infection 800117271 N39.0 Overactive urinary bladder 837220910 N32.81 [id number] RONIT CHAPMAN MD [address] ,[place] [address] 10/06/2020 13:06:04 10/06/2020 13:32:28 Overactive urinary bladder 337343535 N32.81 Recurrent urinary tract infection 903201012 N39.0 [id number] RONIT CHAPMAN MD [facility] EXTENDED [address] ,[place] [address] 12/01/2020 13:07:55 12/02/2020 15:47:29 Recurrent urinary tract infection 615895305 N39.0 Overactive urinary bladder 265573306 N32.81 Atrophic vaginitis 26684 000 N95.2 [id number] RONIT CHAPMAN MD [facility] [place] [address] 04/20/2021 13:39:54 04/21/2021 14:43:04 Recurrent urinary tract infection N39.0 Atrophic vaginitis 69113 000 N95.2 Multiple renal cysts 253 059251 N28.1 [id number] BENITA LONG APRN CARDIOLOG Y [place] [address] [place] [address] ,[address] [place] [address] 07/31/2021 10:15:14 07/31/2021 11:37:13 Syncope 876879871 R55 She has had no further episodes of syncope since discontinu ation of antihypert ensives. Recommend to avoid use in the future unless home pressures become problemati c for her. Historical ly has had higher pressures in office setting with normal pressure at homeEKG today is stable. Symptoms are stable. She will continue to monitor home pressures and let us know if she is consistent ly > 150/90.Fol low up in 1 year with EKG, sooner if needed [id number] RONIT CHAPMAN MD [facility] [address],[place] [address] 06/14/2022 13:46:18 06/21/2022 08:38:18 Recurrent urinary tract infection [id number] N39.0 Atrophic vaginitis 76399 000 N95.2 Multiple renal cysts 253 157154 N28.1 Urinary tr act infectious disease [id number] N39.0 [id number] RONIT CHAPMAN MD [facility] [address],[place] [address] 08/09/2022 15:13:22 08/22/2022 11:11:02 Urinary tract infectious disease [id number] N39.0 Urge incon tinence of urine 56933495 N39.41 [id number] RONIT CHAPMNA MD [facility] [address] [place] [address] 08/28/2022 11:17:15 08/28/2022 12:10:47 Recurrent urinary tract infection [id number] N39.0 Urge incon tinence of urine 42833807 N39.41 [id number] RONIT CHAPMAN MD [facility] [address],[place] [address] 09/06/2022 14:36:40 09/07/2022 04:42:11 Urinary tract infectious disease 35996862 N39.0 Recurrent urinary tract infection 262539619 N39.0 Urge incon tinence of urine 86279996 N39.41 [id number] RONIT CHAPMAN MD [address] [place] [address] 8 11/22/2022 13:15:36 11/26/2022 04:10:09 Urinary tract infectious disease 54788205 N39.0 Recurrent urinary tract infection 970490251 N39.0 Overactive urinary bladder 755254360 N32.81 [id number] RONIT CHAPMAN MD [address] [place] [address] 8 01/31/2023 14:19:39 02/04/2023 04:20:17 Recurrent urinary tract infection 640499736 N39.0 Overactive urinary bladder 478057740 N32.81 Urge incon tinence of urine 04378590 N39.41 Urinary tr act infectious disease 55512080 N39.0 [id number] RONIT CHAPMAN MD [address] [place] [address] 8 03/14/2023 14:45:43 03/15/2023 04:42:13 Recurrent urinary tract infection 299281606 N39.0 Overactive urinary bladder 782485171 N32.81 Urge incon tinence of urine 96229954 N39.41 Urinary tr act infectious disease 94368159 N39.0 [id number] RONIT CHAPMAN MD [address],[place] [address] 8 07/18/2023 13:02:25 07/21/2023 04:04:13 Recurrent urinary tract infection 760706567 N39.0 Overactive urinary bladder 457291480 N32.81 Urge incon tinence of urine 52336864 N39.41 Urinary tr act infectious disease 57366468 N39.0 [id number] RONIT CHAPMAN MD [address] [address] 8 01/23/2024 13:22:39 01/23/2024 17:47:10 Atrophic vaginitis 10111241 N95.2 Recurrent urinary tract infection 394245840 N39.0 Overactive urinary bladder 202794892 N32.81 Urinary tr act infectious disease 20828078 N39.0 [id number] SKY BARLOW APRN [facility] [address] [place] [address] 03/05/2024 13:40:06 03/05/2024 14:29:15 Fatigue 48175868 R53.83 will check cortisol levelsunsu re about etiology of fatigue, leaning on depression and chronic pain as the causef/u in 2 months Pain of mu ltiple joints 32058734 M25.50 check ESRdiscuss ed how pain can cause fatigue, importance of moving, even doing chair exercises and stretching to help with joint pain [id number] RONIT CHAPMAN MD [facility] [address] [place] [address],[place] [address] 08/06/2024 16:25:31 08/06/2024 16:47:51 Urinary tract infectious disease 07846698 N39.0 Hydronephrosis 31327965 N13.30 [id number] RONIT CHAPMAN MD SURGERY SCHEDULE [address] [place] [address] 09/01/2024 13:10:17 09/01/2024 13:11:04 Postoperative pain 875570998 G89.18 [id number] MD [facility] [address] [place] [address] 10/16/2024 10:56:26 10/16/2024 12:23:55 Urinary tract infectious disease 47466989 N39.0 Plan: Stent removal to prevent bacterial colonizati on causing recurrent infections . Continue antibiotic s, periodic monitoring post-remov al. Patient consented to removal. Recurrent urinary tract infection 128141357 N39.0 Hydronephrosis 62464887 N13.30 Plan: Stent removal to improve drainage. Schedule nuclear medicine renal scan for obstructio n assessment . Consent obtained. [id number] RONIT CHAPMAN MD SURGERY SCHEDULE [address] [place], [place] [address] 10/20/2024 13:51:59 10/20/2024 13:53:23 [id number] NICKIE RYAN [facility] [address] [place] [address] 11/17/2024 11:10:32 11/17/2024 12:06:55 Acute urinary tract infection 794231712 N39.0 Recurrent urinary tract infection 625103864 N39.0 Urge incon tinence of urine 00713373 N39.41 Recurrent infective cystitis 578421217 N30.90 Bilateral hydronephrosis 70843790 N13.30 [id number] NICKIE RYAN [facility] [address] [address] 12/03/2024 15:22:41 12/04/2024 10:24:57 Acute urinary tract infection 282983888 N39.0 Recurrent urinary tract infection 041890527 N39.0 Urge incon tinence of urine 44819463 N39.41 Recurrent infective cystitis 192796733 N30.90 Bilateral hydronephrosis 65283308 N13.30 Atrophic vaginitis 20179 000 N95.2 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 - Consider non-bacter ial etiology due to past negative cultures. - Track urinary symptoms. Hydronephrosis 11724242 N13.30 - Monitor per stable renal ultrasound , kidneys functionin g normally. - Review results, advise monitoring for symptom changes. [id number] NICKIE RYAN [facility] [address] [place] [address] ,[place] [address] 01/21/2025 15:00:40 01/21/2025 18:59:48 Recurrent urinary tract infection 856444364 N39.0 Health Concerns Section Related Observation LastModified by Organization Detai ls LastModified Time None Recorded Concern Status LastModified by Organization Details LastModified Time None Recorded Advance Directives Directive None Recorded Payers Insurance Date Sequence Insurance Name Policy Number Policy Webster Covered Member ID Webster Member ID Guarantor Name 01/07/2025 PAYMENT PLAN Dian Gamboa 03/04/2024 1 [place]MEDICARE [place]ACEMENT HMO) [id number] Dian Gamboa [id number] Dian Gamboa 02/07/2025 PAYMENT PLAN Dian Gamboa 12/24/2024 PAYMENT PLAN Dian Gamboa 01/29/2025 PAYMENT PLAN Dian Gamboa 01/24/2024 1 [employer] (MEDICARE REPLACEMENT/AD VANTAGE - PPO) Dian Gamboa [id number] Dian Gamboa 01/28/2024 GENERIC INSURANCE - MOVED-HOLD Dian Gamboa 01/18/2025 1 [employer] (MEDICARE REPLACEMENT/AD VANTAGE - HMO) Dian Gamboa [id number] Dian Gamboa 09/01/2024 1 [id number] (MEDICARE REPLACEMENT/AD VANTAGE - PPO) Dian Gamboa [id number] Dian Gamboa Notes Date Note Type Note Provider Name and Address Organization Details Recorded Time 11/17/2024 text/html Dian Gamboa is a 79-year-old female here today for my initial evaluation of complaints of mild dysuria and mild bilateral flank pain starting last night and continuing into this morning. She has history of UUI, right UPJ obstruction with hydronephrosis, and recurrent urinary tract infections requiring hospitalization for urosepsis. She is accompanied by her and son today.She is recently status post cystoscopy with right retrograde pyelography and right ureteral stent exchange for UPJ obstruction performed by Dr. Chapman 10/20/2024. She reports that her symptoms noticeably worsened around August 2024. She also reports concern that Dr. Chapman wanted to measure her kidney function and she has not been set up for this.With UTI she typically notices severe fatigue. Today she denies fever or chills, dysuria, gross hematuria, excessive fatigue/malaise. Her in-office urinalysis demonstrates moderate microscopic hematuria, pyuria, and proteinuria today. Summary of Dr. Chapman's operative note as below:- PROCEDURE: Cystourethroscopy, removal of right ureteral stent, right ureteral catheterization, right retrograde pyelography indicated for evaluation and management of right hydronephrosis 10/20/24- FINDINGS: Retrograde pyelography performed showing significantly dilated renal pelvis with concern of potential UPJ obstruction. She has had frequent UTIs with indwelling stent and desired the stent to be removed. Stent left out at patient's request. [facility] PA-C [address] [place], [address], [facility] 11/28/2024 10:26:09 12/03/2024 text/html Dian Gamboa is a 79-year-old female here today for follow-up to discuss results of recent MAG3 nuclear medicine renal scan. She has history of UUI, right UPJ obstruction with R hydronephrosis, and rUTIs requiring hospitalization for urosepsis. She is accompanied by her and son today.She is recently status post cystoscopy with right retrograde pyelography and right ureteral stent exchange for UPJ obstruction performed by Dr. Chapman 10/20/2024. She reports that her symptoms noticeably worsened around August 2024. With UTI she typically notices severe fatigue. Today she denies fever or chills, dysuria, gross hematuria, excessive fatigue/malaise. In-office urinalysis demonstrates moderate microscopic pyuria today. Her son reports that she has been doing remarkably better for the past couple of days. Summary of Dr. Chapman's operative note from cystoscopy with right ureteral stent removal and retrograde pyelography from 10/20/2024 as below:- FINDINGS: Retrograde pyelography performed showing significantly dilated renal pelvis with concern of potential UPJ obstruction. She has had frequent UTIs with indwelling stent and desired the stent to be removed. Stent left out at patient's request. MAG3 nuclear medicine renal scan performed on 11/30/2024 with prolonged concentration and essentially no excretion in either kidney which may represent obstructions. [facility] PA-C [address] [place], [address], [facility] 12/13/2024 09:24:05 12/17/2024 text/html - The patient is a [...] for bacterial growth; yeast found previously RONIT CHAPMAN MD [address] [place] [address], [phone], [facility] - [facility] 12/27/2024 15:18:51 OBGyn Episode No OBEpisode recorded.
--- NOTE | 2025-02-13 14:32 | CT_ITS ---
PROCEDURE INFORMATION: Exam: CT Abdomen And Pelvis With Contrast Exam date and time: 02/13/2025 3:40 PM Age: 79 years old Clinical indication: Abdominal pain; Prior surgery; Surgery date: 6+ months; Surgery type: Gallbladder and appendex removed; Additional info: Lower abdominal pain TECHNIQUE: Imaging protocol: Computed tomography of the abdomen and pelvis with contrast. Radiation optimization: All CT scans at this facility use at least one of these dose optimization techniques: automated exposure control; mA and/or kV adjustment per patient size (includes targeted exams where dose is matched to clinical indication); or iterative reconstruction. Contrast material: ISOVUE 370; Contrast volume: 75 ml; Contrast route: IV; COMPARISON: MR MRCP WO CON 10/08/2024 11:34 AM FINDINGS: Tubes, catheters and devices: None noted. Lungs: Lung bases appear clear. Heart: No significant coronary calcifications. No cardiomegaly. No significant pericardial effusion. Liver: Normal. No mass. Gallbladder and biliary ducts: Cholecystectomy. No ductal dilation. Pancreas: Normal. No ductal dilation. Spleen: Normal. No splenomegaly. Adrenal glands: Normal. No mass. Kidneys and ureters: Nonobstructive caliceal calcification in the right lower pole.. No hydronephrosis. Stomach and bowel: Mild diverticulitis at the junction of the descending colon and sigmoid colon. No obstruction. No free peritoneal perforation or drainable abscess. Appendix: Appendectomy. Intraperitoneal space: Unremarkable. No free air. No significant fluid collection. Retroperitoneal space: No significant retroperitoneal inflammatory changes are noted. Vasculature: Unremarkable. No abdominal aortic aneurysm. Lymph nodes: Unremarkable. No enlarged lymph nodes. Urinary bladder: Unremarkable as visualized. Reproductive: Unremarkable as visualized. Bones/joints: Unremarkable. No acute fracture. Soft tissues: Unremarkable. IMPRESSION: Mild diverticulitis at the junction of the descending colon and sigmoid colon.
--- NOTE | 2025-02-13 14:33 | XR_ITS ---
PROCEDURE INFORMATION: Exam: XR Chest Exam date and time: 02/13/2025 2:48 PM Age: 79 years old Clinical indication: Other: Abd pain TECHNIQUE: Imaging protocol: Radiologic exam of the chest. Views: 1 view. COMPARISON: CR XR CHEST 2V 10/08/2024 5:58 AM FINDINGS: Lungs: Unremarkable. No consolidation. Pleural spaces: Unremarkable. No pleural effusion. No pneumothorax. Heart/Mediastinum: Unremarkable. No cardiomegaly. Bones/joints: Unremarkable. IMPRESSION: No acute findings.
--- NOTE | 2025-02-13 14:34 | HMH.EDGENADL ---
Discharge Plan Disposition Patient Disposition: Home, Self-Care Prescriptions Prescriptions: New amoxicillin-pot clavulanate 875-125 mg tablet 1 tab PO Q12H Qty: 20 0RF ketorolac 10 mg tablet 10 mg PO Q8H PRN (Reason: pain) 5 Days Qty: 20 0RF ondansetron 4 mg tablet,disintegrating 4 mg PO Q8 5 Days Qty: 15 0RF No Action estradiol 0.01 % (0.1 mg/gram) cream vaginal Patient Comments: APPLY A FINGERTIP AMOUNT TO URETHRAL MEATUS EVERY NIGHT fluticasone propionate [Flonase Allergy Relief] 50 mcg/actuation spray,suspension 1 spray intranasal BID Qty: 16 2RF Rx Instructions: administer 1 spray into each nostril twice daily Livdelzi 10 mg capsule 10 mg PO DAILY Qty: 30 12RF Rx Instructions: Please take 1 capsule p.o. daily aspirin 81 mg Tablet,Chewable 81 mg PO DAILY 30 Days Qty: 30 0RF amlodipine 5 mg tablet 5 mg PO DAILY Qty: 30 0RF methenamine hippurate 1 gram Tablet 1 g PO BID 30 Days Qty: 60 0RF famotidine 20 mg tablet 20 mg PO BID 30 Days Qty: 60 0RF oxybutynin chloride 10 mg tablet extended release 24hr 10 mg PO DAILY Patient Comments: TAKE 1 TABLET BY MOUTH EVERY DAY acetaminophen 500 mg tablet 1,000 mg PO BID Patient Comments: TAKE 2 TABLETS BY MOUTH TWICE DAILY SCHEDULED. MAY TAKE AN ADDITIONAL 2 TABLETS NEEDED. DOSES MUST BE SPACED 4 HOURS APART ursodiol 300 mg Capsule 600 mg PO BID 30 Days Qty: 120 0RF Referrals Follow up/Referrals: Vu Bhatt II, MD [Staff Physician, Gastroenterology] - See instructions George Garcia MD [Primary Care Provider, Medical] - See instructions Activity Restrictions/Add. Instructions Additional Instructions/Restrictions: Increase fluids and rest. Please call your primary care provider for follow-up. Also follow-up with GI doctor for the diverticulitis. Also follow-up with urology for UTI. Clinical Impressions Clinical Impression: Diverticulitis, Urinary tract infection Instructions Patient Instructions: Diverticulitis, DI for Urinary Tract Infection (UTI), DI for Acute Abdominal Pain Print Language Print Language: Korean Discharge ED Provider: Moises Sauceda General Adult HPI <Moises Sauceda DO - Last Filed: 02/15/25 21:38> General Chief complaint: Abdominal Pain Stated complaint: cramping, stomach pain, vomiting Time Seen by Provider: 02/13/25 14:27 Mode of Arrival: Ambulatory Source of Information: Patient Description of Symptoms (Recalled from ER Triage Doc. by RN): Pt presents for evaluation of lower abdominal cramping x 1 day. Pt states she had 1 episode of vomiting yesterday but has had nausea today. Pt had a BM yesterday. Rates pain as a 9/10 History of Present Illness HPI narrative: This ia a 79 year old female patient, with PMH of primary biliary cirrhosis, who is presenting to the ER today for diffuse lower abdominal pain. The patient states that she drank some milk yesterday, developed some nausea with vomiting and has had pain since that time. When pinpointed on her pain, she does feel it is worse in the LLQ than the right lower quadrant. No hematochezia or melena. She denies hematemesis. She has not had any urinary symptoms such as dysuria, hematuria, or increased urinary frequency. She has never experienced pain like this before. Has a history of abdominal surgeries including appendectomy and cholecystectomy. She is still producing bowel movements, but is not experiencing diarrhea. Denies vaginal discharge and bleeding. Related Data Home Medications ?Medication ?Instructions ?Recorded ?Confirmed acetaminophen 500 mg tablet 1,000 mg PO BID 10/08/24 02/03/25 oxybutynin chloride 10 mg 10 mg PO DAILY 10/08/24 02/03/25 tablet,extended release 24 hr estradiol 0.01% (0.1 mg/gram) vaginal 02/03/25 02/03/25 vaginal cream Previous Rx's ?Medication ?Instructions ?Recorded aspirin 81 mg chewable tablet 81 mg PO DAILY 30 days #30 tabs 09/14/24 amlodipine 5 mg tablet 5 mg PO DAILY #30 tabs 09/15/24 famotidine 20 mg tablet 20 mg PO BID 30 days #60 tabs 09/15/24 methenamine hippurate 1 gram tablet 1 g PO BID 30 days #60 tabs 09/15/24 ursodiol 300 mg capsule 600 mg (2 x 300 mg) PO BID 30 days 10/09/24 #120 caps seladelpar 10 mg capsule (Livdelzi) 10 mg PO DAILY #30 caps 12/01/24 fluticasone propionate 50 1 spray intranasal BID #16 grams 02/03/25 mcg/actuation nasal spray,suspension (Flonase Allergy Relief) amoxicillin 875 mg-potassium 1 tab PO Q12H #20 tabs 02/13/25 clavulanate 125 mg tablet ketorolac 10 mg tablet 10 mg PO Q8H PRN pain 5 days #20 02/13/25 tabs ondansetron 4 mg disintegrating 4 mg PO Q8 5 days #15 tabs 02/13/25 tablet Allergies Allergy/AdvReac Type Severity Reaction Status Date / Time butorphanol (From Stadol) Allergy Unknown Verified 02/03/25 10:40 allergy reaction ofloxacin (From Floxin) Allergy Hives Verified 02/03/25 10:40 prednisone Allergy Nausea Verified 02/03/25 10:40 Sulfa (Sulfonamide Allergy Unknown Verified 02/03/25 10:40 Antibiotics) allergy reaction <Raquel Weber (ED), TRANSIT PROOF MACHINE OPERATOR - Last Filed: 02/13/25 19:23> History of Present Illness HPI narrative: 79-year-old female presents to the ED today for lower abdominal pain that started yesterday after she drank some milk. She vomited once yesterday but has not vomited again. She continues to have the lower abdominal pain today. She had 1 Ensure this morning but has not had anything else to eat or drink. brought her in because he was afraid that she would get dehydrated. She tells me that she is miserable from the lower abdominal pain. She did have a good bowel movement today. Patient does have history of biliary cholangitis. Patient denies fevers. No other symptoms at this time. [facility] <Moises Sauceda DO - Last Filed: 02/15/25 21:38> [facility] Disclaimer: The information contained in this section may have been updated after the patient was seen, as this information can be updated by other users. Medical History (Updated 02/13/25 @ 17:27 by Raquel Weber (ED), TRANSIT PROOF MACHINE OPERATOR) Impacted cerumen of right ear Sensorineural hearing loss (SNHL) of both ears Chronic eustachian tube dysfunction Cholecystectomy planned Dilated bile duct Diverticulitis Nausea, vomiting, and diarrhea Generalized weakness Physical deconditioning Weakness Hypertensive urgency Elevated liver enzymes Left leg pain Alkaline phosphatase elevation Hypothyroidism HTN (hypertension) Surgical History History of arthroplasty of right shoulder Previous back surgery Family History Other No significant family history Social History Smoking Status: Never smoker alcohol intake: never substance use type: denies use current occupational status: retired and other Travel in the last 8 weeks?: None Have you lived/traveled outside US in past 30 days?: No Contact w/someone who lives/traveled outside US past 30 days?: No Exposure to someone with infectious disease in past 14 days?: No Do you have a fever (greater than 100.4 F or 38 C)?: No Have you tested positive for COVID-19?: No Exposed to someone with COVID-19 in past 14 days?: No Do you have a sore throat?: No Do you have a cough?: No Do you have any weakness?: No Do you have any diarrhea?: No Are you experiencing any unusual bleeding?: No Do you have any muscle aches/pain?: No Do you have any abdominal pain?: No Are you experiencing loss of taste or smell?: No Other Medical History Have you received the Flu Vaccine for this season: No Have you received the Pneumonia Vaccine: Yes <Raquel Weber (ED), TRANSIT PROOF MACHINE OPERATOR - Last Filed: 02/13/25 19:23> ROS Obtained: Yes Systems reviewed as appropriate & no additional complaints except as documented Constitutional Constitutional: Reports as per HPI Physical Exam <Moises Sauceda DO - Last Filed: 02/15/25 21:38> Abdominal Exam Abdominal tenderness: Present LLQ and moderate <Raquel Weber (ED), TRANSIT PROOF MACHINE OPERATOR - Last Filed: 02/13/25 19:23> General General appearance: alert and in distress Comment: With abdominal pain Head Head exam: atraumatic and normocephalic Eye Eye exam: Present normal appearance, PERRL and EOMI ENT ENT exam: Present normal oropharynx and mucous membranes moist Neck Neck exam: Present full ROM and trachea midline Respiratory Respiratory exam: Present normal lung sounds bilaterally Cardiovascular Cardiovascular exam: Present regular rate, normal rhythm, normal heart sounds, +S1 and +S2 Abdominal Exam Abdominal exam: Present soft and normal bowel sounds Abdominal tenderness: Present suprapubic and moderate Extremities Exam Extremities exam: Present normal inspection, full ROM and normal capillary refill Neurological Exam Neurological exam: Present alert, oriented X3 and normal gait Skin Skin exam: Present warm, dry and intact Medical Decision Making <Moises Sauceda DO - Last Filed: 02/15/25 21:38> Medical Records Screening: Per USPSTF and CDC recommendations, given the prevalence of disease in our region, it is our hospital?s policy to screen for HIV and viral Hepatitis for all patients aged 18 and over and those with ongoing risk factors. Vital Signs: 02/13/25 14:29 02/13/25 14:30 02/13/25 15:30 Temperature 97.8 F Temperature Source Oral Pulse Rate 85 73 Pulse Rate [Right] 94 H Respiratory Rate 18 Blood Pressure 134/76 143/77 H Blood Pressure [Right Arm] 130/83 Blood Pressure Mean 85 Blood Pressure Mean [Right Arm] 98 Blood Pressure Source [Right Arm] Automatic Cuff Blood Pressure Position [Right Arm] Sitting 02 Sat by Pulse Oximetry 98 98 96 Oxygen Delivery Method Room Air 02/13/25 16:00 02/13/25 16:30 02/13/25 16:45 Temperature Temperature Source Pulse Rate 83 70 70 Pulse Rate [Right] Respiratory Rate 16 16 Blood Pressure 134/76 119/68 123/70 Blood Pressure [Right Arm] Blood Pressure Mean 94 96 98 Blood Pressure Mean [Right Arm] Blood Pressure Source [Right Arm] Blood Pressure Position [Right Arm] 02 Sat by Pulse Oximetry 98 96 96 Oxygen Delivery Method 02/13/25 17:00 02/13/25 17:15 02/13/25 17:38 Temperature 98.4 F Temperature Source Pulse Rate 67 75 71 Pulse Rate [Right] Respiratory Rate 16 16 Blood Pressure 117/70 118/68 118/68 Blood Pressure [Right Arm] Blood Pressure Mean 95 Blood Pressure Mean [Right Arm] Blood Pressure Source [Right Arm] Blood Pressure Position [Right Arm] 02 Sat by Pulse Oximetry 88 L 97 Oxygen Delivery Method Room Air Lab Data Lab Results 02/13/25 14:58: WBC 7.4, RBC 4.89, Hgb 13.2, Hct 40.7, MCV 83.2, MCH 27.0, MCHC 32.4, RDW 15.3, Plt Count 223, MPV 10.1, Neut % (Auto) 64.9, Lymph % (Auto) 22.6, Chaves % (Auto) 9.9 H, Eos % (Auto) 2.0, Baso % (Auto) 0.5, Neut # (Auto) 4.8, Lymph # (Auto) 1.7, Chaves # (Auto) 0.7, Eos # (Auto) 0.2, Baso # (Auto) 0.0, Sodium 137, Potassium 4.2, Chloride 104, Carbon Dioxide 23, Anion Gap 14.2, BUN 20 H, Creatinine 0.90, Estimated Creat Clear 52, Estimated GFR 60, Est GFR ( Amer) 73, Glucose 122 H, Calcium 10.5 H, Magnesium 2.1, Total Bilirubin 1.0, AST 51 H, ALT 20, Alkaline Phosphatase 160 H, Troponin I < 0.01, Total Protein 8.2, Albumin 4.3, Globulin 3.9 H, Albumin/Globulin Ratio 1.1, Lipase 103 02/13/25 16:16: Urine Color Yellow, Urine Appearance Clear, Urine pH 6.0, Ur Specific [place] 1.015, Urine Protein Negative, Urine Glucose (UA) Negative, Urine Ketones Negative, Urine Blood Negative, Urine Nitrate Negative, Urine Bilirubin Negative, Urine Urobilinogen 0.2, Ur Leukocyte Esterase 3+ A, Urine RBC Occasional, Urine WBC 20-50, Ur Squamous Epith Cells 10-20, Urine Bacteria 4+ 02/13/25 14:58 02/13/25 14:58 Orders (Tests/Meds): ED MEDICATIONS Discontinued Medications Generic Name Dose Route Start Last Admin Trade Name Jeferson PRN Reason Stop Dose Admin Famotidine 20 mg 02/13/25 14:32 02/13/25 15:21 Famotidine 20mg/2ml Vial IV 02/13/25 14:33 20 mg ONCE ONE Administration Sodium Chloride 1,000 mls @ 999 mls/hr 02/13/25 14:32 02/13/25 15:21 Sod Chlor 0.9% 1000ml Bag IV 02/13/25 15:32 999 mls/hr .Q1H1M ONE Administration Iopamidol 75 ml 02/13/25 15:38 02/13/25 15:38 Iopamidol-370 (76%);100ml Bottle IV 02/13/25 15:39 75 ml ONCE ONE Administration Ketorolac Tromethamine 30 mg 02/13/25 14:32 02/13/25 15:20 Ketorolac 30mg/Ml Vial IV 02/13/25 14:33 30 mg ONCE ONE Administration Ondansetron HCl 4 mg 02/13/25 14:32 02/13/25 15:21 Ondansetron 4mg/2ml Vial IV 02/13/25 14:33 4 mg ONCE ONE Administration Sodium Chloride 8 ml 02/13/25 14:32 Sodium Chloride 0.9% 10ml Vial IV 03/15/25 14:31 NEEDED PRN dilute pepcid Sodium Chloride 10 ml 02/13/25 15:38 02/13/25 15:38 Sodium Chloride 0.9% 10ml Syr (Rad Only) IV 03/15/25 15:37 10 ml NEEDED PRN Administration Maintain IV Site ORDERS Category Date Time Status CT abdomen pelvis w con Stat Cat Scan 02/13/25 14:32 Completed Chest XR -- portable [XR chest portable] Stat Exams 02/13/25 14:33 Completed CBC [Complete Blood Count Auto Diff] Stat Lab 02/13/25 14:58 Completed Comprehensive Metabolic Panel Stat Lab 02/13/25 14:58 Completed Lipase Stat Lab 02/13/25 14:58 Completed Magnesium Stat Lab 02/13/25 14:58 Completed Trop I [Troponin I] Stat Lab 02/13/25 14:58 Completed Urinalysis and Microscopic Stat Lab 02/13/25 16:16 Completed Urine Culture Stat Micro 02/13/25 16:16 Completed ECG Data Tracing #1: I reviewed this ECG and interpreted as documented below: EKG personally interpreted by me demonstrates normal sinus rhythm with a rate of 82 bpm, left axis, OR prolongation consistent with first-degree AV block, wide QRS with right bundle branch block morphology, no QTc prolongation. No ST elevation or depression. No overt signs of ischemia or arrhythmia Medical Decision Narrative: patient is a 79-year-old female presenting to the emergency department for evaluation of lower abdominal pain and 1 episode of vomiting yesterday. Patient is hemodynamically stable and nontoxic-appearing upon arrival, afebrile. On examination she does have maximal tenderness in the LLQ without evidence of guarding or jerrod peritonitis. No flank tenderness to palpation. Heart and lung exam is unremarkable and she is moving air well. Differential diagnosis includes viral illness, UTI, diverticulitis, pyelonephritis, among others. Workup will be conducted with hematologic labs, specific imaging including CT scan of abdomen and pelvis. Initial inventions include crystalloid bolus, analgesics. Labs personally interpreted by me demonstrate and alkaline phosphatase that is chronically elevated, likely secondary to her PBC. Her urine does show 4+ bacteria with leukocyte esterase and a significant amount of white cells, however, she has no nitrates and copious squamous cells so this is likely a contaminated sample. Imaging informally interpreted by me does reveal diverticula from the sigmoid colon with surrounding stranding concerning for diverticulitis -- I will follow up and correlate with the final read. Formal imaging read remarkable for diverticulitis. Upon repeat evaluation patient's pain is improved. Patient is safe for discharge home with Augmentin which should cover for both, potential UTI and diverticulitis. We will follow up culture sensitivities. I discussed with her that she needs to follow-up with Dr. Garcia. Will give patient follow-up for GI as well. She is also seeing urology this month for chronic UTIs. Attestation: I was consulted by the ANGELLA, and we discussed the complexity of problems being addressed. I approved the treatment and management plan for this patient's care in the emergency department, thus performing a substantive portion of the medical decision making. Moises Sauceda DO <Raquel Weber (ED), TRANSIT PROOF MACHINE OPERATOR - Last Filed: 02/13/25 19:23> Medical Records Medical records reviewed: Yes I reviewed the patient's medical records. Isaiah Inquiry Pt receiving controlled substance: No Vital Signs: 02/13/25 14:29 02/13/25 14:30 02/13/25 15:30 Temperature 97.8 F Temperature Source Oral Pulse Rate 85 73 Pulse Rate [Right] 94 H Respiratory Rate 18 Blood Pressure 134/76 143/77 H Blood Pressure [Right Arm] 130/83 Blood Pressure Mean 85 Blood Pressure Mean [Right Arm] 98 Blood Pressure Source [Right Arm] Automatic Cuff Blood Pressure Position [Right Arm] Sitting 02 Sat by Pulse Oximetry 98 98 96 Oxygen Delivery Method Room Air 02/13/25 16:00 02/13/25 16:30 02/13/25 16:45 Temperature Temperature Source Pulse Rate 83 70 70 Pulse Rate [Right] Respiratory Rate 16 16 Blood Pressure 134/76 119/68 123/70 Blood Pressure [Right Arm] Blood Pressure Mean 94 96 98 Blood Pressure Mean [Right Arm] Blood Pressure Source [Right Arm] Blood Pressure Position [Right Arm] 02 Sat by Pulse Oximetry 98 96 96 Oxygen Delivery Method 02/13/25 17:00 02/13/25 17:15 02/13/25 17:38 Temperature 98.4 F Temperature Source Pulse Rate 67 75 71 Pulse Rate [Right] Respiratory Rate 16 16 Blood Pressure 117/70 118/68 118/68 Blood Pressure [Right Arm] Blood Pressure Mean 95 Blood Pressure Mean [Right Arm] Blood Pressure Source [Right Arm] Blood Pressure Position [Right Arm] 02 Sat by Pulse Oximetry 88 L 97 Oxygen Delivery Method Room Air Lab Data Lab Results 02/13/25 14:58: WBC 7.4, RBC 4.89, Hgb 13.2, Hct 40.7, MCV 83.2, MCH 27.0, MCHC 32.4, RDW 15.3, Plt Count 223, MPV 10.1, Neut % (Auto) 64.9, Lymph % (Auto) 22.6, Chaves % (Auto) 9.9 H, Eos % (Auto) 2.0, Baso % (Auto) 0.5, Neut # (Auto) 4.8, Lymph # (Auto) 1.7, Chaves # (Auto) 0.7, Eos # (Auto) 0.2, Baso # (Auto) 0.0, Sodium 137, Potassium 4.2, Chloride 104, Carbon Dioxide 23, Anion Gap 14.2, BUN 20 H, Creatinine 0.90, Estimated Creat Clear 52, Estimated GFR 60, Est GFR ( Amer) 73, Glucose 122 H, Calcium 10.5 H, Magnesium 2.1, Total Bilirubin 1.0, AST 51 H, ALT 20, Alkaline Phosphatase 160 H, Troponin I < 0.01, Total Protein 8.2, Albumin 4.3, Globulin 3.9 H, Albumin/Globulin Ratio 1.1, Lipase 103 02/13/25 16:16: Urine Color Yellow, Urine Appearance Clear, Urine pH 6.0, Ur Specific [place] 1.015, Urine Protein Negative, Urine Glucose (UA) Negative, Urine Ketones Negative, Urine Blood Negative, Urine Nitrate Negative, Urine Bilirubin Negative, Urine Urobilinogen 0.2, Ur Leukocyte Esterase 3+ A, Urine RBC Occasional, Urine WBC 20-50, Ur Squamous Epith Cells 10-20, Urine Bacteria 4+ Orders (Tests/Meds): ED MEDICATIONS Discontinued Medications Generic Name Dose Route Start Last Admin Trade Name Ramanq PRN Reason Stop Dose Admin Famotidine 20 mg 02/13/25 14:32 02/13/25 15:21 Famotidine 20mg/2ml Vial IV 02/13/25 14:33 20 mg ONCE ONE Administration Sodium Chloride 1,000 mls @ 999 mls/hr 02/13/25 14:32 02/13/25 15:21 Sod Chlor 0.9% 1000ml Bag IV 02/13/25 15:32 999 mls/hr .Q1H1M ONE Administration Iopamidol 75 ml 02/13/25 15:38 02/13/25 15:38 Iopamidol-370 (76%);100ml Bottle IV 02/13/25 15:39 75 ml ONCE ONE Administration Ketorolac Tromethamine 30 mg 02/13/25 14:32 02/13/25 15:20 Ketorolac 30mg/Ml Vial IV 02/13/25 14:33 30 mg ONCE ONE Administration Ondansetron HCl 4 mg 02/13/25 14:32 02/13/25 15:21 Ondansetron 4mg/2ml Vial IV 02/13/25 14:33 4 mg ONCE ONE Administration Sodium Chloride 8 ml 02/13/25 14:32 Sodium Chloride 0.9% 10ml Vial IV 03/15/25 14:31 NEEDED PRN dilute pepcid Sodium Chloride 10 ml 02/13/25 15:38 02/13/25 15:38 Sodium Chloride 0.9% 10ml Syr (Rad Only) IV 03/15/25 15:37 10 ml NEEDED PRN Administration Maintain IV Site ORDERS Category Date Time Status CT abdomen pelvis w con Stat Cat Scan 02/13/25 14:32 Completed Chest XR -- portable [XR chest portable] Stat Exams 02/13/25 14:33 Completed CBC [Complete Blood Count Auto Diff] Stat Lab 02/13/25 14:58 Completed Comprehensive Metabolic Panel Stat Lab 02/13/25 14:58 Completed Lipase Stat Lab 02/13/25 14:58 Completed Magnesium Stat Lab 02/13/25 14:58 Completed Trop I [Troponin I] Stat Lab 02/13/25 14:58 Completed Urinalysis and Microscopic Stat Lab 02/13/25 16:16 Completed Urine Culture Stat Micro 02/13/25 16:16 Completed Medical Decision Narrative: patient is a 79-year-old female presenting to the emergency department for evaluation of lower abdominal pain and 1 episode of vomiting yesterday. Patient is hemodynamically stable and nontoxic-appearing upon arrival, afebrile. Differential diagnosis includes viral illness, UTI, diverticulitis, among others. Workup will be conducted with hematologic labs, specific imaging including CT scan of abdomen and pelvis. Initial inventions include crystalloid bolus, analgesics. Initial workup reviewed by me hematologic labs are remarkable for normal white count, UTI. Imaging informally interpreted by me and remarkable for diverticulitis. Formal imaging read remarkable for diverticulitis. Upon repeat evaluation patient's pain is improved. Patient is safe for discharge home with antibiotics for UTI and diverticulitis. I discussed with her that she needs to follow-up with Dr. Garcia. Will give patient follow-up for GI as well. She is also seeing urology this month for chronic UTIs. Critical Care <Raquel Weber (ED), TRANSIT PROOF MACHINE OPERATOR - Last Filed: 02/13/25 19:23> Critical Care Time Critical Care Time: No
--- NOTE | 2025-02-13 14:44 | PC.NURSE ---
1 unsuccessful IV attempt by Dania CERON. plumbing warehouse helper called to have USIV placed. Pt states she has a hx of being a difficult IV stick.
[2025-02-13 15:11] LABS: Hematocrit 40.7 % (37.0-47.0); Hemoglobin 13.2 g/dL (12.2-16.2); Immature Granulocytes % 0.1 %; Mean Corpuscular HGB Conc 32.4 g/dL (31.8-35.4); Mean Corpuscular Hemoglobin 27.0 pg (27.0-31.2); Mean Corpuscular Volume 83.2 fl (81-99); Nucleated Red Blood Cells % 0 %; Platelet Count 223 K/mm3 (142-424); Red Blood Count 4.89 M/mm3 (4.20-5.40); Red Cell Distribution Width-SD 46.7 fL; White Blood Count 7.4 K/mm3 (4.8-10.8)
--- NOTE | 2025-02-13 15:19 | ECG_ITS ---
APPROVED REPORT Exam: Resting ECG HR:82 bpm ECG Measurements Heart Rate 82 AXES UT 208 P 56 QRSd 144 QRS -48 QT 412 T 37 QTc 451 Conclusion SINUS RHYTHM RIGHT BUNDLE BRANCH BLOCK First Degree AV block Left [place] No STEMI Electronically signed by : Moises Sauceda, 02/13/2025 16:42:07
[2025-02-13 15:20] LABS: Alanine Aminotransferase 20 U/L (12-78); Albumin Level 4.3 g/dl (3.5-5.0); Albumin/Globulin Ratio 1.1 (1.1-1.8); Alkaline Phosphatase 160 U/L (38-126); Anion Gap 14.2 mEq/L (5-15); Aspartate Amino Transferase 51 U/L (14-36); Bilirubin,Total 1.0 mg/dl (0.2-1.3); Blood Urea Nitrogen 20 mg/dl (7-17); Calcium 10.5 mg/dl (8.4-10.2); Carbon Dioxide 23 mmol/L (22.0-30.0); Chloride 104 mmol/L (98-107); Creatinine Clearance Estimated 52 mL/min (50-200); Creatinine,Serum 0.90 mg/dl (0.52-1.04); Estimated Glomerular Filt Rate 60 ml/min (>60); GFR (African American) 73 ML/MIN (>60); Globulin 3.9 g/dL (1.3-3.2); Glucose 122 mg/dl (74-100); Potassium 4.2 mmoL/L (3.5-5.1); Sodium 137 mmol/L (136-145); Total Protein,Serum 8.2 g/dl (6.3-8.2)
[2025-02-13] MEDS: KETOROLAC 30MG/ML VIAL 30 MG IV (15:20)
[2025-02-13] MEDS: ONDANSETRON 4MG/2ML VIAL 4 MG IV (15:21)
[2025-02-13] MEDS: FAMOTIDINE 20MG/2ML VIAL 20 MG IV (15:21)
[2025-02-13] MEDS: 0.9 % SODIUM CHLORIDE 1000ML 1,000 ML 999 ML IV (15:21)
[2025-02-13 15:33] LABS: Troponin I < 0.01 ng/ml (0.00-0.034)
[2025-02-13] MEDS: IOPAMIDOL-370 (76%);100ML BOTTLE 75 ML IV (15:38)
[2025-02-13] MEDS: SODIUM CHLORIDE 0.9% 10ML SYR (RAD ONLY) 10 ML IV (15:38)
--- NOTE | 2025-02-13 15:41 | PC.NURSE ---
PT transported to radiology via stretcher by radiology staff.
--- NOTE | 2025-02-13 15:45 | PC.NURSE ---
PT back from Radiology.
[2025-02-13 16:23] LABS: Microscopic, Urine URINE MICROSCOPIC (MICROSCOPIC)
[2025-02-13 16:28] LABS: Bilirubin,Urine Negative (Negative); Color,Urine YELLOW (Yellow); Glucose,Urine (UA) Negative (Negative); Ketones,Urine Negative (Negative); Leukocyte Esterase,Urine 3+ (Negative); PH,Urine 6.0 (5.0-8.5); Protein,Urine Negative (Negative); Specific Gravity, Urine 1.015 (1.005-1.030); Urobilinogen,Urine 0.2 EU/dl (0.2)
[2025-02-13 16:29] LABS: Lipase 103 U/L (23-300); Magnesium 2.1 mg/dl (1.6-2.3)
[2025-02-13 17:51] LABS: Bacteria,Urine 4+ /lpf; RBC,Urine Occasional #/hpf (0-3); WBC,Urine 20-50 #/hpf (0-3)
== END 2025-02-13 17:40 | disposition home or self-care (01) ==
PROVIDERS: Nurse Practitioner; Emergency Provider Student in an Organized Health Care Education/Training Program; PCP Family Medicine
DX: R10.30 Lower abdominal pain, unspecified (principal); N39.0 Urinary tract infection, site not specified; K57.32 Diverticulitis of large intestine without perforation or abscess without bleeding; I45.10 Unspecified right bundle-branch block; R11.2 Nausea with vomiting, unspecified; I10 Essential (primary) hypertension
CPT/HCPCS: 71045; 74177; 80053; 81001; 83690; 83735; 84484; 85025; 87086; 93005; 96361; 96374; 96375; 99285; J1885; J2405; J7030; Q9967

== ENCOUNTER 2025-05-14 11:32 | Outpatient (CLI) | payer MEDICARE, SELFPAY ==
[2025-05-14 08:18] VITALS: BMI 27.4
--- OUTSIDE RECORDS SUMMARY | 2025-05-14 11:34 | XMS_ITS | Patient Health Record ---
Author Organization [facility] Address [address] [facility] [address] [place] [address] Care Team Providers Care Slurry Worker Name Role Phone Mitra Helms Unavailable [phone] Allergies Allergen (clinical drug ingredient) Drug/Non Drug Allergy documented on EMR Reaction Allergy Type Onset Date Status FLOXIN (uncoded) Unspecified Allergy 9 Active STADOL (BUTORPHANOL TARTRATE) Unspecified Drug Allergy 05/05/2019 Active sulfamethoxazole / trimethoprim SULFAMETHOXAZOLE-T RIMETHOPRIM Unspecified Drug Allergy 05/05/2019 Active Reason For Referral No Information Problems Problem Type SNOMED Code ICD Code Onset Dates Problem Status W/U Status Risk Notes Problem Complete uterine prolapse (51373652) Complete uterine prolapse (N81.3) 9 Active confirmed Complete prolapse of vaginal vault Plan Of Treatment No Information Medical (General) History Medical History History ICD Code Abnormal Pap Smear Acid Reflux Depression High Blood Pressure Liver disease Obesity Sjogren's Syndrome JORGE Ulcers Urinary tract infections Yeast Infection URSODIOL 300 MG ORAL CAPSULE, ORAL ASPIRIN TABLET CITALOPRAM HYDROBROMIDE 40 MG ORAL TABLE T, ORAL PROTONIX PACKET Surgical History Surgery Date(Month/Year) Tubal Appendectomy Gallbladder removed Hysterectomy Bladder prolapse surg. x 2 Rotator cuff repair D&C Exploratory surg. Bladder
--- OUTSIDE RECORDS SUMMARY | 2025-05-14 11:34 | XMS_ITS | Clinical Summary ---
Author Organization [facility] Address [address] [place] [address] Phone Care Team Providers Care Surveyor Instrument Assistant Name Role Phone Dk Wilde MD [ ] Conditions or Problems Problem Name Problem Code Onset Date Status Entry Date Provider Comment Standard Description Annotate Other obesity due to excess calories 083088581 (SNOMED CT) 09/16 Active 09/16 Alejandra Ybarra Simple obesity Seizures with provoking factor 3020523323804 00 (SNOMED CT) 09/05 Active 09/05 Dk Wilde MD Acute repetitive seizure Heart murmur, systolic 34720503 (SNOMED CT) 09/05 Active 09/05 Dk Wilde MD Systolic murmur Thrush, oral 93511302 (SNOMED CT) 09/05 Active 09/05 Dk Wilde MD Candidiasis of mouth Primary biliary cirrhosis 48514091 (SNOMED CT) 09/05 Active 09/05 Dk Wilde MD Primary biliary cholangitis Benign Essential Hypertension 21998215 (SNOMED CT) 09/03 Active 09/03 Ayana Romulo Benign hypertension Urinary tract infection (UTI) 23026753 (SNOMED CT) 09/03 Active 09/03 Ayana Romulo Urinary tract infectious disease Pseudomonas infection 48849564 (SNOMED CT) 09/03 Active 09/03 Ayana Romulo Bacterial infection caused by Pseudomonas Medications Medication Instructions Start Date Stop Date Generic Name NDC Provider METHENAMINE HIPPURATE 1 GM TABS Take 1 tablet by mouth once a day methenamine hippurate [id number] Dk Wilde MD Diflucan 200 mg tablet Take 1 tablet by mouth once a day fluconazole 83164864902 Dk Wilde MD SOLIFENACIN SUCCINATE 10 MG TABS by mouth once daily solifenacin 42910809873 Sharmaine Chatman Diflucan 200 mg tablet Take 1 tablet by mouth once a day fluconazole 27405854420 Dk Wilde MD MEROPENEM 1 GM SOLR Merrem 2gm IV Q24hrs INPAT meropenem 71034396346 Sarah Josefa METHENAMINE HIPPURATE 1 GM TABS 1 tab po bid methenamine hippurate 73795729759 Alejandra Ybarra MEROPENEM 1 GM SOLR Merrem 2gm IV Q24hrs INPAT meropenem 66908366995 Sarah Josefa MEROPENEM 1 GM SOLR Merrem 2gm IV Q24hrs meropenem 06644469565 Sarah Rivero NYSTATIN 731132 UNIT/GM CREA nystatin 25337445018 Dk Wilde MD NYSTATIN 839743 UNIT/ML SUSP Take 5 ml to inside of mouth (buccal) four times a day swish and swallow until oral thrush is gone nystatin 03639566641 Dk Wilde MD NYSTATIN 460344 UNIT/GM CREA nystatin 59269874923 Sarah Hooper TOPIRAMATE 200 MG TABS topiramate 25892935014 Hope Minor URSODIOL 500 MG TABS ursodiol 04702898149 Hope Minor PANTOPRAZOLE SODIUM 40 MG TBEC pantoprazole 02527019858 Hope Minor CITALOPRAM HYDROBROMIDE 40 MG TABS citalopram 05002325978 Hope Minor ESTRADIOL 0.1 MG/GM CREA estradiol 21509527140 Hope Minor METHENAMINE HIPPURATE 1 GM TABS methenamine hippurate 83943577836 Hope Minor TOPIRAMATE 200 MG TABS topiramate 92385024058 Hope Minor ASPIRIN EC 81 MG TBEC 1 tab po daily aspirin 72661702220 Hope alfaro CITALOPRAM HYDROBROMIDE 40 MG TABS 1 tab po daily citalopram 13406454553 Hope alfaro ESTRADIOL 0.1 MG/GM CREA Apply a fingertip amount to urethral meatus every other night estradiol 89499571773 Hope Minor METHENAMINE HIPPURATE 1 GM TABS 1 tab po bid methenamine hippurate 35744925564 Hope Minor PANTOPRAZOLE SODIUM 40 MG TBEC 1 tab po daily pantoprazole 97454854194 Hope michel URSODIOL 500 MG TABS 1 tab po daily ursodiol 82977033536 Hope alfaro TURMERIC 500 MG CAPS turmeric-turmeri c root extract 44306701051 Hope Minor VITAMIN D (ERGOCALCIFEROL ) 1.25 MG (48651 UT) CAPS ergocalciferol (vitamin d2) 93047779919 Hope Minor VITAMIN C 100 MG TABS ascorbic acid (vitamin c) 95561288638 Hope Minor zinc acetate unspecified unspecified zinc acetate Hope Minor Medications Administered No information available. Allergies, Adverse Reactions, Alerts Allergy Name Reaction Description Start Date Severity Status Provider SULFAMETHOXAZOLE-TR IMETHOPRIM Itching Mild Active Dk Wilde MD STADOL Puritis, itching Mild Active Scarlet Wilde MD PREDNISONE Nausea Mild Active Dk connors MD FLOXINS Hives Moderate Active Dk vallecillo MD TETRACYCLINE HCL Mild Active Missael yanci Minor SULFUR Mild Active Hope alfaro SULFAMETHOXAZOLE-TR IMETHOPRIM Mild No Longer Active Hopemeena Minor STADOL puritis Mild No Longer Active Hopemeena Minor SAVELLA Mild Active Hope Aleksandar dominic QUINOLONES Mild Active Hope Felix ng PROCARDIA XL Mild Active Hopemeena Minor PREDNISONE Mild No Longer Active Hopemeena Minor METHOTREXATE Mild Active Hopemeena Minor LEXAPRO Mild Active Hope alfaro HYDROCODONE [...] CPT-porsha New IV antibiotic CPT-sl STAT Labs CPT-88248 PICC Line Insertion CPT-cwl Weekly Labs (Continue) 07/09 CPT-wpc Weekly PICC Line Care 09/08 CPT-porsha New IV antibiotic CPT-Cooral Continue oral antibiotics 03/07/25 CPT-27527 Urinalysis with microscopic exam CPT-00197 Urine Culture & Sensitivity Vital Signs Date [...] Start Date HAS LIVING WILL POWER OF PHYSICAL EDUCATION SPECIALIST
--- NOTE | 2025-05-14 11:38 | XR_ITS ---
FINAL REPORT TECHNIQUE: Chest PA & Lateral CLINICAL HISTORY: pre-op evaluation COMPARISON: 09/11/2024 FINDINGS: 2 views of the chest were performed. The heart size is normal. The mediastinum is within normal limits. There is no acute cardiopulmonary process. There are no pleural effusions. There is no pneumothorax. The bony thorax appears intact. IMPRESSION: No acute cardiopulmonary process. Reviewed, Interpreted and Dictated by Ochoa Rdz MD Transcribed by Dari Garcia Authenticated and [facility]
--- NOTE | 2025-05-14 11:46 | ECG_ITS ---
APPROVED REPORT Exam: Resting ECG HR:78 bpm ECG Measurements Heart Rate 78 AXES MA 207 P 26 QRSd 134 QRS -49 QT 380 T 18 QTc 414 Conclusion SINUS RHYTHM RIGHT BUNDLE BRANCH BLOCK [120+ ms QRS DURATION, UPRIGHT V1, 40+ ms S IN I/aVL/V4/V5/V6] LEFT ANTERIOR FASCICULAR BLOCK [QRS AXIS <= -45, QR IN I, RS IN II] VOLTAGE CRITERIA FOR LVH [MEETS CRITERIA IN ONE OF: R(aVL), S(V1), R(V5), R(V5/V6)+S(V1)] POSSIBLE ANTERIOR MYOCARDIAL INFARCTION , OF INDETERMINATE AGE [30 ms Q WAVE IN V3/V4, OR R < 0.2 mV IN V4] ABNORMAL ECG UNCONFIRMED REPORT Electronically signed by : Carrillo Huff MD 05/18/2025 17:05:17
[2025-05-14 12:00] LABS: Hematocrit 41.2 % (37.0-47.0); Hemoglobin 12.8 g/dL (12.2-16.2); Mean Corpuscular HGB Conc 31.1 g/dL (31.8-35.4); Mean Corpuscular Hemoglobin 27.4 pg (27.0-31.2); Mean Corpuscular Volume 88.2 fl (81-99); Platelet Count 199 K/mm3 (142-424); Red Blood Count 4.67 M/mm3 (4.20-5.40); White Blood Count 5.8 K/mm3 (4.8-10.8)
[2025-05-14 12:14] LABS: Anion Gap 12.5 mEq/L (5-15); Blood Urea Nitrogen 21 mg/dl (7-17); Calcium 11.0 mg/dl (8.4-10.2); Carbon Dioxide 30 mmol/L (22.0-30.0); Chloride 105 mmol/L (98-107); Creatinine Clearance Estimated 51 mL/min (50-200); Creatinine,Serum 0.90 mg/dl (0.52-1.04); Estimated Glomerular Filt Rate 60 ml/min (>60); GFR (African American) 73 ML/MIN (>60); Glucose 123 mg/dl (74-100); Potassium 4.5 mmoL/L (3.5-5.1); Sodium 143 mmol/L (136-145)
[2025-05-14 12:40] LABS: Total Cells Counted 100
[2025-05-14 12:41] LABS: RBC Morphology Normal
== END 2025-05-14 23:59 | disposition home or self-care (01) ==
LOC: PREOP 11:33
PROVIDERS: Otolaryngology; PCP Family Medicine; Visit Provider Otolaryngology
DX: Z01.810 Encounter for preprocedural cardiovascular examination (principal); Z01.811 Encounter for preprocedural respiratory examination; Z01.812 Encounter for preprocedural laboratory examination; I45.2 Bifascicular block; R94.31 Abnormal electrocardiogram [ECG] [EKG]
CPT/HCPCS: 71046; 80048; 85007; 85014; 85018; 85048; 85049; 93005

== ENCOUNTER 2025-05-18 10:00 | Day surgery (SDC) | payer MEDICARE, SELFPAY ==
[2025-05-17 10:16] VITALS: BMI 27.4
[2025-05-18] VITALS (8 sets, daily range): BP systolic 113–133; BP diastolic 64–75; PULSE 68–77; RESP 16–18; TEMP 36.1; O2SAT 96–100; BMI 27.4
[2025-05-18] MEDS: LACTATED RINGERS 1000ML 1,000 ML 25 ML IV (11:25)
--- NOTE | 2025-05-18 11:33 | EXP.ANES.CKL ---
[facility] Disclaimer: The information contained in this section may have been updated after the patient was seen, as this information can be updated by other users. Medical History History of cirrhosis Serous otitis media Chronic dysfunction of both eustachian tubes Fluid level behind tympanic membrane of both ears Moderately severe hearing loss Impacted cerumen of right ear Sensorineural hearing loss (SNHL) of both ears Chronic eustachian tube dysfunction Cholecystectomy planned Dilated bile duct Diverticulitis Nausea, vomiting, and diarrhea Generalized weakness Physical deconditioning Weakness Hypertensive urgency Elevated liver enzymes Left leg pain Alkaline phosphatase elevation Hypothyroidism HTN (hypertension) Surgical History History of appendectomy History of arthroplasty of right shoulder Previous back surgery Family History Other Family history of CHF (congestive heart failure) Family history of cancer Social History Smoking Status: Never smoker alcohol intake: never substance use type: denies use current occupational status: retired and other Travel in the last 8 weeks?: Inside the [place] Have you lived/traveled outside [place] in past 30 days?: No Contact w/someone who lives/traveled outside US past 30 days?: No Exposure to someone with infectious disease in past 14 days?: No Do you have a fever (greater than 100.4 F or 38 C)?: No Have you tested positive for COVID-19?: No Exposed to someone with COVID-19 in past 14 days?: No Do you have a sore throat?: No Do you have a cough?: No Do you have any weakness?: No Are you experiencing any nausea/vomitting?: No Do you have any diarrhea?: No Are you experiencing any unusual bleeding?: No Do you have any muscle aches/pain?: No Do you have any abdominal pain?: No Are you experiencing loss of taste or smell?: No [facility] Anesthesia Checklist Patient Identification Patient Identification: Arm Band and Verbal (Name & ) Structural Data Admitted From: Home Planned Operative Procedure/s: ear tubes Consent for Planned Operative Procedure(s) Verified: Yes Verified Documents: Surgical Consent NPO Status Verified Time NPO: 00:00 Additional verifications Anesthesia Reactions: No Hx Blood Transfusions: No Blood Transfusion Reaction: No Airway Assessment Mallampati Score:: Class II Dentition: Edentulous Neurological Assessment Level of Consciousness: Awake, Alert and Appropriate Hx Seizures: No Numbness or tingling in extremities: No Anesthesia Plan Anesthesia Risk discussed: Yes Anesthesia Plan: Verified ASA Class: II Anesthesia Type: General
[2025-05-18] MEDS: CIPRO 0.3%-DEX 0.1% OTIC SUSP 7.5ML 7.5 ML OT (11:57)
--- NOTE | 2025-05-18 12:00 | EXP.OP.NOTE ---
Date of procedure: 05/18/25 Pre-op Diagnosis:: Chronic serous otitis media Post-op Diagnosis:: Chronic serous otitis media Procedure performed:: Bilateral tympanostomy and tube placement Surgeon:: Virgilio Schultz MD Anesthesia: GETTito Estimated blood loss (mL): 0 Operative findings:: Serous middle ear effusion right middle ear space, left middle ear space was clear Operative note:: The patient was brought to the operating room and after adequate general anesthesia the ears were draped in the usual sterile fashion and the operating microscope was employed to visualize her tympanic membranes. Tympanostomies were made in the anterior-inferior quadrant and this was done bilaterally. Suction was used to clear the middle ear space of effusion and then T tubes were placed bilaterally and Ciprodex drops applied and the procedure concluded. All counts correct and blood loss 0 Condition: stable Disposition: PACU Complications:: No complication
== END 2025-05-18 13:20 | disposition home or self-care (01) ==
PROVIDERS: PCP Family Medicine; Visit Provider Otolaryngology
DX: H65.23 Chronic serous otitis media, bilateral (principal); K74.60 Unspecified cirrhosis of liver; Z96.20 Presence of otological and audiological implant, unspecified; Z88.2 Allergy status to sulfonamides; Z88.8 Allergy status to other drugs, medicaments and biological substances; Z88.5 Allergy status to narcotic agent; Z79.899 Other long term (current) drug therapy
CPT/HCPCS: 69436; J2003; J2405; J2704; J3010; J7120

== ENCOUNTER 2025-07-31 15:51 | Emergency (ER) | payer MEDICARE, SELFPAY ==
[2025-07-31] VITALS (7 sets, daily range): BP systolic 117–143; BP diastolic 74–93; PULSE 87–108; RESP 18; TEMP 36.6; O2SAT 94–97; BMI 29.1
--- NOTE | 2025-07-31 16:04 | CT_ITS ---
PROCEDURE INFORMATION: Exam: CT Abdomen And Pelvis With Contrast Exam date and time: 07/31/2025 4:47 PM Age: 80 years old Clinical indication: Constipation; Prior surgery; Surgery date: 6+ months; Surgery type: Appendectomy; Additional info: Right flank pain, PT feels she is constipated despite having daily bowel movements. TECHNIQUE: Imaging protocol: Computed tomography of the abdomen and pelvis with contrast. Radiation optimization: All CT scans at this facility use at least one of these dose optimization techniques: automated exposure control; mA and/or kV adjustment per patient size (includes targeted exams where dose is matched to clinical indication); or iterative reconstruction. Contrast material: ISOVUE; Contrast volume: 75 ml; Contrast route: IV; COMPARISON: CT ABDOMEN PELVIS W CON 02/13/2025 3:40 PM FINDINGS: Tubes, catheters and devices: Mild intrahepatic and extrahepatic biliary dilatation with CBD measuring up to 12 mm in diameter having differential diagnosis of reservoir physiology status post cholecystectomy versus biliary obstruction. Lungs: Dependent bilateral lung base opacities favor atelectasis. Liver: Diffuse hypoattenuation of the liver compatible with moderate hepatic steatosis. Gallbladder and biliary ducts: There are surgical clips within the gallbladder fossa. Pancreas: Normal. No ductal dilation. Spleen: Normal. No splenomegaly. Adrenal glands: Normal. No mass. Kidneys and ureters: Multiple Bosniak 1 renal cystic lesions defined as homogeneous and fluid density (-9 to 20 HU), no septations or calcifications, having reilly smooth and thin. Largest cyst measures 2.3 cm. No follow-up recommended. Stomach and bowel: Mild thickening and edema of the gastric antrum compatible with gastritis. Large stool burden throughout the colon with stool distending the rectum which has inflammatory changes compatible with stercoral colitis. Appendix: No evidence of appendicitis. Intraperitoneal space: Unremarkable. No free air. No significant fluid collection. Vasculature: Moderate calcific atherosclerotic disease of the abdominal aorta without aneurysmal dilatation is present. Lymph nodes: Unremarkable. No enlarged lymph nodes. Urinary bladder: Unremarkable as visualized. Reproductive: Unremarkable as visualized. Bones/joints: Unremarkable. No acute fracture. Soft tissues: Normal. IMPRESSION: 1. Mild intrahepatic and extrahepatic biliary dilatation with CBD measuring up to 12 mm in diameter having differential diagnosis of reservoir physiology status post cholecystectomy versus biliary obstruction. MRCP or ERCP may further define. 2. Mild thickening and edema of the gastric antrum compatible with gastritis. 3. Large stool burden throughout the colon with stool distending the rectum which has inflammatory changes compatible with stercoral colitis. COMMENTS: Consistent with the [employer]'s Incidental Findings Committee white paper (J Am Kristy Radiol 2018): Any incidental renal lesion less than 1 cm or classified as too small to characterize, or any incidental cystic renal lesion characterized as simple-appearing, is likely benign. No follow-up imaging is recommended for these lesions per consensus recommendations based on imaging criteria.
--- NOTE | 2025-07-31 16:04 | ECG_ITS ---
APPROVED REPORT Exam: Resting ECG HR:99 bpm ECG Measurements Heart Rate 99 AXES IN 209 P 42 QRSd 145 QRS -61 QT 366 T 35 QTc 423 Conclusion Normal sinus rhythm no ST elevation or depressions, T wave inversions in V1, right bundle branch block Electronically signed by : Gem Thompson, 07/31/2025 23:03:23
--- NOTE | 2025-07-31 16:06 | ED_ITS ---
Discharge Plan Disposition Patient Disposition: Home, Self-Care Prescriptions Prescriptions: New bisacodyl [Dulcolax (bisacodyl)] 5 mg tablet,delayed release (DR/EC) 5 mg PO DAILY 2 Days Qty: 2 0RF polyethylene glycol 3350 [Miralax] 17 gram/dose powder 17 g PO BID 14 Days Qty: 476 0RF No Action estradiol 0.01 % (0.1 mg/gram) cream 0.1 appful vaginal DAILY Patient Comments: APPLY A FINGERTIP AMOUNT TO URETHRAL MEATUS EVERY NIGHT venlafaxine 75 mg capsule,extended release 24hr 75 mg PO QAM Patient Comments: TAKE 1 CAPSULE BY MOUTH EVERY DAY DIRECTED FOR MOOD amlodipine 5 mg tablet 5 mg PO DAILY Patient Comments: TAKE 1 TABLET BY MOUTH EVERY DAY fesoterodine 8 mg tablet extended release 24 hr 8 mg PO .daily Patient Comments: TAKE 1 TABLET BY MOUTH EVERY DAY Livdelzi 10 mg capsule 10 mg PO DAILY Qty: 30 12RF Rx Instructions: Please take 1 capsule p.o. daily fluticasone propionate 50 mcg/actuation spray,suspension See Rx Instructions .ROUTE .COMPLEX Qty: 16 2RF Dose Instruction: SHAKE LIQUID AND USE 1 SPRAY IN EACH NOSTRIL TWICE DAILY Rx Instructions: SHAKE LIQUID AND USE 1 SPRAY IN EACH NOSTRIL TWICE DAILY oxybutynin chloride 10 mg tablet extended release 24hr 10 mg PO DAILY Patient Comments: TAKE 1 TABLET BY MOUTH EVERY DAY ursodiol 300 mg Capsule 600 mg PO BID 30 Days Qty: 120 0RF Referrals Follow up/Referrals: George Garcia MD [Primary Care Provider, Medical] - See instructions Activity Restrictions/Add. Instructions Additional Instructions/Restrictions: Increase fluids and rest. Take Dulcolax every day. Clinical Impressions Clinical Impression: Constipation Clinical Impression: (Ruled Out): Moderately severe hearing loss Instructions Patient Instructions: Constipation Print Language Print Language: [place] Discharge ED Provider: Gem Thompson General Adult HPI <Raquel Weber (ED), POCKET SECRETARY ASSEMBLER - Last Filed: 07/31/25 18:57> General Chief complaint: Weakness Stated complaint: Constipated,nausea Time Seen by Provider: 07/31/25 15:54 History of Present Illness HPI narrative: 80-year-old female presents to the ED for complaint of weakness, nausea, constipation. She has no abdominal pain. She has less appetite today but ate fine yesterday. She has chronic UTIs. She takes meds every day for this. Yesterday she took something to help her have a bowel movement. She did have 1 today but says she still feels constipated. She has no fevers or chills. No chest pain or shortness of breath. Just weakness. Related Data Home Medications ?Medication ?Instructions ?Recorded ?Confirmed oxybutynin chloride 10 mg 10 mg PO DAILY 10/08/2412/04 tablet,extended release 24 hr estradiol 0.01% (0.1 mg/gram) 0.1 appful vaginal DAILY 02/03/25 06/15/25 vaginal cream amlodipine 5 mg tablet 5 mg PO DAILY 06/15/2506/15 fesoterodine 8 mg tablet,extended 8 mg PO .daily 06/1506/15/25 release 24 hr venlafaxine 75 mg capsule,extended 75 mg PO QAM 06/15/25 release 24 hr Previous Rx's ?Medication ?Instructions ?Recorded ursodiol 300 mg capsule 600 mg (2 x 300 mg) PO BID 3 0 days 10/09/24 #120 caps seladelpar 10 mg capsule (Livdelzi) 10 mg PO DAILY #30 caps 12/01/24 fluticasone propionate 50 See Rx Instructions .Route 1 mcg/actuation nasal .COMPLEX #16 grams spray,suspension bisacodyl 5 mg tablet,delayed 5 mg PO DAILY 2 days #2 tabs 07/31/25 release (Dulcolax (bisacodyl)) polyethylene glycol 3350 17 17 g PO BID 14 days #476 g felipa 07/31/25 gram/dose oral powder (Miralax) Allergies Allergy/AdvReac Type Severity Reaction Status Date / Time butorphanol (From Stadol) Allergy Unknown Verified 06/15/25 13:01 allergy reaction ofloxacin (From Floxin) Allergy Hives Verified 06/15/25 13:01 prednisone Allergy Nausea Verified 06/15/25 13:01 Sulfa (Sulfonamide Allergy Unknown Verified 06/15/25 13:01 Antibiotics) allergy reaction ON LICENSE OF [facility] <Raquel Weber (ED), POCKET SECRETARY ASSEMBLER - Last Filed: 07/31/25 18:57> ON LICENSE OF [facility] Disclaimer: The information contained in this section may have been updated after the patient was seen, as this information can be updated by other users. Medical History (Updated 07/31/25 @ 18:35 by Raquel NAVA), POCKET SECRETARY ASSEMBLER) History of cirrhosis Serous otitis media Chronic dysfunction of both eustachian tubes Fluid level behind tympanic membrane of both ears Moderately severe hearing loss Impacted cerumen of right ear Sensorineural hearing loss (SNHL) of both ears Chronic eustachian tube dysfunction Cholecystectomy planned Dilated bile duct Diverticulitis Nausea, vomiting, and diarrhea Generalized weakness Physical deconditioning Weakness Hypertensive urgency Elevated liver enzymes Left leg pain Alkaline phosphatase elevation Hypothyroidism HTN (hypertension) Surgical History (Updated 06/15/25 @ 13:05 by ELY Javier) Status post myringotomy with tube placement of both ears History of appendectomy History of arthroplasty of right shoulder Previous back surgery Family History Other Family history of CHF (congestive heart failure) Family history of cancer Social History Smoking Status: Never smoker alcohol intake: never substance use type: denies use current occupational status: retired and other Travel in the last 8 weeks?: Inside the [place] Have you lived/traveled outside US in past 30 days?: No Contact w/someone who lives/traveled outside US past 30 days?: No Exposure to someone with infectious disease in past 14 days?: No Do you have a fever (greater than 100.4 F or 38 C)?: Yes Have you tested positive for COVID-19?: No Exposed to someone with COVID-19 in past 14 days?: No Do you have a sore throat?: No Do you have a cough?: No Do you have any weakness?: Yes Do you have any diarrhea?: Yes Are you experiencing any unusual bleeding?: No Do you have any muscle aches/pain?: No Do you have any abdominal pain?: No Are you experiencing loss of taste or smell?: No Other Medical History Have you received the Flu Vaccine for this season: No Have you received the Pneumonia Vaccine: Yes <Raquel NAVA), POCK[employer] SECRETARY ASSEMBLER - Last Filed: 07/31/25 18:57> ROS Obtained: Yes Systems reviewed as appropriate & no additional complaints except as documented Constitutional Constitutional: Reports as per HPI Physical Exam <Raquel Anguianocollins (ED), POCKET SECRETARY ASSEMBLER - Last Filed: 07/31/25 18:57> General General appearance: alert Head Head exam: normocephalic Eye Eye exam: Present PERRL and EOMI ENT ENT exam: Present normal oropharynx and mucous membranes moist Neck Neck exam: Present full ROM and trachea midline Respiratory Respiratory exam: Present normal lung sounds bilaterally Cardiovascular Cardiovascular exam: Present regular rate, normal rhythm, normal heart sounds, +S1 and +S2 Abdominal Exam Abdominal exam: Present soft and normal bowel sounds Extremities Exam Extremities exam: Present full ROM and normal capillary refill Neurological Exam Neurological exam: Present alert and oriented X3 Skin Skin exam: Present warm and dry Medical Decision Making <Raquel Anguianocollins (ED), POCK[employer] SECRETARY ASSEMBLER - Last Filed: 07/31/25 18:57> Medical Records Screening: Per USPSTF and CDC recommendations, given the prevalence of disease in our region, it is our hospital?s policy to screen for HIV and viral Hepatitis for all patients aged 18 and over and those with ongoing risk factors. Isaiah Inquiry Pt receiving controlled substance: No Isaiah was queried for this patient: No Vital Signs: 07/31/25 16:01 07/31/25 16:03 07/31/25 16:11 Temperature 97.9 F Temperature Source Oral Pulse Rate 108 H 98 H Pulse Rate [Right] 90 Respiratory Rate 18 Blood Pressure 143/93 H 124/88 Blood Pressure [Right Arm] 124/88 Blood Pressure Mean [Right Arm] 100 02 Sat by Pulse Oximetry 94 L 97 97 Oxygen Delivery Method Room Air 07/31/25 16:30 07/31/25 17:05 07/31/25 18:13 Temperature Temperature Source Pulse Rate 94 H 87 Pulse Rate [Right] Respiratory Rate Blood Pressure 117/81 130/74 134/76 Blood Pressure [Right Arm] Blood Pressure Mean [Right Arm] 02 Sat by Pulse Oximetry 94 L 96 95 Oxygen Delivery Method Room Air 07/31/25 19:04 Temperature 98 F Temperature Source Pulse Rate 89 Pulse Rate [Right] Respiratory Rate 18 Blood Pressure 134/76 Blood Pressure [Right Arm] Blood Pressure Mean [Right Arm] 02 Sat by Pulse Oximetry Oxygen Delivery Method Lab Data Lab Results 07/31/25 16:12: WBC 9.0, RBC 4.99, Hgb 14.4, Hct 43.4, MCV 87.0, MCH 28.9, MCHC 33.2, RDW 14.8, Plt Count 227, MPV 10.5 H, Neut % (Auto) 68.2, Lymph % (Auto) 19.0, [place] % (Auto) 10.6 H, Eos % (Auto) 1.3, Baso % (Auto) 0.6, Neut # (Auto) 6.1, Lymph # (Auto) 1.7, [place] # (Auto) 1.0, Eos # (Auto) 0.1, Baso # (Auto) 0.1, Sodium 137, Potassium 3.5, Chloride 105, Carbon Dioxide 24, Anion Gap 11.5, BUN 22 H, Creatinine 1.00, Estimated Creat Clear 56, Estimated GFR 53 L, Est GFR ( Amer) 65, Glucose 206 H, Lactate 2.1, Calcium 11.0 H, Magnesium 2.2, Total Bilirubin 0.6, AST 35, ALT 21, Alkaline Phosphatase 146 H, Troponin I < 0.01, Total Protein 7.7, Albumin 4.3, Globulin 3.4 H, Albumin/Globulin Ratio 1.3, Lipase 93 07/31/25 16:16: SARS-CoV-2 (PCR) Not detected, Influenza A Untype (PCR) Not detected, Influenza Type B (PCR) Not detected 07/31/25 17:45: Urine Color Yellow, Urine Appearance Clear, Urine pH 6.0, Ur Specific [place] 1.010, Urine Protein Negative, Urine Glucose (UA) Trace, Urine Ketones Negative, Urine Blood Negative, Urine Nitrate Negative, Urine Bilirubin Negative, Urine Urobilinogen 0.2, Ur Leukocyte Esterase Negative, Urine RBC None, Urine WBC None, Ur Squamous Epith Cells None, Urine Bacteria None 07/31/25 16:12 07/31/25 16:12 Orders (Tests/Meds): ED MEDICATIONS Discontinued Medications Generic Name Dose Route Start Last Admin Trade Name Freq PRN Reason Stop Dose Admin Famotidine 20 mg 07/31/25 16:04 07/31/25 16:15 Famotidine 20mg/2ml Vial IV 07/31/25 16:05 20 mg ONCE ONE Administration Sodium Chloride 1,000 mls @ 999 mls/hr 07/31/25 16:04 07/31/25 18:04 Sod Chlor 0.9% 1000ml Bag IV 07/31/25 17:04 Infused .Q1H1M ONE Infusion Iopamidol 75 ml 07/31/25 16:43 07/31/25 16:44 Iopamidol-370 (76%);100ml Bottle IV 07/31/25 16:44 75 ml ONCE ONE Administration Ondansetron HCl 4 mg 07/31/25 16:04 07/31/25 16:16 Ondansetron 4mg/2ml Vial IV 07/31/25 16:05 4 mg ONCE ONE Administration Sodium Chloride 8 ml 07/31/25 16:04 Sodium Chloride 0.9% 10ml Vial IV 08/30/25 16:03 NEEDED PRN dilute pepcid Sodium Chloride 10 ml 07/31/25 16:43 07/31/25 16:44 Sodium Chloride 0.9% 10ml Syr (Rad Only) IV 08/30/25 16:42 10 ml NEEDED PRN Administration Maintain IV Site Sodium Phosphate 133 ml 07/31/25 16:09 Sodium Phos/Biphosphate Fleet 133ml Enema RC 07/31/25 16:10 ONCE ONE ORDERS Category Date Time Status CT abdomen pelvis w con Stat Cat Scan 07/31/25 16:04 Completed CBC [Complete Blood Count Auto Diff] Stat Lab 07/31/25 16:12 Completed Comprehensive Metabolic Panel Stat Lab 07/31/25 16:12 Completed Lactic Acid Stat Lab 07/31/25 16:12 Completed Lipase Stat Lab 07/31/25 16:12 Completed Magnesium Stat Lab 07/31/25 16:12 Completed Rapid PCR Covid and Flu A/B Stat Lab 07/31/25 16:16 Completed Trop I [Troponin I] Stat Lab 07/31/25 16:12 Completed Urinalysis and Microscopic Stat Lab 07/31/25 17:45 Completed Medical Decision Narrative: patient is a 80-year-old female presenting to the emergency department for evaluation of constipation, nausea. Patient is hemodynamically stable and nontoxic-appearing upon arrival, afebrile. Differential diagnosis includes constipation, bowel obstruction, UTI, among others. Workup will be conducted with hematologic labs, specific imaging, provocative tests. Initial inventions include crystalloid bolus, analgesics, antibiotics. Initial workup reviewed by me hematologic labs are remarkable CT scan showed large stool burden. Patient had to be manually disimpacted and given an enema to produce a bowel movement. Patient is stable. Patient's labs were stable for the most part. Her glucose was a little elevated and her calcium was 11 otherwise troponin was negative . Patient will be safe for discharge home once bowel movement. <Gem Thompson MD - Last Filed: 07/31/25 21:02> Vital Signs: 07/31/25 16:01 07/31/25 16:03 07/31/25 16:11 Temperature 97.9 F Temperature Source Oral Pulse Rate 108 H 98 H Pulse Rate [Right] 90 Respiratory Rate 18 Blood Pressure 143/93 H 124/88 Blood Pressure [Right Arm] 124/88 Blood Pressure Mean [Right Arm] 100 02 Sat by Pulse Oximetry 94 L 97 97 Oxygen Delivery Method Room Air 07/31/25 16:30 07/31/25 17:05 07/31/25 18:13 Temperature Temperature Source Pulse Rate 94 H 87 Pulse Rate [Right] Respiratory Rate Blood Pressure 117/81 130/74 134/76 Blood Pressure [Right Arm] Blood Pressure Mean [Right Arm] 02 Sat by Pulse Oximetry 94 L 96 95 Oxygen Delivery Method Room Air 07/31/25 19:04 Temperature 98 F Temperature Source Pulse Rate 89 Pulse Rate [Right] Respiratory Rate 18 Blood Pressure 134/76 Blood Pressure [Right Arm] Blood Pressure Mean [Right Arm] 02 Sat by Pulse Oximetry Oxygen Delivery Method Lab Data Lab Results 07/31/25 16:12: WBC 9.0, RBC 4.99, Hgb 14.4, Hct 43.4, MCV 87.0, MCH 28.9, MCHC 33.2, RDW 14.8, Plt Count 227, MPV 10.5 H, Neut % (Auto) 68.2, Lymph % (Auto) 19.0, [place] % (Auto) 10.6 H, Eos % (Auto) 1.3, Baso % (Auto) 0.6, Neut # (Auto) 6.1, Lymph # (Auto) 1.7, [place] # (Auto) 1.0, Eos # (Auto) 0.1, Baso # (Auto) 0.1, Sodium 137, Potassium 3.5, Chloride 105, Carbon Dioxide 24, Anion Gap 11.5, BUN 22 H, Creatinine 1.00, Estimated Creat Clear 56, Estimated GFR 53 L, Est GFR ( Amer) 65, Glucose 206 H, Lactate 2.1, Calcium 11.0 H, Magnesium 2.2, Total Bilirubin 0.6, AST 35, ALT 21, Alkaline Phosphatase 146 H, Troponin I < 0.01, Total Protein 7.7, Albumin 4.3, Globulin 3.4 H, Albumin/Globulin Ratio 1.3, Lipase 93 07/31/25 16:16: SARS-CoV-2 (PCR) Not detected, Influenza A Untype (PCR) Not detected, Influenza Type B (PCR) Not detected 07/31/25 17:45: Urine Color Yellow, Urine Appearance Clear, Urine pH 6.0, Ur Specific [place] 1.010, Urine Protein Negative, Urine Glucose (UA) Trace, Urine Ketones Negative, Urine Blood Negative, Urine Nitrate Negative, Urine Bilirubin Negative, Urine Urobilinogen 0.2, Ur Leukocyte Esterase Negative, Urine RBC None, Urine WBC None, Ur Squamous Epith Cells None, Urine Bacteria None Orders (Tests/Meds): ED MEDICATIONS Discontinued Medications Generic Name Dose Route Start Last Admin Trade Name Freq PRN Reason Stop Dose Admin Famotidine 20 mg 07/31/25 16:04 07/31/25 16:15 Famotidine 20mg/2ml Vial IV 07/31/25 16:05 20 mg ONCE ONE Administration Sodium Chloride 1,000 mls @ 999 mls/hr 07/31/25 16:04 07/31/25 18:04 Sod Chlor 0.9% 1000ml Bag IV 07/31/25 17:04 Infused .Q1H1M ONE Infusion Iopamidol 75 ml 07/31/25 16:43 07/31/25 16:44 Iopamidol-370 (76%);100ml Bottle IV 07/31/25 16:44 75 ml ONCE ONE Administration Ondansetron HCl 4 mg 07/31/25 16:04 07/31/25 16:16 Ondansetron 4mg/2ml Vial IV 07/31/25 16:05 4 mg ONCE ONE Administration Sodium Chloride 8 ml 07/31/25 16:04 Sodium Chloride 0.9% 10ml Vial IV 08/30/25 16:03 NEEDED PRN dilute pepcid Sodium Chloride 10 ml 07/31/25 16:43 07/31/25 16:44 Sodium Chloride 0.9% 10ml Syr (Rad Only) IV 08/30/25 16:42 10 ml NEEDED PRN Administration Maintain IV Site Sodium Phosphate 133 ml 07/31/25 16:09 Sodium Phos/Biphosphate Fleet 133ml Enema RC 07/31/25 16:10 ONCE ONE ORDERS Category Date Time Status CT abdomen pelvis w con Stat Cat Scan 07/31/25 16:04 Completed CBC [Complete Blood Count Auto Diff] Stat Lab 07/31/25 16:12 Completed Comprehensive Metabolic Panel Stat Lab 07/31/25 16:12 Completed Lactic Acid Stat Lab 07/31/25 16:12 Completed Lipase Stat Lab 07/31/25 16:12 Completed Magnesium Stat Lab 07/31/25 16:12 Completed Rapid PCR Covid and Flu A/B Stat Lab 07/31/25 16:16 Completed Trop I [Troponin I] Stat Lab 07/31/25 16:12 Completed Urinalysis and Microscopic Stat Lab 07/31/25 17:45 Completed Medical Decision Narrative: patient is a 80-year-old female presenting to the emergency department for evaluation of constipation, nausea. Patient is hemodynamically stable and nontoxic-appearing upon arrival, afebrile. Differential diagnosis includes constipation, bowel obstruction, UTI, among others. Workup will be conducted with hematologic labs, specific imaging, provocative tests. Initial inventions include crystalloid bolus, analgesics, antibiotics. Initial workup reviewed by me hematologic labs are remarkable CT scan showed large stool burden. Patient had to be manually disimpacted and given an enema to produce a bowel movement. Patient is stable. Patient's labs were stable for the most part. Her glucose was a little elevated and her calcium was 11 otherwise troponin was negative . Patient will be safe for discharge home once bowel movement. On repeat eval, pt has BM and tolerating po. Agreeable to dc at this time. I was consulted by the ANGELLA, and we discussed the complexity of problems being addressed. I approved the treatment and management plan for this patient's care in the emergency department, thus performing a substantial portion of the medical decision making. Gem Thompson MD Critical Care <Raquel Weber (ED), POCK[employer] SECRETARY ASSEMBLER - Last Filed: 07/31/25 18:57> Critical Care Time Critical Care Time: No
--- OUTSIDE RECORDS SUMMARY | 2025-07-31 16:14 | XMS_ITS ---
Care Plan - [facility] Created on: July 31, 2025 Dian Perez : 1945 Sex: Female Author Organization [facility] Address [address] [place] [address] Phone Care Team Providers Care Dormitory Supervisor Name Role Phone Bonita ANTHONY, Thien Unavailable [phone] HARI ANTHONY, DARCIE Primary Care Provider [phone] Unavailable [phone]
--- OUTSIDE RECORDS SUMMARY | 2025-07-31 16:14 | XMS_ITS | Clinical Summary ---
Author Organization [facility] , [facility] Address [address] [place] [address] Phone Care Team Providers Care Clinical Nurse Reviewer Name Role Phone Bonita ANTHONY, Thien Unavailable [phone] HARI ANTHONY, DARCIE Primary Care Provider [phone] Patricia RAND, Abdelrahman Unavailable [phone] Reason for Visit and Chief Complaint The Chief Complaint is: right hip pain Problems Includes: Problems addressed during this encounter and other active Problems All Visits Onset Date Date of Diagnosis Resolved Date Provid er Condition Status Neck Pain 01/27/2024 01/27/2024 Rao Dominguez PA-C Active Last Documented On 5 1:42AM ; [facility], [facility] Joint Pain Hip Right 09/30/2023 09/30/2023 Rao Dominguez PA-C Active Last Documented On 5 1:42AM ; [facility], [facility] Joint Pain in Both Knees 11/26/2022 11/26/2022 Cam Dominguez PA-C Active Last Documented On 5 1:40AM ; [facility], [facility] History of Joint Pain Should er Right 09/05/2021 09/05/2021 Rao Dominguez PA-C Active Last Documented On 5 1:41AM ; [facility], [facility] Bone Pain in the Right Knee 07/18/2017 07/18/2017 Alexx Harper MD Active Last Documented On 5 1:39AM ; [facility] Plan of Treatment - Patient screened for future fall risk: documentation of any fall with injury in past year - Last Documented On 12/31/2023 3:43PM ; [facility] Fall Risk Assessment: This patient has been identified as a fall risk. Balance/gait along with postural blood pressure, vision and home fall hazards have been assessed. Medications have been reviewed, and recommendations made with regard to contributing factors for future falls. Plan of care: Consideration of vitamin D supplementation along with balance and strength training with consideration for formal physical therapy has been discussed with the patient. - Last Documented On 12/31/2023 3:43PM ; [facility] Patient was seen by myself Rao Dominguez PA-C. Patient will follow up for her right hip as needed to did tell her we can only do these injections every 3-4 months and do not think there is any surgery indicated for with the right hip if she wanted to get other imaging we could do that we require an MRI she does not want to do that. She will continue with PT and and advanced to a home program hopefully. Patient was given a cortisone injection to the right hip trochanteric bursa under sterile technique. 2 cc of lidocaine and Marcaine and 1 cc of Kenalog. She tolerated it well. Band- Aid applied afterwards. - Last Documented On 12/31/2023 3:43PM ; [facility] Pending Tests Order Diagnosis Results Due Ordering P rovider Therapy - Physical Therapy Lumbar Pain in right hip Rao Dominguez PA-C Last Documented On 4 3:38PM ; [facility] Therapy - Physical Therapy Cervical Cervicalgia 01/27/24 Rao Dominguez PA-C Last Documented On 4 3:39PM ; [facility] Therapy - Physical Therapy Cervical Cervicalgia 04/17/24 Rao Dominguez PA-C Last Documented On 4 1:54PM ; [facility] Therapy - Physical Therapy Cervical Cervicalgia 05/29/24 Rao Dominguez PA-C Last Documented On 4 12:28PM ; [facility] Instructions to patient Lose weight Last Documented On 4 1:38PM ; [facility] Assessments Includes: Assessments from this encounter Findings - Overweight - Last Documented On 12/31/2023 3:43PM ; [facility] Right hip trochanteric bursitis - Last Documented On 12/31/2023 3:43PM ; [facility] Instructions Includes: Instructions from this encounter Instructions to patient Lose weight Last Documented On 4 1:38PM ; [facility] Medical Equipment - Implanted Devices Includes: Current Devices No Medical Equipment Recorded Medications Includes: Medications discussed during this encounter and other current Medications Current Medications (continue as prescribed) Tobramycin-dexAMETHasone 0.3-0.1% Ophthalmic Suspensio n 03/31/2024 Provider: Diagnosis: Last Documented On 4 8:49AM By Soni Barreto ; [facility] Losartan Potassium 50 MG Oral Tablet 09/17/2023 Prov ider: Abdelrahman Gomez DR Diagnosis: Last Documented On 4 2:18PM By Soni Barreto ; [facility], [facility] Estradiol 0.1 MG/GM Vaginal Cream 09/12/2023 Provide r: Diagnosis: Last Documented On 4 2:18PM By Soni Barreto ; [facility] levoFLOXacin 500 MG Oral Tablet 07/26/2023 Provider: Diagnosis: Last Documented On 4 2:18PM By Soni Barreto ; [facility] Albuterol Sulfate HFA 108 (9 0 Base) MCG/ACT Inhalation Aerosol Solution 04/11/2023 Provider: Doris Maldonado APRN Diagnosis: Last Documented On 4 2:18PM By Soni Barreto ; [facility] Citalopram Hydrobromide 40 MG Oral Tablet 04/04/2023 Provider: Diagnosis: Last Documented On 4 2:18PM By Soni Barreto ; [facility], [facility] Past Medications on file Meloxicam 15 MG Oral Tablet 04/17/2024 - 06/16/2024 Pr ovider: Rao Dominguez PA-C Diagnosis: Take 1 tablet by mouth once a day Last Documented On 4 9:16AM By Soni Barreto ; [facility], [facility] Meloxicam 15 MG Oral Tablet 01/27/2024 - 03/27/2024 Pr ovider: Rao Dominguez PA-C Diagnosis: Take 1 tablet by mouth daily Last Documented On 4 2:43PM By Soni Barreto ; [facility], [facility] Pantoprazole Sodium 40 MG Or al Tablet Delayed Release 09/30/2023 - 12/29/2023 Provider: Abdelrahman vyas DR Diagnosis: Last Documented On 4 2:16PM By Soni Barreto ; [facility], [facility] Fluconazole 200 MG Oral Tablet 09/30/2023 - 10/20/2023 Provider: RHIANNON SHAH MD Diagnosis: Last Documented On 4 2:17PM By Soni Barreto ; [facility], [facility] Solifenacin Succinate 10 MG Oral Tablet 09/30/2023 - 0 12/29/2023 Provider: Diagnosis: Last Documented On 4 2:17PM By Soni Barreto ; [facility], [facility] Linzess 145 MCG Oral Capsule 09/30/2023 - 10/30/2023 P rovider: Abdelrahman Gomez DR Diagnosis: Last Documented On 4 2:16PM By Soni Barreto ; [facility], [facility] Methenamine Hippurate 1 GM O ral Tablet 09/30/2023 - 10/30/2023 Provider: RHIANNON SHAH MD Diagnosis: Last Documented On 4 2:17PM By Soni Barreto ; [facility], [facility] Medications Administered Includes: Administered Medications from this encounter No Administered Medications Recorded Vital Signs Includes: Vital Signs from this encounter Vital Name 12/31/2023 01:39P Height (in) 64 Weight (lb) 175 Body Mass Index 30 Body Surface Area 1.8 Pain Level 5 Note: lc Last Documented: On 12/31/2023 1:39PM ; [facility], [facility] Results Includes: Results discussed during this encounter No Results Recorded For Specified Dates History of Present Illness Includes: History of Present Illness from this encounter TORI Perez is a 78 year old female. - Allergy list reviewed - Problem list reviewed - Medication list reviewed - - Review of medications documented Patient is here today for follow up of right hip pain pain is mainly on the lateral side of the hip she says it hurts all the time she is done some physical therapy with this does hurt to lay on it the injection lasted up until just recently. No groin pain with this no bowel or bladder issues with this. Social History Description Last Updated Caffeine use 06/19/2023 Last Documented On 4 1:38PM ; [facility], [facility] Retired from work 04/23/2022 Last Documented On 4 1:38PM ; [facility], [facility] Not a current smoker. 12/30/2020 Last Documented On 4 1:38PM ; [facility] No recent change in diet 10/28/2017 Last Documented On 4 1:38PM ; [facility] No tobacco use 10/28/2017 Last Documented On 4 1:38PM ; [facility] Not exercising regularly 10/28/2017 Last Documented On 4 1:38PM ; [facility] Not using alcohol 10/28/2017 Last Documented On 4 1:38PM ; [facility] Not using drugs 10/28/2017 Last Documented On 4 1:38PM ; [facility] Sex - Female 06/04/2024 Last Documented On 4 10:44AM ; [facility] Smoking Status Unknown Procedures and Surgical History Includes: Procedures from this encounter Procedures Code Diagnosis Performing Provider Service L ocation Service Date use of tobacco assessment performed 1000F Last Documented On 4 1:38PM ; [facility], [facility] patient screened for future fall risk: documentation of any fall with injury in past year 1100F Last Documented On 4 1:38PM ; [facility] review of medications documented 1160F Last Documented On 4 1:38PM ; [facility] Medical History Includes: Medical History addressed during this encounter Description Last Updated Infection in stomach 02/14/2021 Last Documented On 4 1:38PM ; [facility] History of Arthroscopy RTCR 02/14/2021 Last Documented On 4 1:38PM ; [facility] A recent immunization for flu 06/12/2019 12/30/2020 Last Documented On 4 1:38PM ; [facility] A recent immunization for pneumococcal p neumonia 06/12/2019 12/30/2020 Last Documented On 4 1:38PM ; [facility] Appendectomy 12/30/2020 Last Documented On 4 1:38PM ; [facility] Arthritis 12/30/2020 Last Documented On 4 1:38PM ; [facility] Back surgery 12/30/2020 Last Documented On 4 1:38PM ; [facility] Diverticulitis of colon 12/30/2020 Last Documented On 4 1:38PM ; [facility] Heartburn / Acid Reflux 12/30/2020 Last Documented On 4 1:38PM ; [facility] History of Gallbladder 12/30/2020 Last Documented On 4 1:38PM ; [facility] Hypertension 12/30/2020 Last Documented On 4 1:38PM ; [facility] Hysterectomy 12/30/2020 Last Documented On 4 1:38PM ; [facility] Liver Disease 12/30/2020 Last Documented On 4 1:38PM ; [facility] Previous Fractures RCR 12/30/2020 Last Documented On 4 1:38PM ; [facility] Arthritic joint problems 10/28/2017 Last Documented On 4 1:38PM ; [facility] Gallbladder disease 10/28/2017 Last Documented On 4 1:38PM ; [facility] History of depression 10/28/2017 Last Documented On 4 1:38PM ; [facility] Intermittent hypertension 10/28/2017 Last Documented On 4 1:38PM ; [facility] Liver disease 10/28/2017 Last Documented On 4 1:38PM ; [facility] Family History Includes: Family History addressed during this encounter Description Last Updated Family history of heart disease 09/30/19 Last Documented On 4 1:38PM ; [facility] Family history of thromboembolic disease mom 06/19/2023 Last Documented On 4 1:38PM ; [facility] Family history of hypertension 1 Last Documented On 4 1:38PM ; [facility] No significant family history 10/28/2017 Last Documented On 4 1:38PM ; [facility] Review of Systems Includes: Review of Systems from this encounter Systemic: Not feeling tired, no recent weight loss, and no recent weight gain. Head: No headache and no sinus pain. Eyes: No vision problems. Cataracts. No Glasses/Contacts and no Glaucoma. Otolaryngeal: No hearing loss and no tinnitus. Cardiovascular: No chest pain or discomfort and no palpitations. Hypertension. No High Cholesterol. Pulmonary: No daytime asthma symptoms and no chronic cough. No wheezing. Gastrointestinal: No heartburn and no abdominal pain. Indigestion. No Peptic Ulcer, no GI Stomach Bleed, and no Ulcers. Acid Reflux. Endocrine: No hot flashes. Muscle weakness. No Diabetes, no Hypothyroid, and no Hyperthyroid. Hematologic: No easy bleeding. A tendency for easy bruising. No Anemia. Musculoskeletal: Arthritis and lower back pain. No soft tissue swelling. Pain localized to one or more joints. Neurological: No dizziness, no convulsions, and no numbness. Psychological: No anxiety, no emotional lability, no depression, and no insomnia. Not crying for no reason. Skin: No dry skin. No Ulcers, no Scars, and no rash. Allergic and Immunologic: Complaint of seasonal allergic reaction. Mental Status Includes: Mental Status from this encounter Description No anxiety Last Documented On 4 1:38PM ; [facility] Physical Exam Includes: Physical Exam from this encounter Allergies Includes: Active Allergies Substance Type Reaction Onset Date Resolved Date Statu s Tetracycline HCl Allergy 06/10/2017 Ac tive Last Documented On 4 9:49AM ; [facility] Stadol Allergy 06/10/2017 Active Last Documented On 4 9:49AM ; [facility] Procardia Allergy 06/10/2017 Active Last Documented On 4 9:49AM ; [facility] Methadone HCl Allergy 06/10/2017 Activ e Last Documented On 4 9:49AM ; [facility] Lexapro Allergy 06/10/2017 Active Last Documented On 4 9:49AM ; [facility] HYDROcodone-Acetaminophen Allergy 06/10/2017 Active Last Documented On 4 9:49AM ; [facility] FLUoxetine HCl Allergy 06/10/2017 Acti ve Last Documented On 4 9:49AM ; [facility] Cipro Allergy 06/10/2017 Active Last Documented On 4 9:49AM ; [facility], [facility] Care Clinical Nurse Reviewer Name (Identifier) Role/Relation Location/Telecom Last Documented By Thien Mesa MD ([id number]) Assigned practitioner (occupation) [address] [place] [address], , [address] tel:[phone] Last Documented On 06/04/2024 10:44AM ; [facility], [facility] DARCIE NORIEGA MD ([id number]) Primary care physician (occupation) [facility], [address] tel:[phone] Last Documented On 06/04/2024 10:44AM ; [facility], [facility] Abdelrahman Gomez DR ([id number]) CLINIC DR, [facility], [address] tel:[phone] Last Documented On 08/15/2021 3:12PM ; [facility], [facility] Encounters Encounter Provider Location (Healthcare Service Location) Date Check-In Time Check-Out Time Diagnosis Encounter Disposition Follow Up Rao Dominguez PA-C [facility] 2023 1:30PM 1:55PM Overweight Payer Includes: Active Insurance Policies Plan Name (Payer ID) Coverage Type Member ID Group # Subscriber (ID) Relationship Effective Dates 1 - [employer] GOLD CHO[employer]AN ([id number]) [id number] Dian B White Self [phone] - Unknown Last Documented On 2 3:08PM ; [facility], [facility] Clinical Notes Includes: Clinical Notes from this encounter * Progress note Date Encounter Last Documented by 12/31/2023 Follow Up Last documented on 12/31/2023; 3:43 PM, Rao Dominguez PA-C; [facility], [facility] Active Problems & Conditions - Bone Pain in the Right Knee - History of Joint Pain, Localized in the Right Shoulder - Joint Pain in Both Knees - Joint Pain in the Right Hip Chief Complaint The Chief Complaint is: Right hip pain. Referred Here Referred by Self Referred. History of Present Illness Dian Perez is a 78 year old female. - Allergy list reviewed - Problem list reviewed - Medication list reviewed - - Review of medications documented Patient is here today for follow up of right hip pain pain is mainly on the lateral side of the hip she says it hurts all the time she is done some physical therapy with this does hurt to lay on it the injection lasted up until just recently. No groin pain with this no bowel or bladder issues with this. Current Medication - Albuterol Sulfate HFA 108 (90 Base) MCG/ACT Inhalation Aerosol Solution 16 days, 0 refills - Citalopram Hydrobromide 40 MG Oral Tablet 90 days, 0 refills - Estradiol 0.1 MG/GM Vaginal Cream 90 days, 0 refills - levoFLOXacin 500 MG Oral Tablet 10 days, 0 refills - Losartan Potassium 50 MG Oral Tablet 90 days, 0 refills Past Medical/Surgical History Reported: Medical: Liver disease, gallbladder disease, and joint problems arthritic. Intermittent hypertension. Immunization History: Recent immunization for flu 06/12/2019 and for pneumococcal pneumonia. Diagnoses: Heartburn / Acid Reflux Liver Disease Hypertension. Diverticulitis of colon. Arthritis. Depression Infection in stomach. Surgical: - Appendectomy - Hysterectomy - History of Gallbladder - Previous Fractures RCR - Back surgery - History of Arthroscopy RTCR Social History Not a current smoker. Current diet: No recent change in diet. Caffeine use: Caffeine use. Tobacco use: No tobacco use. Alcohol: Not using alcohol. Drug Use: Not using drugs. Habits: Not exercising regularly. Work: Retired from work. Allergies - Cipro - FLUoxetine HCl - HYDROcodone-Acetaminophen - Lexapro - Methadone HCl - Procardia - Stadol - Tetracycline HCl Family History Heart disease No significant family history Systemic hypertension Thromboembolic disease mom Review Of Systems Systemic: Not feeling tired, no recent weight loss, and no recent weight gain. Head: No headache and no sinus pain. Eyes: No vision problems. Cataracts. No Glasses/Contacts and no Glaucoma. Otolaryngeal: No hearing loss and no tinnitus. Cardiovascular: No chest pain or discomfort and no palpitations. Hypertension. No High Cholesterol. Pulmonary: No daytime asthma symptoms and no chronic cough. No wheezing. Gastrointestinal: No heartburn and no abdominal pain. Indigestion. No Peptic Ulcer, no GI Stomach Bleed, and no Ulcers. Acid Reflux. Endocrine: No hot flashes. Muscle weakness. No Diabetes, no Hypothyroid, and no Hyperthyroid. Hematologic: No easy bleeding. A tendency for easy bruising. No Anemia. Musculoskeletal: Arthritis and lower back pain. No soft tissue swelling. Pain localized to one or more joints. Neurological: No dizziness, no convulsions, and no numbness. Psychological: No anxiety, no emotional lability, no depression, and no insomnia. Not crying for no reason. Skin: No dry skin. No Ulcers, no Scars, and no rash. Allergic and Immunologic: Complaint of seasonal allergic reaction. Physical Findings - Vitals taken 12/31/2023 01:39 pm lc Height 64 in Weight 175 lbs Body Mass Index 30 kg/m2 Body Surface Area 1.8 m2 Pain Level 5 Standard Measurements: - Patient was overweight. She is tender over the right hip greater trochanter No pain with the knee right hip range motion Walks with a normal gait Tests Right hip xrays reviewed today show some degenerative changes more over the lateral side of the hip she does not have significant hip arthritis September 30, 2023 Assessment - Overweight Right hip trochanteric bursitis Previous Tests Available previous imaging studies were reviewed Available previous history reviewed Counseling/Education - Tobacco non-user - Use of tobacco assessment performed - Lose weight Plan - Patient screened for future fall risk: documentation of any fall with injury in past year Fall Risk Assessment: This patient has been identified as a fall risk. Balance/gait along with postural blood pressure, vision and home fall hazards have been assessed. Medications have been reviewed, and recommendations made with regard to contributing factors for future falls. Plan of care: Consideration of vitamin D supplementation along with balance and strength training with consideration for formal physical therapy has been discussed with the patient. Patient was seen by myself Rao Dominguez PA-C. Patient will follow up for her right hip as needed to did tell her we can only do these injections every 3-4 months and do not think there is any surgery indicated for with the right hip if she wanted to get other imaging we could do that we require an MRI she does not want to do that. She will continue with PT and and advanced to a home program hopefully. Patient was given a cortisone injection to the right hip trochanteric bursa under sterile technique. 2 cc of lidocaine and Marcaine and 1 cc of Kenalog. She tolerated it well. Band- Aid applied afterwards. Notes This dictation was done with voice recognition software and may contain errors and omissions. Practice Management Use of tobacco assessment performed and patient screened for future fall risk documentation of any fall with injury in past year Review of medications documented. Care Team - Abdelrahman Gomez DR
--- OUTSIDE RECORDS SUMMARY | 2025-07-31 16:14 | XMS_ITS | Patient Health Record ---
Author Organization [facility] Address [address] [place] [address] Care Team Providers Care Receiving Distribution Station Operator Name Role Phone Mitra Helms Unavailable [phone] Allergies Allergen (clinical drug ingredient) Drug/Non Drug [...] Status Risk Notes Problem Complete uterine prolapse (77750355) Complete uterine prolapse (N81.3) 9 Active confirmed [...]
--- OUTSIDE RECORDS SUMMARY | 2025-07-31 16:14 | XMS_ITS | Clinical Summary ---
Author Organization [facility] , [facility] Address [address] [place] [address] Phone Care Team Providers Care Electronic Console Display Operator Name Role Phone Bonita ANTHONY, Thien Unavailable [phone] HARI ANTHONY, DARCIE Primary Care Provider [phone] Patricia RAND, Abdelrahman Unavailable [phone] Reason for Visit and Chief Complaint The Chief Complaint is: cervical pain Problems Includes: Problems addressed during this encounter and other active Problems Current Visit Onset Date Date of Diagnosis Resolved Date Provider Condition Status Neck Pain 01/27/2024 01/27/2024 Rao Dominguez PA-C Active Last Documented On 5 1:42AM ; [facility] Past Visits Onset Date Date of Diagnosis Resolved Date Provider Condition Status Joint Pain Hip Right 09/30/2023 09/30/2023 Rao Dominguez PA-C Active Last Documented On 5 1:42AM ; [facility] Joint Pain in Both Knees 11/26/2022 11/26/2022 Cam Dominguez PA-C Active Last Documented On 5 1:40AM ; [facility] History of Joint Pain Should er Right 09/05/2021 09/05/2021 Rao Dominguez PA-C Active Last Documented On 5 1:41AM ; [facility] Bone Pain in the Right Knee 07/18/2017 07/18/2017 Alexx Harper MD Active Last Documented On 5 1:39AM ; [facility], [facility] Plan of Treatment - Patient screened for future fall risk: documentation of any fall with injury in past year - Last Documented On 01/27/2024 3:39PM ; [facility] Fall Risk Assessment: This patient [...] with the patient. - Last Documented On 01/27/2024 3:39PM ; [facility] Patient was seen by myself Rao Dominguez PA-C. Patient will follow up 6 weeks we will start with some physical therapy with this. We will try anti-inflammatories also - Last Documented On 01/27/2024 3:39PM ; [facility] Pending Tests Order Diagnosis Results Due Ordering P daveder Therapy - Physical Therapy Lumbar Pain in right hip Rao Dominguez PA-C Last Documented On 4 3:38PM ; [facility] Therapy - Physical Therapy Cervical Cervicalgia 01/27/24 Rao Dominguez PA-C Last Documented On 4 3:39PM ; [facility] Therapy - Physical Therapy Cervical Cervicalgia 04/17/24 Rao Dominguez PA-C Last Documented On 4 1:54PM ; [facility] Therapy - Physical Therapy Cervical Cervicalgia 05/29/24 Rao Dominguez PA-C Last Documented On 4 12:28PM ; [facility] Instructions to patient Lose weight Last Documented On 4 1:24PM ; [facility] Assessments Includes: Assessments from this encounter Findings - Overweight - Last Documented On 01/27/2024 3:39PM ; [facility] Neck pain - Last Documented On 01/27/2024 3:39PM ; [facility] Instructions Includes: Instructions from this encounter Instructions to patient Lose weight Last Documented On 4 1:24PM ; [facility] Medical Equipment - Implanted Devices Includes: Current Devices No Medical Equipment Recorded Medications Includes: Medications discussed during this encounter and other current Medications New / Renewed during this visit Rao Dominguez PA-C on 01/27/2024 Meloxicam 15 MG Oral Tablet Provider: Rao Dominguez PA-C 30 day supply: 30 tablet, 1 refills Diagnosis: Take 1 tablet by mouth daily Pharmacy: [address] , [facility], [phone] - Last Documented On 4 2:43PM By Soni Barreto ; [facility], [facility] Current Medications (continue as prescribed) Tobramycin-dexAMETHasone 0.3-0.1% Ophthalmic Suspensio n 03/31/2024 Provider: Diagnosis: Last Documented On 4 8:49AM By Soni Barreto ; [facility], [facility] Losartan Potassium 50 MG Oral Tablet 09/17/2023 Prov ider: Abdelrahman Gomez DR Diagnosis: Last Documented On 4 2:18PM By Soni Barreto ; [facility] Estradiol 0.1 MG/GM Vaginal Cream 09/12/2023 Provide r: Diagnosis: Last Documented On 4 2:18PM By Soni Barreto ; [facility] levoFLOXacin 500 MG Oral Tablet 07/26/2023 Provider: Diagnosis: Last Documented On 4 2:18PM By Soni Barreto ; [facility], [facility] Albuterol Sulfate HFA 108 (9 0 Base) MCG/ACT Inhalation Aerosol Solution 04/11/2023 Provider: Doris Maldonado APRN Diagnosis: Last Documented On 4 2:18PM By Soni Barreto ; [facility] Citalopram Hydrobromide 40 MG Oral Tablet 04/04/2023 Provider: Diagnosis: Last Documented On 4 2:18PM By Soni Barreto ; [facility], [facility] Past Medications on file Meloxicam 15 MG Oral Tablet 04/17/2024 - 06/16/2024 Pr ovider: Rao Dominguez PA-C Diagnosis: Take 1 tablet by mouth once a day Last Documented On 4 9:16AM By Soni Barreto ; [facility], [facility] Pantoprazole Sodium 40 MG Or al Tablet Delayed Release 09/30/2023 - 12/29/2023 Provider: Abdelrahman vyas DR Diagnosis: Last Documented On 4 2:16PM By Soni Barreto ; [facility], [facility] Fluconazole 200 MG Oral Tablet 09/30/2023 - 10/20/2023 Provider: RHIANNON SHAH MD Diagnosis: Last Documented On 4 2:17PM By Soni Barreto ; [facility], [facility] Solifenacin Succinate 10 MG Oral Tablet 09/30/2023 - 0 12/29/2023 Provider: Diagnosis: Last Documented On 4 2:17PM By Soni Barreto ; [facility], [facility] Linzess 145 MCG Oral Capsule 09/30/2023 - 10/30/2023 Kurt shafer: Abdelrahman Gomez DR Diagnosis: Last Documented On 4 2:16PM By Soni Barreto ; [facility], [facility] Methenamine Hippurate 1 GM O ral Tablet 09/30/2023 - 10/30/2023 Provider: RHIANNON SHAH MD Diagnosis: Last Documented On 4 2:17PM By Soni Barreto ; [facility] Medications Administered Includes: Administered Medications from this encounter No Administered Medications Recorded Vital Signs Includes: Vital Signs from this encounter Vital Name 01/27/2024 01:47P Height (in) 64 Weight (lb) 172 Body Mass Index 29.5 Body Surface Area 1.8 Pain Level 7 Note: lc Last Documented: On 01/27/2024 1:47PM ; [facility], [facility] Results Includes: Results discussed during this encounter No Results Recorded For Specified Dates History of Present Illness Includes: History of Present Illness from this encounter TORI Perez is a 78 year old female. - Symptoms catching pain meds makes the pain better turning neck makes the pain worse. - Allergy list reviewed - Problem list reviewed - Medication list reviewed - Medication list reviewed - Previous history of new onset pain 11/2023 Injury is not work related or an automotive accident - Pain is dull, aching - Patient pain level from 1-10: 7 - No previous treatment. - - Review of medications documented Patient is here today with complaints of neck pain it has mainly in the middle of her neck no radicular symptoms. He has been ongoing for 2-3 months she woke up 1 day with a having this pain it hurts when she tries to look to either side. She is tried some ltea-glx-dfmssex pain relief things which have not helped. She denies any balance issues bowel or bladder issues with this. Social History Description Last Updated Caffeine use 06/19/2023 Last Documented On 4 1:24PM ; [facility], [facility] Retired from work 04/23/2022 Last Documented On 4 1:24PM ; [facility] Not a current smoker. 12/30/2020 Last Documented On 4 1:24PM ; [facility] No recent change in diet 10/28/2017 Last Documented On 4 1:24PM ; [facility] No tobacco use 10/28/2017 Last Documented On 4 1:24PM ; [facility] Not exercising regularly 10/28/2017 Last Documented On 4 1:24PM ; [facility] Not using alcohol 10/28/2017 Last Documented On 4 1:24PM ; [facility] Not using drugs 10/28/2017 Last Documented On 4 1:24PM ; [facility] Sex - Female 06/04/2024 Last Documented On 4 10:44AM ; [facility] Smoking Status Unknown Procedures and Surgical History Includes: Procedures from this encounter Procedures Code Diagnosis Performing Provider Service L ocation Service Date use of tobacco assessment performed 1000F Last Documented On 4 1:24PM ; [facility] patient screened for future fall risk: documentation of any fall with injury in past year 1100F Last Documented On 4 1:24PM ; [facility] review of medications documented 1160F Last Documented On 4 1:24PM ; [facility] Surgical History Last Updated History of appendectomy 05/29/2024 Last Documented On 4 1:24PM ; [facility] History of History of Gallbladder 2023 Last Documented On 4 1:24PM ; [facility] History of hysterectomy 05/29/2024 Last Documented On 4 1:24PM ; [facility] History of back surgery 10/28/2017 Last Documented On 4 1:24PM ; [facility] Medical History Includes: Medical History addressed during this encounter Description Last Updated Infection in stomach 02/14/2021 Last Documented On 4 1:24PM ; [facility] History of Arthroscopy RTCR 02/14/2021 Last Documented On 4 1:24PM ; [facility] A recent immunization for flu 06/12/2019 12/30/2020 Last Documented On 4 1:24PM ; [facility] A recent immunization for pneumococcal p neumonia 06/12/2019 12/30/2020 Last Documented On 4 1:24PM ; [facility] Arthritis 12/30/2020 Last Documented On 4 1:24PM ; [facility] Diverticulitis of colon 12/30/2020 Last Documented On 4 1:24PM ; [facility] Heartburn / Acid Reflux 12/30/2020 Last Documented On 4 1:24PM ; [facility] Hypertension 12/30/2020 Last Documented On 4 1:24PM ; [facility] Liver Disease 12/30/2020 Last Documented On 4 1:24PM ; [facility] Previous Fractures RCR 12/30/2020 Last Documented On 4 1:24PM ; [facility] Arthritic joint problems 10/28/2017 Last Documented On 4 1:24PM ; [facility] Gallbladder disease 10/28/2017 Last Documented On 4 1:24PM ; [facility] History of depression 10/28/2017 Last Documented On 4 1:24PM ; [facility] Intermittent hypertension 10/28/2017 Last Documented On 4 1:24PM ; [facility] Liver disease 10/28/2017 Last Documented On 4 1:24PM ; [facility] Family History Includes: Family History addressed during this encounter Description Last Updated Family history of heart disease 09/30/19 Last Documented On 4 1:24PM ; [facility] Family history of thromboembolic disease mom 06/19/2023 Last Documented On 4 1:24PM ; [facility] Family history of hypertension Last Documented On 4 1:24PM ; [facility] No significant family history 10/28/2017 Last Documented On 4 1:24PM ; [facility] Review of Systems Includes: Review [...] Description No anxiety Last Documented On 4 1:24PM ; [facility] Physical Exam Includes: Physical Exam from this encounter Allergies Includes: Active Allergies Substance Type Reaction Onset Date Resolved Date Statu s Tetracycline HCl Allergy 06/10/2017 Ac tive Last Documented On 4 9:49AM ; [facility] Stadol Allergy 06/10/2017 Active Last Documented On 4 9:49AM ; [facility] Procardia Allergy 06/10/2017 Active Last Documented On 4 9:49AM ; [facility] Methadone HCl Allergy 06/10/2017 Activ e Last Documented On 4 9:49AM ; [facility] Lexapro Allergy 06/10/2017 Active Last Documented On 4 9:49AM ; [facility] HYDROcodone-Acetaminophen Allergy 06/10/2017 Active Last Documented On 4 9:49AM ; [facility] FLUoxetine HCl Allergy 06/10/2017 Acti ve Last Documented On 4 9:49AM ; [facility] Cipro Allergy 06/10/2017 Active Last Documented On 4 9:49AM ; [facility], [facility] Care Electronic Console Display Operator Name (Identifier) Role/Relation Location/Telecom Last Documented By Thien Mesa MD ([id number]) Assigned practitioner (occupation) [address] [place] [address], [place], [address] tel:[phone] Last Documented On 06/04/2024 10:44AM ; [facility] DARCIE NORIEGA MD ([id number]) Primary care physician (occupation) [facility], [address] tel:[phone] Last Documented On 06/04/2024 10:44AM ; [facility] Abdelrahman Gomez DR ([id number]) CLINIC [facility], [address] tel:[phone] Last Documented On 08/15/2021 3:12PM ; [facility], [facility] Encounters Encounter Provider Location (Healthcare Service Location) Date Check-In Time Check-Out Time Diagnosis Encounter Disposition NEW PROBLEM/EST PT Rao Dominguez PA-C [facility] 2023 1:35PM 2:27PM Overweight Payer Includes: Active Insurance Policies Plan Name (Payer ID) Coverage Type Member ID Group # Subscriber (ID) Relationship Effective Dates 1 - [employer] GOLD CHO[employer] PLAN ([id number]) [id number] Dian Ngo White Self [id number] - Unknown Last Documented On 2 3:08PM ; [facility], [facility] Clinical Notes Includes: Clinical Notes from this encounter * Progress note Date Encounter Last Documented by 01/27/2024 NEW PROBLEM/EST PT Last document ed on 01/27/2024; 3:39 PM, Rao Dominguez PA-C; [facility], [facility] Active Problems & Conditions - Bone Pain in the Right Knee - History of Joint Pain, Localized in the Right Shoulder - Joint Pain in Both Knees - Joint Pain in the Right Hip - Neck Pain Chief Complaint The Chief Complaint is: Cervical pain. Referred Here Referred by Self Referred. History of Present Illness Dian Perez is a 78 year old female. - Symptoms catching pain meds makes the pain better turning neck makes the pain worse. - Allergy list reviewed - Problem list reviewed - Medication list reviewed - Medication list reviewed - Previous history of new onset pain 11/2023 Injury is not work related or an automotive accident - Pain is dull, aching - Patient pain level from 1-10: 7 - No previous treatment. - - Review of medications documented Patient is here today with complaints of neck pain it has mainly in the middle of her neck no radicular symptoms. He has been ongoing for 2-3 months she woke up 1 day with a having this pain it hurts when she tries to look to either side. She is tried some unqh-gmo-nlbftic pain relief things which have not helped. She denies any balance issues bowel or bladder issues with this. Current [...] allergic reaction. Physical Findings - Vitals taken 01/27/2024 01:47 pm lc Height 64 in Weight 172 lbs Body Mass Index 29.5 kg/m2 Body Surface Area 1.8 m2 Pain Level 7 Standard Measurements: - Patient was overweight. Cervical range motion was limited with left rotation with some pain she would pain with some flexion and extension with the neck She has 5/5 biceps triceps deltoids wrist extension and flexion strength Negative Sanchez's and radial reflex bilaterally Tests Two views of the cervical spine January 27, 2024 were negative Assessment - Overweight Neck pain Previous Tests Available previous imaging studies were reviewed Available previous history reviewed Counseling/Education - Tobacco non-user - Use of tobacco assessment performed - Lose weight Plan StartCited - Cervicalgia Therapy/Physical Therapy: Cervical Instructions: See PT order attached EndCited StartCited - Other Meloxicam 15 MG tablet Take 1 tablet by mouth daily, 30 days, 1 refills EndCited - Patient screened for future fall risk: [...] Rao Dominguez PA-C. Patient will follow up 6 weeks we will start with some physical therapy with this. We will try anti-inflammatories also Notes This dictation was done with voice recognition software and may contain errors and omissions. Practice Management Use of tobacco assessment performed and patient screened for future fall risk documentation of any fall with injury in past year Review of medications documented. Care Team - Abdelrahman Gomez DR
--- OUTSIDE RECORDS SUMMARY | 2025-07-31 16:14 | XMS_ITS | Clinical Summary ---
Author Organization [facility] Address [phone] Phone Care Team Providers Care Manager Room Name Role Phone Dk Wilde MD [ ] Conditions or Problems Problem Name Problem Code Onset Date Status Entry Date Provider Comment Standard Description Annotate Other obesity due to excess calories 509854378 (SNOMED CT) 09/16 Active 09/16 Alejandra Ybarra Simple obesity Seizures with provoking factor 8453721436555 00 (SNOMED CT) 09/05 Active 09/05 Dk Wilde MD Acute repetitive seizure Heart murmur, systolic 24430166 (SNOMED CT) 09/05 Active 09/05 Dk Wilde MD Systolic murmur Thrush, oral 51926508 (SNOMED CT) 09/05 Active 09/05 Dk Wilde MD Candidiasis of mouth Primary biliary cirrhosis 78668004 (SNOMED CT) 09/05 Active 09/05 Dk Wilde MD Primary biliary cholangitis Benign Essential Hypertension 48365661 (SNOMED CT) 09/03 Active 09/03 Ayana Romulo Benign hypertension Urinary tract infection (UTI) 98853019 (SNOMED CT) 09/03 Active 09/03 Ayana Romulo Urinary tract infectious disease Pseudomonas infection 16920588 (SNOMED CT) 09/03 Active 09/03 Ayana Romulo Bacterial infection caused by Pseudomonas Medications Medication Instructions Start Date Stop Date Generic Name NDC Provider METHENAMINE HIPPURATE 1 GM TABS Take 1 tablet by mouth once a day methenamine hippurate 85069981023 Dk Wilde MD Diflucan 200 mg tablet Take 1 tablet by mouth once a day fluconazole 76161361300 Dk Wilde MD SOLIFENACIN SUCCINATE 10 MG TABS by mouth once daily solifenacin 48213810208 Sharmaine Chatman Diflucan 200 mg tablet Take 1 tablet by mouth once a day fluconazole 82796718175 Dk Wilde MD MEROPENEM 1 GM SOLR Merrem 2gm IV Q24hrs INPAT meropenem 21592440040 Sarah Rivero METHENAMINE HIPPURATE 1 GM TABS 1 tab po bid methenamine hippurate 84425716741 Alejandra Ybarra MEROPENEM 1 GM SOLR Merrem 2gm IV Q24hrs INPAT meropenem 39072598614 Sarah Josefa MEROPENEM 1 GM SOLR Merrem 2gm IV Q24hrs meropenem 79027153678 Sarah Rivero NYSTATIN 001662 UNIT/GM CREA nystatin 88581996667 Dk Wilde MD NYSTATIN 137490 UNIT/ML SUSP Take 5 ml to inside of mouth (buccal) four times a day swish and swallow until oral thrush is gone nystatin 55988559778 Dk Wilde MD NYSTATIN 749530 UNIT/GM CREA nystatin 70340959521 Sarah Hooper TOPIRAMATE 200 MG TABS topiramate 88897086496 Hope Minor URSODIOL 500 MG TABS ursodiol 10449451510 Hope Minor PANTOPRAZOLE SODIUM 40 MG TBEC pantoprazole 50990582300 Hope Minor CITALOPRAM HYDROBROMIDE 40 MG TABS citalopram 66101397659 Hope Minor ESTRADIOL 0.01 % CREA estradiol 83375212259 Hope Minor METHENAMINE HIPPURATE 1 GM TABS methenamine hippurate 03881701373 Hope Minor TOPIRAMATE 200 MG TABS topiramate 18444254748 Hope Minor ASPIRIN EC 81 MG TBEC 1 tab po daily aspirin 01665233321 Hope alfaro CITALOPRAM HYDROBROMIDE 40 MG TABS 1 tab po daily citalopram 81827689591 Hope alfaro ESTRADIOL 0.01 % CREA Apply a fingertip amount to urethral meatus every other night estradiol 42197001644 Hope Minor METHENAMINE HIPPURATE 1 GM TABS 1 tab po bid methenamine hippurate 71709645572 Hope Minor PANTOPRAZOLE SODIUM 40 MG TBEC 1 tab po daily pantoprazole 76483909770 Hope michel URSODIOL 500 MG TABS 1 tab po daily ursodiol 45213428703 Hope aflaro TURMERIC 500 MG CAPS turmeric-turmeri c root extract 00091147012 Hope Minor VITAMIN D (ERGOCALCIFEROL ) 1.25 MG (96720 UT) CAPS ergocalciferol (vitamin d2) 11891200055 Hope Minor VITAMIN C 100 MG TABS ascorbic acid (vitamin c) 06209506168 Hope Minor zinc acetate unspecified unspecified zinc [...] Missael yanci Minor SULFUR Mild Active Hope Aleksandar dominic SULFAMETHOXAZOLE-TR IMETHOPRIM Mild No Longer Active Hope Minor STADOL puritis Mild No Longer Active Hop[place] Minor SAVELLA Mild Active Hope Aleksandar dominic QUINOLONES Mild Active Hope Felix ng PROCARDIA XL Mild Active [place] Minor PREDNISONE Mild No Longer Active Hope Minor METHOTREXATE Mild Active Hop[place] Minor LEXAPRO Mild Active Hope alfaro HYDROCODONE BITARTRATE ER Mild Active Hope Minor FLUOXETINE HCL (PMDD) Mild Active Hope Minor FLOXIN Mild No Longer Active Hope Minor CELLCEPT Mild Active Hope Huertas g Results Date Name Value Unit Range Flag [...] CPT-porsha New IV antibiotic CPT-sl STAT Labs CPT-48639 PICC Line Insertion CPT-cwl Weekly Labs (Continue) 07/09 CPT-wpc Weekly PICC Line Care 09/08 CPT-porsha New IV antibiotic CPT-Cooral Continue oral antibiotics 20 03/07/25 CPT-31675 Urinalysis with microscopic exam CPT-14649 Urine Culture & Sensitivity Vital Signs Date [...] Start Date HAS LIVING WILL POWER OF SUPERVISOR HISTOLOGY
--- OUTSIDE RECORDS SUMMARY | 2025-07-31 16:14 | XMS_ITS | Clinical Summary ---
Author Organization [facility] , [facility] Address [address] [place] [address] Phone Care Team Providers Care Cement Car Dumper Name Role Phone Bonita ANTHONY, Thien Unavailable [phone] HARI ANTHONY, DARCIE Primary Care Provider [phone] Patricia RAND, Abdelrahman Unavailable [phone] Reason for Visit and Chief Complaint The Chief Complaint is: cervical pain Problems Includes: Problems addressed during this encounter and other active Problems All Visits Onset Date Date of Diagnosis Resolved Date Provid er Condition Status Neck Pain 01/27/2024 01/27/2024 Rao Dominguez PA-C Active Last Documented On 5 1:42AM ; [facility] Joint Pain Hip Right 09/30/2023 09/30/2023 Rao Dominguez PA-C Active Last Documented On 5 1:42AM ; [facility], [facility] Joint Pain in Both Knees 11/26/2022 11/26/2022 Cam Dominguez PA-C Active Last Documented On 5 1:40AM ; [facility], [facility] History of Joint Pain Should er Right 09/05/2021 09/05/2021 Rao Dominguez PA-C Active Last Documented On 5 1:41AM ; [facility] Bone Pain in the Right Knee 07/18/2017 07/18/2017 Alexx Harper MD Active Last Documented On 5 1:39AM ; [facility], [facility] Plan of Treatment - Patient screened for future fall risk: documentation of any fall with injury in past year - Last Documented On 04/28/2024 1:54PM ; [facility] Fall Risk Assessment: This patient has [...] with the patient. - Last Documented On 04/28/2024 1:54PM ; [facility] Patient was seen by myself Rao Dominguez PA-C. Patient will follow up 6 weeks we are going to have her go back to physical therapy and I emphasized to her that she probably needs to make sure she is doing these exercises on her own daily. We will try a prescription for some Mobic if this does not help then we will get an MRI we did discuss an MRI today but she wants to do therapy again - Last Documented On 04/28/2024 1:54PM ; [facility] P[facility] Tests Order Diagnosis Results Due Ordering Kurt shafer Therapy - Physical Therapy Lumbar Pain in right hip Rao Dominguez PA-C Last Documented On 4 3:38PM ; [facility] Therapy - Physical Therapy Cervical Cervicalgia 01/27/24 Rao Dominguez PA-C Last Documented On 4 3:39PM ; [facility] Therapy - Physical Therapy Cervical Cervicalgia 04/17/24 Rao Dominguez PA-C Last Documented On 4 1:54PM ; [facility] Therapy - Physical Therapy Cervical Cervicalgia 05/29/24 Rao Dominguez PA-C Last Documented On 4 12:28PM ; [facility] Instructions to patient Lose weight Last Documented On 4 8:49AM ; [facility], [facility] Assessments Includes: Assessments from this encounter Findings - Overweight - Last Documented On 04/28/2024 1:54PM ; [facility] Neck pain - Last Documented On 04/28/2024 1:54PM ; [facility], [facility] Instructions Includes: Instructions from this encounter Instructions to patient Lose weight Last Documented On 4 8:49AM ; [facility] Medical Equipment - Implanted Devices Includes: Current Devices No Medical Equipment Recorded Medications Includes: Medications discussed during this encounter and other current Medications New / Renewed during this visit Rao Dominguez PA-C on 04/17/2024 Meloxicam 15 MG Oral Tablet Provider: Rao Dominguez PA-C 30 day supply: 30 tablet, 1 refills Diagnosis: Take 1 tablet by mouth once a day Pharmacy: [facility] ELIA[place] , [facility], [id number] - Last Documented On 4 9:16AM By Soni Barreto ; [facility], [facility] Current Medications (continue as prescribed) Tobramycin-dexAMETHasone 0.3-0.1% Ophthalmic Suspensio n 03/31/2024 Provider: Diagnosis: Last Documented On 4 8:49AM By Soni Barreto ; [facility], [facility] Losartan Potassium 50 MG Oral Tablet 09/17/2023 Prov ider: Abdelrahman Gomez DR Diagnosis: Last Documented On 4 2:18PM By Soni Barreto ; [facility], [facility] Estradiol 0.1 MG/GM Vaginal Cream 09/12/2023 Provide r: Diagnosis: Last Documented On 4 2:18PM By Soni Barreto ; [facility], [facility] levoFLOXacin 500 MG Oral Tablet 07/26/2023 Provider: Diagnosis: Last Documented On 4 2:18PM By Soni Barreto ; [facility], [facility] Albuterol Sulfate HFA 108 (9 0 Base) MCG/ACT Inhalation Aerosol Solution 04/11/2023 Provider: Doris Maldonado APRN Diagnosis: Last Documented On 4 2:18PM By Soni Barreto ; [facility], [facility] Citalopram Hydrobromide 40 MG Oral Tablet 04/04/2023 Provider: Diagnosis: Last Documented On 4 2:18PM By Soni Barreto ; [facility], [facility] Past Medications on file Meloxicam 15 MG Oral Tablet 01/27/2024 - 03/27/2024 Pr ovider: Rao Dominguez PA-C Diagnosis: Take 1 tablet by mouth daily Last Documented On 4 2:43PM By Soni Barreto ; [facility] Pantoprazole Sodium 40 MG Or al Tablet Delayed Release 09/30/2023 - 12/29/2023 Provider: Abdelrahman vyas DR Diagnosis: Last Documented On 4 2:16PM By Soni Barreto ; [facility], [facility] Fluconazole 200 MG Oral Tablet 09/30/2023 - 10/20/2023 Provider: RHIANNON SHAH MD Diagnosis: Last Documented On 4 2:17PM By Soni Barreto ; [facility], [facility] Solifenacin Succinate 10 MG Oral Tablet 09/30/2023 - 0 12/29/2023 Provider: Diagnosis: Last Documented On 4 2:17PM By Soni Barreto ; [facility], [facility] Linzess 145 MCG Oral Capsule 09/30/2023 - 10/30/2023 P kalpeshvider: Abdelrahman Gomez DR Diagnosis: Last Documented On 4 2:16PM By Soni Barreto ; [facility], [facility] Methenamine Hippurate 1 GM O ral Tablet 09/30/2023 - 10/30/2023 Provider: RHIANNON SHAH MD Diagnosis: Last Documented On 4 2:17PM By Soni Barreto ; [facility], [facility] Medications Administered Includes: Administered Medications from this encounter No Administered Medications Recorded Results Includes: Results discussed during this encounter No Results Recorded For Specified Dates History of Present Illness Includes: History of Present Illness from this encounter TORI Perez is a 79 year old female. - Allergy list reviewed - Problem list reviewed - Medication list reviewed Patient is here today with complaints of neck pain saw her earlier this year with the symptoms with this and she went to physical therapy she feels it did help some but was having problem with her insurance at that point in time. She is not describing any radicular symptoms more the pain seems to be in the left upper trapezius. Denies any balance issues or bowel or bladder issues. Social History Description Last Updated Caffeine use 06/19/2023 Last Documented On 4 8:49AM ; [facility], [facility] Retired from work 04/23/2022 Last Documented On 4 8:49AM ; [facility], [facility] Not a current smoker. 12/30/2020 Last Documented On 4 8:49AM ; [facility] No recent change in diet 10/28/2017 Last Documented On 4 8:49AM ; [facility] No tobacco use 10/28/2017 Last Documented On 4 8:49AM ; [facility], [facility] Not exercising regularly 10/28/2017 Last Documented On 4 8:49AM ; [facility] Not using alcohol 10/28/2017 Last Documented On 4 8:49AM ; [facility], [facility] Not using drugs 10/28/2017 Last Documented On 4 8:49AM ; [facility] Sex - Female 06/04/2024 Last Documented On 4 10:44AM ; [facility] Smoking Status Unknown Procedures and Surgical History Includes: Procedures from this encounter Procedures Code Diagnosis Performing Provider Service L ocation Service Date use of tobacco assessment performed 1000F Last Documented On 4 8:49AM ; [facility] patient screened for future fall risk: documentation of any fall with injury in past year 1100F Last Documented On 4 8:49AM ; [facility] review of medications documented 1160F Last Documented On 4 8:49AM ; [facility] Surgical History Last Updated History of History of Gallbladder 2023 Last Documented On 4 8:49AM ; [facility] Medical History Includes: Medical History addressed during this encounter Description Last Updated Infection in stomach 02/14/2021 Last Documented On 4 8:49AM ; [facility] History of Arthroscopy RTCR 02/14/2021 Last Documented On 4 8:49AM ; [facility] A recent immunization for flu 06/12/2019 12/30/2020 Last Documented On 4 8:49AM ; [facility] A recent immunization for pneumococcal p neumonia 06/12/2019 12/30/2020 Last Documented On 4 8:49AM ; [facility] Appendectomy 12/30/2020 Last Documented On 4 8:49AM ; [facility] Arthritis 12/30/2020 Last Documented On 4 8:49AM ; [facility] Back surgery 12/30/2020 Last Documented On 4 8:49AM ; [facility] Diverticulitis of colon 12/30/2020 Last Documented On 4 8:49AM ; [facility] Heartburn / Acid Reflux 12/30/2020 Last Documented On 4 8:49AM ; [facility] Hypertension 12/30/2020 Last Documented On 4 8:49AM ; [facility] Hysterectomy 12/30/2020 Last Documented On 4 8:49AM ; [facility] Liver Disease 12/30/2020 Last Documented On 4 8:49AM ; [facility] Previous Fractures RCR 12/30/2020 Last Documented On 4 8:49AM ; [facility] Arthritic joint problems 10/28/2017 Last Documented On 4 8:49AM ; [facility] Gallbladder disease 10/28/2017 Last Documented On 4 8:49AM ; [facility] History of depression 10/28/2017 Last Documented On 4 8:49AM ; [facility] Intermittent hypertension 10/28/2017 Last Documented On 4 8:49AM ; [facility] Liver disease 10/28/2017 Last Documented On 4 8:49AM ; [facility] Family History Includes: Family History addressed during this encounter Description Last Updated Family history of heart disease 09/30/19 Last Documented On 4 8:49AM ; [facility] Family history of thromboembolic disease mom 06/19/2023 Last Documented On 4 8:49AM ; [facility] Family history of hypertension Last Documented On 4 8:49AM ; [facility] No significant family history 10/28/2017 Last Documented On 4 8:49AM ; [facility] Review of Systems Includes: Review of [...] Description No anxiety Last Documented On 4 8:49AM ; [facility] Physical Exam Includes: Physical Exam from this encounter Allergies Includes: Active Allergies Substance Type Reaction Onset Date Resolved Date Statu s Tetracycline HCl Allergy 06/10/2017 Ac tive Last Documented On 4 9:49AM ; [facility], [facility] Stadol Allergy 06/10/2017 Active Last Documented On 4 9:49AM ; [facility] Procardia Allergy 06/10/2017 Active Last Documented On 4 9:49AM ; [facility] Methadone HCl Allergy 06/10/2017 Activ e Last Documented On 4 9:49AM ; [facility], [facility] Lexapro Allergy 06/10/2017 Active Last Documented On 4 9:49AM ; [facility] HYDROcodone-Acetaminophen Allergy 06/10/2017 Active Last Documented On 4 9:49AM ; [facility], [facility] FLUoxetine HCl Allergy 06/10/2017 Acti ve Last Documented On 4 9:49AM ; [facility], [facility] Cipro Allergy 06/10/2017 Active Last Documented On 4 9:49AM ; [facility], [facility] Care Cement Car Dumper Name (Identifier) Role/Relation Location/Telecom Last Documented By Thien Mesa MD ([id number]) Assigned practitioner (occupation) [address] [place] [address], , [address] tel:[phone] Last Documented On 06/04/2024 10:44AM ; [facility] DARCIE NORIEGA MD ([id number]) Primary care physician (occupation) [facility], [address] tel:[phone] Last Documented On 06/04/2024 10:44AM ; [facility] Abdelrahman Gomez DR ([id number]) CLINIC DR, [facility], [address] tel:[phone] Last Documented On 08/15/2021 3:12PM ; [facility], [facility] Encounters Encounter Provider Location (Healthcare Service Location) Date Check-In Time Check-Out Time Diagnosis Encounter Disposition Follow Up Rao Dominguez PA-C [facility] 2023 8:51AM 9:07AM Overweight Payer Includes: Active Insurance Policies Plan Name (Payer ID) Coverage Type Member ID Group # Subscriber (ID) Relationship Effective Dates 1 - [employer] GOLD CHO[employer] PLAN ([id number]) [id number] Dian Ngo White Self [id number] Unknown Last Documented On 2 3:08PM ; [facility], [facility] Clinical Notes Includes: Clinical Notes from this encounter * Progress note Date Encounter Last Documented by 04/17/2024 Follow Up Last documented on 04/28/2024; 1:54 PM, Rao Dominguez PA-C; [facility], [facility] Active Problems & Conditions - Bone Pain in the Right Knee - History of Joint Pain, Localized in the Right Shoulder - Joint Pain in Both Knees - Joint Pain in the Right Hip - Neck Pain Chief Complaint The Chief Complaint is: Cervical pain. Referred Here Referred by Self Referred. History of Present Illness Dian Perez is a 79 year old female. - Allergy list reviewed - Problem list reviewed - Medication list reviewed Patient is here today with complaints of neck pain saw her earlier this year with the symptoms with this and she went to physical therapy she feels it did help some but was having problem with her insurance at that point in time. She is not describing any radicular symptoms more the pain seems to be in the left upper trapezius. Denies any balance issues or bowel or bladder issues. Current Medication - Albuterol Sulfate HFA 108 (90 Base) MCG/ACT Inhalation Aerosol Solution 16 days, 0 refills - Citalopram Hydrobromide 40 MG Oral Tablet 90 days, 0 refills - Estradiol 0.1 MG/GM Vaginal Cream 90 days, 0 refills - levoFLOXacin 500 MG Oral Tablet 10 days, 0 refills - Losartan Potassium 50 MG Oral Tablet 90 days, 0 refills - Tobramycin-dexAMETHasone 0.3-0.1% Ophthalmic Suspension 25 days, 0 refills Past Medical/Surgical History Reported: [...] Complaint of seasonal allergic reaction. Physical Findings Standard Measurements: - Patient was overweight. She is pleasant alert and oriented x3 She has some pain with cervical extension and bilateral rotation 5/5 biceps deltoids wrist extension and flexion strength 4/5 triceps strength bilaterally Negative Sanchez's and radial reflex bilaterally Tests Two views of the cervical spine April 17, 2024 show no acute abnormality no change from previous fusion January Assessment - Overweight Neck pain Previous Tests Available previous imaging studies were reviewed Available previous history reviewed Counseling/Education - Tobacco non-user - Use of tobacco assessment performed - Lose weight Plan StartCited - Cervicalgia Therapy/Physical Therapy: Cervical Instructions: See PT order attached EndCited StartCited - Other Meloxicam 15 MG tablet Take 1 tablet by mouth once a day, 30 days, 1 refills EndCited - Patient [...] Patient will follow up 6 weeks we are going to have her go back to physical therapy and I emphasized to her that she probably needs to make sure she is doing these exercises on her own daily. We will try a prescription for some Mobic if this does not help then we will get an MRI we did discuss an MRI today but she wants to do therapy again Notes This dictation was done with voice recognition software and may contain errors and omissions. Practice Management Use of tobacco assessment performed and patient screened for future fall risk documentation of any fall with injury in past year Review of medications documented. Care Team - Abdelrahman Gomez DR
--- OUTSIDE RECORDS SUMMARY | 2025-07-31 16:14 | XMS_ITS ---
Author Organization [facility] Address [address] [place] [address] Phone Care Team Providers Care Precipitator Name Role Phone Bonita ANTHONY, Thien Unavailable [phone] HARI ANTHONY, DARCIE Primary Care Provider [phone] Patricia RAND, Abdelrahman Unavailable [phone] Reason for Referral 05/07/2022 Encounter for HYMAN Injection Date Recorded Target Due Date Referral Type Referring Prov ider Reason For Referral 05/07/2022 Rao Dominguez PA-C referr al to physician Last Documented On 2 1:14PM ; [facility] 04/30/2022 Encounter for HYMAN Injection Date Recorded Target Due Date Referral Type Referring Prov ider Reason For Referral 04/30/2022 Rao Dominguez PA-C referr al to physician Last Documented On 2 12:58PM ; [facility] 04/23/2022 Encounter for HYMAN Injection Date Recorded Target Due Date Referral Type Referring Prov ider Reason For Referral 04/23/2022 Rao Dominguez PA-C referr al to physician Last Documented On 2 12:45PM ; [facility] 10/18/2021 Encounter for HYMAN Injection Date Recorded Target Due Date Referral Type Referring Prov ider Reason For Referral 10/18/2021 Rao Dominguez PA-C referr al to physician Last Documented On 2 2:37PM ; [facility] 10/11/2021 Encounter for HYMAN Injection Date Recorded Target Due Date Referral Type Referring Prov ider Reason For Referral 10/11/2021 Rao Dominguez PA-C referr al to physician Last Documented On 2 2:34PM ; [facility] 10/04/2021 Encounter for HYMAN Injection Date Recorded Target Due Date Referral Type Referring Prov ider Reason For Referral 10/04/2021 Rao Dominguez PA-C referr al to physician Last Documented On 2 3:18PM ; [facility] 08/15/2021 Encounter for NEW PROBLEM/EST PT Date Recorded Target Due Date Referral Type Referring Prov ider Reason For Referral 08/15/2021 Rao Dominguez PA-C See PC p for BP Last Documented On 2 2:28PM ; [facility] 03/15/2021 Encounter for Specialty Pharmacy HYMAN Injection Date Recorded Target Due Date Referral Type Referring Prov ider Reason For Referral 03/15/2021 Alexx Harper MD see pcp for bp Last Documented On 1 3:09PM ; [facility] Problems Includes: Active, inactive, and resolved Problems All Visits Onset Date Date of Diagnosis Resolved Date Provid er Condition Status Neck Pain 01/27/2024 01/27/2024 Rao Dominguez PA-C Active Last Documented On 5 1:42AM ; [facility] Joint Pain Hip Right 09/30/2023 09/30/2023 Rao Dominguez PA-C Active Last Documented On 5 1:42AM ; [facility] Joint Pain in Both Knees 11/26/2022 11/26/2022 Cam Dominguez PA-C Active Last Documented On 5 1:40AM ; [facility] History of Joint Pain Should er Right 09/05/2021 09/05/2021 Rao Dominguez PA-C Active Last Documented On 5 1:41AM ; [facility] Bone Pain in the Right Knee 07/18/2017 07/18/2017 Alexx Harper MD Active Last Documented On 5 1:39AM ; [facility] Joint Pain Shoulder 06/10/2017 06/10/2017 09/05/2021 Rao Dominguez PA-C Resolved Last Documented On 5 1:39AM ; [facility] Plan of Treatment Findings Encounter Date Patient screened for future fall risk: documentation of any fall with injury in past year Follow Up with Rao Dominguez PA-C 05/29/2024 Last Documented On 4 9:49AM ; [facility] Patient screened for future fall risk: documentation of any fall with injury in past year Follow Up with Rao Dominguez PA-C 04/17/2024 Last Documented On 4 8:49AM ; [facility] Patient screened for future fall risk: documentation of any fall with injury in past year NEW PROBLEM/EST PT with Rao Dominguez PA-C 01/27/2024 Last Documented On 4 1:24PM ; [facility] Patient screened for future fall risk: documentation of any fall with injury in past year Follow Up with Rao Dominguez PA-C 12/31/2023 Last Documented On 4 1:40PM ; [facility] Pending Tests Order Diagnosis Results Due Ordering P rovider Therapy - Physical Therapy Lumbar Pain in right hip Rao Dominguez PA-C Last Documented On 4 3:38PM ; [facility] Therapy - Physical Therapy Cervical Cervicalgia 01/27/24 Rao Dominguez PA-C Last Documented On 4 3:39PM ; [facility] Therapy - Physical Therapy Cervical Cervicalgia 04/17/24 Rao Dominguez PA-C Last Documented On 4 1:54PM ; [facility] Therapy - Physical Therapy Cervical Cervicalgia 05/29/24 Rao Dominguez PA-C Last Documented On 4 12:28PM ; [facility] Instructions to patient Lose weight Last Documented On 4 9:49AM ; [facility] Lose weight Last Documented On 4 8:49AM ; [facility] Lose weight Last Documented On 4 1:24PM ; [facility] Lose weight Last Documented On 4 1:38PM ; [facility] Lose weight Last Documented On 4 3:25PM ; [facility] Lose weight Last Documented On 4 2:18PM ; [facility] Lose weight Last Documented On 3 2:25PM ; [facility] Lose weight Last Documented On 3 1:02PM ; [facility] Lose weight Last Documented On 3 1:16PM ; [facility] Lose weight Last Documented On 3 1:03PM ; [facility] Lose weight Last Documented On 3 1:10PM ; [facility] Lose weight Last Documented On 3 1:10PM ; [facility] Lose weight Last Documented On 2 1:14PM ; [facility] Lose weight Last Documented On 2 12:58PM ; [facility] Lose weight Last Documented On 2 12:45PM ; [facility] Lose weight Last Documented On 2 2:37PM ; [facility] Lose weight Last Documented On 2 2:34PM ; [facility] Lose weight Last Documented On 2 3:18PM ; [facility] Lose weight Last Documented On 2 1:13PM ; [facility] Assessments Includes: Assessments for all patient encounters Findings Encounter Date Overweight Follow Up with Rao Tony 05/29/2024 Last Documented On 4 9:49AM ; [facility] Overweight Follow Up with Rao Tony 04/17/2024 Last Documented On 4 8:49AM ; [facility] Overweight NEW PROBLEM/EST PT with Rao Dominguez PA-C 01/27/2024 Last Documented On 4 1:24PM ; [facility] Overweight Follow Up with Rao Tony 12/31/2023 Last Documented On 4 1:38PM ; [facility] Overweight Follow Up with Rao Tony 11/12/2023 Last Documented On 4 3:25PM ; [facility] Overweight NEW PROBLEM/EST PT with Rao Dominguez PA-C 09/30/2023 Last Documented On 4 2:18PM ; [facility] Overweight Specialty Pharmacy HYMAN Injection with Rao Dominguez PA-C 07/02/2023 Last Documented On 3 2:25PM ; [facility] Overweight Specialty Pharmacy HYMAN Injection with Rao Dominguez PA-C 06/26/2023 Last Documented On 3 1:02PM ; [facility] Overweight Specialty Pharmacy HYMAN Injection with Rao Dominguez PA-C 06/19/2023 Last Documented On 3 1:17PM ; [facility] Instructions Includes: Instructions for all patient encounters Instructions to patient Lose weight Last Documented On 4 9:49AM ; [facility] Lose weight Last Documented On 4 8:49AM ; [facility] Lose weight Last Documented On 4 1:24PM ; [facility] Lose weight Last Documented On 4 1:38PM ; [facility] Lose weight Last Documented On 4 3:25PM ; [facility] Lose weight Last Documented On 4 2:18PM ; [facility] Lose weight Last Documented On 3 2:25PM ; [facility] Lose weight Last Documented On 3 1:02PM ; [facility] Lose weight Last Documented On 3 1:16PM ; [facility] Lose weight Last Documented On 3 1:03PM ; [facility] Lose weight Last Documented On 3 1:10PM ; [facility] Lose weight Last Documented On 3 1:10PM ; [facility] Lose weight Last Documented On 2 1:14PM ; [facility] Lose weight Last Documented On 2 12:58PM ; [facility] Lose weight Last Documented On 2 12:45PM ; [facility] Lose weight Last Documented On 2 2:37PM ; [facility] Lose weight Last Documented On 2 2:34PM ; [facility] Lose weight Last Documented On 2 3:18PM ; [facility] Lose weight Last Documented On 2 1:13PM ; [facility] Medical Equipment - Implanted Devices Includes: Current and historical Devices No Medical Equipment Recorded Medications Includes: Current and historical Medications Current Medications (continue as prescribed) Tobramycin-dexAMETHasone 0.3-0.1% Ophthalmic Suspensio n 03/31/2024 Provider: Diagnosis: Last Documented On 4 8:49AM By Soni Barreto ; [facility] Losartan Potassium 50 MG Oral Tablet 09/17/2023 Prov ider: Abdelrahman Gomez DR Diagnosis: Last Documented On 4 2:18PM By Soni Barreto ; [facility] Estradiol 0.1 MG/GM Vaginal Cream 09/12/2023 Provide r: Diagnosis: Last Documented On 4 2:18PM By Soni Barreto ; [facility] levoFLOXacin 500 MG Oral Tablet 07/26/2023 Provider: Diagnosis: Last Documented On 4 2:18PM By Soni Barreto ; [facility] Albuterol Sulfate HFA 108 (9 0 Base) MCG/ACT Inhalation Aerosol Solution 04/11/2023 Provider: Doris Maldonado APRN Diagnosis: Last Documented On 4 2:18PM By Soni Barreto ; [facility] Citalopram Hydrobromide 40 MG Oral Tablet 04/04/2023 Provider: Diagnosis: Last Documented On 4 2:18PM By Soni Barreto ; [facility] Past Medications on file Meloxicam 15 MG Oral Tablet 04/17/2024 - 06/16/2024 Pr ovider: Rao Dominguez PA-C Diagnosis: Take 1 tablet by mouth once a day Last Documented On 4 9:16AM By Soni Barreto ; [facility] Meloxicam 15 MG Oral Tablet 01/27/2024 - 03/27/2024 Pr ovider: Rao Dominguez PA-C Diagnosis: Take 1 tablet by mouth daily Last Documented On 4 2:43PM By Soni Barreto ; [facility] Pantoprazole Sodium 40 MG Or al Tablet Delayed Release 09/30/2023 - 12/29/2023 Provider: Abdelrahman vyas DR Diagnosis: Last Documented On 4 2:16PM By Soni Barreto ; [facility] Fluconazole 200 MG Oral Tablet 09/30/2023 - 10/20/2023 Provider: RHIANNON SHAH MD Diagnosis: Last Documented On 4 2:17PM By Soni Barreto ; [facility] Solifenacin Succinate 10 MG Oral Tablet 09/30/2023 - 0 12/29/2023 Provider: Diagnosis: Last Documented On 4 2:17PM By Soni Barreto ; [facility] Methenamine Hippurate 1 GM O ral Tablet 09/30/2023 - 09/30/2023 Provider: RHIANNON SHAH MD Diagnosis: Last Documented On 4 2:18PM By Soni Barreto ; [facility] Linzess 145 MCG Oral Capsule 09/30/2023 - 10/30/2023 Kurt shafer: Abdelrahman Gomez DR Diagnosis: Last Documented On 4 2:16PM By Soni Barreto ; [facility] Methenamine Hippurate 1 GM O ral Tablet 09/30/2023 - 10/30/2023 Provider: RHIANNON SHAH MD Diagnosis: Last Documented On 4 2:17PM By Soni Barreto ; [facility] OrthoVisc 30 MG/2ML Intra-ar ticular Solution Prefilled Syringe 06/05/2023 - 09/30/2023 Provider: Thien parry MD Diagnosis: Last Documented On 4 2:17PM By Soni Barreto ; [facility] Fluconazole 200 MG Oral Tablet 11/18/2022 - 09/30/2023 Provider: RHIANNON SHAH MD Diagnosis: Last Documented On 4 2:17PM By Soni Barreto ; [facility] Solifenacin Succinate 10 MG Oral Tablet 11/18/2022 - 0 09/30/2023 Provider: Diagnosis: Last Documented On 4 2:17PM By Soni Barreto ; [facility] Methenamine Hippurate 1 GM O ral Tablet 11/09/2022 - 09/30/2023 Provider: RHIANNON SHAH MD Diagnosis: Last Documented On 4 2:17PM By Soni Barreto ; [facility] Linzess 145 MCG Oral Capsule 11/05/2022 - 09/30/2023 Kurt shafer: Abdelrahman Gomez DR Diagnosis: Last Documented On 4 2:17PM By Soni Barreto ; [facility] Pantoprazole Sodium 40 MG Or al Tablet Delayed Release 10/18/2022 - 09/30/2023 Provider: Abdelrahman vyas DR Diagnosis: Last Documented On 4 2:17PM By Soni Barreto ; [facility] Methenamine Hippurate 1 GM O ral Tablet 10/17/2022 - 09/30/2023 Provider: RHIANNON SHAH MD Diagnosis: Last Documented On 4 2:16PM By Soni Barreto ; [facility] Citalopram Hydrobromide 40 MG Oral Tablet 10/17/2022 - 09/30/2023 Provider: Diagnosis: Last Documented On 4 2:16PM By Soni Barreto ; [facility] Azithromycin 500MG Oral Tablet 05/03/2017 - 11/09/2022 Provider: ARNOL PAINTER Diagnosis: Last Documented On 3 1:03PM By Brittany Porras ; [facility] Promethazine-Codeine 6.25-10MG/5ML Oral Syrup 04/22/2017 - 11/09/2022 Provider: BRITTON MEIER MD (FP) Diagnosis: Last Documented On 3 1:03PM By Brittany Porras ; [facility] Cefdinir 250MG/5ML Oral Suspension Reconstituted 04/22/2017 - 11/09/2022 Provider: ARNOL PAINTER Diagnosis: Last Documented On 3 1:03PM By Brittany Porras ; [facility] Topiramate 25MG Oral Capsule Sprinkle 04/19/2017 - Provider: Diagnosis: Last Documented On 3 1:03PM By Brittany Porras ; [facility] Triamcinolone Acetonide Powder 04/01/2017 - 11/09/2022 Provider: ARNOL PAINTER Diagnosis: Last Documented On 3 1:03PM By Brittany Porras ; [facility] Pantoprazole Sodium 20MG Ora l Tablet Delayed Release 03/25/2017 - 11/09/2022 Provider: ARNOL PAINTER Diagnosis: Last Documented On 3 1:03PM By Brittany Porras ; [facility] Ursodiol 250MG Oral Tablet 02/15/2017 - 11/09/2022 Pro vider: Diagnosis: Last Documented On 3 1:03PM By Brittany Porras ; [facility] Citalopram Hydrobromide 20MG Oral Tablet 02/15/2017 - 11/09/2022 Provider: Diagnosis: Last Documented On 3 1:03PM By Brittany Porras ; [facility] Medications Administered Includes: Administered Medications in patient's chart No Administered Medications Recorded Results Includes: Results from 07/31/2024 through 07/31/2025 No Results Recorded For Specified Dates Social History Description Last Updated Tobacco non-user 11/12/2023 Last Documented On 4 3:50PM ; [facility] Caffeine use 06/19/2023 Last Documented On 3 12:48PM ; [facility] No recent change in diet 11/12/2022 Last Documented On 3 1:18PM ; [facility] Not a current smoker. 11/12/2022 Last Documented On 3 1:18PM ; [facility] Retired from work 04/23/2022 Last Documented On 2 1:06PM ; [facility] Non-smoker 12/30/2020 Last Documented On 1 2:48PM ; [facility] Not a current smoker. 12/30/2020 Last Documented On 1 2:48PM ; [facility] No recent change in diet 10/28/2017 Last Documented On 8 11:09AM ; [facility] No tobacco use 10/28/2017 Last Documented On 8 11:09AM ; [facility] Not a current smoker 10/28/2017 Last Documented On 8 11:09AM ; [facility] Not exercising regularly 10/28/2017 Last Documented On 8 11:09AM ; [facility] Not using alcohol 10/28/2017 Last Documented On 8 11:09AM ; [facility] Not using drugs 10/28/2017 Last Documented On 8 11:09AM ; [facility] Smoking status : Never smoker 10/28/2017 Last Documented On 8 11:09AM ; [facility] Sex - Female 06/04/2024 Last Documented On 4 10:44AM ; [facility] Procedures and Surgical History Surgical History Last Updated History of appendectomy 05/29/2024 Last Documented On 4 12:28PM ; [facility] History of History of Gallbladder 2023 Last Documented On 4 12:28PM ; [facility] History of hysterectomy 05/29/2024 Last Documented On 4 12:28PM ; [facility] History of back surgery 10/28/2017 Last Documented On 8 11:09AM ; [facility] Medical History Includes: Medical History in patient's chart Description Last Updated History of arthritis 05/29/2024 Last Documented On 4 12:28PM ; [facility] History of Hypertension 05/29/2024 Last Documented On 4 12:28PM ; [facility] History of diverticulitis of colon 09/30 Last Documented On 4 3:38PM ; [facility] History of Liver Disease 09/30/2023 Last Documented On 4 3:38PM ; [facility] History of Heartburn / Acid Reflux 06/19 Last Documented On 3 12:48PM ; [facility] Infection in stomach 02/14/2021 Last Documented On 1 10:21AM ; [facility] History of Arthroscopy RTCR 02/14/2021 Last Documented On 1 10:21AM ; [facility] A recent immunization for flu 06/12/2019 12/30/2020 Last Documented On 1 2:48PM ; [facility] A recent immunization for pneumococcal p neumonia 06/12/2019 12/30/2020 Last Documented On 1 2:48PM ; [facility] Appendectomy 12/30/2020 Last Documented On 1 2:48PM ; [facility] Arthritis 12/30/2020 Last Documented On 1 2:48PM ; [facility] Back surgery 12/30/2020 Last Documented On 1 2:48PM ; [facility] Diverticulitis of colon 12/30/2020 Last Documented On 1 2:48PM ; [facility] Heartburn / Acid Reflux 12/30/2020 Last Documented On 1 2:48PM ; [facility] History of Gallbladder 12/30/2020 Last Documented On 1 2:48PM ; [facility] Hypertension 12/30/2020 Last Documented On 1 2:48PM ; [facility] Hysterectomy 12/30/2020 Last Documented On 1 2:48PM ; [facility] Liver Disease 12/30/2020 Last Documented On 1 2:48PM ; [facility] Previous Fractures RCR 12/30/2020 Last Documented On 1 2:48PM ; [facility] Arthritic joint problems 10/28/2017 Last Documented On 8 11:09AM ; [facility] Gallbladder disease 10/28/2017 Last Documented On 8 11:09AM ; [facility] History of depression 10/28/2017 Last Documented On 8 11:09AM ; [facility] Intermittent hypertension 10/28/2017 Last Documented On 8 11:09AM ; [facility] Liver disease 10/28/2017 Last Documented On 8 11:09AM ; [facility] Family History Includes: Family History in patient's chart Description Last Updated Family history of heart disease 09/30/19 24 Last Documented On 4 3:38PM ; [facility] Family history of thromboembolic disease mom 06/19/2023 Last Documented On 3 12:48PM ; [facility] Family history of hypertension 1 Last Documented On 1 2:48PM ; [facility] No significant family history 10/28/2017 Last Documented On 8 11:09AM ; [facility] Mental Status Description No anxiety Last Documented On 4 9:49AM ; [facility] No anxiety Last Documented On 4 8:49AM ; [facility] No anxiety Last Documented On 4 1:24PM ; [facility] No anxiety Last Documented On 4 1:38PM ; [facility] No anxiety Last Documented On 4 3:25PM ; [facility] No anxiety Last Documented On 4 2:18PM ; [facility] No anxiety Last Documented On 3 2:25PM ; [facility] No anxiety Last Documented On 3 1:02PM ; [facility] No anxiety Last Documented On 3 1:16PM ; [facility] No anxiety Last Documented On 3 1:03PM ; [facility] No anxiety Last Documented On 3 1:10PM ; [facility] No anxiety Last Documented On 3 1:11PM ; [facility] No anxiety Last Documented On 2 1:14PM ; [facility] No anxiety Last Documented On 2 12:58PM ; [facility] No anxiety Last Documented On 2 12:45PM ; [facility] No anxiety Last Documented On 2 2:37PM ; [facility] No anxiety Last Documented On 2 2:34PM ; [facility] No anxiety Last Documented On 2 3:13PM ; [facility] No anxiety Last Documented On 2 12:52PM ; [facility] No anxiety Last Documented On 2 2:22PM ; [facility] No anxiety Last Documented On 1 2:49PM ; [facility] No anxiety Last Documented On 1 3:04PM ; [facility] No anxiety Last Documented On 1 2:48PM ; [facility] No anxiety Last Documented On 1 10:20AM ; [facility] No anxiety Last Documented On 1 10:41AM ; [facility] No anxiety Last Documented On 1 10:45AM ; [facility] No anxiety Last Documented On 1 11:08AM ; [facility] No anxiety Last Documented On 8 10:07AM ; [facility] No anxiety Last Documented On 8 9:47AM ; [facility] No anxiety Last Documented On 8 10:25AM ; [facility] No anxiety Last Documented On 8 9:20AM ; [facility] No anxiety Last Documented On 7 1:42PM ; [facility] No anxiety Last Documented On 7 8:39AM ; [facility] No anxiety Last Documented On 7 9:53AM ; [facility] Allergies Includes: Active, inactive, and resolved Allergies Substance Type Reaction Onset Date Resolved Date Statu s Tetracycline HCl Allergy 06/10/2017 Ac tive Last Documented On 4 9:49AM ; [facility] Stadol Allergy 06/10/2017 Active Last Documented On 4 9:49AM ; [facility] Procardia Allergy 06/10/2017 Active Last Documented On 4 9:49AM ; [facility] Methadone HCl Allergy 06/10/2017 Activ e Last Documented On 4 9:49AM ; [facility] Lexapro Allergy 06/10/2017 Active Last Documented On 4 9:49AM ; [facility] HYDROcodone-Acetaminophen Allergy 06/10/2017 Active Last Documented On 4 9:49AM ; [facility] FLUoxetine HCl Allergy 06/10/2017 Acti ve Last Documented On 4 9:49AM ; [facility] Cipro Allergy 06/10/2017 Active Last Documented On 4 9:49AM ; [facility] Care Precipitator Name (Identifier) Role/Relation Location/Telecom Last Documented By Thien Mesa MD ([id number]) Assigned practitioner (occupation) [address], [place], [place], [address] tel:[phone] Last Documented On 06/04/2024 10:44AM ; [facility] DARCIE NORIEGA MD ([id number]) Primary care physician (occupation) [facility], [address] tel:[phone] Last Documented On 06/04/2024 10:44AM ; [facility] Abdelrahman Gomez DR ([id number]) CLINIC , [facility], [address] tel:[phone] Last Documented On 08/15/2021 3:12PM ; [facility] Payer Includes: Active Insurance Policies Plan Name (Payer ID) Coverage Type Member ID Group # Subscriber (ID) Relationship Effective Dates 1 - [employer] GOLD CHOICE PLAN ([id number]) [id number] Dian Jeni White Self [id number] - Unknown Last Documented On 2 3:08PM ; [facility]
--- OUTSIDE RECORDS SUMMARY | 2025-07-31 16:14 | XMS_ITS | Clinical Summary ---
Author Organization [facility] Address [address] [place] [address] Phone Care Team Providers Care Diet Assistant Name Role Phone Bonita ANTHONY, Thien Unavailable [phone] HARI ANTHONY, DARCIE Primary Care Provider [phone] Patricia RAND, Abdelrahman Unavailable [phone] Reason for Visit and Chief Complaint The Chief Complaint is: cervical pain Problems Includes: Problems addressed during this encounter and other active Problems All Visits Onset Date Date of Diagnosis Resolved Date Provid er Condition Status Neck Pain 01/27/2024 01/27/2024 Rao Dominguez PA-C Active Last Documented On 5 1:42AM ; [facility], [facility] Joint Pain Hip Right 09/30/2023 09/30/2023 Rao Dominguez PA-C Active Last Documented On 5 1:42AM ; [facility], [facility] Joint Pain in Both Knees 11/26/2022 11/26/2022 Cam Dominguez PA-C Active Last Documented On 5 1:40AM ; [facility], [facility] History of Joint Pain Should er Right 09/05/2021 09/05/2021 Rao Dominguez PA-C Active Last Documented On 5 1:41AM ; [facility], [facility] Bone Pain in the Right Knee 07/18/2017 07/18/2017 Alexx Harper MD Active Last Documented On 5 1:39AM ; [facility], [facility] Plan of Treatment - Patient screened for future fall risk: documentation of any fall with injury in past year - Last Documented On 05/29/2024 12:28PM ; [facility] Fall Risk Assessment: This patient [...] with the patient. - Last Documented On 05/29/2024 12:28PM ; [facility] Patient was seen by myself Rao Dominguez PA-C. Patient will follow up as needed it did tell her that physical therapy I think would be a option for her gave her another order for that she says she is willing to least go for a couple of visits to be taught a home program. If something changes we will be happy to see her back. - Last Documented On 05/29/2024 12:28PM ; [facility] Pending Tests Order Diagnosis Results Due Ordering P rovider Therapy - Physical Therapy Lumbar Pain in right hip Rao Dominguez PA-C Last Documented On 4 3:38PM ; [facility] Therapy - Physical Therapy Cervical Cervicalgia 01/27/24 Rao Dominguez PA-C Last Documented On 4 3:39PM ; [facility] Therapy - Physical Therapy Cervical Cervicalgia 04/17/24 Rao Dominguez PA-C Last Documented On 4 1:54PM ; [facility] Therapy - Physical Therapy Cervical Cervicalgia 05/29/24 Rao Dominguez PA-C Last Documented On 4 12:28PM ; [facility] Therapy - Physical Therapy Cervical Overweight 05/29/24 Rao Dominguez PA-C Last Documented On 4 12:28PM ; [facility] Instructions to patient Lose weight Last Documented On 4 9:49AM ; [facility] Assessments Includes: Assessments from this encounter Findings - Overweight - Last Documented On 05/29/2024 12:28PM ; [facility] Neck pain - Last Documented On 05/29/2024 12:28PM ; [facility] Instructions Includes: Instructions from this encounter Instructions to patient Lose weight Last Documented On 4 9:49AM ; [facility], [facility] Medical Equipment - Implanted Devices Includes: Current Devices No Medical Equipment Recorded Medications Includes: Medications discussed during this encounter and other current Medications Current Medications (continue as prescribed) Tobramycin-dexAMETHasone 0.3-0.1% Ophthalmic Suspensio n 03/31/2024 Provider: Diagnosis: Last Documented On 4 8:49AM By Soni Barreto ; [facility], [facility] Losartan Potassium 50 MG Oral Tablet 09/17/2023 Prov ider: Abdelrahman Gomez DR Diagnosis: Last Documented On 4 2:18PM By Soni Barreto ; [facility], [facility] Estradiol 0.1 MG/GM Vaginal Cream 09/12/2023 Provide r: Diagnosis: Last Documented On 4 2:18PM By Soni Barreto ; [facility], [facility] levoFLOXacin 500 MG Oral Tablet 07/26/2023 Provider: Diagnosis: Last Documented On 4 2:18PM By Soni Barreto ; [facility], [facility] Albuterol Sulfate HFA 108 (9 0 Base) MCG/ACT Inhalation Aerosol Solution 04/11/2023 Provider: Doris Maldonado APRN Diagnosis: Last Documented On 4 2:18PM By Soni Barreto ; [facility], [facility] Citalopram Hydrobromide 40 MG Oral Tablet 04/04/2023 Provider: Diagnosis: Last Documented On 4 2:18PM By Soni Barreto ; [facility], [facility] Past Medications on file Meloxicam 15 MG Oral Tablet 04/17/2024 - 06/16/2024 Pr ovider: Rao Dominguez PA-C Diagnosis: Take 1 tablet by mouth once a day Last Documented On 4 9:16AM By Soni Barreto ; [facility], [facility] Meloxicam 15 MG Oral Tablet 01/27/2024 - 03/27/2024 Pr ovider: Rao Dominguez PA-C Diagnosis: Take 1 tablet by mouth daily Last Documented On 4 2:43PM By Soni Barreto ; [facility], [facility] Pantoprazole Sodium 40 MG Or al Tablet Delayed Release 09/30/2023 - 12/29/2023 Provider: Abdelrahman vyas DR Diagnosis: Last Documented On 4 2:16PM By Soni Barreto ; [facility] Fluconazole 200 MG Oral Tablet 09/30/2023 - 10/20/2023 Provider: RHIANNON SHAH MD Diagnosis: Last Documented On 4 2:17PM By Soni Barreto ; [facility], [facility] Solifenacin Succinate 10 MG Oral Tablet 09/30/2023 - 0 12/29/2023 Provider: Diagnosis: Last Documented On 4 2:17PM By Soni Barreto ; [facility], [facility] Linzess 145 MCG Oral Capsule 09/30/2023 - 10/30/2023 Kurt shafer: Abdelrahman Gomez DR Diagnosis: Last Documented On 4 2:16PM By Soni Barerto ; [facility], [facility] Methenamine Hippurate 1 GM O ral Tablet 09/30/2023 - 10/30/2023 Provider: RHIANNON SHAH MD Diagnosis: Last Documented On 4 2:17PM By Soni Barreto ; [facility], [facility] Medications Administered Includes: Administered Medications from this encounter No Administered Medications Recorded Vital Signs Includes: Vital Signs from this encounter Vital Name 05/29/2024 09:53A Height (in) 64 Weight (lb) 174 Body Mass Index 29.9 Body Surface Area 1.8 Pain Level 4 Note: lc Last Documented: On 05/29/2024 9:54AM ; [facility], [facility] Results Includes: Results discussed during this encounter No Results Recorded For Specified Dates History of Present Illness Includes: History of Present Illness from this encounter HPI Dian Perez is a 79 year old female. - Symptoms catching pain [...] medications documented Patient is here today for follow-up of her neck pain she says she did not go to physical therapy most his pain still seems to be on the left side of her neck no radicular symptoms with this. No complaints of any bowel or bladder issues with it heat tends to make it feel a little bit better nothing tends to make it feel overly worse. Social History Description Last Updated Tobacco non-user 11/12/2023 Last Documented On 4 9:49AM ; [facility] Caffeine use 06/19/2023 Last Documented On 4 9:49AM ; [facility] No recent change in diet 11/12/2022 Last Documented On 4 9:49AM ; [facility] Not a current smoker. 11/12/2022 Last Documented On 4 9:49AM ; [facility] Retired from work 04/23/2022 Last Documented On 4 9:49AM ; [facility] Non-smoker 12/30/2020 Last Documented On 4 9:49AM ; [facility] Not a current smoker. 12/30/2020 Last Documented On 4 9:49AM ; [facility] No recent change in diet 10/28/2017 Last Documented On 4 9:49AM ; [facility] No tobacco use 10/28/2017 Last Documented On 4 9:49AM ; [facility] Not a current smoker 10/28/2017 Last Documented On 4 9:49AM ; [facility] Not exercising regularly 10/28/2017 Last Documented On 4 9:49AM ; [facility] Not using alcohol 10/28/2017 Last Documented On 4 9:49AM ; [facility] Not using drugs 10/28/2017 Last Documented On 4 9:49AM ; [facility] Smoking status : Never smoker 10/28/2017 Last Documented On 4 9:49AM ; [facility] Sex - Female 06/04/2024 Last Documented On 4 10:44AM ; [facility] Procedures and Surgical History Includes: Procedures from this encounter Procedures Code Diagnosis Performing Provider Service L ocation Service Date use of tobacco assessment performed 1000F Last Documented On 4 9:49AM ; [facility] patient screened for future fall risk: documentation of any fall with injury in past year 1100F Last Documented On 4 9:49AM ; [facility] review of medications documented 1160F Last Documented On 4 9:49AM ; [facility] Surgical History Last Updated History of appendectomy 05/29/2024 Last Documented On 4 12:28PM ; [facility] History of History of Gallbladder 2023 Last Documented On 4 12:28PM ; [facility] History of hysterectomy 05/29/2024 Last Documented On 4 12:28PM ; [facility] History of back surgery 10/28/2017 Last Documented On 4 9:49AM ; [facility], [facility] Medical History Includes: Medical History addressed during this encounter Description Last Updated History of arthritis 05/29/2024 Last Documented On 4 12:28PM ; [facility] History of Hypertension 05/29/2024 Last Documented On 4 12:28PM ; [facility] History of diverticulitis of colon 09/30 Last Documented On 4 9:49AM ; [facility] Infection in stomach 02/14/2021 Last Documented On 4 9:49AM ; [facility], [facility] History of Arthroscopy RTCR 02/14/2021 Last Documented On 4 9:49AM ; [facility] A recent immunization for flu 06/12/2019 12/30/2020 Last Documented On 4 9:49AM ; [facility] A recent immunization for pneumococcal p neumonia 06/12/2019 12/30/2020 Last Documented On 4 9:49AM ; [facility] Appendectomy 12/30/2020 Last Documented On 4 9:49AM ; [facility] Arthritis 12/30/2020 Last Documented On 4 9:49AM ; [facility] Back surgery 12/30/2020 Last Documented On 4 9:49AM ; [facility] Diverticulitis of colon 12/30/2020 Last Documented On 4 9:49AM ; [facility] Heartburn / Acid Reflux 12/30/2020 Last Documented On 4 9:49AM ; [facility] History of Gallbladder 12/30/2020 Last Documented On 4 9:49AM ; [facility] Hypertension 12/30/2020 Last Documented On 4 9:49AM ; [facility] Hysterectomy 12/30/2020 Last Documented On 4 9:49AM ; [facility] Liver Disease 12/30/2020 Last Documented On 4 9:49AM ; [facility] Previous Fractures RCR 12/30/2020 Last Documented On 4 9:49AM ; [facility] Arthritic joint problems 10/28/2017 Last Documented On 4 9:49AM ; [facility] Gallbladder disease 10/28/2017 Last Documented On 4 9:49AM ; [facility] History of depression 10/28/2017 Last Documented On 4 9:49AM ; [facility] Intermittent hypertension 10/28/2017 Last Documented On 4 9:49AM ; [facility] Liver disease 10/28/2017 Last Documented On 4 9:49AM ; [facility] Family History Includes: Family History addressed during this encounter Description Last Updated Family history of heart disease 09/30/19 Last Documented On 4 9:49AM ; [facility] Family history of thromboembolic disease mom 06/19/2023 Last Documented On 4 9:49AM ; [facility] Family history of hypertension Last Documented On 4 9:49AM ; [facility], [facility] Review of Systems Includes: Review of Systems from this encounter Systemic: Not feeling tired, no recent weight loss, and no recent weight gain. Head: No headache and no sinus pain. Eyes: No vision problems. Cataracts. No Glasses/Contacts and no Glaucoma. Otolaryngeal: Hearing loss. No tinnitus. Cardiovascular: No chest pain or discomfort and no palpitations. Hypertension. No High Cholesterol. Pulmonary: No daytime asthma symptoms and no chronic cough. No wheezing. Gastrointestinal: No heartburn and no abdominal pain. Indigestion. No Peptic Ulcer, no GI Stomach Bleed, and no Ulcers. Acid Reflux. Endocrine: Hot flashes and muscle weakness. No Diabetes, no Hypothyroid, and no Hyperthyroid. Hematologic: No easy bleeding. A tendency for easy bruising. No Anemia. Musculoskeletal: Arthritis and lower back pain. No soft tissue swelling. Pain localized to one or more joints. Neurological: No dizziness, no convulsions, and no numbness. Psychological: No anxiety and no emotional lability. Depression. No insomnia. Not crying for no reason. Skin: No dry skin. No Ulcers, no Scars, and no rash. Allergic and Immunologic: Complaint of seasonal allergic reaction. Mental Status Includes: Mental Status from this encounter Description No anxiety Last Documented On 4 9:49AM ; [facility], [facility] Physical Exam Includes: Physical Exam from this encounter Allergies Includes: Active Allergies Substance Type Reaction Onset Date Resolved Date Statu s Tetracycline HCl Allergy 06/10/2017 Ac tive Last Documented On 4 9:49AM ; [facility] Stadol Allergy 06/10/2017 Active Last Documented On 4 9:49AM ; [facility] Procardia Allergy 06/10/2017 Active Last Documented On 4 9:49AM ; [facility] Methadone HCl Allergy 06/10/2017 Activ e Last Documented On 4 9:49AM ; [facility] Lexapro Allergy 06/10/2017 Active Last Documented On 4 9:49AM ; [facility], [facility] HYDROcodone-Acetaminophen Allergy 06/10/2017 Active Last Documented On 4 9:49AM ; [facility], [facility] FLUoxetine HCl Allergy 06/10/2017 Acti ve Last Documented On 4 9:49AM ; [facility] Cipro Allergy 06/10/2017 Active Last Documented On 4 9:49AM ; [facility] Care Diet Assistant Name (Identifier) Role/Relation Location/Telecom Last Documented By Thien Mesa MD ([id number]) Assigned practitioner (occupation) [address], [place], [place], [address] tel:[phone] Last Documented On 06/04/2024 10:44AM ; [facility] DARCIE NORIEGA MD ([id number]) Primary care physician (occupation) [facility], [address] tel:[phone] Last Documented On 06/04/2024 10:44AM ; [facility] bAdelrahman Gomez DR ([id number]) [address], [facility], [address] tel:[phone] Last Documented On 08/15/2021 3:12PM ; [facility] Encounters Encounter Provider Location (Healthcare Service Location) Date Check-In Time Check-Out Time Diagnosis Encounter Disposition Follow Up Rao Dominguez PA-C [facility] 2023 9:35AM 10:08AM Overweight Payer Includes: Active Insurance Policies Plan Name (Payer ID) Coverage Type Member ID Group # Subscriber (ID) Relationship Effective Dates 1 - [employer] CHOICE PLAN ([id number]) [id number] Dian Perez Self [phone] - Unknown Last Documented On 2 3:08PM ; [facility] Clinical Notes Includes: Clinical Notes from this encounter * Progress note Date Encounter Last Documented by 05/29/2024 Follow Up Last documented on 05/29/2024; 12:28 PM, Rao Tony; [facility] Active Problems & Conditions - Bone [...] is a 79 year old female. - Symptoms catching pain [...] medications documented Patient is here today for follow-up of her neck pain she says she did not go to physical therapy most his pain still seems to be on the left side of her neck no radicular symptoms with this. No complaints of any bowel or bladder issues with it heat tends to make it feel a little bit better nothing tends to make it feel overly worse. Current Medication - Albuterol Sulfate HFA 108 (90 Base) MCG/ACT Inhalation Aerosol Solution 16 days, 0 refills - Citalopram Hydrobromide 40 MG Oral Tablet 90 days, 0 refills - Estradiol 0.1 MG/GM Vaginal Cream 90 days, 0 refills - levoFLOXacin 500 MG Oral Tablet 10 days, 0 refills - Losartan Potassium 50 MG Oral Tablet 90 days, 0 refills - Meloxicam 15 MG Oral Tablet Take 1 tablet by mouth once a day, 30 days, 1 refills - Tobramycin-dexAMETHasone 0.3-0.1% Ophthalmic Suspension 25 days, 0 refills Past Medical/Surgical History Reported: Medical: Liver disease, gallbladder disease, and joint problems arthritic. Intermittent hypertension. Immunization History: Recent immunization for flu 06/12/2019 and for pneumococcal pneumonia. Diagnoses: Heartburn / Acid Reflux Liver Disease Hypertension. Hypertension. Diverticulitis of colon. Diverticulitis of colon. Arthritis. Arthritis. Depression Infection in stomach. Surgical: - Appendectomy - Appendectomy - Hysterectomy - Hysterectomy - History of Gallbladder - History of Gallbladder - Previous Fractures RCR - Back surgery - Back surgery - History of Arthroscopy RTCR Social History Not a current smoker. Not a current smoker. Current diet: No recent change in diet. No recent change in diet. Caffeine use: Caffeine use. Tobacco use: No tobacco use and not a current smoker. Tobacco non-user and non-smoker. Smoking status: Never smoker. Alcohol: Not using alcohol. Drug Use: Not using drugs. Habits: Not exercising regularly. Work: Retired from work. Allergies - Cipro - FLUoxetine HCl - HYDROcodone-Acetaminophen - Lexapro - Methadone HCl - Procardia - Stadol - Tetracycline HCl Family History Heart disease Systemic hypertension Thromboembolic disease mom Review Of Systems Systemic: Not feeling tired, no recent weight loss, and no recent weight gain. Head: No headache and no sinus pain. Eyes: No vision problems. Cataracts. No Glasses/Contacts and no Glaucoma. Otolaryngeal: Hearing loss. No tinnitus. Cardiovascular: No chest pain or discomfort and no palpitations. Hypertension. No High Cholesterol. Pulmonary: No daytime asthma symptoms and no chronic cough. No wheezing. Gastrointestinal: No heartburn and no abdominal pain. Indigestion. No Peptic Ulcer, no GI Stomach Bleed, and no Ulcers. Acid Reflux. Endocrine: Hot flashes and muscle weakness. No Diabetes, no Hypothyroid, and no Hyperthyroid. Hematologic: No easy bleeding. A tendency for easy bruising. No Anemia. Musculoskeletal: Arthritis and lower back pain. No soft tissue swelling. Pain localized to one or more joints. Neurological: No dizziness, no convulsions, and no numbness. Psychological: No anxiety and no emotional lability. Depression. No insomnia. Not crying for no reason. Skin: No dry skin. No Ulcers, no Scars, and no rash. Allergic and Immunologic: Complaint of seasonal allergic reaction. Physical Findings - Vitals taken 05/29/2024 09:53 am lc Height 64 in Weight 174 lbs Body Mass Index 29.9 kg/m2 Body Surface Area 1.8 m2 Pain Level 4 Standard Measurements: - Patient was overweight. Cervical range motion was full some pain with the extension 5/5 biceps triceps deltoids wrist extension and flexion strength and no long tract findings Tests Two views of the cervical spine January 27, 2024 were negative Assessment - Overweight Neck pain Previous Tests Available previous imaging studies were reviewed Available previous history reviewed Counseling/Education - Tobacco non-user - Use of tobacco assessment performed - Lose weight Plan StartCited - Cervicalgia Therapy/Physical Therapy: Cervical Instructions: See PT order attached EndCited StartCited - Overweight Therapy/Physical Therapy: Cervical Instructions: See PT order attached EndCited - Patient screened for future fall [...] Rao Dominguez PA-C. Patient will follow up as needed it did tell her that physical therapy I think would be a option for her gave her another order for that she says she is willing to least go for a couple of visits to be taught a home program. If something changes we will be happy to see her back. Notes This dictation was done with voice recognition software and may contain errors and omissions. Practice Management Use of tobacco assessment performed and patient screened for future fall risk documentation of any fall with injury in past year Review of medications documented. Care Team - Abdelrahman Gomez DR
--- OUTSIDE RECORDS SUMMARY | 2025-07-31 16:14 | XMS_ITS | Data Portability ---
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 [email or web address] Not available 12/17/2024 16:24:06 01/21/2025 01/21/2025 Assessment: 79-year-old female with a history of recurrent urinary tract infections presenting with persistent symptoms of dysuria and urethral discomfort despite extensive treatment. 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 The management is also challenged by multiple antibiotic allergies, necessitating culture-directed treatment. She reports fatigue, at this time it is hard to discern if this is related to her genitourinary symptoms. Plan: - Urine culture to guide antibiotic choice due to recurrent UTIs. - Consider low-dose antibiotic prophylaxis post-treatment if cultures confirm recurrent bacterial infection. Ensure proper and consistent use of estrogen cream for vulvovaginal/uret hral atrophy management and UTI prophylaxis. - Address chronic fatigue in coordination with PCP's recommendations. [email or web address] Not available 02/19/2025 15:38:57 03/18/2025 03/18/2025 - 79-year-old female with a history of recurrent urinary tract infections presenting with follow-up evaluation. - Recurrent urinary tract infection: Coco albicans treated with fluconazole. - Atrophic vaginitis: Managed with topical estrogen. - Overactive bladder: Managed with fesoterodine and methenamine. [email or web address] Not available 03/18/2025 14:56:43 05/06/2025 05/06/2025 - 80-year-old female with a history of recurrent urinary tract infections presenting with acute urinary tract infection symptoms. - The patient has been experiencing increased urinary frequency, dysuria, urgency, and urge incontinence for four days. - Previous treatment with cefuroxime for Escherichia coli and Klebsiella infections was noted. - Methenamine for UTI suppression has been ineffective and poorly tolerated due to its bitter taste. - Overactive bladder symptoms are managed with fesoterodine, and atrophic vaginitis is treated with topical vaginal estrogen cream. Atrophic Vaginitis: - Continue topical vaginal estrogen cream for symptom management. [email or web address] Not available 05/06/2025 16:14:48 Plan of Treatment Reminders Order Date Submit Date Provider Last Modified By Organization Details Last Modified Time Details Appointments RECHECK 2025 01:30P Torres PALACIOS MD Not available Not available Not available RECHECK 2025 03:15P Torres PALACIOS MD Not available Not available Not available Lab urinalysi s panel, auto 2024 025 [email or web address] 4 [facility], [address], [address], [place], [address], 05/17/2025 10:55:09 culture, urine 2024 025 [email or web address] 4 [facility], [address] [place] [address], [address], 05/17/2025 10:55:09 urinalysi s panel, auto 2024 025 [email or web address] 4 [facility], [address], [address], [place], [address], 03/22/2025 08:40:34 culture, urine 2024 025 [email or web address] 4 [facility], [address] [place] [address], [address], 03/22/2025 08:40:34 urinalysi s panel, auto 2024 025 [email or web address] 4 [facility], [address] [place] [address] , [address], [place], [address], 01/22/2025 13:25:30 infectiou s disease panel 2024 025 [facility], [address] [place] [address] 4, [place], [address], 02/02/2025 14:07:38 urinalysi s panel, auto 2024 025 [email or web address] 4 [facility], [address] [place] [address] , [address], [place], [address], 12/17/2024 16:23:39 culture, urine 2024 025 [email or web address] 4 [facility], [address] [place] [address], [address], 12/22/2024 19:18:11 Referral None recorded. Procedures None recorded. Surgeries None recorded. Imaging None recorded. Medication Orders cefuroxim e axetil 500 mg tablet 2024 025 [facility] #[id number], [address], [place], [place], [id number], 05/23/2025 05:02:04 Macrobid 100 mg capsule 2024 025 [id number], [address], [place], [place], [id number], 05/06/2025 16:13:19 estradiol 0.01% (0.1 mg/gram) vaginal cream 2024 [facility][id number], [address], [place], [id number], 03/18/2025 14:53:39 methenami ne hippurate 1 gram tablet 2024 025 [facility] #[id number], [address], [place], [id number], 05/06/2025 16:11:44 fesoterod ine ER 8 mg tablet,ex tended release 24 hr 2024 [facility][id number], [address], [place], [id number], 03/18/2025 14:53:35 Patient TargetsNo targets recorded. Patient Instructions Encounter Date Encounter Id Patient Instructions Last Modified By Organization Details Last Modified Time 12/17/2024 [id number] - Follow up with urine culture to [...] hygiene practices. [email or web address] Not available 12/17/2024 16:24:07 01/21/2025 [id number] learning about healthy weight [email or web address] Not available 02/19/2025 15:40:10 - Use estrogen cream daily for the first few weeks followed by three times a week for maintenance. - Continue taking methenamine hippurate as prescribed to help prevent UTIs. - Ensure adequate hydration and monitor dietary intake, possibly including vitamin D. - Call if there is no improvement in symptoms or if new symptoms arise. [email or web address] Not available 01/21/2025 16:18:59 I discussed with the patient the importance of obtaining a urine culture to tailor an appropriate antibiotic treatment regimen, considering her past allergic reactions. We talked about the potential benefits of a low-dose, long-term antibiotic after treating the current UTI as a preventive measure for frequent recurrences. I highlighted the need for consistent application of estrogen cream for vulvovaginal atrophy to assist in reducing urethral sensitivity. Consent was obtained for urinary diagnostics, and we agreed on a follow-up plan to monitor the effectiveness of interventions, emphasizing the importance of reporting any adverse effects. [email or web address] Not available 01/21/2025 16:19:00 03/18/2025 [id number] - Continue using topical estrogen creams as prescribed. - Take fesoterodine and methenamine as directed for bladder management. - Follow up with urine culture results for further management. [email or web address] Not available 03/18/2025 14:56:46 05/06/2025 [id number] - Stop taking methenamine as it is not effective and has a bitter taste. - A new prescription will be sent to your pharmacy to help treat and prevent urinary tract infections. - Continue using topical vaginal estrogen cream as directed. - Continue taking fesoterodine for overactive bladder symptoms. - Provide a urine sample for culture to help guide treatment. [email or web address] Not available 05/06/2025 16:14:52 Reason for Referral None Reported. Results Created Date Observation Date Name Description Value Unit Range Abnormal Flag Note LastModifiedBy Organization Detail LastModifiedTime 11/18/1911/17/2024 urina lysis panel , auto Unknown Analyte Clean Catch Not Available [facility] [address], [address], 11/17/2024 11:28:19 11/18/19 25 11/17/2024 urina lysis panel , auto Unknown Analyte Yellow Not Available [facility] [address], [address], 11/17/2024 11:28:19 11/18/19 25 11/17/2024 urina lysis panel , auto Unknown Analyte Slight ly Cloudy Not Available [facility] [address], [address], 11/17/2024 11:28:19 11/18/19 25 11/17/2024 urina lysis panel , auto Unknown Analyte 1.020 Not Available [facility] With [address], [place], [address], 11/17/2024 11:28:19 11/18/19 25 11/17/2024 urina lysis panel , auto Unknown Analyte 1.003 - 1.030 Not Available [facility] With [address], [place], [address], 11/17/2024 11:28:19 11/18/1911/17/2024 urina lysis panel , auto Unknown Analyte 5.0 Not Available [facility] With [address], [address], 11/17/2024 11:28:19 11/18/1911/17/2024 urina lysis panel , auto Unknown Analyte 5.0 - 8.0 Not Available [facility] With [address], [place], [address], 11/17/2024 11:28:19 11/18/19 25 11/17/2024 urina lysis panel , auto Unknown Analyte 500 Augusto/uL Not Available [facility] With [address], [place], [address], 11/17/2024 11:28:19 11/18/1911/17/2024 urina lysis panel , auto Unknown Analyte Negati ve Not Available [facility] With [address], [place], [address], 11/17/2024 11:28:19 11/18/19 25 11/17/2024 urina lysis panel , auto Unknown Analyte Negati ve Not Available [facility] With [address], [place], [address], 11/17/2024 11:28:19 11/18/19 25 11/17/2024 urina lysis panel , auto Unknown Analyte Negati ve Not Available [facility] With [address], [address], 11/17/2024 11:28:19 11/18/1911/17/2024 urina lysis panel , auto Unknown Analyte 500 mg/dL Not Available [facility] With [address], [address], 11/17/2024 11:28:19 11/18/19 25 11/17/2024 urina lysis panel , auto Unknown Analyte Negati ve Not Available [facility] With [address], [address], 11/17/2024 11:28:19 11/18/19 25 11/17/2024 urina lysis panel , auto Unknown Analyte Normal Not Available [facility] With [address], [address], 11/17/2024 11:28:19 11/18/19 25 11/17/2024 urina lysis panel , auto Unknown Analyte Normal Not Available [facility] With [address], [address], 11/17/2024 11:28:19 11/18/19 25 11/17/2024 urina lysis panel , auto Unknown Analyte Negati ve Not Available [facility] With [address], [place], [address], 11/17/2024 11:28:19 11/18/19 25 11/17/2024 urina lysis panel , auto Unknown Analyte Negati ve Not Available [facility] With [address], [place], [address], 11/17/2024 11:28:19 11/18/19 25 11/17/2024 urina lysis panel , auto Unknown Analyte Normal Not Available [facility] With [address], [place], [address], 11/17/2024 11:28:19 11/18/19 25 11/17/2024 urina lysis panel , auto Unknown Analyte Normal Not Available [facility] With [address], [place], [address], 11/17/2024 11:28:19 11/18/19 25 11/17/2024 urina lysis panel , auto Unknown Analyte Negati ve Not Available [facility] With [address], [place], [address], 11/17/2024 11:28:19 11/18/19 25 11/17/2024 urina lysis panel , auto Unknown Analyte Negati ve Not Available [facility] With [address], [place], [address], 11/17/2024 11:28:19 11/18/19 25 11/17/2024 urina lysis panel , auto Unknown Analyte 250 Gautam/uL Not Available [facility] [address], [place], [address], 11/17/2024 11:28:19 11/18/19 25 11/17/2024 urina lysis panel , auto Unknown Analyte Negati ve Not Available [facility] [address], [place], [address], 11/17/2024 11:28:19 12/04/19 25 12/07/2024 URINE CULTU RE urine culture COLON Y COUNT : 10,00 0 - 100,0 00 CFU/M L Three or more isola hope; mixed uroge nital ana rosa . Not Available [facility] [address] [facility], [place], [address], 12/07/2024 08:59:32 12/04/19 25 12/03/2024 urina lysis panel , auto Unknown Analyte Clean Catch Not Available [facility] [place] With [address], [place], [address], 12/03/2024 16:41:35 12/04/19 25 12/03/2024 urina lysis panel , auto Unknown Analyte Yellow Not Available [facility] With [address], [place], [address], 12/03/2024 16:41:35 12/04/19 25 12/03/2024 urina lysis panel , auto Unknown Analyte Clear Not Available [facility] [place] With [address], [place], [address], 12/03/2024 16:41:35 12/04/19 25 12/03/2024 urina lysis panel , auto Unknown Analyte 1.015 Not Available [facility] With [address], [place], [address], 12/03/2024 16:41:35 12/04/19 25 12/03/2024 urina lysis panel , auto Unknown Analyte 1.003 - 1.030 Not Available [facility] With [address], [place], [address], 12/03/2024 16:41:35 12/04/19 25 12/03/2024 urina lysis panel , auto Unknown Analyte 5.0 Not Available [facility] With [address], [place], [address], 12/03/2024 16:41:35 12/04/19 25 12/03/2024 urina lysis panel , auto Unknown Analyte 5.0 - 8.0 Not Available [facility] With [address], [place], [address], 12/03/2024 16:41:35 12/04/19 25 12/03/2024 urina lysis panel , auto Unknown Analyte 500 Augusto/uL Not Available [facility] [address], [place], [address], 12/03/2024 16:41:35 12/04/19 25 12/03/2024 urina lysis panel , auto Unknown Analyte Negati ve Not Available [facility] [address], [place], [address], 12/03/2024 16:41:35 12/04/19 25 12/03/2024 urina lysis panel , auto Unknown Analyte Negati ve Not Available [facility] With [address], [place], [address], 12/03/2024 16:41:35 12/04/19 25 12/03/2024 urina lysis panel , auto Unknown Analyte Negati ve Not Available [facility] [address], [place], [address], 12/03/2024 16:41:35 12/04/19 25 12/03/2024 urina lysis panel , auto Unknown Analyte Negati ve Not Available [facility] [address], [place], [address], 12/03/2024 16:41:35 12/04/19 25 12/03/2024 urina lysis panel , auto Unknown Analyte Negati ve Not Available [facility] [address], [place], [address], 12/03/2024 16:41:35 12/04/19 25 12/03/2024 urina lysis panel , auto Unknown Analyte Normal Not Available [facility] With [address], [place], [address], 12/03/2024 16:41:35 12/04/19 25 12/03/2024 urina lysis panel , auto Unknown Analyte Normal Not Available [facility] [place] [address], [place], [address], 12/03/2024 16:41:35 12/04/19 25 12/03/2024 urina lysis panel , auto Unknown Analyte Negati ve Not Available [facility] [place] [address], [place], [address], 12/03/2024 16:41:35 12/04/19 25 12/03/2024 urina lysis panel , auto Unknown Analyte Negati ve Not Available [facility] [place] [address], [place], [address], 12/03/2024 16:41:35 12/04/19 25 12/03/2024 urina lysis panel , auto Unknown Analyte Normal Not Available [facility] [place], [place], [address], 12/03/2024 16:41:35 12/04/19 25 12/03/2024 urina lysis panel , auto Unknown Analyte Normal Not Available [facility] With [address], [place], [address], 12/03/2024 16:41:35 12/04/19 25 12/03/2024 urina lysis panel , auto Unknown Analyte Negati ve Not Available [facility] [address], [place], [address], 12/03/2024 16:41:35 12/04/19 25 12/03/2024 urina lysis panel , auto Unknown Analyte Negati ve Not Available [facility] [address], [place], [address], 12/03/2024 16:41:35 12/04/19 25 12/03/2024 urina lysis panel , auto Unknown Analyte Negati ve Not Available [facility] [address], [place], [address], 12/03/2024 16:41:35 12/04/19 25 12/03/2024 urina lysis panel , auto Unknown Analyte Negati ve Not Available [facility] [address], [place], [address], 12/03/2024 16:41:35 12/18/19 25 12/19/2024 URINE CULTU RE urine culture COLON Y COUNT : > 100,0 00 CFU/M L Two or more isola hope; mixed uroge nital ana rosa . Not Available [facility] [address] [facility], [place], [address], 12/19/2024 15:06:28 12/18/19 25 12/17/2024 urina lysis panel , auto Unknown Analyte Clean Catch Not Available [facility] [address], [place], [address], 12/17/2024 16:21:54 12/18/19 25 12/17/2024 urina lysis panel , auto Unknown Analyte Yellow Not Available [facility] With [address], [place], [address], 12/17/2024 16:21:54 12/18/19 25 12/17/2024 urina lysis panel , auto Unknown Analyte Clear Not Available [facility] [place] [address], [place], [address], 12/17/2024 16:21:54 12/18/19 25 12/17/2024 urina lysis panel , auto Unknown Analyte 1.015 Not Available [facility] [place] [address], [place], [address], 12/17/2024 16:21:54 12/18/19 25 12/17/2024 urina lysis panel , auto Unknown Analyte 1.003 - 1.030 Not Available [facility] [place] [address], [place], [address], 12/17/2024 16:21:54 12/18/19 25 12/17/2024 urina lysis panel , auto Unknown Analyte 6.0 Not Available [facility] With [address], [place], [address], 12/17/2024 16:21:54 12/18/19 25 12/17/2024 urina lysis panel , auto Unknown Analyte 5.0 - 8.0 Not Available [facility] [place] [address], [place], [address], 12/17/2024 16:21:54 12/18/19 25 12/17/2024 urina lysis panel , auto Unknown Analyte 500 Augusto/uL Not Available [facility] [address], [place], [address], 12/17/2024 16:21:54 12/18/19 25 12/17/2024 urina lysis panel , auto Unknown Analyte Negati ve Not Available [facility] [address], [place], [address], 12/17/2024 16:21:54 12/18/19 25 12/17/2024 urina lysis panel , auto Unknown Analyte Negati ve Not Available [facility] [address], [place], [address], 12/17/2024 16:21:54 12/18/19 25 12/17/2024 urina lysis panel , auto Unknown Analyte Negati ve Not Available [facility] [address], [place], [address], 12/17/2024 16:21:54 12/18/19 25 12/17/2024 urina lysis panel , auto Unknown Analyte Negati ve Not Available [facility] [address], [place], [address], 12/17/2024 16:21:54 12/18/19 25 12/17/2024 urina lysis panel , auto Unknown Analyte Negati ve Not Available [facility] [address], [place], [address], 12/17/2024 16:21:54 12/18/19 25 12/17/2024 urina lysis panel , auto Unknown Analyte Normal Not Available [facility] With [address], [place], [address], 12/17/2024 16:21:54 12/18/19 25 12/17/2024 urina lysis panel , auto Unknown Analyte Normal Not Available [facility] With [address], [place], [address], 12/17/2024 16:21:54 12/18/19 25 12/17/2024 urina lysis panel , auto Unknown Analyte Negati ve Not Available [facility] [place] [address], [place], [address], 12/17/2024 16:21:54 12/18/19 25 12/17/2024 urina lysis panel , auto Unknown Analyte Negati ve Not Available [facility] [address], [place], [address], 12/17/2024 16:21:54 12/18/19 25 12/17/2024 urina lysis panel , auto Unknown Analyte Normal Not Available [facility] [address], [place], [address], 12/17/2024 16:21:54 12/18/19 25 12/17/2024 urina lysis panel , auto Unknown Analyte Normal Not Available [facility] With [address], [place], [address], 12/17/2024 16:21:54 12/18/19 25 12/17/2024 urina lysis panel , auto Unknown Analyte Negati ve Not Available [facility] [place] [address], [place], [address], 12/17/2024 16:21:54 12/18/19 25 12/17/2024 urina lysis panel , auto Unknown Analyte Negati ve Not Available [facility] [place] [address], [place], [address], 12/17/2024 16:21:54 12/18/19 25 12/17/2024 urina lysis panel , auto Unknown Analyte Negati ve Not Available [facility] [address], [place], [address], 12/17/2024 16:21:54 12/18/19 25 12/17/2024 urina lysis panel , auto Unknown Analyte Negati ve Not Available [facility] [address], [place], [address], 12/17/2024 16:21:54 01/22/20 25 01/21/2025 urina lysis panel , auto Unknown Analyte Clean Catch Not Available [facility] [address], [place], [address], 01/21/2025 15:24:04 01/22/20 25 01/21/2025 urina lysis panel , auto Unknown Analyte Yellow Not Available [facility] With [address], [place], [address], 01/21/2025 15:24:04 01/22/20 25 01/21/2025 urina lysis panel , auto Unknown Analyte Slight ly Cloudy Not Available [facility] [address], [place], [address], 01/21/2025 15:24:04 01/22/20 25 01/21/2025 urina lysis panel , auto Unknown Analyte 1.020 Not Available [facility] With [address], [place], [address], 01/21/2025 15:24:04 01/22/20 25 01/21/2025 urina lysis panel , auto Unknown Analyte 1.003 - 1.030 Not Available [facility] [address], [place], [address], 01/21/2025 15:24:04 01/22/20 25 01/21/2025 urina lysis panel , auto Unknown Analyte 6.0 Not Available [facility] [address], [place], [address], 01/21/2025 15:24:04 01/22/20 25 01/21/2025 urina lysis panel , auto Unknown Analyte 5.0 - 8.0 Not Available [facility] [address], [place], [address], 01/21/2025 15:24:04 01/22/20 25 01/21/2025 urina lysis panel , auto Unknown Analyte 500 Augusto/uL Not Available [facility] [address], [place], [address], 01/21/2025 15:24:04 01/22/20 25 01/21/2025 urina lysis panel , auto Unknown Analyte Negati ve Not Available [facility] [address], [place], [address], 01/21/2025 15:24:04 01/22/20 25 01/21/2025 urina lysis panel , auto Unknown Analyte Negati ve Not Available [facility] With [address], [place], [address], 01/21/2025 15:24:04 01/22/20 25 01/21/2025 urina lysis panel , auto Unknown Analyte Negati ve Not Available [facility] With [address], [place], [address], 01/21/2025 15:24:04 01/22/20 25 01/21/2025 urina lysis panel , auto Unknown Analyte 100 mg/dL Not Available [facility] [address], [place], [address], 01/21/2025 15:24:04 01/22/20 25 01/21/2025 urina lysis panel , auto Unknown Analyte Negati ve Not Available [facility] With [address], [place], [address], 01/21/2025 15:24:04 01/22/20 25 01/21/2025 urina lysis panel , auto Unknown Analyte Normal Not Available [facility] With [address], [place], [address], 01/21/2025 15:24:04 01/22/20 25 01/21/2025 urina lysis panel , auto Unknown Analyte Normal Not Available [facility] With [place] [address], [place], [address], 01/21/2025 15:24:04 01/22/20 25 01/21/2025 urina lysis panel , auto Unknown Analyte Negati ve Not Available [facility] [address], [place], [address], 01/21/2025 15:24:04 01/22/20 25 01/21/2025 urina lysis panel , auto Unknown Analyte Negati ve Not Available [facility] [address], [place], [address], 01/21/2025 15:24:04 01/22/20 25 01/21/2025 urina lysis panel , auto Unknown Analyte Normal Not Available [facility] [address], [place], [address], 01/21/2025 15:24:04 01/22/20 25 01/21/2025 urina lysis panel , auto Unknown Analyte Normal Not Available [facility] With [address], [place], [address], 01/21/2025 15:24:04 01/22/20 25 01/21/2025 urina lysis panel , auto Unknown Analyte Negati ve Not Available [facility] With [address], [place], [address], 01/21/2025 15:24:04 01/22/20 25 01/21/2025 urina lysis panel , auto Unknown Analyte Negati ve Not Available [facility] [address], [place], [address], 01/21/2025 15:24:04 01/22/20 25 01/21/2025 urina lysis panel , auto Unknown Analyte 50 Gautam/uL Not Available [facility] With [address], [place], [address], 01/21/2025 15:24:04 01/22/20 25 01/21/2025 urina lysis panel , auto Unknown Analyte Negati ve Not Available [facility] [address], [place], [address], 01/21/2025 15:24:04 03/18/20 25 03/18/2025 URINE CULTU RE escherichia coli Organi sm: Escher ichia coli Not Available [facility] [address] [place], [address], 03/22/2025 11:19:21 03/18/20 25 03/18/2025 URINE CULTU RE klebsiella pneumoniae Organi sm: Klebsi riky pneumo niae Not Available [facility] [address] [place], [address], 03/22/2025 11:19:21 03/18/20 25 03/22/2025 URINE CULTU RE urine culture abnormal ISOLA TE #1 COLON Y COUNT : 10,00 0 - 100,0 00 CFU/M L Proba ble Gram Negat katharine Bacil lester. ID and sensi tivit y in progr ess. ISOLA TE #2 COLON Y COUNT : 10,00 0 - 100,0 00 CFU/M L Proba ble Gram Negat katharine Bacil lester; In Progr ess. See [place] te Resul t(s) Below Esche loni a coli Klebs iella pneum oniae Not Available [facility] [address] [place], [address], 03/22/2025 11:19:21 03/18/20 25 03/22/2025 URINE CULTU RE amox/K clav'ate(C) <=8/4 ug/mL susceptib le Not Available [facility] [address] [place] [address], [address], 03/22/2025 11:19:21 03/18/20 25 03/22/2025 URINE CULTU RE ampicillin >16 ug/mL resistant Not Available [facility] [address] [place] [address], [address], 03/22/2025 11:19:21 03/18/20 25 03/22/2025 URINE CULTU RE cefazolin <=2 ug/mL susceptib le Not Available [facility] [address] [place] [address], [address], 03/22/2025 11:19:21 03/18/20 25 03/22/2025 URINE CULTU RE ceftazidime <=1 ug/mL susceptib le Not Available [facility] [address] [place] [address], [address], 03/22/2025 11:19:21 03/18/20 25 03/22/2025 URINE CULTU RE ceftriaxone <=1 ug/mL susceptib le Not Available [facility] [address] [place] [address], [address], 03/22/2025 11:19:21 03/18/20 25 03/22/2025 URINE CULTU RE cefuroxime <=4 ug/mL susceptib le Not Available [facility] [address] [place] [address], [address], 03/22/2025 11:19:21 03/18/20 25 03/22/2025 URINE CULTU RE ciprofloxaci n <=0.25 ug/mL susceptib le Not Available [facility] [address] [place] [address], [address], 03/22/2025 11:19:21 03/18/20 25 03/22/2025 URINE CULTU RE gentamicin <=4 ug/mL susceptib le Not Available [facility] [address] [place] [address], [address], 03/22/2025 11:19:21 03/18/20 25 03/22/2025 URINE CULTU RE imipenem <=1 ug/mL susceptib le Not Available [facility] [address] [place] [address], [address], 03/22/2025 11:19:21 03/18/20 25 03/22/2025 URINE CULTU RE levofloxacin <=0.5 ug/mL susceptib le Not Available [facility] [address] [place] [address], [address], 03/22/2025 11:19:21 03/18/20 25 03/22/2025 URINE CULTU RE nitrofuranto in <=32 ug/mL susceptib le Not Available [facility] [address] [place] [address], [address], 03/22/2025 11:19:21 03/18/20 25 03/22/2025 URINE CULTU RE piperacillin /cory <=16 ug/mL susceptib le Not Available [facility] [address] [place] [address], [address], 03/22/2025 11:19:21 03/18/20 25 03/22/2025 URINE CULTU RE tetracycline >8 ug/mL resistant Not Available [facility] [address] [place] [address], [address], 03/22/2025 11:19:21 03/18/20 25 03/22/2025 URINE CULTU RE tobramycin <=2 ug/mL susceptib le Not Available [facility] [address] [place] [address], [address], 03/22/2025 11:19:21 03/18/20 25 03/22/2025 URINE CULTU RE trimeth/sulf a >2/38 ug/mL resistant Not Available [facility] [address] [place] [address], [address], 03/22/2025 11:19:21 03/18/20 25 03/22/2025 URINE CULTU RE amox/K clav'ate(C) <=8/4 ug/mL susceptib le Not Available [facility] [address] [place] [address], [address], 03/22/2025 11:19:21 03/18/20 25 03/22/2025 URINE CULTU RE cefazolin <=2 ug/mL susceptib le Not Available [facility] [address] [place] [address], [address], 03/22/2025 11:19:21 03/18/20 25 03/22/2025 URINE CULTU RE ceftazidime <=1 ug/mL susceptib le Not Available [facility] [address] [place] [address], [address], 03/22/2025 11:19:21 03/18/20 25 03/22/2025 URINE CULTU RE ceftriaxone <=1 ug/mL susceptib le Not Available [facility] [address] [place] [address], [address], 03/22/2025 11:19:21 03/18/20 25 03/22/2025 URINE CULTU RE cefuroxime <=4 ug/mL susceptib le Not Available [facility] [address] [place] [address], [address], 03/22/2025 11:19:21 03/18/20 25 03/22/2025 URINE CULTU RE ciprofloxaci n <=0.25 ug/mL susceptib le Not Available [facility] [address] [place] [address], [address], 03/22/2025 11:19:21 03/18/20 25 03/22/2025 URINE CULTU RE gentamicin <=4 ug/mL susceptib le Not Available [facility] [address] [place] [address], [address], 03/22/2025 11:19:21 03/18/20 25 03/22/2025 URINE CULTU RE imipenem <=1 ug/mL susceptib le Not Available [facility] [address] [place] [address], [address], 03/22/2025 11:19:21 03/18/20 25 03/22/2025 URINE CULTU RE levofloxacin <=0.5 ug/mL susceptib le Not Available [facility] [address] [place] [address], [address], 03/22/2025 11:19:21 03/18/20 25 03/22/2025 URINE CULTU RE nitrofuranto in 64 ug/mL intermedi ate Not Available [facility] [address] [place] [address], [address], 03/22/2025 11:19:21 03/18/20 25 03/22/2025 URINE CULTU RE piperacillin /cory <=16 ug/mL susceptib le Not Available [facility] [address] [place] [address], [address], 03/22/2025 11:19:21 03/18/20 25 03/22/2025 URINE CULTU RE tetracycline <=4 ug/mL susceptib le Not Available [facility] [address] [place] [address], [address], 03/22/2025 11:19:21 03/18/20 25 03/22/2025 URINE CULTU RE tobramycin <=2 ug/mL susceptib le Not Available [facility] [address] [place], [address], 03/22/2025 11:19:21 03/18/20 25 03/22/2025 URINE CULTU RE trimeth/sulf a <=2/38 ug/mL susceptib le Not Available [facility] [address] [place], [address], 03/22/2025 11:19:21 03/18/20 25 03/18/2025 urina lysis panel , auto Unknown Analyte Clean Catch Not Available [facility] [address], [place], [address], 03/18/2025 14:55:34 03/18/20 25 03/18/2025 urina lysis panel , auto Unknown Analyte Yellow Not Available [facility] With [address], [place], [address], 03/18/2025 14:55:34 03/18/20 25 03/18/2025 urina lysis panel , auto Unknown Analyte Clear Not Available [facility] With [address], [place], [address], 03/18/2025 14:55:34 03/18/20 25 03/18/2025 urina lysis panel , auto Unknown Analyte 1.010 Not Available [facility] With [address], [place], [address], 03/18/2025 14:55:34 03/18/20 25 03/18/2025 urina lysis panel , auto Unknown Analyte 1.003 - 1.030 Not Available [facility] [address], [place], [address], 03/18/2025 14:55:34 03/18/20 25 03/18/2025 urina lysis panel , auto Unknown Analyte 6.0 Not Available [facility] [address], [place], [address], 03/18/2025 14:55:34 03/18/20 25 03/18/2025 urina lysis panel , auto Unknown Analyte 5.0 - 8.0 Not Available [facility] [address], [place], [address], 03/18/2025 14:55:34 03/18/20 25 03/18/2025 urina lysis panel , auto Unknown Analyte 500 Augusto/uL Not Available [facility] [address], [place], [address], 03/18/2025 14:55:34 03/18/20 25 03/18/2025 urina lysis panel , auto Unknown Analyte Negati ve Not Available [facility] [address], [place], [address], 03/18/2025 14:55:34 03/18/20 25 03/18/2025 urina lysis panel , auto Unknown Analyte Negati ve Not Available [facility] [address], [place], [address], 03/18/2025 14:55:34 03/18/20 25 03/18/2025 urina lysis panel , auto Unknown Analyte Negati ve Not Available [facility] [address], [place], [address], 03/18/2025 14:55:34 03/18/20 25 03/18/2025 urina lysis panel , auto Unknown Analyte Negati ve Not Available [facility] [address], [place], [address], 03/18/2025 14:55:34 03/18/20 25 03/18/2025 urina lysis panel , auto Unknown Analyte Negati ve Not Available [facility] [address], [place], [address], 03/18/2025 14:55:34 03/18/20 25 03/18/2025 urina lysis panel , auto Unknown Analyte Normal Not Available [facility] With [address], [place], [address], 03/18/2025 14:55:34 03/18/20 25 03/18/2025 urina lysis panel , auto Unknown Analyte Normal Not Available [facility] With [address], [place], [address], 03/18/2025 14:55:34 03/18/20 25 03/18/2025 urina lysis panel , auto Unknown Analyte Negati ve Not Available [facility] [address], [place], [address], 03/18/2025 14:55:34 03/18/20 25 03/18/2025 urina lysis panel , auto Unknown Analyte Negati ve Not Available [facility] [address], [place], [address], 03/18/2025 14:55:34 03/18/20 25 03/18/2025 urina lysis panel , auto Unknown Analyte Normal Not Available [facility] With [address], [place], [address], 03/18/2025 14:55:34 03/18/20 25 03/18/2025 urina lysis panel , auto Unknown Analyte Normal Not Available [facility] With [address], [place], [address], 03/18/2025 14:55:34 03/18/20 25 03/18/2025 urina lysis panel , auto Unknown Analyte Negati ve Not Available [facility] [address], [place], [address], 03/18/2025 14:55:34 03/18/20 25 03/18/2025 urina lysis panel , auto Unknown Analyte Negati ve Not Available [facility] [address], [place], [address], 03/18/2025 14:55:34 03/18/20 25 03/18/2025 urina lysis panel , auto Unknown Analyte Negati ve Not Available [facility] [address], [place], [address], 03/18/2025 14:55:34 03/18/20 25 03/18/2025 urina lysis panel , auto Unknown Analyte Negati ve Not Available [facility] [address], [place], [address], 03/18/2025 14:55:34 05/06/20 25 05/10/2025 URINE CULTU RE urine culture COLON Y COUNT : 10,00 0 - 100,0 00 CFU/M L Three or more isola hope; mixed uroge nital ana rosa . ISOLA TE #1 COLON Y COUNT : 10,00 0 - 100,0 00 CFU/M L Yeast speci es. Not Available [facility], [place], [address], 05/10/2025 10:48:06 05/06/20 25 05/06/2025 urina lysis panel , auto Unknown Analyte Clean Catch Not Available [facility] [address], [place], [address], 05/06/2025 16:05:44 05/06/2005/06/2025 urina lysis panel , auto Unknown Analyte Yellow Not Available [facility] With [address], [place], [address], 05/06/2025 16:05:44 05/06/2005/06/2025 urina lysis panel , auto Unknown Analyte Clear Not Available [facility] With [address], [place], [address], 05/06/2025 16:05:44 05/06/2005/06/2025 urina lysis panel , auto Unknown Analyte 1.020 Not Available [facility] With [address], [place], [address], 05/06/2025 16:05:44 05/06/2005/06/2025 urina lysis panel , auto Unknown Analyte 5.0 Not Available [facility] [place] [address], [place], [address], 05/06/2025 16:05:44 05/06/20 25 05/06/2025 urina lysis panel , auto Unknown Analyte 5.0 - 8.0 Not Available [facility] [address], [place], [address], 05/06/2025 16:05:44 05/06/2005/06/2025 urina lysis panel , auto Unknown Analyte 500 Augusto/uL Not Available [facility] [address], [place], [address], 05/06/2025 16:05:44 05/06/20 25 05/06/2025 urina lysis panel , auto Unknown Analyte Negati ve Not Available [facility] [address], [place], [address], 05/06/2025 16:05:44 05/06/2005/06/2025 urina lysis panel , auto Unknown Analyte Negati ve Not Available [facility] [address], [place], [address], 05/06/2025 16:05:44 05/06/20 25 05/06/2025 urina lysis panel , auto Unknown Analyte Negati ve Not Available [facility] [address], [place], [address], 05/06/2025 16:05:44 05/06/20 25 05/06/2025 urina lysis panel , auto Unknown Analyte 30 mg/dL Not Available [facility] [address], [place], [address], 05/06/2025 16:05:44 05/06/2005/06/2025 urina lysis panel , auto Unknown Analyte Negati ve Not Available [facility] [address], [place], [address], 05/06/2025 16:05:44 05/06/20 25 05/06/2025 urina lysis panel , auto Unknown Analyte 50 mg/dL Not Available [facility] [address], [place], [address], 05/06/2025 16:05:44 05/06/2005/06/2025 urina lysis panel , auto Unknown Analyte Normal Not Available [facility] With [address], [place], [address], 05/06/2025 16:05:44 05/06/2005/06/2025 urina lysis panel , auto Unknown Analyte Negati ve Not Available [facility] [address], [place], [address], 05/06/2025 16:05:44 05/06/2005/06/2025 urina lysis panel , auto Unknown Analyte Negati ve Not Available [facility] [address], [place], [address], 05/06/2025 16:05:44 05/06/2005/06/2025 urina lysis panel , auto Unknown Analyte Normal Not Available [facility] With [address], [place], [address], 05/06/2025 16:05:44 05/06/2005/06/2025 urina lysis panel , auto Unknown Analyte Normal Not Available [facility] With [address], [place], [address], 05/06/2025 16:05:44 05/06/20 25 05/06/2025 urina lysis panel , auto Unknown Analyte Negati ve Not Available [facility] [address], [place], [address], 05/06/2025 16:05:44 05/06/2005/06/2025 urina lysis panel , auto Unknown Analyte Negati ve Not Available [facility] [address], [place], [address], 05/06/2025 16:05:44 05/06/2005/06/2025 urina lysis panel , auto Unknown Analyte 50 Gautam/uL Not Available [facility] [address], [place], [address], 05/06/2025 16:05:44 05/06/20 25 05/06/2025 urina lysis panel , auto Unknown Analyte Negati ve Not Available [facility] [address], [place], [address], 05/06/2025 16:05:44 07/29/20 25 07/29/2025 urina lysis panel , auto Unknown Analyte Cathet er Not Available [facility] [address], [place], [address], 07/29/2025 16:45:24 07/29/20 25 07/29/2025 urina lysis panel , auto Unknown Analyte Yellow Not Available [facility] With [address], [place], [address], 07/29/2025 16:45:24 07/29/20 25 07/29/2025 urina lysis panel , auto Unknown Analyte Clear Not Available [facility] With [address], [place], [address], 07/29/2025 16:45:24 07/29/20 25 07/29/2025 urina lysis panel , auto Unknown Analyte 1.005 Not Available [facility] With [address], [place], [address], 07/29/2025 16:45:24 07/29/20 25 07/29/2025 urina lysis panel , auto Unknown Analyte 1.003 - 1.030 Not Available [facility] [address] [place] [address], [place], [address], 07/29/2025 16:45:24 07/29/20 25 07/29/2025 urina lysis panel , auto Unknown Analyte 5.0 Not Available [facility] [address], [place], [address], 07/29/2025 16:45:24 07/29/20 25 07/29/2025 urina lysis panel , auto Unknown Analyte 5.0 - 8.0 Not Available [facility] [address], [place], [address], 07/29/2025 16:45:24 07/29/20 25 07/29/2025 urina lysis panel , auto Unknown Analyte 500 Augusto/uL Not Available [facility] [address], [place], [address], 07/29/2025 16:45:24 07/29/20 25 07/29/2025 urina lysis panel , auto Unknown Analyte Negati ve Not Available [facility] [address], [place], [address], 07/29/2025 16:45:24 07/29/20 25 07/29/2025 urina lysis panel , auto Unknown Analyte Negati ve Not Available [facility] [address], [place], [address], 07/29/2025 16:45:24 07/29/20 25 07/29/2025 urina lysis panel , auto Unknown Analyte Negati ve Not Available [facility] [address], [place], [address], 07/29/2025 16:45:24 07/29/20 25 07/29/2025 urina lysis panel , auto Unknown Analyte Trace Not Available [facility] With [address], [place], [address], 07/29/2025 16:45:24 07/29/20 25 07/29/2025 urina lysis panel , auto Unknown Analyte Negati ve Not Available [facility] [address] [place] [address], [place], [address], 07/29/2025 16:45:24 07/29/20 25 07/29/2025 urina lysis panel , auto Unknown Analyte Normal Not Available [facility] [address], [place], [address], 07/29/2025 16:45:24 07/29/20 25 07/29/2025 urina lysis panel , auto Unknown Analyte Normal Not Available [facility] [address], [place], [address], 07/29/2025 16:45:24 07/29/20 25 07/29/2025 urina lysis panel , auto Unknown Analyte Negati ve Not Available [facility] [address], [place], [address], 07/29/2025 16:45:24 07/29/20 25 07/29/2025 urina lysis panel , auto Unknown Analyte Negati ve Not Available [facility] [address], [place], [address], 07/29/2025 16:45:24 07/29/20 25 07/29/2025 urina lysis panel , auto Unknown Analyte Normal Not Available [facility] [address], [place], [address], 07/29/2025 16:45:24 07/29/20 25 07/29/2025 urina lysis panel , auto Unknown Analyte Normal Not Available [facility] [address], [place], [address], 07/29/2025 16:45:24 07/29/20 25 07/29/2025 urina lysis panel , auto Unknown Analyte Negati ve Not Available [facility] [address], [place], [address], 07/29/2025 16:45:24 07/29/20 25 07/29/2025 urina lysis panel , auto Unknown Analyte Negati ve Not Available [facility] With [address], [place], [address], 07/29/2025 16:45:24 07/29/20 25 07/29/2025 urina lysis panel , auto Unknown Analyte 50 Gautam/uL Not Available [facility] With [address], [place], [address], 07/29/2025 16:45:24 07/29/20 25 07/29/2025 urina lysis panel , auto Unknown Analyte Negati ve Not Available [facility] With [address], [place], [address], 07/29/2025 16:45:24 12/01/19 25 11/30/2024 NM, kidne y scan [address] [id number] Patien t Name: VINH GAMBOA Patien t : [birth year] Patien t 2 Orderi ng Provid er: [facility] EXAM DATE: 2024 EXAM: NM RENAL SCAN WITH MAG3 HISTOR Y: 79-yea r-old female with histor y of UTIs. COMPAR CARTER: None. TECHNI QUE: Nuclea r medici ne renogr am was perfor med using Tech[employer] tium 99m MAG-3 ([facility] 0019-N 096-B0 ) 3.3 mCi. FINDIN GS: [...] Unruly little MD on 025 3:30 PM [id number] [facility] Radiology Nuclear Medicine [address] [place], [address], 12/04/2024 13:05:47 12/16/19 25 12/15/2024 US, retro perit oneum , compl ete No observ ation record ed. [address] Centralized Scheduling [address] [place], [address], 12/17/2024 16:33:40 12/16/19 25 12/15/2024 US, retro perit oneum , compl ete No observ ation record ed. [address] Centralized Scheduling [address] [place], [address], 12/17/2024 16:33:50 Result Notes None recorded. Problems Name Problem SNOMED Code Status Onset Date Resolution Date Notes Provider Name and Address Organization Details Recorded Time Syncope and collapse 610939865 Active 2016 RHIANNON VALLEJO MD [address] [place] [address], [phone], [facility] 7 09:48:21 EKG: right bundle branch block 392261601 Active 2018 RHIANNON VALLEJO MD [address] [place] [address], [phone], [facility] 9 10:33:14 Recurrent infective cystitis 363246714 Active 2024 UMM FORBES PA-C [address] [place] [address], [phone], [facility] 5 10:25:04 Urge incontinence of urine 70050390 Active 2024 UMM FORBES PA-C [address] [place], [address], [facility] 10:25:06 Problem Notes None recorded. Procedures Surgical History Date Name Laterality Status Provider Name and Address Organization Details Recorded Time 11/18/19 25 Post Void Residual; Ultrasound completed Emily Aguilar [facility] 11/17/2024 11:56:14 07/31/20 21 EKG completed BNEITAAngie LONG APRN [address] [place], [address], [facility] 07/31/2021 10:45:45 02/09/20 10 Other completed [facility] 11/19/2016 11:17:45 Appendectomy completed [facility] 11/19/2016 11:16:17 Other completed [facility] 11/19/2016 11:17:31 Back Surgery completed [facility] 11/19/2016 11:17:12 Cholecystectomy completed [facility] 11/02/2016 11:27:41 Total Hysterectomy completed [facility] 11/19/2016 11:16:28 Colonoscopy completed [facility] 11/02/2016 11:28:26 Imaging Results None recorded. Procedure Notes None recorded. Medical Equipment None Reported. Allergies Allergen ID Allergen Name Allergen Category Reaction Reaction Severity Criticality Documentation Date Start Date Code Code System Note Provider Name and Address Organization Details Recorded Time 253883 prednison e medicatio n Not available Not available Not available 07/05/20162012 8640 RxNorm Comme nt: Creat ed By: Curtis diez Creat ed Date: 2:58: 09 PM; Not Available [facility] 6 11:15:58 952033 Floxin medicatio n Not available Not available Not available 07/05/2016201245 8 RxNorm Comme nt: Creat ed By: Curtis diez Creat ed Date: 2:52: 50 PM; Not Available [facility] 6 12:57:16 064302 Cellcept medicatio n Not available Not available Not available 07/05/20162012 05817 3 RxNorm Comme nt: Creat ed By: Curtis glover; Creat ed Date: 2:58: 36 PM; Not Available [facility] 6 12:57:16 300969 sulfur medicatio n Not available Not available Not available 07/06/20162012 62737 RxNorm Comme nt: Creat ed By: Curtis glover; Creat ed Date: 2:52: 34 PM; Not Available [facility] 6 05:16:56 003170 Stadol medicatio n Not available Not available Not available 07/06/20162013 40503 RxNorm Comme nt: Purit is;Cr eated By: Kat gaonaCre ated Date: 2013 11:24 :47 AM; Not Available [facility] 6 05:16:56 390930 Substance with quinolone structure and antibacte rial mechanism of action (substanc e) medicatio n rash Not available Not available 11/19/2016 84252 2000 [facility]ED [facility] 11:[facility]03 477444 methotrex ate medicatio n rash Not available Not available 11/19/2016 6851 Rx[facility] 7 11:19:43 378706 hydrocodo ne Not available Not available Not available Not available 11/19/2016 5489 Rx[facility] 7 11:19:57 986009 Procardia medicatio n Not available Not available Not available 11/19/2016 16564 3 [facility] 7 11:20:07 466420 tetracycl ine medicatio n Not available Not available Not available 11/19/2016 73160 Rx[facility] 7 11:20:26 819260 Savella medicatio n Not available Not available Not available 11/19/2016 91666 6 RxNorm Betty Patel [facility] 7 11:20:38 251894 Lexapro medicatio n Not available Not available Not available 11/19/2016 43559 1 RxNorm Betty Patel [facility] 7 11:20:50 639794 fluoxetin e medicatio n Not available Not available Not available 11/19/2016 4493 RxNorm [facility] 7 11:21:21 312010 sulfameth oxazole medicatio n Not available Not available Not available 11/19/2016 87515 RxNorm Betty Patel [facility] 7 11:21:50 929218 levofloxa cm medicatio n Not available Not available Not available 07/26/2023 38749 RxNorm Carter Knutson [facility] 3 17:01:30 621325 ciproflox acin medicatio n Not available Not available Not available 01/28/2024 2551 RxNorm Marge Gautam [facility] 4 11:49:03 946278 tetracycl ine hydrochlo ride medicatio n Not available Not available Not available 07/29/20252016 67442 6 RxNorm Not Available [employer] - External Data [employer] - prod 5 08:10:24 906427 Dolophine medicatio n Not available Not available Not available 07/29/20252016 52911 0 RxNorm Not Available [employer] Data Service - prod 5 08:10:24 587511 hydrocodo ne polistire x medicatio n Not available Not available Not available 07/29/20252016 07043 7 RxNorm Not Available [employer] - External Data [employer] - prod 5 08:10:24 381455 fluoxetin e hydrochlo ride medicatio n Not available Not available Not available 07/29/20252016 83404 4 RxNorm Not Available [employer] - External Data [employer] - prod 5 08:10:24 657729 Cipro medicatio n Not available Not available Not available 07/29/20252016 93134 3 RxNorm Not Available [employer] Data [employer] - prod 5 08:10:24 263217 methotrex ate sodium medicatio n Not available Not available Not available 07/29/20252021 53004 4 RxNorm Not Available [employer] External Data [employer] - prod 5 08:10:28 202782 sulfur medicatio n Not available Not available low 07/29/20252012 37958 RxNorm unrec ogniz ed react ion (text : Danielroxana manav Le iyer, code: [id number]) (from [facility] e) Not Available [employer] - External Data Service - prod 5 08:10:41 587891 floxacill in Not available itching Not available low 07/29/20252021 4448 RxNorm Not Available [employer] Data [employer] - prod 5 08:10:41 467118 milnacipr an hydrochlo ride medicatio n other Not available low 07/29/20252022 08634 RxNorm Not Available [employer] - External Data [employer] - prod 5 08:10:41 477117 nifedipin e medicatio n other Not available low 07/29/20252016 7417 RxNorm Not Available [employer] - External Data [employer] - prod 5 08:10:41 049595 prednison e medicatio n nausea Not available low 07/29/20252012 8640 RxNorm Not Available [employer] - External Data [employer] - prod 5 08:10:41 782986 sulfameth oxazole / trimethop rim medicatio n Not available Not available Not available 07/29/20252018 85177 RxNorm Not Available [employer] - External Data [employer] - prod 5 08:10:41 Medications Name Sig Start Date Stop Date [...] Available Not Available Not Available fluconazo le 200 mg tablet Take 1 tablet every day by oral route for 14 days, for fungal UTI. 02/24 completed Not Available Not Available Not Available Paxil 20 mg tablet Daily 11/19 completed [...] tablet Not Available Not Available Not Available Diflucan 150 mg tablet Take 1 tablet every day by oral route as directed for 1 day, for yeast in urine. 05/26 completed Not Available Not Available Not Available tramadol 50 mg tablet Take 1 tablet every 6 hours by oral route as needed. 2024 active Not Available Not Available Not Avai lable Macrobid 100 mg capsule Take 1 capsule every day by oral route for 30 days. 2024 active Not Available Not Available Not Avai lable Zofran 4 mg tablet As needed 11/19 completed Duration : 1 day;Freq uency: prn;Alt Frequenc y: prn nausea;M edicatio n Descript ion: ondanset modesto; Dosage:1 ; Route:or al; refills: 0; Quantity :1 tablet Not Available Not Available Not Available methenami ne hippurate 1 gram tablet Take 1 tablet twice a day by oral route for 90 days. 05/06 completed Not Available Not Available Not Available pantopraz ole 40 mg tablet,de layed release [...] hours by oral route for 10 days. 05/23 completed Not Available Not Available Not Available [...] day by oral route for 90 days. 2024 [...] Updated DateTime 12/17/2024 162.56 cm 29.9 kg/m2 25732.07 [facility] 12/17/2024 16:21:19 Date Recorded Body height Body mass index (BMI) Body weight Provider Name and Address Organization Details Last Updated DateTime 01/21/2025 162.56 cm 29.9 kg/m2 79680.07 [facility] 01/21/2025 15:16:29 Date Recorded Body height Body mass index (BMI) Body weight Provider Name and Address Organization Details Last Updated DateTime 03/18/2025 162.56 cm 28.7 kg/m2 36789.93 [facility] 03/18/2025 14:54:52 Date Recorded Body height Body mass index (BMI) Body weight Provider Name and Address Organization Details Last Updated DateTime 05/06/2025 162.56 cm 28.7 kg/m2 23531.93 [facility] 05/06/2025 15:42:58 Date Recorded Body height Body mass index (BMI) Body weight Provider Name and Address Organization Details Last Updated DateTime 07/29/2025 162.56 cm 28.3 kg/m2 87515.74 [facility] 07/29/2025 13:57:51 Social History Question Answer Notes LastModified by Organizat ion Details LastModified Time Tobacco Smoking Status Former Smoker Former smoker 3-4 cigs per day for 6 months, quit in 1966 Lizabeth Fischer cathryn [facility] 11/02/2016 11:25:30 When Did You Quit [...] history of malignant neoplasm 79 Liver cancer [email or web address] Not available 12/17/2024 16:11:11 Mother Congestive heart failure 83 [email or web address] Not available 03/2025 16:11:11 Mother Heart disease 65 83 Not available 2024 15:22:47 Mother Hypertensive disorder [email or web address] Not available 03/2025 16:11:11 Unspecified Relation Depressive disorder [email or web address] Not available 03/2025 16:11:11 Unspecified Relation Heart disease [email or web address] Not available 03/2025 16:11:11 Unspecified Relation Hypertensive disorder Not available 2024 15:22:47 Unspecified Relation Diabetes mellitus [email or web address] Not available 03/2025 16:11:11 Unspecified Relation Kidney disease [email or web address] Not available 03/2025 16:11:11 Notes:Spouse at age 65 Medical History Condition Response Coronary Artery Disease N Other N Gout N Kidney Stones N Kidney Cyst N Enlarged Prostate N Heart Arrhythmia N Emphysema N Erectile Dysfunction N Head Trauma/Injury N Sexually Transmitted Disease N Depression Y Pneumonia N Incontinence Y Prostate Problems N Cancer Prostate N Paralysis N Anxiety Disorder Y Hemorrhoids Y Obesity N Arthritis Y Infertility N Acid Reflux (GERD) Y Cancer N Hematuria N Stroke N Neck Injury N Neurologic Disorder N Previous Radiation Therapy? N Kidney Disease N Heart Conditions N [...] N Anesthesia Complications N Genitourinary Disease N Chronic Kidney Disease N Radiation Therapy N Bladder or Kidney Problems Y Back Injury Y High Cholesterol N High PSA N Liver Disease Y Nervous System Disorder N Organ Transplant N Dialysis N Allergies/Hayfever Y False Teeth Y Chronic Obstructive Pulmonary Disease N Parkinson's Disease N Chemotherapy N Anemia N Transplant N Back Pain Y Chest Pain N Multiple Sclerosis N Proteinuria N Heart Attack (OR) N Mental Illness N Diabetes N Ovarian Cancer N Seizures/Epilepsy Y Genitourinary problem(s) N Congestive Heart Failure (CHF) N Kidney Failure N Sleep Apnea N Heart Disease N Bronchitis Y Hypertension Y Gynecological History Statement/Question Response Female Hormone Problem N # of Pregnancies 5 Abnormal Periods N # of Births 4 Could you be now? N Current Control Method N/A Uterus/Ovaries Problem N Obstetrics History GPAL:G 0 P 0 0 0 0 Immunizations Vaccine Type Date Status Note Provider Nam e and Address Organization Details Recorded Time Influenza, high-dose, quadrivalent, PF 3 completed Marge Gautam [facility] 01/28/2024 11:49:04 Influenza, adjuvanted, quadrivalent, PF 0 completed Carter Knutson [facility] 07/29/2025 13:57:57 Influenza, adjuvanted, quadrivalent, PF 2 completed [facility] 13:57:57 COVID-19, mRNA, LNP-S, PF, 30 mcg/0.3 mL dose, sandee-sucrose 2 completed [facility] 07/29/2025 13:57:57 COVID-19, mRNA, LNP-S, bivalent, PF, 30 mcg/0.3 mL dose 2 completed [facility] 07/29/2025 13:57:57 RSV, recombinant, protein subunit RSVpreF, adjuvant reconstituted, 0.5 mL, PF 3 completed Marge Gautam [facility] 01/28/2024 11:49:05 COVID-19, mRNA, LNP-S, PF, 50 mcg/0.5 mL 3 completed Marge Carneyong [facility] 01/28/2024 11:49:05 pneumococcal polysaccharide PPV23 4 completed Marge Carneyong [facility] 01/28/2024 11:49:05 Pneumococcal conjugate PCV 13 5 completed Marge Carneyong [facility] 01/28/2024 11:49:05 Influenza, high-dose, trivalent, PF 1 completed Marge Gautam [facility] 01/28/2024 11:49:05 Influenza, split virus, quadrivalent, preservative 7 completed Wilda Short [facility] 07/08/2017 10:57:22 COVID-19, mRNA, LNP-S, PF, 30 mcg/0.3 mL dose 1 completed Murelene Eamon [facility] 07/29/2025 13:57:57 COVID-19, mRNA, LNP-S, PF, 30 mcg/0.3 mL dose 1 completed Murelene Eamon [facility] 07/29/2025 13:57:57 COVID-19, mRNA, LNP-S, PF, 30 mcg/0.3 mL dose 1 completed Carter Knutson [facility] 07/29/2025 13:57:57 Past Encounters Encounter ID Performer Location Encounter Start Date Encounter Closed Date Diagnosis/Indication Diagnosis SNOMED-CT Code Diagnosis ICD10 Code Diagnosis IMO Codes Diagnosis Note [id number] RHIANNON VALLEJO MD CARDIOLOG Y [address] [place] [phone] 5 11/19/2016 10:38:34 11/19/2016 12:17:13 Syncope and collapse 495908166 R55 This patient was previously diagnosed with [...] days and bring a diary upon return. [id number] RHIANNON VALLEJO MD CARDIOLOG Y [place] [address] [place] [phone] 5 12/24/2016 08:55:17 12/24/2016 09:50:00 Syncope and collapse 800232947 R55 Her symptoms have resolved since stopping [...] choose the best option to prevent symptoms. [id number] RHIANNON VALLEJO MD CARDIOLOG Y [address] [place] [phone] 5 07/08/2017 10:41:28 07/08/2017 11:29:02 Syncope and collapse 717128426 R55 Her symptoms have resolved since stopping [...] choose the best option to prevent symptoms. [id number] RHIANNON VALLEJO MD CARDIOLOG Y [address] [place] [address] 5 07/08/2018 13:18:14 07/08/2018 14:29:25 Syncope and collapse 929157150 R55 Stable blood pressure with no further episodes of syncope. Patient reminded to avoid low blood pressure and be very careful with antihypert ensives. [id number] RHIANNON VALLEJO MD CARDIOLOG Y [address] WIL[address]NS,[address] [place] [address] 5 07/20/2019 10:00:45 07/20/2019 10:34:45 Syncope and collapse 820921164 R55 Stable blood pressure with no further episodes of syncope. Patient reminded to avoid low blood pressure and be very careful with antihypert ensives. EKG: right bundle branch block 945286725 I45.10 [id number] RHIANNON VALLEJO MD CARDIOLOG Y [address] [place] [address] 5 07/27/2020 11:44:22 07/27/2020 12:27:58 Syncope and collapse 350234905 R55 Stable blood pressure with no further episodes of syncope. Patient reminded to avoid low blood pressure and be very careful with antihypert ensives. EKG: right bundle branch block 196463360 I45.10 [id number] MD [facility] [address] [address] 08/18/2020 15:31:42 08/19/2020 11:32:40 Recurrent urinary tract infection 886473788 N39.0 Overactive urinary bladder 811248338 N32.81 [id number] MD [facility] [address] [address] 10/06/2020 13:06:04 10/06/2020 13:32:28 Overactive urinary bladder 905865537 N32.81 Recurrent urinary tract infection 836911025 N39.0 [id number] RONIT PALACIOS MD [facility] [address],[place] [address] 8 12/01/2020 13:07:55 12/02/2020 15:47:29 Recurrent urinary tract infection 810654661 N39.0 Overactive urinary bladder 597190852 N32.81 Atrophic vaginitis 32530 000 N95.2 [id number] RONIT PALACIOS MD [facility] [address],[place] [phone] 04/20/2021 13:39:54 04/21/2021 14:43:04 Recurrent urinary tract infection 844319806 N39.0 Atrophic vaginitis 93505 000 N95.2 Multiple renal cysts 253 245708 N28.1 [id number] BENITA LONG, [employer] CARDIOLOG [facility] [place] [address] [place] [address] ,[address] [place] [address] 07/31/2021 10:15:14 07/31/2021 11:37:13 Syncope 075955423 R55 She has had no further episodes [...] 1 year with EKG, sooner if needed [id number] RONIT PALACIOS MD [facility] [address],[place] [phone] 06/14/2022 13:46:18 06/21/2022 08:38:18 Recurrent urinary tract infection 607083956 N39.0 Atrophic vaginitis 49852 000 N95.2 Multiple renal cysts 253 501495 N28.1 Urinary tr act infectious disease 36513463 N39.0 [id number] RONIT PALACIOS MD [facility] [address],[place] [address] 08/09/2022 15:13:22 08/22/2022 11:11:02 Urinary tract infectious disease 32339207 N39.0 Urge incon tinence of urine 26645574 N39.41 [id number] RONIT PALACIOS MD [facility] [address] [facility] [place] [address] 08/28/2022 11:17:15 08/28/2022 12:10:47 Recurrent urinary tract infection 462742870 N39.0 Urge incon tinence of urine 40527681 N39.41 [id number] RONIT PALACIOS MD [facility] [address] ,[place] [address] 8 09/06/2022 14:36:40 09/07/2022 04:42:11 Urinary tract infectious disease 69808883 N39.0 Recurrent urinary tract infection 602447803 N39.0 Urge incon tinence of urine 26315253 N39.41 [id number] RONIT PALACIOS MD [facility] [address] ,[place] [address] 8 11/22/2022 13:15:36 11/26/2022 04:10:09 Urinary tract infectious disease 02899974 N39.0 Recurrent urinary tract infection 440579425 N39.0 Overactive urinary bladder 377144180 N32.81 [id number] RONIT PALACIOS MD [address] ,[place] [address] 8 01/31/2023 14:19:39 02/04/2023 04:20:17 Recurrent urinary tract infection 264318817 N39.0 Overactive urinary bladder 478985528 N32.81 Urge incon tinence of urine 12704398 N39.41 Urinary tr act infectious disease 56778645 N39.0 [id number] RONIT PALACIOS MD [facility] [address] [place] [address] 8 03/14/2023 14:45:43 03/15/2023 04:42:13 Recurrent urinary tract infection 934994818 N39.0 Overactive urinary bladder 076789727 N32.81 Urge incon tinence of urine 12282585 N39.41 Urinary tr act infectious disease 45221389 N39.0 [id number] RONIT PALACIOS MD [place] [address] [address] 07/18/2023 13:02:25 07/21/2023 04:04:13 Recurrent urinary tract infection 322778914 N39.0 Overactive urinary bladder 182367486 N32.81 Urge incon tinence of urine 51053450 N39.41 Urinary tr act infectious disease 54774800 N39.0 [id number] RONIT PALACIOS MD [facility] [address] [address] 01/23/2024 13:22:39 01/23/2024 17:47:10 Atrophic vaginitis 69320262 N95.2 Recurrent urinary tract infection 799281702 N39.0 Overactive urinary bladder 368168953 N32.81 Urinary tr act infectious disease 05484219 N39.0 [id number] SKY BARLOW APRN [address] [place] [address] 03/05/2024 13:40:06 03/05/2024 14:29:15 Fatigue 95366974 R53.83 will check cortisol levelsunsu re about etiology of fatigue, leaning on depression and chronic pain as the causef/u in 2 months Pain of mu ltiple joints 25183987 M25.50 check ESRdiscuss ed how pain can cause fatigue, importance of moving, even doing chair exercises and stretching to help with joint pain [id number] RONIT PALACIOS MD [facility] [address] [place] [address] ,[place] [address] 08/06/2024 16:25:31 08/06/2024 16:47:51 Urinary tract infectious disease 54166567 N39.0 Hydronephrosis 44402723 N13.30 [id number] RONIT PALACIOS MD SURGERY SCHEDULE [address] [place] [address] 09/01/2024 13:10:17 09/01/2024 13:11:04 Postoperative pain 948691944 G89.18 [id number] RONIT PALACIOS MD [facility] [address] [place] [address] 10/16/2024 10:56:26 10/16/2024 12:23:55 Urinary tract infectious disease 21944851 N39.0 Plan: Stent removal to prevent bacterial colonizati on causing recurrent infections . Continue antibiotic s, periodic monitoring post-remov al. Patient consented to removal. Recurrent urinary tract infection 784168875 N39.0 Hydronephrosis 47551401 N13.30 Plan: Stent removal to improve drainage. Schedule nuclear medicine renal scan for obstructio n assessment . Consent obtained. [id number] RONIT PALACIOS MD SURGERY SCHEDULE [address] [place] [address] 10/20/2024 13:51:59 10/20/2024 13:53:23 [id number] UMM FORBES PA-C [facility] [address] [facility] [place] [address] 11/17/2024 11:10:32 11/17/2024 12:06:55 Acute urinary tract infection 634381224 N39.0 Recurrent urinary tract infection 204388712 N39.0 Urge incon tinence of urine 25251132 N39.41 32711 Recurrent infective cystitis 696577076 N30.90 03968223 Bilateral hydronephrosis 52854754 N13.30 533614 [id number] UMM FORBES PA-C [facility] [address] [place] [address] ,[place] [address] 12/03/2024 15:22:41 12/04/2024 10:24:57 Acute urinary tract infection 736063828 N39.0 123870 Recurrent urinary tract infection 206400242 N39.0 778918 Urge incon tinence of urine 42842360 N39.41 36287 Recurrent infective cystitis 722481390 N30.90 [id number] Bilateral hydronephrosis 92759082 N13.30 032890 Atrophic vaginitis 81808 000 N95.2 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 - Consider non-bacter ial etiology due to past negative cultures. - Track urinary symptoms. Hydronephrosis 50382640 N13.30 391932 - Monitor per stable renal ultrasound , kidneys functionin g normally. - Review results, advise monitoring for symptom changes. [id number] UMM FORBES PA-C [facility] [address] [place] [address] 01/21/2025 15:00:40 01/21/2025 18:59:48 Recurrent urinary tract infection 466682545 N39.0 961315 Urge incon tinence of urine 42116720 N39.41 96599 Fatigue 94845381 R53.82 [id number] [id number] [facility] [address] [place] [address] 8 03/18/2025 13:53:35 03/18/2025 15:57:12 Recurrent urinary tract infection 636595554 N39.0 825695 - Urine culture for bacterial growth, monitor symptoms. - Consider non-bacter ial etiology due to past negative cultures. - Track urinary symptoms. - Send urine for culture. - Continue fluconazol e for Coco albicans. Atrophic vaginitis 03551 000 N95.2 73708 - Continue topical estrogen creams. Overactive urinary bladder 882152096 N32.81 - Continue fesoterodi ne. - Continue methenamin e. Acute urin bennie tract infection 714153500 N39.0 567801 [id number] RONIT PALACIOS MD [facility] [place] [address],[place] [address] 05/06/2025 15:42:33 05/06/2025 16:41:51 Acute urinary tract infection 608907594 N39.0 970065 Recurrent urinary tract infection 807981358 N39.0 279414 - Urine culture to be performed to identify causative organism and guide treatment. Overactive urinary bladder [id number] N32.81 [id number] - Continue fesoterodi ne.- Continue fesoterodi ne for management of symptoms. [id number] RONIT PALACIOS MD [facility] [place] [id number] 07/29/2025 13:54:54 07/29/2025 18:26:50 Recurrent urinary tract infection [id number] N39.0 [id number] - A catheteriz ed urine specimen will be obtained and sent for culture. Overactive urinary bladder [id number] N32.81 [id number] - Continue fesoterodi ne.- Continue fesoteridi ne. - Further management will be determined after reviewing the urine culture results. Acute urin bennie tract infection [id number] N39.0 [id number] Health Concerns Section Related Observation LastModified by Organization Detai ls LastModified Time None Recorded Concern Status LastModified by Organization Details LastModified Time None Recorded Advance Directives Directive None Recorded Payers Insurance Date Sequence Insurance Name Policy Number Policy Webster Covered Member ID Webster Member ID Guarantor Name 01/07/2025 PAYMENT PLAN Dian Gamboa 03/04/2024 1 [place]MEDICARE REPLACEMENT HMO) [id number] Dian Gamboa [id number] Dian Gamboa 02/07/2025 PAYMENT PLAN Dian Gamboa 12/24/2024 PAYMENT PLAN Dian Gamboa 01/29/2025 PAYMENT PLAN Dian Gamboa 01/24/2024 1 [employer] (MEDICARE REPLACEMENT/AD VANTAGE - PPO) Dian Gamboa [id number] Dian Gamboa 01/28/2024 GENERIC INSURANCE - MOVED-HOLD Dian Gamboa 07/26/2025 1 [employer] (MEDICARE REPLACEMENT/AD VANTAGE - HMO) Dian Gamboa [id number] Dian Gamboa 09/01/2024 1 [employer] (MEDICARE REPLACEMENT/AD VANTAGE - PPO) Dian Gamboa [id number] Dian Gamboa Notes Date Note Type Note [...] growth; yeast found previously RONIT PALACIOS MD [address] [place] [address], [phone], [facility] 12/27/2024 15:18:51 01/21/2025 text/html 79-year-old female presenting with persistent symptoms associated with recurrent urinary tract infections (UTIs), primarily characterized by dysuria. These symptoms have been persistent since August despite having taken several antimicrobials and implementing prophylactic measures. The patient has been using methenamine hippurate in an attempt to prevent UTIs and inconsistent usage of topical estrogen replacement. Past UTIs have included a fungal cystitis component, which was novel to her. Fatigue is also a significant concern, believed to be related to the ongoing urinary issues. Managing her condition is challenging due to her poor chronic health and multiple antibiotic allergies. UMM FORBES PA-C [address] [place] [address], [id number], [facility] 02/19/2025 15:40:12 03/18/2025 text/html The patient is a 79-year-old female presenting with a follow-up evaluation of recurrent urinary tract infections. Past evaluations included a nuclear medicine renal scan showing prolonged concentration and a renal ultrasound indicating stable mild right hydronephrosis. Bladder emptying was normal. The patient has multiple antibiotic allergies. Recent urine culture showed Coco albicans, treated with fluconazole. Atrophic vaginitis is managed with topical vaginal estrogen creams. She takes fesoterodine for overactive bladder and methenamine for UTI suppression. Reports occasional burning during urination, with increased frequency last night. Urinates every three to four hours during the day, increased frequency last night. Denies hematuria and continues estrogen cream use. Documentation on this patient encounter was supported using voice-enabled Al technology. The patient consented to recording for the purpose of documenting the encounter. Provider reviewed content of the generated note prior to signature. - Nuclear medicine renal scan: Prolonged concentration - Renal ultrasound: Stable mild right hydronephrosis, no left hydronephrosis - Urine culture: Coco albicans RONIT PALACIOS MD [address] [place] [address], [phone], [facility] 03/23/2025 18:13:23 05/06/2025 text/html The patient is an 80-year-old female presenting with recurrent urinary tract infections, atrophic vaginitis, and overactive bladder symptoms. She was previously treated with cefuroxime for urinary tract infections caused by Escherichia coli and Klebsiella species. She has been taking methenamine for urinary tract infection suppression, although it has not been effective in preventing recurrences. The patient uses topical vaginal estrogen cream to manage atrophic vaginitis. For overactive bladder symptoms, she is prescribed fesoterodine. Recently, she has experienced increased urinary frequency, dysuria, urgency, and urge incontinence over the past four days. The patient reports that the methenamine has a bitter taste and is not well tolerated. Documentation on this patient encounter was supported using voice-enabled Al technology. The patient consented to recording for the purpose of documenting the encounter. Provider reviewed content of the generated note prior to signature. RONIT PALACIOS MD [address] [place] [address], [phone], [facility] 05/17/2025 13:12:10 07/29/2025 text/html The patient is an 80-year-old female presenting for a follow-up evaluation for a history of recurrent urinary tract infections and overactive bladder symptoms. Her overactive bladder symptoms are managed with fesoteridine, and her atrophic vaginitis is treated with topical vaginal estrogen creams. She reports urinary frequency of every two to three hours. Documentation on this patient encounter was supported using voice-enabled Al technology. The patient consented to recording for the purpose of documenting the encounter. Provider reviewed content of the generated note prior to signature. Not Available Not Available Not Available OBGyn Episode No OBEpisode recorded.
--- OUTSIDE RECORDS SUMMARY | 2025-07-31 16:14 | XMS_ITS | Clinical Summary ---
Author Organization Healthcare Address [address] [place] [address] Care Team Providers Care [place] Department Manager Name Role Phone Livier Azevedo Primary Care Provider [phone] Family History Medical History Relation Name Comments [...] [facility]-Bone Density Scan 1945 [facility]-Depression Screening 1945 [facility]-Medicare Annual Wellness (AWV) 1945 [facility]-Infant/Child/Adol SDOH Screenings 1945 [facility]- SDOH Screenings 1963 [facility]-Adult SDOH Screenings 1963 [facility]-DTaP,Tdap,and Td Vaccines (1 - Tdap) 1964 [facility]-Pneumococcal Vaccine: 50+ Years (1 of 1 - PCV) 1995 [facility]-Zoster Vaccines (1 of 2) 1995 [facility]-RSV Vaccine: 60+ Years or (1 - 1-dose 75+ series) 2020 [id number] Vaccine (4 - 2024- season) 2025 04/06/2021, 10/14/2020, 09/20/2020 [facility]-Influenza Vaccine (#1) 04/12/202505/24, 05/12/2017 HPV Vaccines (No Doses Required) Completed [facility]-HIB Vaccines Aged Out No longer e [...] this topic Insurance [employer] MEDICARE Care Teams [place] Department Manager Relationship Specialty Start Date End Date Livier Azevedo PA [address] [place] [address] PCP - General 12/23/20
--- OUTSIDE RECORDS SUMMARY | 2025-07-31 16:14 | XMS_ITS | Clinical Summary ---
Author Organization [facility] , [facility] Address [address] [place] [address] Phone Care Team Providers Care Menagerie Superintendent Name Role Phone Bonita ANTHONY, Thien Unavailable [phone] HARI ANTHONY, DARCIE Primary Care Provider [phone] Patricia RAND, Abdelrahman Unavailable [phone] Reason for Visit and Chief Complaint The Chief Complaint is: right hip pain Problems Includes: Problems addressed during this encounter and other active Problems All Visits Onset Date Date of Diagnosis Resolved Date Provid er Condition Status Neck Pain 01/27/2024 01/27/2024 Rao Dominguez PA-C Active Last Documented On 5 1:42AM ; [facility], [facility] Joint Pain Hip Right 09/30/2023 09/30/2023 Rao Dominguez PA-C Active Last Documented On 5 1:42AM ; [facility], [facility] Joint Pain in Both Knees 11/26/2022 11/26/2022 Cam Dominguez PA-C Active Last Documented On 5 1:40AM ; [facility], [facility] History of Joint Pain Should er Right 09/05/2021 09/05/2021 Rao Dominguez PA-C Active Last Documented On 5 1:41AM ; [facility], [facility] Bone Pain in the Right Knee 07/18/2017 07/18/2017 Alexx Harper MD Active Last Documented On 5 1:39AM ; [facility], [facility] Plan of Treatment Fall Risk Assessment: This patient has been [...] with the patient. - Last Documented On 11/12/2023 3:50PM ; [facility] Patient was seen by myself Rao Dominguez PA-C. Patient will follow up 6 weeks we can try another injection I recommend she just continue with PT on her own at this point in time we will see her back in 6 weeks to try another injection - Last Documented On 11/12/2023 3:50PM ; [facility] Pending Tests Order Diagnosis Results Due Ordering P rovider Therapy - Physical Therapy Lumbar Pain in right hip Rao Dominguez PA-C Last Documented On 4 3:38PM ; [facility] Therapy - Physical Therapy Cervical Cervicalgia 01/27/24 Rao Dominguez PA-C Last Documented On 4 3:39PM ; [facility] - Physical Therapy Cervical Cervicalgia 04/17/24 Rao Dominguez PA-C Last Documented On 4 1:54PM ; [facility] Therapy - Physical Therapy Cervical Cervicalgia 05/29/24 Rao Dominguez PA-C Last Documented On 4 12:28PM ; [facility] Instructions to patient Lose weight Last Documented On 4 3:25PM ; [facility] Assessments Includes: Assessments from this encounter Findings - Overweight - Last Documented On 11/12/2023 3:50PM ; [facility] Right hip trochanteric bursitis - Last Documented On 11/12/2023 3:50PM ; [facility] Instructions Includes: Instructions from this encounter Instructions to patient Lose weight Last Documented On 4 3:25PM ; [facility] Medical Equipment - Implanted Devices Includes: Current Devices No Medical Equipment Recorded Medications Includes: Medications discussed during this encounter and other current Medications Current Medications (continue as prescribed) Tobramycin-dexAMETHasone 0.3-0.1% Ophthalmic Suspensio n 03/31/2024 Provider: Diagnosis: Last Documented On 4 8:49AM By Soni Barreto ; [facility], [facility] Losartan Potassium 50 MG Oral Tablet 09/17/2023 Prov ider: Abdelrahman Gomez DR Diagnosis: Last Documented On 4 2:18PM By Soni Barreto ; [facility], [facility] Estradiol 0.1 MG/GM Vaginal Cream 09/12/2023 Provide r: Diagnosis: Last Documented On 4 2:18PM By Soni Barreto ; [facility], [facility] levoFLOXacin 500 MG Oral Tablet 07/26/2023 Provider: Diagnosis: Last Documented On 4 2:18PM By Soni Barreto ; [facility], [facility] Albuterol Sulfate HFA 108 (9 0 Base) MCG/ACT Inhalation Aerosol Solution 04/11/2023 Provider: Doris Maldonado APRN Diagnosis: Last Documented On 4 2:18PM By Soni Barreto ; [facility], [facility] Citalopram Hydrobromide 40 MG Oral Tablet 04/04/2023 Provider: Diagnosis: Last Documented On 4 2:18PM By Soni Barreto ; [facility], [facility] Past Medications on file Meloxicam 15 MG Oral Tablet 04/17/2024 - 06/16/2024 Pr ovider: Rao Dominguez PA-C Diagnosis: Take 1 tablet by mouth once a day Last Documented On 4 9:16AM By Soni Barreto ; [facility], [facility] Meloxicam 15 MG Oral Tablet 01/27/2024 - 03/27/2024 Pr ovider: Rao Dominguez PA-C Diagnosis: Take 1 tablet by mouth daily Last Documented On 4 2:43PM By Soni Barreto ; [facility], [facility] Pantoprazole Sodium 40 MG Or al Tablet Delayed Release 09/30/2023 - 12/29/2023 Provider: Abdelrahman vyas DR Diagnosis: Last Documented On 4 2:16PM By Soni Barreto ; [facility], [facility] Fluconazole 200 MG Oral Tablet 09/30/2023 - 10/20/2023 Provider: RHIANNON SHAH MD Diagnosis: Last Documented On 4 2:17PM By Soni Barreto ; [facility], [facility] Solifenacin Succinate 10 MG Oral Tablet 09/30/2023 - 0 12/29/2023 Provider: Diagnosis: Last Documented On 4 2:17PM By Soni Barreto ; [facility] Linzess 145 MCG Oral Capsule 09/30/2023 - 10/30/2023 Kurt shafer: Abdelrahman Gomez DR Diagnosis: Last Documented On 4 2:16PM By Soni Barreto ; [facility] Methenamine Hippurate 1 GM O ral Tablet 09/30/2023 - 10/30/2023 Provider: RHIANNON SHAH MD Diagnosis: Last Documented On 4 2:17PM By Soni Barreto ; [facility], [facility] Medications Administered Includes: Administered Medications from this encounter No Administered Medications Recorded Vital Signs Includes: Vital Signs from this encounter Vital Name 11/12/2023 03:32P Height (in) 64 Weight (lb) 170 Body Mass Index 29.2 Body Surface Area 1.8 Pain Level 7 Note: lc Last Documented: On 11/12/2023 3:32PM ; [facility] Results Includes: Results discussed during this encounter No Results Recorded For Specified Dates History of Present Illness Includes: History of Present Illness from this encounter TORI Perez is a 78 year old female. - Allergy list reviewed - Problem list reviewed - Medication list reviewed Patient is here for follow-up of her right hip trochanteric bursitis the injection helped for about 2 months it still bothers her on the right side when she tries to lay on it she has been doing physical therapy has not seen much improvement though with the therapy she rates her pain 7/10 Social History Description Last Updated Tobacco non-user 11/12/2023 Last Documented On 4 3:50PM ; [facility], [facility] Caffeine use 06/19/2023 Last Documented On 4 3:25PM ; [facility] Retired from work 04/23/2022 Last Documented On 4 3:25PM ; [facility] Not a current smoker. 12/30/2020 Last Documented On 4 3:25PM ; [facility] No recent change in diet 10/28/2017 Last Documented On 4 3:25PM ; [facility] No tobacco use 10/28/2017 Last Documented On 4 3:25PM ; [facility], [facility] Not exercising regularly 10/28/2017 Last Documented On 4 3:25PM ; [facility], [facility] Not using alcohol 10/28/2017 Last Documented On 4 3:25PM ; [facility] Not using drugs 10/28/2017 Last Documented On 4 3:25PM ; [facility], [facility] Sex - Female 06/04/2024 Last Documented On 4 10:44AM ; [facility], [facility] Smoking Status Unknown Procedures and Surgical History Includes: Procedures from this encounter Procedures Code Diagnosis Performing Provider Service L ocation Service Date use of tobacco assessment performed 1000F Last Documented On 4 3:25PM ; [facility] patient screened for future fall risk: documentation of any fall with injury in past year 1100F Last Documented On 4 3:25PM ; [facility], [facility] review of medications documented 1160F Last Documented On 4 3:25PM ; [facility], [facility] Surgical History Last Updated History of back surgery 10/28/2017 Last Documented On 4 3:25PM ; [facility], [facility] Medical History Includes: Medical History addressed during this encounter Description Last Updated History of Liver Disease 09/30/2023 Last Documented On 4 3:25PM ; [facility] Infection in stomach 02/14/2021 Last Documented On 4 3:25PM ; [facility], [facility] History of Arthroscopy RTCR 02/14/2021 Last Documented On 4 3:25PM ; [facility] A recent immunization for flu 06/12/2019 12/30/2020 Last Documented On 4 3:25PM ; [facility], [facility] A recent immunization for pneumococcal p neumonia 06/12/2019 12/30/2020 Last Documented On 4 3:25PM ; [facility] Appendectomy 12/30/2020 Last Documented On 4 3:25PM ; [facility] Arthritis 12/30/2020 Last Documented On 4 3:25PM ; [facility] Diverticulitis of colon 12/30/2020 Last Documented On 4 3:25PM ; [facility] Heartburn / Acid Reflux 12/30/2020 Last Documented On 4 3:25PM ; [facility] History of Gallbladder 12/30/2020 Last Documented On 4 3:25PM ; [facility] Hypertension 12/30/2020 Last Documented On 4 3:25PM ; [facility] Hysterectomy 12/30/2020 Last Documented On 4 3:25PM ; [facility] Previous Fractures RCR 12/30/2020 Last Documented On 4 3:25PM ; [facility] Arthritic joint problems 10/28/2017 Last Documented On 4 3:25PM ; [facility] Gallbladder disease 10/28/2017 Last Documented On 4 3:25PM ; [facility] History of depression 10/28/2017 Last Documented On 4 3:25PM ; [facility] Intermittent hypertension 10/28/2017 Last Documented On 4 3:25PM ; [facility] Liver disease 10/28/2017 Last Documented On 4 3:25PM ; [facility] Family History Includes: Family History addressed during this encounter Description Last Updated Family history of heart disease 09/30/19 24 Last Documented On 4 3:25PM ; [facility] Family history of thromboembolic disease mom 06/19/2023 Last Documented On 4 3:25PM ; [facility] Family history of hypertension 1 Last Documented On 4 3:25PM ; [facility] No significant family history 10/28/2017 Last Documented On 4 3:25PM ; [facility] Review of Systems Includes: Review of Systems [...] Gastrointestinal: No heartburn and no abdominal pain. Indigestion and Acid Reflux. No Peptic Ulcer, no GI Stomach Bleed, and no Ulcers. Endocrine: No hot flashes. Muscle weakness. No [...] Description No anxiety Last Documented On 4 3:25PM ; [facility] Physical Exam Includes: Physical Exam from this encounter Allergies Includes: Active Allergies Substance Type Reaction Onset Date Resolved Date Statu s Tetracycline HCl Allergy 06/10/2017 Ac tive Last Documented On 4 9:49AM ; [facility], [facility] Stadol Allergy 06/10/2017 Active Last Documented On 4 9:49AM ; [facility], [facility] Procardia Allergy 06/10/2017 Active Last Documented On 4 9:49AM ; [facility], [facility] Methadone HCl Allergy 06/10/2017 Activ e Last Documented On 4 9:49AM ; [facility], [facility] Lexapro Allergy 06/10/2017 Active Last Documented On 4 9:49AM ; [facility], [facility] HYDROcodone-Acetaminophen Allergy 06/10/2017 Active Last Documented On 4 9:49AM ; [facility], [facility] FLUoxetine HCl Allergy 06/10/2017 Acti ve Last Documented On 4 9:49AM ; [facility] Cipro Allergy 06/10/2017 Active Last Documented On 4 9:49AM ; [facility] Care Menagerie Superintendent Name (Identifier) Role/Relation Location/Telecom Last Documented By Thien Mesa MD ([id number]) Assigned practitioner (occupation) [address], [place], [place], [address] tel:[phone] Last Documented On 06/04/2024 10:44AM ; [facility] DARCIE NORIEGA MD ([id number]) Primary care physician (occupation) [facility], [id number] tel:[phone] Last Documented On 06/04/2024 10:44AM ; [facility] Abdelrahman Gomez DR ([id number]) [address] [place] [address] DR, [facility], [address] tel:[phone] Last Documented On 08/15/2021 3:12PM ; [facility] Encounters Encounter Provider Location (Healthcare Service Location) Date Check-In Time Check-Out Time Diagnosis Encounter Disposition Follow Up Rao Dominguez PA-C [facility] 2023 3:24PM 12/06/2023 3:24PM Overweight Payer Includes: Active Insurance Policies Plan Name (Payer ID) Coverage Type Member ID Group # Subscriber (ID) Relationship Effective Dates 1 - [employer] ([id number]) [id number] Dian Jeni White Self [id number] - Unknown Last Documented On 3:08PM ; [facility] Clinical Notes Includes: Clinical Notes from this encounter * Progress note Date Encounter Last Documented by 11/12/2023 Follow Up Last documented on 11/12/2023; 3:50 PM, Rao Dominguez PA-C; [facility] Active Problems & Conditions - Bone [...] - Medication list reviewed Patient is here for follow-up of her right hip trochanteric bursitis the injection helped for about 2 months it still bothers her on the right side when she tries to lay on it she has been doing physical therapy has not seen much improvement though with the therapy she rates her pain /10 Current Medication - Albuterol Sulfate HFA 108 (90 Base) MCG/ACT Inhalation Aerosol Solution 16 days, 0 refills - Citalopram Hydrobromide 40 MG Oral Tablet 90 days, 0 refills - Estradiol 0.1 MG/GM Vaginal Cream 90 days, 0 refills - levoFLOXacin 500 MG Oral Tablet 10 days, 0 refills - Losartan Potassium 50 MG Oral Tablet 90 days, 0 refills - Pantoprazole Sodium 40 MG Oral Tablet Delayed Release take as directed 90 days, 0 refills - Solifenacin Succinate 10 MG Oral Tablet take as directed 90 days, 0 refills Past Medical/Surgical History Reported: Medical: Liver disease, gallbladder disease, and joint problems arthritic. Intermittent hypertension. Immunization History: Recent immunization for flu 06/12/2019 and for pneumococcal pneumonia. Diagnoses: Heartburn / Acid Reflux. Liver Disease. Hypertension. Diverticulitis of colon. Arthritis. Depression Infection in stomach. Surgical: - Appendectomy - Hysterectomy - History of Gallbladder - Previous Fractures RCR - Back surgery - History of Arthroscopy RTCR Social History Not a current smoker. Current diet: No recent change in diet. Caffeine use: Caffeine use. Tobacco use: No tobacco use. Tobacco non-user. Alcohol: Not using alcohol. Drug Use: Not [...] Gastrointestinal: No heartburn and no abdominal pain. Indigestion and Acid Reflux. No Peptic Ulcer, no GI Stomach Bleed, and no Ulcers. Endocrine: No hot flashes. Muscle weakness. No [...] allergic reaction. Physical Findings - Vitals taken 11/12/2023 03:32 pm lc Height 64 in Weight 170 lbs Body Mass Index 29.2 kg/m2 Body Surface Area 1.8 m2 Pain Level 7 Standard Measurements: - Patient was overweight. She is tender to palpation over the right hip trochanteric bursa No pain with the right hip range motion Right lower extremity strength 4+ out of 5 Tests Right hip xrays reviewed today show some degenerative changes more over the lateral side of the hip she does not have significant hip arthritis September 30, 2023 Assessment - Overweight Right hip trochanteric bursitis Previous Tests Available previous imaging studies were reviewed Available previous history reviewed Counseling/Education - Lose weight Plan Fall Risk Assessment: This patient has been [...] Patient will follow up 6 weeks we can try another injection I recommend she just continue with PT on her own at this point in time we will see her back in 6 weeks to try another injection Notes This dictation was done with voice recognition software and may contain errors and omissions. Practice Management Use of tobacco assessment performed and patient screened for future fall risk documentation of any fall with injury in past year Review of medications documented. Care Team - Abdelrahman Gomez DR
[2025-07-31] MEDS: FAMOTIDINE 20MG/2ML VIAL 20 MG IV (16:15)
--- OUTSIDE RECORDS SUMMARY | 2025-07-31 16:15 | XMS_ITS | Continuity of Care Document ---
Author Organization [facility] Dariusz peck [facility] Address [address] [place] [address] [place] [address] Care Team Providers Care Lead Software Engineer Name Role Phone RHIANNON SHAH Infectious Disease DARCIE NORIEGA Primary Care Provider Assessment Encounter Date Assessment Date Assessment LastModified by Organization Details LastModified Time 05/06/2025 05/06/2025 - 80-year-old female with a [...] Lab urinalysi s panel, auto 2024 025 4 [facility], [address], [place], [address], 05/17/2025 10:55:09 culture, urine 2024 025 [email or web address] [id number] [facility], [address] [place], [address], 05/17/2025 10:55:09 Referral None recorded. Procedures None recorded. Surgeries None recorded. Imaging None recorded. Medication Orders cefuroxim e axetil 500 mg tablet 2024 025 [id number], [address] [place], [place], [id number], 05/23/2025 05:02:04 Macrobid 100 mg capsule 2024 025 [facility] #[id number], [address] [place], [place], [id number], 05/06/2025 16:13:19 Patient TargetsNo targets recorded. Patient Instructions Encounter Date Encounter Id Patient Instructions Last Modified By Organization Details Last Modified Time 05/06/2025 [id number] - Stop taking methenamine as it is [...] Abnormal Flag Note LastModifiedBy Organization Detail LastModifiedTime 05/06/2005/10/2025 URINE CULTU RE urine culture COLON Y COUNT : 10,00 0 - 100,0 00 CFU/M L Three or more isola hope; mixed uroge nital ana rosa . ISOLA TE #1 COLON Y COUNT : 10,00 0 - 100,0 00 CFU/M L Yeast speci es. Not Available [facility] [address] [place], [address], 05/10/2025 10:48:06 05/06/2005/06/2025 urina lysis panel , auto Unknown Analyte Clean Catch Not Available [facility] With [facility] [address], [place], [address], 05/06/2025 16:05:44 05/06/2005/06/2025 urina lysis panel , auto Unknown Analyte Yellow Not Available [facility] With [facility] [address], [place], [address], 05/06/2025 16:05:44 05/06/2005/06/2025 urina lysis panel , auto Unknown Analyte Clear Not Available [facility] [address], [place], [address], 05/06/2025 16:05:44 05/06/2005/06/2025 urina lysis panel , auto Unknown Analyte 1.020 Not Available [facility] With [address], [place], [address], 05/06/2025 16:05:44 05/06/20 25 05/06/2025 urina lysis panel , auto Unknown Analyte 5.0 Not Available [facility] [place] [address], [place], [address], 05/06/2025 16:05:44 05/06/20 25 05/06/2025 urina lysis panel , auto Unknown Analyte 5.0 - 8.0 Not Available [facility] With [facility] [address], [place], [address], 05/06/2025 16:05:44 05/06/2005/06/2025 urina lysis panel , auto Unknown Analyte 500 Augusto/uL Not Available [facility] With [facility] [address], [place], [address], 05/06/2025 16:05:44 05/06/20 25 05/06/2025 urina lysis panel , auto Unknown Analyte Negati ve Not Available [facility] With [address], [place], [address], 05/06/2025 16:05:44 05/06/20 25 05/06/2025 urina lysis panel , auto Unknown Analyte Negati ve Not Available [facility] With [address], [place], [address], 05/06/2025 16:05:44 05/06/20 25 05/06/2025 urina lysis panel , auto Unknown Analyte Negati ve Not Available [facility] With [address] Haycinth Li, [place], [address], 05/06/2025 16:05:44 05/06/20 25 05/06/2025 urina lysis panel , auto Unknown Analyte 30 mg/dL Not Available [facility] With [address], [place], [address], 05/06/2025 16:05:44 05/06/20 25 05/06/2025 urina lysis panel , auto Unknown Analyte Negati ve Not Available [facility] With [address], [place], [address], 05/06/2025 16:05:44 05/06/2005/06/2025 urina lysis panel , auto Unknown Analyte 50 mg/dL Not Available [facility] With [address], [place], [address], 05/06/2025 16:05:44 05/06/2005/06/2025 urina lysis panel , auto Unknown Analyte Normal Not Available [facility] With [address], [place], [address], 05/06/2025 16:05:44 0905/06/2025 urina lysis panel , auto Unknown Analyte Negati ve Not Available [facility] With [address], [place], [address], 05/06/2025 16:05:44 05/06/2005/06/2025 urina lysis panel , auto Unknown Analyte Negati ve Not Available [facility] With [address], [place], [address], 05/06/2025 16:05:44 05/06/2005/06/2025 urina lysis panel , auto Unknown Analyte Normal Not Available [facility] With [address], [place], [address], 05/06/2025 16:05:44 05/06/2005/06/2025 urina lysis panel , auto Unknown Analyte Normal Not Available [facility] With [address], [place], [address], 05/06/2025 16:05:44 05/06/2005/06/2025 urina lysis panel , auto Unknown Analyte Negati ve Not Available [facility] With [address], [place], [address], 05/06/2025 16:05:44 05/06/2005/06/2025 urina lysis panel , auto Unknown Analyte Negati ve Not Available [facility] With [address], [place], [address], 05/06/2025 16:05:44 05/06/2005/06/2025 urina lysis panel , auto Unknown Analyte 50 Gautam/uL Not Available [facility] With [address], [place], [address], 05/06/2025 16:05:44 09/25/20 25 05/06/2025 urina lysis panel , auto Unknown Analyte Negati ve Not Available [facility] With [address]acinth Li, [place], [address], 05/06/2025 16:05:44 Result Notes None recorded. Problems Name Problem SNOMED Code Status Onset Date Resolution Date Notes Provider Name and Address Organization Details Recorded Time Syncope and collapse 567403844 Active 2016 RHIANNON VALLEJO MD [address] [place] [address], [address], [facility] 7 09:48:21 EKG: right bundle branch block 722505026 Active 2018 RHIANNON VALLEJO MD [address] [place] [address], [address], [facility] 9 10:33:14 Recurrent infective cystitis 165436631 Active 2024 [facility] PA-C [address] [place], [address], [facility] 5 10:25:04 Urge incontinence of urine 09883280 Active 2024 [facility] FORB[facility] PA-C [address] [place] [address], [address], [facility] 5 10:25:06 Problem Notes None recorded. Procedures Surgical History Date Name Laterality Status Provider Name and Address Organization Details Recorded Time 11/18/19 25 Post Void Residual; Ultrasound completed Emily Aguilar [facility] 11/17/2024 11:56:14 07/31/20 21 EKG completed BENITA LONG APRN [address] [place], [address], [facility] 07/31/2021 10:45:45 02/09/20 10 Other completed [facility] 11/19/2016 11:17:45 Appendectomy completed [facility] 11/19/2016 11:16:17 Other completed [facility] 11/19/2016 11:17:31 Back Surgery completed [facility] 11/19/2016 11:17:12 Cholecystectomy completed [facility] 11/02/2016 11:27:41 Total Hysterectomy completed [facility] 11/19/2016 11:16:28 Colonoscopy completed [facility] 11/02/2016 11:28:26 Imaging Results None recorded. Procedure Notes None recorded. Medical Equipment None Reported. Allergies Allergen ID Allergen Name Allergen Category Reaction Reaction Severity Criticality Documentation Date Start Date Code Code System Note Provider Name and Address Organization Details Recorded Time 364640 prednison e medicatio n Not available Not available Not available 07/05/20162012 8640 RxNorm Comme nt: Creat ed By: Curtis glover; Creat ed Date: 2:58: 09 PM; Not Available [facility] 6 11:15:58 052464 Floxin medicatio n Not available Not available Not available 07/05/20162012 78562 8 RxNorm Comme nt: Creat ed By: Curtis diez Creat ed Date: 2:52: 50 PM; Not Available [facility] 6 12:57:16 394467 Cellcept medicatio n Not available Not available Not available 07/05/20162012 87468 3 RxNorm Comme nt: Creat ed By: Curtis glover; Creat ed Date: 2:58: 36 PM; Not Available [facility] 6 12:57:16 602956 sulfur medicatio n Not available Not available Not available 07/06/20162012 56243 RxNorm Comme nt: Creat ed By: Curtis glover; Creat ed Date: 2:52: 34 PM; Not Available [facility] 6 05:16:56 375948 Stadol medicatio n Not available Not available Not available 07/06/20162013 74160 RxNorm Comme nt: Purit is;Cr eated By: Kat ay Aishwarya e;Cre ated Date: 2013 11:24 :47 AM; Not Available [facility] 6 05:16:56 327361 Substance with quinolone structure and antibacte rial mechanism of action (substanc e) medicatio n rash Not available Not available 11/19/2016 02490 1999 [facility]ED [facility] 7 11:19:03 141846 methotrex ate medicatio n rash Not available Not available 11/19/2016 6851 RxNorm [facility] 7 11:19:43 522368 hydrocodo ne Not available Not available Not available Not available 11/19/2016 5489 [facility] 7 11:19:57 580622 Procardia medicatio n Not available Not available Not available 11/19/2016 86658 3 [facility] 7 11:20:07 152264 tetracycl ine medicatio n Not available Not available Not available 11/19/2016 65158 [facility] 7 11:20:26 684215 Savella medicatio n Not available Not available Not available 11/19/2016 58927 6 [facility] 7 11:20:38 345886 Lexapro medicatio n Not available Not available Not available 11/19/2016 09778 1 RxNorm [facility] 7 11:20:50 789860 fluoxetin e medicatio n Not available Not available Not available 11/19/2016 4493 RxNorm [facility] 7 11:21:21 394069 sulfameth oxazole medicatio n Not available Not available Not available 11/19/2016 21665 [facility] 7 11:21:50 785576 levofloxa cm medicatio n Not available Not available Not available 07/26/2023 64830 RxNorm Carter Knutson [facility] 3 17:01:30 420513 ciproflox acin medicatio n Not available Not available Not available 01/28/2024 2551 RxNorm Marge Gautam [facility] 4 11:49:03 672027 tetracycl ine hydrochlo ride medicatio n Not available Not available Not available 07/29/20252016 90253 6 RxNorm Not Available [facility] - [employer] - prod 5 08:10:24 289003 Dolophine medicatio n Not available Not available Not available 07/29/20252016 29935 0 RxNorm Not Available [facility] - prod 5 08:10:24 011784 hydrocodo ne polistire x medicatio n Not available Not available Not available 07/29/20252016 69796 7 RxNorm Not Available [employer] - prod 5 08:10:24 503061 fluoxetin e hydrochlo ride medicatio n Not available Not available Not available 07/29/20252016 74920 4 RxNorm Not Available [employer] - prod 5 08:10:24 361731 Cipro medicatio n Not available Not available Not available 07/29/20252016 94379 3 RxNorm Not Available [employer] - prod 5 08:10:24 022064 methotrex ate sodium medicatio n Not available Not available Not available 07/29/20252021 39559 4 RxNorm Not Available [employer] - prod 5 08:10:28 247563 sulfur medicatio n Not available Not available low 07/29/20252012 38776 RxNorm unrec ogniz ed react ion (text : Maynor Lujan tililiya, code: [id number]) (from exter nal [facility] e) Not Available [employer] - prod 5 08:10:41 022340 floxacill in Not available itching Not available low 07/29/20252021 4448 RxNorm Not Available [employer] - prod 5 08:10:41 772844 milnacipr an hydrochlo ride medicatio n other Not available low 07/29/20252022 90526 RxNorm Not Available [facility] - External Data Service - [facility] 5 08:10:41 354363 nifedipin e medicatio n other Not available low 07/29/20252016 7417 RxNorm Not Available [employer] 5 08:10:41 414364 prednison e medicatio n nausea Not available low 07/29/20252012 8640 RxNorm Not Available [employer] - [facility] 5 08:10:41 863943 sulfameth oxazole / trimethop rim medicatio n Not available Not available Not available 07/29/20252018 69505 RxNorm Not Available [employer] - [facility] 5 08:10:41 Medications Name Sig Start Date [...] Updated DateTime 05/06/2025 162.56 cm 28.7 kg/m2 34190.93 g Carter Knutson [facility] 05/06/2025 15:42:58 Social History Question Answer Notes LastModified by [email or web address] Details LastModified Time Tobacco Smoking Status Former Smoker Former smoker 3-4 cigs per day for 6 months, quit in 1967 Lizabeth lockett, [facility] 11/02/2016 11:25:30 When Did You [...] Functional Status Question Answer Note LastModified by [email or web address] Details LastModified Time What is your level [...] history of malignant neoplasm 79 Liver cancer [email or web address] Not available 12/17/2024 16:11:11 Mother Congestive heart failure 83 [email or web address] Not available 03/2025 16:11:11 Mother Heart disease 65 83 Not available 2024 15:22:47 Mother Hypertensive disorder [email or web address] Not available 03/2025 16:11:11 Unspecified Relation Depressive disorder [email or web address] Not available 03/2025 16:11:11 Unspecified Relation Heart disease [email or web address] Not available 03/2025 16:11:11 Unspecified Relation Hypertensive disorder pennie Not available 2024 15:22:47 Unspecified Relation Diabetes mellitus [email or web address] Not available 03/2025 16:11:11 Unspecified Relation Kidney disease [email or web address] Not available 03/2025 16:11:11 Notes:Spouse at age [...] Multiple Sclerosis N Proteinuria N Heart Attack (MT) N Mental Illness N Diabetes N Ovarian [...] Immunizations Vaccine Type Date Status Note Provider Pancho cabrera and Address Organization Details Recorded Time Influenza, high-dose, quadrivalent, PF 3 completed Marge Gautam [facility] 01/28/2024 11:49:04 Influenza, adjuvanted, quadrivalent, PF 0 completed Murelene Eamon null, [facility] 07/29/2025 13:57:57 Influenza, adjuvanted, quadrivalent, PF 2 completed Murelene Eamon [facility] 07/29/2025 13:57:57 COVID-19, mRNA, LNP-S, PF, 30 mcg/0.3 mL dose, sandee-sucrose 2 completed Murelene Eamon [facility] 07/29/2025 13:57:57 COVID-19, mRNA, LNP-S, bivalent, PF, 30 mcg/0.3 mL dose 2 completed Murelene Eamon [facility] 07/29/2025 13:57:57 RSV, recombinant, protein subunit RSVpreF, adjuvant reconstituted, 0.5 mL, PF 3 completed Marge Gautam [facility] 01/28/2024 11:49:05 COVID-19, mRNA, LNP-S, PF, 50 mcg/0.5 mL 3 completed Marge Gautam [facility] 01/28/2024 11:49:05 pneumococcal polysaccharide PPV23 4 completed Marge Carneyong [facility] 01/28/2024 11:49:05 Pneumococcal conjugate PCV 13 5 completed Marge Gautam [facility] 01/28/2024 11:49:05 Influenza, high-dose, trivalent, PF 1 completed Marge Carneyong [facility] 01/28/2024 11:49:05 Influenza, split virus, quadrivalent, preservative 7 completed Wilda Nargis [facility] 07/08/2017 10:57:22 COVID-19, mRNA, LNP-S, PF, 30 mcg/0.3 mL dose 1 completed Murelene Eamon [facility] 07/29/2025 13:57:57 COVID-19, mRNA, LNP-S, PF, 30 mcg/0.3 mL dose 1 completed Murelene Eamon [facility] 07/29/2025 13:57:57 COVID-19, mRNA, LNP-S, PF, 30 mcg/0.3 mL dose 1 completed Murelene Eamon [facility] 07/29/2025 13:57:57 Past Encounters Encounter ID Performer Location Encounter Start Date Encounter Closed Date Diagnosis/Indication Diagnosis SNOMED-CT Code Diagnosis ICD10 Code Diagnosis IMO Codes Diagnosis Note [id number] RONIT PALACIOS MD [facility] [address] [facility],[place] [address] 05/06/2025 15:42:33 05/06/2025 16:41:51 Acute urinary tract infection 089447534 N39.0 894537 Recurrent urinary tract infection 198706651 N39.0 252753 - Urine culture to be performed to identify causative organism and guide treatment. Overactive urinary bladder 794186067 N32.81 106072 - Continue fesoterodi ne.- Continue fesoterodi ne for management of symptoms. Health Concerns Section Related Observation LastModified by Organization Detai ls LastModified Time None Recorded Concern Status LastModified by Organization Details LastModified Time None Recorded Payers Encounter Date Sequence Insurance Name Policy Number Policy Webster Covered Member ID Webster Member ID Guarantor Name 05/06/2025 1 [facility] (MEDICARE REPLACEMENT/ ADVANTAGE - HMO) Dian Gamboa [id number] Dian Gamboa Notes Date Note Type Note Provider Name and Address Organization Details Recorded Time 05/06/2025 text/html The patient is an 80-year-old [...] note prior to signature. RONIT PALACIOS MD [address] [place] [address], [phone], [facility] 05/17/2025 13:12:10 OBGyn Episode No OBEpisode recorded.
--- OUTSIDE RECORDS SUMMARY | 2025-07-31 16:15 | XMS_ITS | Clinical Summary ---
Author Organization [facility] Address [address] [place] [address] Care Team Providers Care Auxiliary Equipment Operator Name Role Phone Abdelrahman Gomez MD Primary Care Provider Allergies Active Allergy Reactions Criticality Noted Date Comments Elemental Sulfur Urinary Retention Low 08/18/2012 Floxacillin (Flucloxacillin) Itching Low 022 Fluoxetine Unknown - Low Severity Low 06/10/2017 Hydrocodone Shortness Of Breath High 11/28/2022 Methotrexate Rash Low 11/28/2022 Milnacipran Unknown - Low Severity Low 11/28/2022 Nifedipine Unknown - Low Severity Low 06/10/2017 Prednisone Nausea Only Low 08/18/2012 Quinolones Rash Low 11/28/2022 Tetracycline Itching Low 06/10/2017 Medications citalopram (CeleXA) 40 MG tablet citalopram 40 mg tablet Take 1 tablet every day by oral route. Active estradiol (ESTRACE) 0.1 MG/GM vaginal cream estradiol 0.01% (0.1 mg/gram) vaginal cream APPLY A FINGERTIP AMOUNT TO URETHRAL MEATUS EVERY OTHER NIGHT Active fluconazole (DIFLUCAN) 200 MG tablet Take 1 tablet by mouth Daily. 3 Active Linzess 145 MCG capsule capsule Take 1 capsule by mouth Daily. 3 Active methenamine (HIPREX) 1 g tablet Take 1 tablet by mouth Daily. 3 Active pantoprazole (PROTONIX) 40 MG EC tablet 3 Active solifenacin (VESICARE) 10 MG tablet Take 1 tablet by mouth Daily. 3 Active topiramate (TOPAMAX) 200 MG tablet 3 Active ursodiol (ACTIGALL) 500 MG tablet ursodiol 500 mg tablet Take by oral route. Active Active Problems Problem Noted Date Diagnosed Date Pre-syncope 11/28/2022 Assessment & Plan (11/28/2022 12:05 PM EDT): Reviewed today's EKG with Dr. Rob. With a first-degree AV block, right bundle branch block, and left anterior fascicular block. We will order an echo and Holter. Patient denies any chest pain, shortness of air, edema, or palpitations so we will not order stress test at this time. But we can reconsider after Holter and echo. Abnormal EKG 11/28/2022 Assessment & Plan (11/28/2022 12:04 PM EDT): Reviewed today's EKG with Dr. Rob. With a first-degree AV block, right bundle branch block, and left anterior fascicular block. We will order an echo and Holter. We will consider stress test at next visit. Heart murmur, systolic 07/06/2022 Primary biliary cirrhosis 07/06/2022 Benign essential hypertension 07/04/2022 Pseudomonas infection 07/04/2022 Urinary tract infection, site not specified 06/13 Arthralgia of knee 02/03/2021 Right bundle branch block (R BBB) determined by electrocardiography 07/20/2019 Syncope and collapse 12/24/2016 Seizures Nonsmoker Immunizations Immunization Administration Dates Next Due COVID-19 (PFIZER) Purple Cap Monovalent 04/06/20 21,10/14/2020,09/20/2020 Covid-19 (Pfizer) Carmona Cap Monovalent 11/16/2021 Fluad Quad 65+ 07/09/2022,05/24/2020 Fluzone High-Dose 65+YRS 05/12/2021 Fluzone Quad >6mos (Multi-dose) 05/12/2017 Family History Relation Name Status Comments Father 77 Mother 83 Sister 1 Social History Tobacco Use Types Packs/Day Years Used Date Smoking Tobacco: Never Passive Smoke Exposure: Never Smokeless Tobacco: Never Alcohol Use Standard Drinks/Week Comments Never 0 (1 standard drink = 0.6 oz pur e alcohol) Abuse Screen Answer Date Recorded Unsafe at Home or Work/School Not on file Feels Threatened by Someone? Not on file 04/2023 Does Anyone Keep You from Co ntacting Others or Doint Things Outside the Home? Not on file 05/20/2023 Physical Sign of Abuse Present Not on file 1 Housing Stability Answer Date Recorded Current Living Arrangements Not on file 04/2023 Potentially Unsafe Housing Conditions Not on jaleesa e 05/20/2023 Family and Community Support Answer Wes e Recorded Help with Day-to-Day Activities Not on file 05/20/2023 Lonely or Isolated Not on file 05/20/2023 Employment Answer Date Recorded Do you want help finding or keeping work or a ricardo b? Not on file 05/20/2023 Disabilities Answer Date Recorded Concentrating, Remembering, or Making Decisions Difficulty Not on file 05/20/2023 Doing Errands Independently Difficulty Not on fi le 05/20/2023 Education Answer Date Recorded Help with school or training? Not on file Preferred Language Not on file 05/20/2023 Comments Unknown Sex and Gender Information Value Date Recorded Sex Assigned at Not on file Legal Sex Female 10:24 AM EDT Gender Identity Not on file Sexual Orientation Not on file Last Filed Vital Signs Vital Sign Reading Time Taken Comments Blood Pressure 126/78 02/08/2023 3:14 PM EDT Pulse 88 02/08/2023 3:14 PM EDT Temperature 36.2 C (97.2 F) 07/11/2022 1:00 PM EST Respiratory Rate 16 07/11/2022 1:52 PM EST Oxygen Saturation 95% 02/08/2023 3:14 PM EDT Inhaled Oxygen Concentration - - Weight 73.5 kg (162 lb) 02/08/2023 3:14 PM EDT Height 162.6 cm (5' 4 ) 02/08/2023 3:14 PM EDT Body Mass Index 27.81 02/08/2023 3:14 PM EDT Plan of Treatment Health Maintenance Due Date Last Done Comments DXA SCAN 1945 TDAP/TD VACCINES (1 - Tdap) 1964 Pneumococcal Vaccine 50+ (1 of 1 - PCV) 1995 ZOSTER VACCINE (1 of 2) 1995 Hepatitis B (1 of 3 - Risk 3 -dose series) 2005 RSV Vaccine - Adults (1 - 1- dose 75+ series) 2020 ANNUAL WELLNESS VISIT 11/05/2022 INFLUENZA VACCINE 03/12/2025 07/09/2022, , 05/24/2020, Additional history exists COVID-19 Vaccine (6 - 2024-2 6 season) 2025 06/29/2022, 11/16/2021, 04/06/2021, Additional history exists Insurance [employer] Advance Directives Documents on File Type Date Recorded Patient Operations Plant Attendant Expl anation LIVING WILL - SCAN 02/08/2023 2:58 PM Care Teams Auxiliary Equipment Operator Relationship Specialty Start Date End Date Abdelrahman Gomez MD [address] [place] [id number] PCP - General Emergency Medicine 11/28/22
[2025-07-31] MEDS: ONDANSETRON 4MG/2ML VIAL 4 MG IV (16:16)
[2025-07-31] MEDS: 0.9 % SODIUM CHLORIDE 1000ML 1,000 ML 999 ML IV (16:16)
[2025-07-31 16:22] LABS: Coronavirus 19, PCR Not Detected (NotDetected); Influenza A, PCR Not Detected (NotDetected); Influenza B, PCR Not Detected (NotDetected)
[2025-07-31 16:23] LABS: Hematocrit 43.4 % (37.0-47.0); Hemoglobin 14.4 g/dL (12.2-16.2); Immature Granulocytes % 0.3 %; Mean Corpuscular HGB Conc 33.2 g/dL (31.8-35.4); Mean Corpuscular Hemoglobin 28.9 pg (27.0-31.2); Mean Corpuscular Volume 87.0 fl (81-99); Nucleated Red Blood Cells % 0 %; Platelet Count 227 K/mm3 (142-424); Red Blood Count 4.99 M/mm3 (4.20-5.40); Red Cell Distribution Width-SD 47.3 fL; White Blood Count 9.0 K/mm3 (4.8-10.8)
[2025-07-31 16:27] LABS: Albumin Level 4.3 g/dl (3.5-5.0); Chloride 105 mmol/L (98-107)
[2025-07-31 16:28] LABS: Potassium 3.5 mmoL/L (3.5-5.1); Sodium 137 mmol/L (136-145)
[2025-07-31 16:30] LABS: Alanine Aminotransferase 21 U/L (12-78); Albumin/Globulin Ratio 1.3 (1.1-1.8); Alkaline Phosphatase 146 U/L (38-126); Anion Gap 11.5 mEq/L (5-15); Aspartate Amino Transferase 35 U/L (14-36); Bilirubin,Total 0.6 mg/dl (0.2-1.3); Blood Urea Nitrogen 22 mg/dl (7-17); Carbon Dioxide 24 mmol/L (22.0-30.0); Creatinine Clearance Estimated 56 mL/min (50-200); Creatinine,Serum 1.00 mg/dl (0.52-1.04); Estimated Glomerular Filt Rate 53 ml/min (>60); GFR (African American) 65 ML/MIN (>60); Globulin 3.4 g/dL (1.3-3.2); Total Protein,Serum 7.7 g/dl (6.3-8.2)
[2025-07-31 16:31] LABS: Calcium 11.0 mg/dl (8.4-10.2); Glucose 206 mg/dl (74-100); Lipase 93 U/L (23-300); Magnesium 2.2 mg/dl (1.6-2.3)
[2025-07-31 16:44] LABS: Troponin I < 0.01 ng/ml (0.00-0.034)
[2025-07-31] MEDS: SODIUM CHLORIDE 0.9% 10ML SYR (RAD ONLY) 10 ML IV (16:44)
[2025-07-31] MEDS: IOPAMIDOL-370 (76%);100ML BOTTLE 75 ML IV (16:44)
[2025-07-31 18:07] LABS: Microscopic, Urine URINE MICROSCOPIC (MICROSCOPIC)
[2025-07-31 18:08] LABS: Bilirubin,Urine Negative (Negative); Color,Urine YELLOW (Yellow); Glucose,Urine (UA) TRACE (Negative); Ketones,Urine Negative (Negative); Leukocyte Esterase,Urine Negative (Negative); PH,Urine 6.0 (5.0-8.5); Protein,Urine Negative (Negative); Specific Gravity, Urine 1.010 (1.005-1.030); Urobilinogen,Urine 0.2 EU/dl (0.2)
[2025-07-31 20:20] LABS: Reflex Lactic Add Lactic Reflex
== END 2025-07-31 19:06 | disposition home or self-care (01) ==
PROVIDERS: Nurse Practitioner; Emergency Provider Student in an Organized Health Care Education/Training Program; PCP Family Medicine
DX: K59.00 Constipation, unspecified (principal); R11.0 Nausea; R53.1 Weakness
CPT/HCPCS: 74177; 80053; 81001; 83605; 83690; 83735; 84484; 85025; 87636; 93005; 96361; 96374; 96375; 99285; J1308; J2405; J7030; Q9967